=== PATIENT | female | born 1965 | race Caucasian/White ===

== ENCOUNTER 2023-02-05 13:34 | Outpatient (OUT) | payer OTHER, SELFPAY ==
--- NOTE | 2023-02-05 14:02 | CT_ITS ---
The [address] [address] Patient Name: HUMBERTO SON MRN: [id number] date: 1965 Sex: F Assigned Patient Location: CT Current Patient Location: CT Accession/Order Number: [id number] Exam Date: 02/05/2023 13:55 Report Date: 02/05/2023 14:22 At the request of: DANIEL DEVINE Procedure: CT abdomen pelvis wo con EXAM: CT abdomen pelvis wo con HISTORY: Gross Hematuria R31.0, Left Paraspinal Back Pain M54.89 COMPARISON: None. TECHNIQUE: Axial CT images were obtained of the abdomen and pelvis without intravenous contrast. Multiplanar reconstructions were performed. ABDOMEN/PELVIS FINDINGS: Lower Chest: Unremarkable. Liver: Normal nonenhanced appearance and contour. Biliary/Gallbladder: Unremarkable. Pancreas: Unremarkable. Spleen: Unremarkable. Adrenal Glands: Unremarkable. Kidneys: Multiple small bilateral renal calculi are present which are nonobstructive. Cystic lesions are noted in the kidneys bilaterally which are poorly evaluated on the current exam, including parapelvic cysts in the left kidney. Gastrointestinal/Peritoneum: No acute abnormality. Mild colonic diverticulosis present. The appendix is unremarkable. No free air or free fluid. Vascular: Unremarkable. Lymph Nodes: No enlarged lymph nodes by CT size criteria. Pelvic Organs: Unremarkable. Bladder: Unremarkable. Bones: No acute osseous abnormality. Soft tissues: Unremarkable. CT/CT abdomen pelvis wo con IMPRESSION: 1. No acute abnormality of the abdomen and pelvis. 2. Nephrolithiasis. 3. Bilateral renal cysts, poorly evaluated on the current exam. 4. Mild colonic diverticulosis. Electronically authenticated by: MARILEENA SCOTT Date: 02/05/2023 14:22
== END 2023-02-05 13:35 | disposition home or self-care (01) ==
PROVIDERS: PCP Internal Medicine; Visit Provider Internal Medicine
DX: R31.0 Gross hematuria (principal); M54.89 Other dorsalgia; N20.0 Calculus of kidney; N28.1 Cyst of kidney, acquired; K57.90 Diverticulosis of intestine, part unspecified, without perforation or abscess without bleeding
CPT/HCPCS: 74176

== ENCOUNTER 2023-02-10 07:31 | Outpatient (OUT) | payer OTHER, SELFPAY ==
[2023-02-10 08:11] LABS: Alanine Aminotransferase 17 U/L (14-59); Albumin Globulin Ratio 1.2; Albumin Level 3.7 g/dL (3.4-5.0); Alkaline Phosphatase 74 U/L (46-116); Anion Gap 10.5; Aspartate Amino Transferase 16 U/L (15-37); BUN Creatinine Ratio 21.2; Bilirubin Total 0.4 mg/dL (0.2-1.0); Calcium 8.7 mg/dL (8.5-10.1); Carbon Dioxide 29.2 mmol/L (21.0-32.0); Chloride 106 mmol/L (98-107); Chol HDL Ratio 3.1; Cholesterol 215 mg/dL (<=200); Estimated GFR (African America >60 (>=60); Estimated GFR (Non-African Ame >60 (>=60); Globulin 3.2 g/dL; Glucose 96 mg/dL (74-106); HDL Cholesterol 69 mg/dL (40-60); Potassium 3.7 mmol/L (3.5-5.1); Sodium 142 mmol/L (136-145); Total Protein 6.9 g/dL (6.4-8.2); Triglycerides 58 mg/dL (<=150); VLDL CHOLESTEROL 11.6 mg/dL
[2023-02-10 08:19] LABS: Bilirubin Urine NEGATIVE (NEGATIVE); Blood Urine MODERATE (NEGATIVE); Clarity Urine CLEAR (CLEAR); Color Urine LT. YELLOW (YELLOW); Glucose Urine UA NEGATIVE (NEGATIVE); Ketones Urine NEGATIVE (NEGATIVE); Leukocyte Esterase Urine TRACE (NEGATIVE); Nitrite Urine NEGATIVE (NEGATIVE); Protein Urine NEGATIVE (NEG/TRACE); Specific Gravity Urine 1.015 (1.005-1.025); Urobilinogen Urine 0.2 EU/dL (0.2-1.0); pH Urine 6.5 (5.0-9.0)
[2023-02-10 08:21] LABS: Bacteria Urine NONE SEEN #/HPF (NONE SEEN); Mucus Urine NONE SEEN (NONE SEEN); RBC Urine 0-2 #/HPF (0-2); Squamous Epithelial Cell Urine FEW #/LPF (NONE/RARE); WBC Urine 0-2 #/HPF (NONE SEEN)
[2023-02-10 08:30] LABS: Basophils Percent Auto 0.7 % (0.2-2.0); Eosinophils Absolute Auto 0.1 10^3/uL (0.0-0.7); Eosinophils Percent Auto 1.6 % (0.9-7.0); Hematocrit 39.8 % (36.0-48.0); Hemoglobin 13.1 g/dL (12.0-16.0); Immature Granulocytes Abs Auto 0.01 10^3/uL (0.00-0.03); Immature Granulocytes Pct Auto 0.2 % (0.0-0.5); Lymphocytes Absolute Auto 1.9 10^3/uL (1.2-3.8); Lymphocytes Percent Auto 43.5 % (20.5-60.0); Mean Corpuscular HGB Conc 32.9 g/dL (29.9-35.2); Mean Corpuscular Hemoglobin 29.8 pg (26.7-34.0); Mean Corpuscular Volume 90.7 fL (81.0-99.0); Mean Platelet Volume 10.9 fL (9.5-13.5); Monocytes Absolute Auto 0.3 10^3/uL (0.3-0.8); Monocytes Percent Auto 6.2 % (1.7-12.0); Neutrophils Absolute Auto 2.1 10^3/uL (1.4-6.5); Neutrophils Percent Auto 47.8 % (43.0-75.0); Platelet Count 215 10^3/uL (150-450); Red Blood Count 4.39 10^6/uL (4.20-5.40); White Blood Count 4.4 10^3/uL (4.0-11.0)
== END 2023-02-10 07:32 | disposition home or self-care (01) ==
PROVIDERS: PCP Internal Medicine; Visit Provider Orthopaedic Surgery
DX: Z00.00 Encounter for general adult medical examination without abnormal findings (principal)
CPT/HCPCS: 36415; 80053; 80061; 81001; 85025; 87086

== ENCOUNTER 2023-03-27 08:20 | Outpatient (OUT) | payer OTHER, SELFPAY ==
--- NOTE | 2023-03-27 | XR_ITS ---
The [address] [address] Patient Name: HUMBERTO SON MRN: [id number] date: 1965 Sex: F Assigned Patient Location: [facility] Current Patient Location: Accession/Order Number: [id number] Exam Date: 03/27/2023 08:30 Report Date: 03/28/2023 23:12 At the request of: OUMAR CORDOBA Procedure: XR abdomen 1V EXAMINATION: XR abdomen 1V HISTORY: GROSS HEMATURIA COMPARISON: CT abdomen pelvis 02/05/2023 FINDINGS: KIDNEY/URETER - RIGHT: No visible renal or ureteral calcifications. KIDNEY/URETER - LEFT: 7 mm calcification projecting over mid body of kidney. PELVIS: No appreciable ureteral stone. Numerous pelvic calcifications which appear to be stable and favor phleboliths. BOWEL: No abnormal dilation or deviation. BONES: No acute abnormality. OTHER: Negative. No abnormal gaseous collections. XR/XR abdomen 1V IMPRESSION: 1. Left nephrolithiasis on today's study. Prior CT study showed multiple calcifications within both kidneys. Evaluation is slightly limited today due to dense bowel content. 2. No appreciable ureteral stones. Electronically authenticated by: BRENDA SIDHU Date: 03/28/2023 23:12
== END 2023-03-27 08:21 | disposition home or self-care (01) ==
PROVIDERS: PCP Internal Medicine; Visit Provider Urology
DX: N02.9 Recurrent and persistent hematuria with unspecified morphologic changes (principal); N20.0 Calculus of kidney
CPT/HCPCS: 74018

== ENCOUNTER 2023-04-01 09:53 | Outpatient (OUT) | payer OTHER, SELFPAY ==
--- NOTE | 2023-04-01 10:12 | ECG_ITS ---
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
[2023-04-01 10:58] LABS: Basophils Percent Auto 0.6 % (0.2-2.0); Eosinophils Absolute Auto 0.1 10^3/uL (0.0-0.7); Eosinophils Percent Auto 1.5 % (0.9-7.0); Hematocrit 42.1 % (36.0-48.0); Hemoglobin 13.1 g/dL (12.0-16.0); Immature Granulocytes Abs Auto 0.01 10^3/uL (0.00-0.03); Immature Granulocytes Pct Auto 0.2 % (0.0-0.5); Lymphocytes Percent Auto 37.8 % (20.5-60.0); Mean Corpuscular HGB Conc 31.1 g/dL (29.9-35.2); Mean Corpuscular Hemoglobin 28.5 pg (26.7-34.0); Mean Corpuscular Volume 91.7 fL (81.0-99.0); Mean Platelet Volume 10.3 fL (9.5-13.5); Monocytes Absolute Auto 0.4 10^3/uL (0.3-0.8); Monocytes Percent Auto 6.6 % (1.7-12.0); Neutrophils Absolute Auto 2.8 10^3/uL (1.4-6.5); Neutrophils Percent Auto 53.3 % (43.0-75.0); Platelet Count 238 10^3/uL (150-450); Red Blood Count 4.59 10^6/uL (4.20-5.40); Red Cell Distribution Width 13.2 % (11.0-15.0); White Blood Count 5.3 10^3/uL (4.0-11.0)
[2023-04-01 11:14] LABS: INR 0.97; Partial Thromboplastin Time 30.2 sec (22.3-36.2); Prothrombin Time 10.3 sec (9.0-11.6)
[2023-04-01 11:15] LABS: Anion Gap 9.2; Calcium 8.8 mg/dL (8.5-10.1); Carbon Dioxide 29.8 mmol/L (21.0-32.0); Chloride 102 mmol/L (98-107); Estimated GFR (African America >60 (>=60); Estimated GFR (Non-African Ame >60 (>=60); Glucose 90 mg/dL (74-106); Sodium 137 mmol/L (136-145)
== END 2023-04-01 09:54 | disposition home or self-care (01) ==
LOC: PST 09:54
PROVIDERS: PCP Internal Medicine; Visit Provider Urology
DX: Z01.810 Encounter for preprocedural cardiovascular examination (principal); Z01.812 Encounter for preprocedural laboratory examination; R31.0 Gross hematuria; N20.0 Calculus of kidney
CPT/HCPCS: 80048; 85025; 85610; 85730; 93005

== ENCOUNTER 2023-04-07 12:25 | Day surgery (SDC) | payer OTHER, SELFPAY ==
[2023-04-01 10:44] VITALS: BP 128/77; PULSE 70; RESP 18; TEMP 36.3; O2SAT 97; BMI 32.8
[2023-04-07] VITALS (10 sets, daily range): BP systolic 126–173; BP diastolic 79–92; PULSE 50–70; RESP 10–20; TEMP 36.3; O2SAT 95–99; BMI 32.8
--- OUTSIDE RECORDS SUMMARY | 2023-04-07 12:39 | XMS_ITS | CCD ---
Author Name Unknown Address [address] [place] [address] Organization [facility] Care Team Providers Care Director Search Marketing Strategies Name Role Phone ANNETTE DEAN (ANU) Unavailable Unava ilable JUANITO SUTTON Unavailable Unavailable DO Leighton Adams Primary Care Provider TOD Schneider Attending Provider Leighton Adams Unavailable Tara Schneider Unavailable Gurpreet Smith Unavailable DO Leighton Adams Primary Care Provider TOD Schneider Attending Provider MD Gurpreet Smith Attending Provider GURPREET SMITH Attending Unavailable LUIS, GURPREET Admitting Unavailable DR LEIGHTON ADAMS Primary Care Unavailable DO Leighton Adams Primary Care Provider MD Gurpreet Smith Attending Provider [phone] Leighton Adams Primary Care Unavailable Tara Schneider Attending Unavailable Tara Schneider Admitting Unavailable Leighton Adams Primary Care Unavailable Tara Schneider Attending Unavailable Tara Schneider Admitting Unavailable Luis, Gurpreet Admitting Unavailable Leighton Adams Primary Care Unavailable Luis, Gurpreet Attending Unavailable Oleanat, Gurpreet Attending Unavailable Oleanat, Gurpreet Admitting Unavailable Leighton Adams Primary Care Unavailable Frida Montague Attending Unavailable LEIGHTON ADAMS Referring Unavailable Frida Montague Attending Unavailable Frida Montague Admitting Unavailable Frida Montague Attending Unavailable Allergies Allergy Classification Reported Allergen(s) Allergy Type Date of Onset Reaction(s) Facility (1 source) cefuroxime; Translations: [CEFUROXIME AXETIL] [facility] indomethacin; Translations: [INDOMETHACIN] Drug Allergy 08-06-19 18 [facility], Hives, Unknown [facility] Repository (19 sources) iodine; Translations: [IODINE] Drug Allergy 04-07-20 14 [facility] Repository (5 sources) Sulfonamides (Antibiotic); Translations: [SULFA (SULFONAMIDE ANTIBIOTICS)] Propensity to adverse reactions to drug (disorder) 08-06-19 18 [facility], [facility] Repository (1 source) SHELLFISH CONTAINING PRODUCTS; Translations: [SHELLFISH CONTAINING PRODUCTS] Propensity to adverse reactions to drug (disorder) 08-25-19 18 [facility] Repository (20 sources) Cefuroxime; Translations: [cefuroxime] Drug Allergy 08-06-19 18 [facility] (4 sources) Shellfish; Translations: [shellfish derived] Allergy to substance 08-06-19 18 [facility] (18 sources) Shellfish; Translations: [Shellfish] Drug allergy 04-07-20 14 [facility] Repository (17 sources) sulfaSALAzine Drug Allergy [facility] Other (1 source) Cefuroxime Drug Allergy 04-07-20 14 [facility] Repository (1 source) Procyclidine Drug Allergy 04-07-20 14 [facility] Repository (1 source) Sulfonamides (Antibiotic) Drug allergy (disorder) 04-07-20 14 [facility] Repository (8 sources) Contrast media Propensity to adverse reactions 01-06-20 13 Unknown [facility] Other (8 sources) Escitalopram Drug Allergy Unknown [facility] Other (8 sources) sulfADIAZINE Drug Allergy Unknown [facility] Other (8 sources) Sulfamethoxazole / Trimethoprim Drug Allergy Unknown [facility] Other (8 sources) Allergies Reconciled Propensity to adverse reactions Unknown [facility] Other (8 sources) Substance with sulfonamide structure and antibacterial mechanism of action (substance) Drug allergy 12-29-19 14 Unknown [facility] Other (8 sources) Iodinated contrast media (substance) Drug allergy Comment:cecelia tyson [facility] Other (8 sources) Biaxin *MACROLIDES* Propensity to adverse reactions Unknown [facility] Other (8 sources) patient allergy list reviewed by nurse or physicia Propensity to adverse reactions 07-19-19 Comment:Done [facility] Other (8 sources) Ceftin *CEPHALOSPORINS* Propensity to adverse reactions Unknown [facility] Other (1 source) Ciprofloxacin Drug Allergy Unknown [facility] Other (1 source) No Known Medication Allergies; Translations: [No Known Medication Allergies] Propensity to adverse reactions (disorder) [facility] Repository Medications Current Medications Medication Drug Class(es) Dates Sig (Normalized) Sig (Original) 120 actuat budesonide 0.16 mg/actuat / formoterol fumarate 0.0045 mg/actuat metered dose inhaler (3 sources) Corticosteroid, beta2-Adrenergic Agonist Start: 08-05-2017 Budesonide-Formoter ol (Symbicort) 160-4.5 mcg/actuation Hfa Aerosol Inhaler Active 1 INH INHALATION Q12H August 04, 2017 11:00pm fluticasone propionate 0.05 mg/actuat metered dose nasal spray (3 sources) Corticosteroid Start: 08-05-2017 Fluticasone Propionate (Flonase Allergy Relief) 50 mcg/actuation [place],Suspension Active 2 SPRAY INTRANASAL Daily August 04, 2017 11:00pm ibuprofen 800 mg oral tablet (3 sources) Nonsteroidal Anti-inflammatory Drug Start: 08-05-2017 take 800 mg by mouth three times daily Ibuprofen Active 800 MG PO Three times daily 30 August 04, 2017 11:00pm nitrofurantoin, macrocrystals 25 mg / nitrofurantoin, monohydrate 75 mg oral capsule (7 sources) Nitrofuran Antibacterial Start: 06-01-2022 take 1 capsule by mouth every twelve hours Nitrofurantoin Monohyd Macro 100 MG 1 capsule with food Orally every 12 hrs for 5 days May, Active Completed/Discontinued Medications Medication Drug Class(es) Dates Sig (Normalized) Sig (Original) acetaminophen 325 mg / HYDROcodone bitartrate 5 mg oral tablet (3 sources) Opioid Agonist Start: 08-05-2017 End: 08-10-2017 take 1 tablet by mouth twice daily Hydrocodone-Acetam inophen ([place]) 5-325 mg tablet Discontinued 1 TAB PO Twice daily 01 21August 05, 2017 August 09, 2017 11:01pm ciprofloxacin 250 mg oral tablet (18 sources) Quinolone Antimicrobial Start: 08-17-2022 take 1 tablet by mouth every twelve hours Ciprofloxacin HCl 250 MG 1 tablet Orally every 12 hrs for 5 days Jan, Not-Taking Triamcinolone (20 sources) Corticosteroid Start: 12-27-2017 Kenalog -40 mg Dec, 40 mg Start: 10-27-2017 KENALOG - 10 m g Oct, 40 mg Start: 02-11-2017 Kenalog -40 mg Jan, 40 mg Problems Active Problems Problem Classification Problem Date Documented Da te Episodic/Chronic Abdominal pain (16 sources) Right upper quadrant pain; Translations: [Right upper quadrant pain] Onset: 03-01-2017 Episodic Acute bronchitis (16 sources) Acute bronchitis; Translations: [Acute bronchitis, unspecified] Onset: 08-21-2013 Episodic Allergic reactions (20 sources) Allergic contact dermatitis due to plants, except food; Translations: [Allergic contact dermatitis due to plants, except food] Onset: 11-20-2013 Episodic Anxiety disorders (8 sources) Generalized anxiety disorder; Translations: [Generalized anxiety disorder] Chronic Asthma (20 sources) Mild persistent asthma, uncomplicated; Translations: [Asthma without status asthmaticus] Onset: 12-28-2013 Chronic Cardiac dysrhythmias (8 sources) Ventricular premature complex; Translations: [Ventricular premature depolarization] Chronic Cardiac dysrhythmias (8 sources) Palpitations; Translations: [Palpitations] Episodic Chronic obstructive pulmonary disease and bronchiectasis (8 sources) Acute exacerbation of chronic asthmatic bronchitis; Translations: [Chronic obstructive asthma, with (acute) exacerbation] Onset: 12-28-2017 Chronic Complications of surgical procedures or medical care (8 sources) Postartificial menopausal syndrome; Translations: [Symptomatic states associated with artificial menopause] Onset: 09-04-2014 Chronic Conditions associated with dizziness or vertigo (16 sources) Benign paroxysmal positional vertigo; Translations: [Benign paroxysmal vertigo, unspecified ear] Onset: 02-18-2015 Episodic Esophageal disorders (16 sources) Gastro-esophageal reflux disease with esophagitis; Translations: [Gastro-esophageal reflux disease with esophagitis, without bleeding] Onset: 04-18-2015 Chronic Essential hypertension (8 sources) Essential hypertension; Translations: [Essential (primary) hypertension] Onset: 04-18-2015 Chronic Gastrointestinal hemorrhage (17 sources) Melena; Translations: [Melena] Episodic Genitourinary symptoms and ill-defined conditions (20 sources) Dysuria; Translations: [Microscopic hematuria] Episodic Headache; including migraine (16 sources) Paroxysmal hemicrania; Translations: [Episodic paroxysmal hemicrania, not intractable] Onset: 04-04-2014 Chronic Immunizations and screening for infectious disease (16 sources) Vaccination given; Translations: [Encounter for immunization] Episodic Joint disorders and dislocations; trauma-related (18 sources) Derangement of right knee; Translations: [Unspecified internal derangement of right knee] Chronic Joint disorders and dislocations; trauma-related (2 sources) Other tear of lateral meniscus, current injury, right knee, initial encounter; Translations: [Other tear of lateral meniscus, current injury, right knee, subsequent encounter] Episodic Miscellaneous mental health disorders (8 sources) Somatoform disorder; Translations: [Other somatoform disorders] Onset: 03-10-2017 Chronic Nonspecific chest pain (20 sources) Chest pain; Translations: [Other chest pain] Onset: 10-05-2016 Episodic Osteoarthritis (19 sources) Osteoarthritis of right knee joint; Translations: [Unilateral primary osteoarthritis, right knee] Chronic Other bone disease and musculoskeletal deformities (3 sources) Costal chondritis; Translations: [Chondrocostal junction syndrome [[place]]] 08-05-2017 Episodic Other connective tissue disease (17 sources) Full thickness rotator cuff tear; Translations: [Complete rotator cuff tear or rupture of left shoulder, not specified as traumatic] Episodic Other connective tissue disease (8 sources) Medial epicondylitis of right humerus; Translations: [Medial epicondylitis, right elbow] Episodic Other connective tissue disease (1 source) Bursitis of right shoulder Episodic Other injuries and conditions due to external causes (17 sources) Traumatic injury; Translations: [Foreign body] Episodic Other injuries and conditions due to external causes (17 sources) H/O: injury; Translations: [Personal history of retained foreign body fully removed] Episodic Other injuries and conditions due to external causes (2 sources) Other injury of unspecified body region, initial encounter Episodic Other lower respiratory disease (16 sources) Cough; Translations: [Cough] Onset: 10-05-2016 Episodic Other nervous system disorders (8 sources) Meralgia paresthetica; Translations: [Meralgia paresthetica, bilateral lower limbs] Chronic Other non-traumatic joint disorders (3 sources) Pain in right knee Episodic Other non-traumatic joint disorders (1 source) Pain in right shoulder Episodic Other nutritional; endocrine; and metabolic disorders (20 sources) Obese class I; Translations: [Body mass index (BMI) 33.0-33.9, adult] Onset: 10-22-2014 Chronic Other nutritional; endocrine; and metabolic disorders (8 sources) Simple obesity ; Translations: [Other obesity due to excess calories] Onset: 10-22-2014 Chronic Other nutritional; endocrine; and metabolic disorders (8 sources) Obesity; Translations: [Obesity, unspecified] Chronic Other upper respiratory disease (8 sources) Chronic rhinitis; Translations: [Chronic rhinitis] Onset: 03-10-2017 Chronic Other upper respiratory disease (16 sources) Allergic rhinitis; Translations: [Allergic rhinitis, cause unspecified] Onset: 03-04-2015 Chronic Other upper respiratory disease (8 sources) Seasonal allergic rhinitis; Translations: [Other seasonal allergic rhinitis] Onset: 07-23-2017 Chronic Other upper respiratory disease (8 sources) Bleeding from nose; Translations: [Epistaxis] Episodic Other upper respiratory infections (8 sources) Chronic maxillary sinusitis; Translations: [Chronic maxillary sinusitis] Onset: 12-13-2014 Chronic Other upper respiratory infections (16 sources) Acute maxillary sinusitis; Translations: [Acute maxillary sinusitis, unspecified] Onset: 03-01-2017 Episodic Residual codes; unclassified (8 sources) Family history of ischemic heart disease; Translations: [Family history of ischemic heart disease and other diseases of the circulatory system] Episodic Spondylosis; intervertebral disc disorders; other back problems (8 sources) Cervical disc disorder; Translations: [Cervical disc disorder, unspecified, unspecified cervical region] Onset: 03-01-2018 Chronic Unclassified (8 sources) Exposure to acute respiratory syndrome coronavirus 2; Translations: [Contact with and (suspected) exposure to COVID-19] Unclassified (1 source) Pain in right shoulder; Translations: [Pain in right shoulder] Onset: 03-08-2023 Unclassified (1 source) Pain in right knee; Translations: [Pain in right knee] Onset: 05-21-2022 Viral infection (8 sources) Verruca vulgaris; Translations: [Viral wart, unspecified] Episodic Past or Other Problems Problem Classification Problem Date Documented Da te Episodic/Chronic Bacterial infection; unspecified site (8 sources) Bacterial infectious disease; Translations: [Bacterial infection, unspecified, in conditions classified elsewhere and of unspecified site] Onset: 06-15-2016 Episodic Biliary tract disease (8 sources) Gallstone; Translations: [Calculus of gallbladder without mention of cholecystitis or obstruction] Onset: 03-01-2017 Episodic Disorders of teeth and jaw (8 sources) Periapical abscess without sinus tract; Translations: [Periapical abscess without sinus] Resolved: 02-20-2021 Episodic Headache; including migraine (8 sources) Headache; Translations: [Headache, unspecified] Resolved: 02-20-2021 Episodic Influenza (8 sources) Influenza; Translations: [Influenza with other respiratory manifestations] Onset: 07-18-2018 Episodic Intracranial injury (8 sources) Concussion with no loss of consciousness; Translations: [Concussion without loss of consciousness, initial encounter] Onset: 02-12-2015 Episodic Malaise and fatigue (8 sources) Malaise and fatigue; Translations: [Other malaise and fatigue] Onset: 06-18-2015 Episodic Open wounds of extremities (8 sources) Open wound of finger without complication; Translations: [Laceration without foreign body of unspecified finger without damage to nail, initial encounter] Resolved: 02-20-2021 Episodic Other connective tissue disease (8 sources) Plantar fascial fibromatosis; Translations: [Plantar fascial fibromatosis] Onset: 10-22-2014 Episodic Other connective tissue disease (8 sources) Disorder of soft tissue; Translations: [Disorders of soft tissue, unspecified] Onset: 03-01-2018 Episodic Other connective tissue disease (8 sources) Fibromyalgia; Translations: [Fibromyalgia] Onset: 06-18-2015 Episodic Other ear and sense organ disorders (8 sources) Otalgia; Translations: [Otalgia, right ear] Onset: 02-12-2015 Episodic Other gastrointestinal disorders (8 sources) Oropharyngeal dysphagia; Translations: [Dysphagia, oropharyngeal phase] Onset: 03-10-2017 Episodic Other gastrointestinal disorders (8 sources) Constipation; Translations: [Constipation, unspecified] Onset: 12-13-2014 Episodic Other lower respiratory disease (20 sources) Dyspnea; Translations: [Shortness of breath] Onset: 10-05-2016 Resolved: 02-20-2021 Episodic Other lower respiratory disease (8 sources) Chronic cough; Translations: [Chronic cough] Onset: 08-05-2017 Episodic Other nervous system disorders (8 sources) Skin sensation disturbance; Translations: [Other disturbances of skin sensation] Onset: 04-06-2018 Episodic Other nervous system disorders (8 sources) Cranial nerve disorder; Translations: [Unspecified disorder of cranial nerves] Onset: 02-10-2018 Episodic Other non-traumatic joint disorders (8 sources) Arthralgia of the ankle and/or foot; Translations: [Pain in unspecified ankle and joints of unspecified foot] Onset: 10-22-2014 Episodic Other non-traumatic joint disorders (8 sources) Disorder of bursa of shoulder region; Translations: [Unspecified disorders of bursae and tendons in shoulder region] Onset: 04-18-2015 Episodic Other non-traumatic joint disorders (8 sources) Shoulder joint pain; Translations: [Pain in joint, shoulder region] Onset: 05-31-2013 Episodic Other non-traumatic joint disorders (8 sources) Arthralgia of the upper arm; Translations: [Pain in joint, upper arm] Onset: 10-28-2015 Episodic Other upper respiratory disease (8 sources) Hypertrophy of nasal turbinates; Translations: [Hypertrophy of nasal turbinates] Onset: 12-13-2014 Episodic Otitis media and related conditions (8 sources) Obstruction of Eustachian tube; Translations: [Unspecified obstruction of Eustachian tube] Onset: 11-03-2013 Episodic Residual codes; unclassified (8 sources) Requires influenza virus vaccination; Translations: [Need for prophylactic vaccination and inoculation, Influenza] Onset: 01-24-2015 Episodic Residual codes; unclassified (8 sources) Insomnia; Translations: [Insomnia, unspecified] Onset: 06-18-2015 Episodic Skin and subcutaneous tissue infections (8 sources) Cellulitis and abscess of foot excluding toe; Translations: [Cellulitis and abscess of foot, except toes] Onset: 11-20-2013 Episodic Spondylosis; intervertebral disc disorders; other back problems (11 sources) Nerve root disorder; Translations: [Radiculopathy, site unspecified] Onset: 05-31-2013 Episodic Sprains and strains (8 sources) Neck sprain; Translations: [Neck sprain and strain] Onset: 12-13-2014 Episodic Superficial injury; contusion (9 sources) Contusion of right knee, initial encounter; Translations: [Contusion of right upper arm] Onset: 02-14-2016 Episodic Results Test Name Value Interpretation Reference Range Facil ity Urine Cytology ([facility])on 06-06-2022 Urine Cytology Diagnosis Info Invalid Interpretation Code [facility] Comment on above: Result Comment: A:Ur ine,Urine:Voided Interpretation - MicroScopic Description - Adequacy - Gross Description Site ID:A color Yellow fixative Alcohol Specimen designated Urine received in alcohol preservative and labeled with the patient?s name, consists of 80ml clear yellow fluid. Electronically signed by : on: 04/05/2023 11:10:12 Performed By: #### 1 [id number] ####[facility] [address] [place] [address] Lab Reportson 04-02-2023 Lab Reports [id number] IFF Normal [facility] Lab Reports [id number] IFF Normal [facility] Ambulatory Visit Summaryon 1 06-01-2022 Ambulatory Visit Summary HUMBERTO VELASQUEZ :1965 Visit Date:03/31/2023 Ambulatory Visit Instructions Your Diagnosis Gross hematuria History of UTI Kidney stones Bilateral renal cysts Tests Performed Urnls Dip Stick Auto w/o Microscopy POC 70352 Your Care Team Attending Physician - Eddi ANGELO, Frida Hunt Primary Care Physician - LEIGHTON ADAMS DO Referring Physician - LEIGHTON ADAMS DO Procedures Performed Carpal tunnel, Hysterectomy, Knee, Tubal ligation. Discharge Vitals Heart Rate (Peripheral) 74 Respiratory Rate 16 Blood Pressure 130/90 Height 163 cm Height 64 in Weight 85.5 kg Weight 188.1 lb BMI 32.18 What to do next You Need to Schedule the Following Appointments Follow Up with Eddi ANGELO, MALIK Rice, URO When: Comments: Schedule procedure Where: Test Results Urnls Dip Stick Auto w/o Microscopy POC 12162 (03/31/2023) Bilirubin Urine Dipstick - Negative Blood Urine Dipstick - 3+ Large Glucose Urine Dipstick - Negative Ketones Urine Dipstick - Negative Leukocytes Urine Dipstick - Trace Nitrite Urine Dipstick - Negative Protein Urine Dipstick - Negative Specific Morse Urine Dipstick - 1.025 Urine Appearance Urine Dipstick - Clear Urine Color Urine Dipstick - Yellow Urobilinogen Urine Dipstick - Normal 0.2-1 EU/dl pH Urine Dipstick - 5.5 Allergies No Known Medication Allergies Problems Ongoing - Any problem that you are currently receiving treatment for. Bilateral renal cysts Gross hematuria Heart murmur History of UTI Kidney stones Uterine cancer Patient Survey You may receive a survey via text or e-mail asking about your office visit. Please share your experience with us by completing your survey. We appreciate your feedback and thank you for choosing us for your care. Education Materials Dietary Guidelines to Help Prevent Kidney Stones Kidney stones are deposits of minerals and salts that form inside your kidneys. Your risk of developing kidney stones may be greater depending on your diet, your lifestyle, the medicines you take, and whether you have certain medical conditions. Most people can lower their risks of developing kidney stones by following these dietary guidelines. Your dietitian may give you more specific instructions depending on your overall health and the type of kidney stones you tend to develop. What are tips for following this plan? Reading food labels ? Choose foods with no salt added or low-salt labels. Limit your salt (sodium) intake to less than 1,500 mg a day. ? Choose foods with calcium for each meal and snack. Try to eat about 300 mg of calcium at each meal. Foods that contain 200?500 mg of calcium a serving include: ? 8 oz (237 mL) of milk, smwrbpy-ttpgxedtocxr-bsakn milk, and calcium-fortifiedfruit juice. Calcium-fortified means that calcium has been added to these drinks. ? 8 oz (237 mL) of kefir, yogurt, and soy yogurt. ? 4 oz (114 g) of tofu. ? 1 oz (28 g) of cheese. ? 1 cup (150 g) of dried figs. ? 1 cup (91 g) of cooked broccoli. ? One 3 oz (85 g) can of sardines or mackerel. Most people need 1,000?1,500 mg of calcium a day. Talk to your dietitian about how much calcium is recommended for you. Shopping ? Buy plenty of fresh fruits and vegetables. Most people do not need to avoid fruits and vegetables, even if these foods contain nutrients that may contribute to kidney stones. ? When shopping for convenience foods, choose: ? Whole pieces of fruit. ? Pre-made salads with dressing on the side. ? Low-fat fruit and yogurt smoothies. ? Avoid buying frozen meals or prepared deli foods. These can be high in sodium. ? Look for foods with live cultures, such as yogurt and kefir. ? Choose high-fiber grains, such as whole-wheat breads, oat bran, and wheat cereals. Cooking ? Do not add salt to food when cooking. Place a salt shaker on the table and allow each person to add their own salt to taste. ? Use vegetable protein, such as beans, textured vegetable protein (TVP), or tofu, instead of meat in pasta, casseroles, and soups. Meal planning ? Eat less salt, if told by your dietitian. To do this: ? Avoid eating processed or pre-made food. ? Avoid eating fast food. ? Eat less animal protein, including cheese, meat, poultry, or fish, if told by your dietitian. To do this: ? Limit the number of times you have meat, poultry, fish, or cheese each week. Eat a diet free of meat at least 2 days a week. ? Eat only one serving each day of meat, poultry, fish, or seafood. ? When you prepare animal proteins, cut pieces into small portion sizes. For most meat and fish, one serving is about the size of the palm of your hand. ? Eat at least five servings of fresh fruits and vegetables each day. To do this: ? Keep fruits and vegetables on hand for snacks. ? Eat one piece of fruit or a handful of jessica (more content not included)... Normal [facility] Lab Reportson 03-31-2023 Lab Reports [id number] TIFF Normal [facility] Patient Educationon 03-31-20 Patient Education Nephrology Dietary Guidelines to Help Prevent Kidney Stones Kidney stones are deposits of minerals and salts that form inside your kidneys. Your risk of developing kidney stones may be greater depending on your diet, your lifestyle, the medicines you take, and whether you have certain medical conditions. Most people can lower their risks of developing kidney stones by following these dietary guidelines. Your dietitian may give you more specific instructions depending on your overall health and the type of kidney stones you tend to develop. What are tips for following this plan? Reading food labels ? Choose foods with no salt added or low-salt labels. Limit your salt (sodium) intake to less than 1,500 mg a day. ? Choose foods with calcium for each meal and snack. Try to eat about 300 mg of calcium at each meal. Foods that contain 200?500 mg of calcium a serving include: ? 8 oz (237 mL) of milk, dvjnqlx-clbxolibtrbp-xqhwt milk, and calcium-fortifiedfruit juice. Calcium-fortified means that calcium has been added to these drinks. ? 8 oz (237 mL) of kefir, yogurt, and soy yogurt. ? 4 oz (114 g) of tofu. ? 1 oz (28 g) of cheese. ? 1 cup (150 g) of dried figs. ? 1 cup (91 g) of cooked broccoli. ? One 3 oz (85 g) can of sardines or mackerel. Most people need 1,000?1,500 mg of calcium a day. Talk to your dietitian about how much calcium is recommended for you. Shopping ? Buy plenty of fresh fruits and vegetables. Most people do not need to avoid fruits and vegetables, even if these foods contain nutrients that may contribute to kidney stones. ? When shopping for convenience foods, choose: ? Whole pieces of fruit. ? Pre-made salads with dressing on the side. ? Low-fat fruit and yogurt smoothies. ? Avoid buying frozen meals or prepared deli foods. These can be high in sodium. ? Look for foods with live cultures, such as yogurt and kefir. ? Choose high-fiber grains, such as whole-wheat breads, oat bran, and wheat cereals. Cooking ? Do not add salt to food when cooking. Place a salt shaker on the table and allow each person to add their own salt to taste. ? Use vegetable protein, such as beans, textured vegetable protein (TVP), or tofu, instead of meat in pasta, casseroles, and soups. Meal planning ? Eat less salt, if told by your dietitian. To do this: ? Avoid eating processed or pre-made food. ? Avoid eating fast food. ? Eat less animal protein, including cheese, meat, poultry, or fish, if told by your dietitian. To do this: ? Limit the number of times you have meat, poultry, fish, or cheese each week. Eat a diet free of meat at least 2 days a week. ? Eat only one serving each day of meat, poultry, fish, or seafood. ? When you prepare animal proteins, cut pieces into small portion sizes. For most meat and fish, one serving is about the size of the palm of your hand. ? Eat at least five servings of fresh fruits and vegetables each day. To do this: ? Keep fruits and vegetables on hand for snacks. ? Eat one piece of fruit or a handful of berries with breakfast. ? Have a salad and fruit at lunch. ? Have two kinds of vegetables at dinner. ? You may be told to limit foods that are high in a substance called oxalate. These include: ? Spinach (cooked), rhubarb, beets, sweet potatoes, and Citizen Of [place] chard. ? Peanuts. ? Potato chips, lao fries, and baked potatoes with skin on. ? Nuts and nut products. ? Chocolate. ? If you regularly take a diuretic medicine, make sure to eat at least 1 or 2 servings of fruits or vegetables that are high in potassium each day. These include: ? Avocado. ? Banana. ? [place], prune, carrot, or tomato juice. ? Baked potato. ? Cabbage. ? Beans and split peas. Lifestyle ? Drink enough fluid to keep your urine pale yellow. This is the most important thing you can do. Spread your fluid intake throughout the day. ? If you drink alcohol: ? Limit how much you have to: ? 0?1 drink a day for women who are not . ? 0?2 drinks a day for men. ? Know how much alcohol is in your drink. In the [place] one drink equals one 12 oz bottle of beer (355 mL), one 5 oz glass of wine (148 mL), or one 1? oz glass of hard liquor (44 mL). ? Lose weight if told by your health care provider. Work with your dietitian to find an eating plan and weight loss strategies that work best for you. General information ? Talk to your health care provider and dietitian about taking daily supplements. Depending on your health and the cause of your kidney stones, you may be told: ? Do not take high-dose supplements of vitamin C (1,000 mg a day or more). ? To take a calcium supplement. ? To take a daily probiotic supplement. ? To take other supplements such as magnesium, fish oil, or vitamin B6. ? Take yleb-ise-buhykdm and prescription medicines only as told by your health care provider. These include supplements. What foods sh (more content not included)... Normal [facility] Physician Referralon 023 Physician Referral [id number] Normal [facility] RAD - CT Reporton 03-31-2023 RAD - CT Report [id number] Normal [facility] RAD - MISCon 03-31-2023 RAD - MISC [id number] FF Normal [facility] Screenson 03-31-2023 Screens [id number] IFF Normal [facility] Urine Cytology ([facility])on 06-01-2022 Method of Extraction Voided Normal F [facility] Comment on above: Performed By: #### 1 [id number] ####[facility] [id number] Number of Jars 1 Invalid Interpretation Code [facility] Comment on above: Performed By: #### 1 [id number] ####[facility] [address] [place] [address] UC Specimen Urine Normal [facility] Comment on above: Performed By: #### 1 [id number] ####[facility] [address] [place] [address] UC Type of Service Technical Only Normal Fi [facility] Comment on above: Performed By: #### 1 [id number] ####[facility] [address] [place] [address] RAD - MISCon 03-30-2023 RAD - MISC [id number] FF Normal [facility] XR shoulder RT min 2V*on XR shoulder RT min 2V* [facility] [place] [address] XRay Report Signed Patient: Humberto Velasquez MR#: [id number] : 1965 Acct:[id number] Age/Sex: 57 / F ADM Date: 03/08/23 Loc: [facility] Room: Type: [facility] Attending Dr: Gurpreet Smith MD Copies to: Gurpreet Smith MD Ordering Provider: Gurpreet Smith MD Date of Service: 03/08/23 XR/XR shoulder RT min 2V*: Acute pain of right shoulder RIGHT SHOULDER - - 4 views CLINICAL HISTORY: Right shoulder pain for 6 weeks. COMPARISON: None FINDINGS: Mild degenerative changes of the AC and glenohumeral joints without acute bony process. XR/XR shoulder RT min 2V* IMPRESSION: MILD DEGENERATIVE CHANGES WITHOUT ACUTE BONY PROCESS. Impression dictated by: Joe Ramirez Jr., D.ONunu03/08/2023 3:07 PM Dictation Location: [place] [address] Transcribed By: [facility] 03/08/23 1507 Dictated By: Joe Ramirez Jr DO 03/08/23 1506 Signed By: 03/08/23 1507 [facility] Physician Orderon 02-17-2023 Physician Order [id number] [facility] XR knee RT 2Von 07-09-2022 XR knee RT 2V [facility] [address] [place] [address] [place] [address] XRay Report Signed Patient: Humberto Velasquez MR#: [id number] : 1965 Acct:[id number] Age/Sex: 56 / F ADM Date: 07/09/22 Loc: [facility] Room: Type: [facility] Attending Dr: Gurpreet Smith MD Copies to: Gurpreet Smith MD Ordering Provider: Gurpreet Smith MD Date of Service: 07/09/22 XR/XR knee RT 2V: Acute pain of right knee XR knee RT 2V 07/09/2022 8:01 AM SIGNS AND SYMPTOMS: Right knee pain PROTOCOL: Frontal and lateral radiograph of the right knee COMPARISON: 05/06/2022 FINDINGS: There is mild narrowing of the weightbearing and patellofemoral joint. There is spurring of the tibial spines, medial tibial plateau, and superior pole the patella. There is no significant joint effusion. No significant soft tissue swelling. No fracture or dislocation. XR/XR knee RT 2V IMPRESSION: No acute bony injury. Mild tricompartmental degenerative changes are noted. Impression dictated by: Hal Hutchinson M.D.07/09/2022 11:46 AM Dictation Location: [place] [address] Transcribed By: [facility] 07/09/22 1146 Dictated By: Hal Hutchinson II, MD 07/09/22 1146 Signed By: 07/09/22 1146 [facility] Urinalysis - DIPSTICKon 05-20 Appearance (U) cloudy [place] [employer] Other Bilirubin Ql (U) Negative [place] [employer] Other Color (U) yellow [facility] [employer] Other Glucose Ql (U) Negative [employer] Other Hemoglobin Ql (U) [facility] oast [employer] Other Ketones Ql (U) Negative [place] [employer] Other Leukocyte esterase Test stri p Ql (U) small [facility] Prof [employer]ional [employer] Other Nitrite Ql (U) Negative [place] [employer] Other pH (U) 5 [pH] [facility] [employer] Other Protein Ql (U) Negative [place] [employer] Other Specific gravity (U) [Rel density] 1.010 [facility] [employer] Other Urobilinogen (U) [Mass/Vol] 0.2 mg/dL [facility] [employer] Other Urinalysis - DIPSTICK Nor [facility] [employer] Other MR knee LT wo conon 05-21-19 MR knee LT wo con [facility] [address] [place] [address] [place] [address] MRI Report Signed Patient: Humberto Velasquez MR#: [id number] : 1965 Acct:[id number] Age/Sex: 56 / F ADM Date: 05/21/22 Loc: Room: Type: [facility] Attending Dr: Tara WYATTC Copies to: LAMIN Adamson Ordering Provider: LAMIN Adamson Date of Service: 05/21/22 MR/MR knee LT wo con: ACUTE PAIN MR knee LT wo con 05/21/2022 7:18 PM SIGNS AND SYMPTOMS: Acute right knee pain beneath patella PROTOCOL: Multiplanar multisequence MR images of the right knee were obtained without IV contrast COMPARISON: Radiographs 05/06/2022 FINDINGS: Fluid: There is a small joint effusion. There is no evidence of Plunkett's cyst.. Medial compartment: Medial meniscus: Intact. Medial collateral ligament: Intact. Medial femoral condyle cartilage: Preserved. Medial tibial plateau cartilage: Preserved. Lateral compartment: Lateral meniscus: There is a complex predominantly radially oriented tear throughout the lateral meniscus. No displaced fragments are visualized.. There is a complex parameniscal cyst projecting from the anterior horn measuring 7 mm in greatest dimension. Lateral collateral ligament: Intact. Edema is noted along the distal iliotibial band. Lateral femoral condyle cartilage: There is partial thickness chondromalacia.. Lateral tibial plateau cartilage: There is full thickness chondromalacia with underlying subchondral edema. There is mild subchondral cystic change.. Posterolateral corner: Popliteus tendon: Intact. Popliteofibular ligament: Intact. Proximal tibiofibular joint: Preserved. Anterior compartment: Alignment: Normal. Quadriceps tendon: Intact. Patellar tendon: Intact. Retinaculum: Medial intact. Lateral intact. Patellar cartilage: There is partial thickness chondromalacia. Trochlea: Preserved. . Plica: None. Hoffa fat pad: Edema is present in Hoffa's fat pad Intercondylar compartment: Anterior cruciate ligament: Thin but grossly intact. This may be secondary to a remote partial thickness tear. Posterior cruciate ligament: Intact. Bones (other than subarticular marrow): Normal. Muscles: Normal. Vessels: Normal. Nerves: Normal. MR/MR knee LT wo con IMPRESSION: There is a complex predominantly radially oriented tear throughout the lateral meniscus. No displaced fragments are visualized.. There is a complex parameniscal cyst projecting from the anterior horn measuring 7 mm in greatest dimension. There is partial thickness chondral malacia of the lateral femoral condyle with full thickness chondromalacia, subchondral edema, and subchondral cystic change along the lateral tibial plateau. Edema is noted along the distal iliotibial band. There is a small joint effusion. There is mild partial thickness chondromalacia along the undersurface of the patella. Impression dictated by: Hal Hutchinson M.D.05/21/2022 8:38 PM Dictation Location: [place] [address] Transcribed By: [facility] 05/21/222037 Dictated By: Hal Hutchinson II, MD 05/21/222029 Signed By: 05/21/222037 [facility] MR knee RT wo [facility] 05-21-19 MR knee RT wo [place] [id number] MRI Report Signed Patient: Humberto Velasquez MR#: [id number] : 1965 Acct:[id number] Age/Sex: 56 / F ADM Date: 05/21/22 Loc: Room: Type: [facility] Attending Dr: Tara BARON Copies to: LAMIN Adamson Ordering Provider: LAMIN Adamson Date of Service: 05/21/22 MR/MR knee RT wo con: PAIN MR knee RT wo con 05/21/2022 7:18 PM SIGNS AND SYMPTOMS: Acute right knee pain beneath patella PROTOCOL: Multiplanar multisequence MR images of the right knee were obtained without IV contrast COMPARISON: Radiographs 05/06/2022 FINDINGS: Fluid: There is a small joint effusion. There is no evidence of Plunkett's cyst.. Medial compartment: Medial meniscus: Intact. Medial collateral ligament: Intact. Medial femoral condyle cartilage: Preserved. Medial tibial plateau cartilage: Preserved. Lateral compartment: Lateral meniscus: There is a complex predominantly radially oriented tear throughout the lateral meniscus. No displaced fragments are visualized.. There is a complex parameniscal cyst projecting from the anterior horn measuring 7 mm in greatest dimension. Lateral collateral ligament: Intact. Edema is noted along the distal iliotibial band. Lateral femoral condyle cartilage: There is partial thickness chondromalacia.. Lateral tibial plateau cartilage: There is full thickness chondromalacia with underlying subchondral edema. There is mild subchondral cystic change.. Posterolateral corner: Popliteus tendon: Intact. Popliteofibular ligament: Intact. Proximal tibiofibular joint: Preserved. Anterior compartment: Alignment: Normal. Quadriceps tendon: Intact. Patellar tendon: Intact. Retinaculum: Medial intact. Lateral intact. Patellar cartilage: There is partial thickness chondromalacia. Trochlea: Preserved. . Plica: None. Hoffa fat pad: Edema is present in Hoffa's fat pad Intercondylar compartment: Anterior cruciate ligament: Thin but grossly intact. This may be secondary to a remote partial thickness tear. Posterior cruciate ligament: Intact. Bones (other than subarticular marrow): Normal. Muscles: Normal. Vessels: Normal. Nerves: Normal. MR/MR knee RT wo con IMPRESSION: There is a complex predominantly radially oriented tear throughout the lateral meniscus. No displaced fragments are visualized.. There is a complex parameniscal cyst projecting from the anterior horn measuring 7 mm in greatest dimension. There is partial thickness chondral malacia of the lateral femoral condyle with full thickness chondromalacia, subchondral edema, and subchondral cystic change along the lateral tibial plateau. Edema is noted along the distal iliotibial band. There is a small joint effusion. There is mild partial thickness chondromalacia along the undersurface of the patella. Impression dictated by: Hal Hutchinson M.D.05/21/2022 8:38 PM Dictation Location: [id number] Transcribed By: [facility] 05/21/222037 Dictated By: Hal Hutchinson II, MD 05/21/222029 Signed By: 05/27/22 1524 [facility] MR knee RT wo con [facility] [employer] Other MR knee RT wo con [facility] N [facility] [employer] Other MR knee RT wo con 1111 [facility] [employer] Other [place] [address] [employer] Other MR knee RT wo con MRI Report [facility] [employer] Other MR knee RT wo con Signed [employer] Other MR knee RT wo con Patient: Rosendo Velasquez jody Kaylyn MR#: [id number] [employer] Other MR knee RT wo con [id number] [employer] Other MR knee RT wo con : 1965 Acct:[id number] [employer] Other MR knee RT wo con Age/Sex: 56 / F ADM Date: 05/21/22 [email or web address] Other MR knee RT wo con Loc: MR Room: Type: [facility] [employer] Other MR knee RT wo con Attending Dr: Aimee BARON [facility] [employer] Other MR knee RT wo con Copies to: LAMIN Adamson [facility] [employer] Other MR knee RT wo con Ordering Provider: LAMIN March [facility] [employer] Other MR knee RT wo con Date of Service: 05/21/22 [employer] Other MR knee RT wo con [id number]) MR/MR knee RT wo con: PAIN [facility] [employer] Other MR knee RT wo con MR knee RT wo con 05/21/2022 7:18 PM [facility] [employer] Other MR knee RT wo con SIGNS AND SYMPTOMS: Acute right knee pain beneath patella [facility] [employer] Other MR knee RT wo con PROTOCOL: Multiplana r multisequence MR images of the right knee were obtained without IV contrast [facility] [employer] Other MR knee RT wo con COMPARISON: Radiogra phs 05/06/2022 [facility] [employer] Other MR knee RT wo con FINDINGS: [facility] [employer] Other MR knee RT wo con Fluid: There is a sm all joint effusion. There is no evidence of Plunkett's cyst.. [email or web address] Other MR knee RT wo con Medial compartment: [employer] Other MR knee RT wo con Medial meniscus: Intact. [employer] Other MR knee RT wo con Medial collateral li gament: Intact. [email or web address] Other MR knee RT wo con Medial femoral condy le cartilage: Preserved. [facility] [employer] Other MR knee RT wo con Medial tibial platea u cartilage: Preserved. [facility] [employer] Other MR knee RT wo con Lateral compartment: [employer] Other MR knee RT wo con Lateral meniscus: Th ere is a complex predominantly radially oriented tear throughout the lateral [facility] [employer] Other MR knee RT wo con meniscus. No displac ed fragments are visualized.. There is a complex parameniscal cyst projecting [facility] [employer] Other MR knee RT wo con from the anterior ho rn measuring 7 mm in greatest dimension. [employer] Other MR knee RT wo con Lateral collateral l igament: Intact. Edema is noted along the distal iliotibial band. [place] [employer] Other MR knee RT wo con Lateral femoral cond yle cartilage: There is partial thickness chondromalacia.. [employer] Other MR knee RT wo con Lateral tibial plate au cartilage: There is full thickness chondromalacia with underlying subchondral [place] [employer] Other MR knee RT wo con edema. There is mild subchondral cystic change.. [employer] Other MR knee RT wo con Posterolateral corner: [employer] Other MR knee RT wo con Popliteus tendon: Intact. [employer] Other MR knee RT wo con Popliteofibular liga ment: Intact. [employer] Other MR knee RT wo con Proximal tibiofibula r joint: Preserved. [employer] Other MR knee RT wo con Anterior compartment: [employer] Other MR knee RT wo con Alignment: Normal. [employer] Other MR knee RT wo con Quadriceps tendon: Intact. [employer] Other MR knee RT wo con Patellar tendon: Intact. [employer] Other MR knee RT wo con Retinaculum: Medial intact. Lateral intact. [employer] Other MR knee RT wo con Patellar cartilage: There is partial thickness chondromalacia. [employer] Other MR knee RT wo con Trochlea: Preserved. . Plica: None. Hoffa fat pad: Edema is present in Hoffa's fat pad [employer] Other MR knee RT wo con Intercondylar compartment: [employer] Other MR knee RT wo con Anterior cruciate li gament: Thin but grossly intact. This may be secondary to a remote partial [employer] Other MR knee RT wo con thickness tear. No [employer] Other MR knee RT wo con Posterior cruciate l igament: Intact. [employer] Other MR knee RT wo con Bones (other than montes barticular marrow): Normal. [employer] Other MR knee RT wo con Muscles: Normal. N [employer] Other MR knee RT wo con Vessels: Normal. [employer] Other MR knee RT wo con Nerves: Normal. No [employer]ime Other MR knee RT wo con M R/MR knee RT wo con [employer] Other MR knee RT wo con IMPRESSION: [employer] Other MR knee RT wo con There is a complex p redominantly radially oriented tear throughout the lateral meniscus. No [employer] Other MR knee RT wo con displaced fragments are visualized.. There is a complex parameniscal cyst projecting from the [employer] Other MR knee RT wo con anterior horn measur ing 7 mm in greatest dimension. [employer] Other MR knee RT wo con There is partial thi ckness chondral malacia of the lateral femoral condyle with full thickness [employer] Other MR knee RT wo con chondromalacia, subc hondral edema, and subchondral cystic change along the lateral tibial plateau. [employer] Other MR knee RT wo con Edema is noted along the distal iliotibial band. [employer] Other MR knee RT wo con There is a small joint effusion. [employer] Other MR knee RT wo con There is mild partia l thickness chondromalacia along the undersurface of the patella. [employer] Other MR knee RT wo con Impression dictated by: Hal Hutchinson M.D.05/21/2022 8:38 PM [employer] Other MR knee RT wo con Dictation Location: [place] [address] [employer] Other MR knee RT wo con Transcribed By: MIRACLE 05/21/222037 [employer] Other MR knee RT wo con Dictated By: Hal Hutchinson II, MD 05/21/222029 [employer] Other MR knee RT wo con Signed By: 05/27/22 1524 [employer] Other XR knee RT 2Von 05-06-2022 XR knee RT 2V [address] [address] XRay Report Signed Patient: Humberto Velasquez MR#: [id number] : 1965 Acct:[id number] Age/Sex: 56 / F ADM Date: 05/06/22 Loc: [facility] Room: Type: [facility] Attending Dr: Tara Schneider [employer]-C Copies to: LAMIN Adamson Ordering Provider: LAMIN Adamson Date of Service: 05/06/22 XR/XR knee RT 2V: Acute pain of right knee RIGHT KNEE - 2 views COMPARISON: 06/01/2018 CLINICAL DATA: Anterior and lateral right knee pain since yesterday. Lateral lump and feeling of instability. AP and lateral standing views were obtained. There is no acute fracture or dislocation. Mild narrowing of the lateral tibiofemoral joint compartment is again noted. Minor tricompartment marginal spurring is seen. There is a trace amount of joint fluid. No focal soft tissue swelling is noted. XR/XR knee RT 2V IMPRESSION: MILD DEGENERATIVE CHANGE. NO ACUTE BONY FINDINGS. Impression dictated by: Funmilayo Mccoy M.D.05/06/2022 3:22 PM Dictation Location: [place] [address] Transcribed By: [facility] 05/06/22 1522 Dictated By: Funmilayo Mccoy MD 05/06/22 1519 Signed By: 05/06/22 1522 Normal [facility] XR knee RT 2V [facility] [employer] Other XR knee RT 2V [facility] [employer] Other XR knee RT 2V 1111 [facility] [employer] Other XR knee RT 2[place] [address] [facility] [employer] Other XR knee RT 2V XRay Report [facility] [employer] Other XR knee RT 2V Signed [employer] Other XR knee RT 2V Patient: Rosendo Velasquez MR#: [id number] [employer] Other XR knee RT 2V [id number] [employer] Other XR knee RT 2V : 1965 Acct:[id number] [employer] Other XR knee RT 2V Age/Sex: 56 / F ADM Date: 05/06/22 [employer] Other XR knee RT 2V Loc: [facility] Room: Type: [facility] [employer] Other XR knee RT 2V Attending Dr: Aimee BARON [employer] Other XR knee RT 2V Copies to: LAMIN Adamson [employer] Other XR knee RT 2V Ordering Provider: LAMIN March [email or web address] Other XR knee RT 2V Date of Service: 05/06/22 [employer] Other XR knee RT 2V [id number]) XR/XR knee RT 2V: Acute pain of right knee [email or web address] Other XR knee RT 2V RIGHT KNEE - 2 views N [facility] [employer] Other XR knee RT 2V COMPARISON: 06/01/2018 [employer] Other XR knee RT 2V CLINICAL DATA: Anter ior and lateral right knee pain since yesterday. Lateral lump and feeling of [employer] Other XR knee RT 2V instability. [employer] [facility] [employer] Other XR knee RT 2V AP and lateral stand ing views were obtained. There is no acute fracture or dislocation. Mild [employer] Other XR knee RT 2V narrowing of the lat eral tibiofemoral joint compartment is again noted. Minor tricompartment zumatek Other XR knee RT 2V marginal spurring is seen. There is a trace amount of joint fluid. No focal soft tissue swelling Wonga Other XR knee RT 2V is noted. zumatek Other XR knee RT 2V X R/XR knee RT 2V [email or web address] Other XR knee RT 2V IMPRESSION: Wonga Other XR knee RT 2V MILD DEGENERATIVE CHANGE. [employer]atek Other XR knee RT 2V NO ACUTE BONY FINDINGS. [employer]atek Other XR knee RT 2V Impression dictated by: Funmilayo Mccoy M.D.05/06/2022 3:22 PM blinkbox music Other XR knee RT 2V Dictation Location: [place] [address] zumatek Other XR knee RT 2V Transcribed By: MIRACLE 05/06/22 [facility] zumatek Other XR knee RT 2V Dictated By: Funmilayo Mccoy MD 05/06/22 [facility] [email or web address] Other XR knee RT 2V Signed By: zumatek Other XR knee RT 2V 05/06/22 [facility]7 i[employer]wn Other SCREENING MAMMOGRAM W/ROB, BILATERAL*on 12-31-2021 SCREENING MAMMOGRAM W/ROB, BILATERAL* CLINICAL HISTORY: Screening Mammogram COMPARISON: Priors dating back to 2016 TECHNIQUE: 2D and 3D mammogram imaging of both breasts was performed. RESULT: DENSITY: There are scattered areas of fibroglandular density. There is no suspicious mass, asymmetry, architectural distortion, or calcification. No significant change since the prior mammograms. IMPRESSION: BIRADS 1 : NEGATIVE, NORMAL INTERVAL FOLLOW UP FOLLOW-UP: 12 months DENSITY: Scattered MAMMOGRAPHY IS VERY IMPORTANT TO YOUR HEALTH. THE CURRENT [place] [employer] OF [employer] AND [employer] COMPREH[employer] NETWORK GUIDELINES RECOMMENDS ANNUAL MAMMOGRAPHY BEGINNING AT AGE 41 THIS FACILITY USES A REMINDER SYSTEM TO ENSURE ALL PATIENTS RECEIVE REMINDER NOTIFICATIONS AT THE APPROPRIATE TIME BASED ON THE RECOMMENDATIONS OF THIS EXAM. 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 Accredited by the ACR and FDA. Report reported and signed by Bakari Ly on 12/31/2021 1324 Normal [facility] Specialist [facility] 08-25-2017 CNPN Telephone (PULMMN) --------HUMBERTO VELASQUEZ ([id number]) 1965 FDate Time Provider Department08/25/17 JUANITO SUTTON During your visit today, we recorded the following information about you:Negin Benitez 08/25/2017 10:25 AM AddendumImaging of ChestAllergies As of Date: 08/25/2017 Noted Allergy ReactionCEFTIN (CEFUROXIME AXETIL) 08/24/2017 4 - HivesINDOSIN (INDOMETHACIN) 08/24/2017 4 - HivesIODINE 08/24/2017 4 - HivesSHELLFISH CONTAINING PRODUCTS 08/24/2017 4 - HivesSULFA (SULFONAMIDE ANTIBIOTICS) 08/24/2017 4 - HivesDate Reviewed: 08/24/2017Reviewed by: Juanito Sutton - Fully AssessedReason for Visit: Imaging of Chest [Other]Prescriptions as of 08/25/2017 Sig: AZELASTINE 137 MCG (0.1 %) NA* Use 2 Sprays in each nostril * MONTELUKAST 10 MG TABLET Take 1 tablet by mouth daily *Problem List As Of Date: 08/25/2017(None) Status:Closed by NEGIN BENITEZ on 08/25/17 Normal [facility] ALGN Resp Region 7 018 A fumigatus IgE <0.35 Normal <0.35 [facility] Comment on above: Performed By: #### C BCDIF, TSH, VITD, IGE, RESPR7 ####[phone] A. fumigatus-Class 0 Normal 0 [facility] Comment on above: Performed By: #### C BCDIF, TSH, VITD, IGE, RESPR7 ####[place] [address] [address] [place] [phone] A. tenuis-Class 0 Normal 0 [facility] Comment on above: Performed By: #### C BCDIF, TSH, VITD, IGE, RESPR7 ####[place] [phone] Alternariatenuis IgE <0.35 Normal <0.[address] [facility] Comment on above: Performed By: #### C BCDIF, TSH, VITD, IGE, RESPR7 ####[place] [address] [address] [phone] [place] IgE <0.35 Normal 0-0.35 [facility] Comment on above: Performed By: #### C BCDIF, TSH, VITD, IGE, RESPR7 ####[place] [phone]CA[address]a [place] [phone] [place]-Class 0 Normal 0 [facility] Comment on above: Performed By: #### C BCDIF, TSH, VITD, IGE, RESPR7 ####[facility] [phone] [place] IgE <0.35 Normal <0.35 [facility] Comment on above: Performed By: #### C BCDIF, TSH, VITD, IGE, RESPR7 ####[place] [address] [place] [address] [place]-Class 0 Normal [address] [facility] Comment on above: Performed By: #### C BCDIF, TSH, VITD, IGE, RESPR7 ####[place] [address] [address] [address] C.herbarum-Class 0 Normal 0 [facility] Comment on above: Performed By: #### C BCDIF, TSH, VITD, IGE, RESPR7 ####[place] [address] [address] Cat [place] IgE <0.35 Normal <0.35 [facility] Comment on above: Performed By: #### C BCDIF, TSH, VITD, IGE, RESPR7 ####[place] [address] [address] Cat [place]-Class 0 Normal 0 [facility] Comment on above: Performed By: #### C BCDIF, TSH, VITD, IGE, RESPR7 ####[place] [address] [place] [phone] Clad herbarum IgE <0.35 Normal <0.35 [facility] Comment on above: Performed By: #### C BCDIF, TSH, VITD, IGE, RESPR7 ####[place] [address] [address] [place] [phone] D pteronyssinus IgE 0.44 KU/L High 0-0.35 [facility] Comment on above: Performed By: #### C BCDIF, TSH, VITD, IGE, RESPR7 ####[place] [address] [address] [place] [address] D. farinae-Class 0 Normal 0 [facility] Comment on above: Performed By: #### C BCDIF, TSH, VITD, IGE, RESPR7 ####[place] [phone]CSh[address] [place] [address] D.pteronyssin-Class 1 High 0 [facility] Comment on above: Performed By: #### C BCDIF, TSH, VITD, IGE, RESPR7 ####[place] [phone] AveClevelMichael [place]ille [address] Derm farinae IgE <0.35 Normal <0.35 [facility] Comment on above: Performed By: #### C BCDIF, TSH, VITD, IGE, RESPR7 ####[place] [address] [address]ClevelMichael [place] [address] Dog Dander IgE <0.35 Normal <0.35 [facility] Comment on above: Performed By: #### C BCDIF, TSH, VITD, IGE, RESPR7 ####[place] [address] [place] [address] Dog Dander-Class 0 Normal 0 [facility] Comment on above: Performed By: #### C BCDIF, TSH, VITD, IGE, RESPR7 ####[place] [phone] AveClevelMichael [place]ille [address] [place] IgE <0.35 Normal <0.35 [facility] Comment on above: Performed By: #### C BCDIF, TSH, VITD, IGE, RESPR7 ####[place] [phone] AveClevelMichael [place] [address] [place]-Class 0 Normal 0 [facility] Comment on above: Performed By: #### C BCDIF, TSH, VITD, IGE, RESPR7 ####[place] [phone] AveClevelMichael [place] [address] [place] IgE <0.35 Normal <0.35 [facility] Comment on above: Performed By: #### C BCDIF, TSH, VITD, IGE, RESPR7 ####[facility]ClevelTony Ville [phone] [place]-Class 0 Normal 0 [facility] Comment on above: Performed By: #### C BCDIF, TSH, VITD, IGE, RESPR7 ####[facility]ClevelJames Ville [phone] [place] IgE <0.35 Normal <0.35 [facility] Comment on above: Performed By: #### C BCDIF, TSH, VITD, IGE, RESPR7 ####[place] [address]ClevelJames [place] [phone] [place]-Class 0 Normal 0 [facility] Comment on above: Performed By: #### C BCDIF, TSH, VITD, IGE, RESPR7 ####[place] [address] [address]CD[address] [place] [phone] [place]-Class 0 Normal 0 [facility] Comment on above: Performed By: #### C BCDIF, TSH, VITD, IGE, RESPR7 ####[place] [phone] AveClevelJames [place] [phone] [place] IgE <0.35 Normal <0.35 [facility] Comment on above: Performed By: #### C BCDIF, TSH, VITD, IGE, RESPR7 ####[facility] AveClevelandCharles Ville [phone] [place] El-Class 0 Normal [address] [facility] Comment on above: Performed By: #### C BCDIF, TSH, VITD, IGE, RESPR7 ####[place] [phone] AveClevelJames [place] [phone] Rough Marshelder IgE <0.35 Normal <0.[address] [facility] Comment on above: Performed By: #### C BCDIF, TSH, VITD, IGE, RESPR7 ####[place] [address] [address]CAlyssa [place] [phone] Short [place] IgE <0.35 Normal <0.35 [facility] Comment on above: Performed By: #### C BCDIF, TSH, VITD, IGE, RESPR7 ####[place] [address] [address]CA[address] [place] [phone] Short [place]-Class 0 Normal 0 [facility] Comment on above: Performed By: #### C BCDIF, TSH, VITD, IGE, RESPR7 ####[place] [address] [place] [phone] CBC and Differentialon 08-24 Abs Baso <0.03 Normal <0.11 [facility] Comment on above: Performed By: #### C BCDIF, TSH, VITD, IGE, RESPR7 ####[place] [address] [address] AvChristina [place] [phone] Abs Branch 0.34 k/uL Normal <0.87 [facility] Comment on above: Performed By: #### C BCDIF, TSH, VITD, IGE, RESPR7 ####[place] [address] [address]CA[address] [place] [phone] Abs Neut 2.53 k/uL Normal 1.45-7.50 [facility] Comment on above: Performed By: #### C BCDIF, TSH, VITD, IGE, RESPR7 ####[place] [address] [address]CA[address] [place] [phone] Basophils/100 WBC Auto (Bld) 0.4 % Normal [facility] Comment on above: Performed By: #### C BCDIF, TSH, VITD, IGE, RESPR7 ####[place] [address] [address]CCombined [place]ocks, [place] [phone] DTYPE Auto Diff Normal [facility] Comment on above: Performed By: #### C BCDIF, TSH, VITD, IGE, RESPR7 ####[facility] AveClevelLand O'Lakes, [place] [phone] Eosinophils 0.08 10*3/uL Normal <0.46 [facility] Comment on above: Performed By: #### C BCDIF, TSH, VITD, IGE, RESPR7 ####[place] [address] [address]CA[address] [place] [phone] Eosinophils/100 leukocytes 1.5 % Normal [facility] Comment on above: Performed By: #### C BCDIF, TSH, VITD, IGE, RESPR7 ####[place] [address] [address]CA[address] [place] [phone] Erythrocyte distribution wid th Auto Ratio (RBC) 13.6 % Normal 11.5-15.0 [facility] [place] [facility] Comment on above: Performed By: #### C BCDIF, TSH, VITD, IGE, RESPR7 ####[place] [address] [address]CAlyss[address] [place] [phone] Erythrocytes (RBC) 0.0 /100 WBC Normal [address] [facility] Comment on above: Performed By: #### C BCDIF, TSH, VITD, IGE, RESPR7 ####[place] [address] [address]CAlyss[address] [place] [phone] Erythrocytes (RBC) 4.74 10*6/uL Normal 3.90-5.[address] [facility] Comment on above: Performed By: #### C BCDIF, TSH, VITD, IGE, RESPR7 ####[place] [address]ClevelTony Ville [phone] Erythrocytes (RBC) 10*6/uL Normal <0.01 [facility] Comment on above: Performed By: #### C BCDIF, TSH, VITD, IGE, RESPR7 ####[place] [phone] AveCAlyssa [place] [phone] Hematocrit (HCT) 43.0 % Normal 36.0-46.0 [facility] Comment on above: Performed By: #### C BCDIF, TSH, VITD, IGE, RESPR7 ####[place] [address] [address]CAlyssa [place] [phone] Hemoglobin mass conc (Bld) 13.8 g/dL Normal 11.5-15.5 [facility] Comment on above: Performed By: #### C BCDIF, TSH, VITD, IGE, RESPR7 ####[place] [address] [address]CAlyssa [place] [phone] Lymphocytes 2.20 10*3/uL Normal 1.00-4.00 [facility] Comment on above: Performed By: #### C BCDIF, TSH, VITD, IGE, RESPR7 ####[place] [address] [address]CAlyss[address] [place] [phone] Lymphocytes/100 leukocytes 42.5 % Normal [facility] Comment on above: Performed By: #### C BCDIF, TSH, VITD, IGE, RESPR7 ####[place] [address] [address]CA[address] [place] [phone] MCH 29.1 pG Normal 26.0-34.0 [facility] Comment on above: Performed By: #### C BCDIF, TSH, VITD, IGE, RESPR7 ####[place] [address] [address]CA[address] [place] [phone] MCHC mass conc (RBC) 32.1 g/dL Normal 30.5-36.[address] [facility] Comment on above: Performed By: #### C BCDIF, TSH, VITD, IGE, RESPR7 ####[place] [address] [address]CAlyss[address] [place] [phone] MCV 90.7 fL Normal 80.0-100.0 [facility] Comment on above: Performed By: #### C BCDIF, TSH, VITD, IGE, RESPR7 ####[place] [address] [address]CCombined [place], [place] [phone] Monocytes/100 leukocytes 6.6 % Normal [facility] Comment on above: Performed By: #### C BCDIF, TSH, VITD, IGE, RESPR7 ####[place] [address]CComb[address] [place], [place] [phone] Neutrophils/100 WBC Auto (Bld) 49.0 % Normal [facility] Comment on above: Performed By: #### C BCDIF, TSH, VITD, IGE, RESPR7 ####[place] [address]CComb[address] [place], [place] [phone] Platelet mean volume (PMV) 10.9 fL Normal 9.0-12.7 [facility] Comment on above: Performed By: #### C BCDIF, TSH, VITD, IGE, RESPR7 ####[place] [address] [address]CComb[address] [place], [place] [phone] Platelets 286 10*3/uL Normal 150-400 [facility] Comment on above: Performed By: #### C BCDIF, TSH, VITD, IGE, RESPR7 ####[place] [address] [address]CComb[address] [place], [place] [phone] WBC (Leukocytes) 5.18 10*3/uL Normal 3.70-11.00 [facility] Comment on above: Performed By: #### C BCDIF, TSH, VITD, IGE, RESPR7 ####[place] [address]CComb[address] [place], [place] [phone] CNCOon 08-24-2017 CNCO Letter TextRespirato [place] [address] [facility].[place], [place] [phone] (office)[phone] (fax)08/24/2017RE: Humberto MajorsDOB: 1965To whom it may concern:Please perform a methacholine challenge test on Humberto Velasquez.Please send a copy of all results (numbers, reports, flow loops) to Dr. Alejandro at fax: [phone].Sincerely,Jonel Earl TextGadavida 2017Dear Ms Velasquez,I have released your lab results into [employer] for your review.Your vitamin D level is low and I would like to supplement with high dosevitamin D for eight weeks. I have sent a prescription to your pharmacy forVitamin D 50,000 IU one tablet my mouth weekly for eight weeks.I would also like to recheck the level after you have completed the course.If you are taking any over the counter vitamin D supplement, pleasediscontinue use while on the high dose vitamin D. You can resume the overthe counter after the 8 weeks are completed.Thank you,Dr. Juanito [phone]: ccSeptember 05, 2017 Normal Cl [facility] CNOVon 08-24-2017 CNOV Office Visit (PULMMN) --------HUMBERTO VELASQUEZ ([id number]) 1965 [facility] Time Provider Department08/24/17 8:50 AM JUANITO SUTTON PULOCTAVIA During your visit today, we recorded the following information about you: Temperature Pulse Respiration Blood pressure 97.8 degrees 62/minute 16/minute 114/81 Weight Height 87.1 kg 1.626 Flor Sutton MD 09/01/2017 3:00 PM SignedConsulting PhysicianLeighton Adams for the ConsultHumberto Eva presents today for consultation / opinion regarding cough andasthma. My impression and final recommendations will be communicated back tothe requesting physician by way of shared medical record or letter via US mail.History of Present IllnessHumberto Velasquez is a 51 year old female with cough.Describes having cough with heavy chest spring and fall of most of the past 20years.This spring starting in mid-june, she had cough productive of yellow/greenmucous.Cough was also associated with severe pain and tightness in her chest.She was prescribed a zpack first, and then levaquin with no improvement incough.She was given albuterol which would help improve cough severity and relieve bitof chest tightness for short amount of time.Went to ED after coughing when chest pain/tightness got very bad in early JulyImaging done (CT scan)Dx with asthma exacerbationGiven prednisone burst 60 mg x 1 day, then 40 mg x 4 days.This improved cough somewhat, but symptoms continued after taking.Cough has calmed significantly now, but continues to c/o post nasal drip andthroat clearing.Chest pain just stopped last week.Local physician trialed Symbicort for her, but this made her feel achy.Uncertain of whether it helped. On less than a month.Tried zyrtec and flonase as well in the past when she has had similar syndromeat season change.Has not seen much improvement with these, but admits to not using consistently.Asthma historySeverity: Asthma in the family- mother has asthma- late onset.Pt was just diagnosed this spring but endorsesChest heaviness in spring and fall with cough.Usually starts following last cold snap in June and then end of dec/JanuaryOff all meds for 2 weeks nowStill feels tightness in her chest, but only when lying flat.Recent Hospitalizations/Exacerbations: never hospitalized for thisPrior Intubations: NoAllergy testing/atopy: no testing in the pastAsthma symptoms: dyspnea, cough, chest tightness, wheezing, chest pain- ribsb/lTriggers: seasonal changes, sinus infections- usually goes away with antibioticAllergies: no testingCurrent medications: currently off all medsLast prednisone: after ED visit- July 25Exposures to dusts/gases/fumes: 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 No hxof polyps.GERD: No consistentlyOSA: No snoringOsteoporosis: noMother asthmaNo asthma in the kidsNo lung cancers in familyFunctional heart murmur- worked up in the past, normal echo, ekgNo other chronic conditions.Past Medical HistoryNo past medical history on file.Immunization HistoryAdministered Date(s) Administered Influenza Seasonal Inj Age 3+ 01/24/2017Past Surgical HistoryNo past surgical history on file.MedicationsNo prescriptions on file.AllergiesALLERGIESAllergen Reactions- Ceftin [Cefuroxime * Hives- Indosin [Indomethac* Hives- Iodine Hives- Shellfish Containin* Hives- Sulfa (Sulfonamide * HivesFamily HistoryNo family history on file.Social HistorySocial History Marital status: Spouse name: Years of education: Number of children:Social History Main Topics Smoking status: Never Smoker Smokeless tobacco: Never UsedReview of SystemsGEN: no feversHEENT: no watery / itchy eyes, sinus pain / pressure, ++ post-nasal drip, nohoarsenessGI: rare acid reflux- tumsCARD: no chest pain, palpitations, orthopnea, paroxysmal nocturnal dyspnea, noLE edemaPULM: as per HPIENDO: no hyperglycemia/DM, no CHARO/sleep symptomsThe remainder of the review of systems is otherwise negative.Physical ExamBP 114/81 Pulse 62 Temp (Src) 97.8 (Temporal Artery) Resp 16 Ht 5' 4 (1.63m) Wt 192 lb (87.1kg) SpO2 96% BMI 32.94 kg/(m2).GEN: Alert, oriented x 3, NAD, speaking in full sentencesHEENT: PERRL, EOMI, mouth and oropharynx clear, nares patentCHEST: lungs clear to auscultation AND percussion bilaterally, good air exchange,no wheeze / rales / rhonchi, on visual inspection no chest wall deformities andchest excursion normal, no chest discomfort on palpationHEART: RRR, no murmurs / rubs/ gallops auscultated, no heaves / lifts bypalpationABD: Soft, non-distended, non-tenderEXT: No edema, clubbing or cyanosisNEURO: CN II - XII grossly intact with no focal deficitsDiagnostic DataCT chest: report being uploaded to chartNo acute abnormalities.Report documents mild atelectasisI have personally reviewed and confirmed the imaging findings.SPIROMETRY - BASELINE AND POST DILATOR ([id number]) - ordered on 08/04/17 [facility] [address] [place] [address] Test Date: [id number] Name: HUMBERTO VELASQUEZ Department: Room:Gender: Female Die Tripper: LDOB: 1965 Requested By:Order Number: [id number] Reading MD: Interpretive StatementsTest no. 2 08/24/2017 07:41:34AM PRE AND POST: ATS acceptability andrepeatability standards for spirometry met. Medications and Allergies werereviewed for possible drug interactions per policy MM-102. No contraindicationsor sensitivities were noted. No respiratory meds taken before testing. 4 puffsalbuterol (360 mcg) delivered by MDI via valved holding chamber, HRpre= 55/min,HRpost= 64/min. // SAIMPRESSION: [facility] [place] Pulmonary Function Lab Pred N ULN Pre % Post % % chgDate [id number] 07:24AM 07:37AM ----Height 161.5 161.5Weight 88 88 F VC 3.49 2.81 4.17 3.56 102 3.41 98 -4FEV 1 2.77 2.19 3.34 2.77 100 2.83 102 2FEV1%F 80.18 70.39 89.98 78.01 97 82.99 103 6FEV 2 2.75 2.01 3.49 3.10 113 3.12 114 1FEV 3 3.11 2.49 3.73 3.24 104 3.24 104 0FEV3%E 94.88 89.52 100.2 91.17 96 94.98 100 4MEF 50 3.49 2.31 4.67 3.15 90 3.79 109 20FIF 50 4.71 5.49 17MMEF 2.74 1.52 3.96 2.44 89 2.89 106 19FE%FIF 66.96 69.07 3FEV6 3.44 3.37 -2PEF 5.93 4.20 7.66 7.15 121 7.80 132 9FET 13.17 11.43 -13FETPEF 0.08 0.07 -14VBe%FV 3.16 3.41 8VBEex 0.11 0.12 4 VC MAX 3.49 2.81 4.17 3.56 102 3.41 98 -4 FeNO: 12 ppbI have personally reviewed and confirmed the findings on pulmonary functiontesting.Impression / RecommendationsPleasant 51 year old female here today for evaluation of cough and chesttightness that is seasonal in nature.Cough responsive to CARLOS and improved with steroid, clinical story consistentwith asthma.Symptoms improved at this point, will opt for conservative treatment for now aspt has had poor reaction to inhalers in the past.Plan on testing to document airway reactitivity with methacholine challenge. Ifpositive, will likely opt for maintenance inhaler or nebulizer that can be usedduring spring and fall to prevent exacerbations.- Start singulair 10 mg once daily- Astelin nasal spray for post nasal drip/rhinitis- Methacholine challenge- Blood work IgE, RAST, CBC, Vit D, MARTELLHumberto Velasquez will follow-up in pulmonary clinic in 2 monthsPlan as provided to pt:Methacholine challenge- good determinant of airways reactivityBlood work today to clarify this asthma (on first floor)- Blood allergy test- IgE- CBC + differential- Vitamin D- TSHNasal spray- antihistamine- Astelin 2 sprays each side twice a dayOther new medication:Singulair (montelukast) Once a day - [address] scan looks very good- no issues noted.Follow up in 2 months, call if any issues.Patient seen with and plan discussed with supervising physician, Dr. Cristina you for allowing me to participate in the care of Humberto Velasquez.Please feel free to contact me with any questions or concerns.The duration of this appointment visit was 50 minutes of wycs-ii-phiq time withthe patient. More than 50% of this time was spent in counseling, explanation ofdiagnosis, planning of further management, and coordination of care.ANU Bain-Robyn CenterRespiratory InstituteMay 20178:48 [facility]:Leighton Marin NoteI have personally performed a face to face assessment of the patient and havereviewed the PA/CABIN OUTFITTER note. My kumar findings include:Assessment/Plan are :51 year old being seen for cough most likely from asthma.Also clinical history and exam of chronic sinusitis.Plan:MCCTAstelin nasal spraysinulairLabsAsthma education and AAPOther additions or changes: NoneSignature: Juanito Sutton, MDDate: 09/01/2017Time: 2:54 PMSpeacehealth [facility] ANU Patel 08/26/2017 3:29 PM AddendumMethacholine challenge- good determinant of airways reactivityBlood work today to clarify this asthma (on first floor)- Blood allergy test- IgE- CBC + differential- Vitamin D- TSHNasal spray- antihistamine- Astelin 2 sprays each side twice a dayOther new medication:Singulair (montelukast) Once a day - [address] scan looks very good- no issues noted.Follow up in 2 months, call if any issues.Referring Provider: SELF [200]Allergies As of Date: 08/24/2017 Noted Allergy ReactionCEFTIN (CEFUROXIME AXETIL) 08/24/2017 4 - HivesINDOSIN (INDOMETHACIN) 08/24/2017 4 - HivesIODINE 08/24/2017 4 - HivesSHELLFISH CONTAINING PRODUCTS 08/24/2017 4 - HivesSULFA (SULFONAMIDE ANTIBIOTICS) 08/24/2017 4 - HivesDate Reviewed: 08/24/2017Reviewed by: Juanito Sutton - Fully AssessedReason for Visit: Consult [502]Primary Visit Diagnosis:Mild persistent asthma without complication [J45.30] Other Visit Diagnoses:Cough [R05] Chronic sinusitis, unspecified location [J32.9] Wheezing [R06.2] Chest tightness [R07.89]Order(s):azelastine (ASTELIN,ASTEPRO) 0.1% nasal sprayUse 2 Sprays in each nostril twice daily.Disp: 1 BottleRfl: 3 montelukast (SINGULAIR) 10 mg tabletTake 1 tablet by mouth daily at bedtime.Disp: 90 tabletRfl: 3 CBC + DIFF [SQCBCDIF] Order #: [id number] FUTURE TSH BLD [SQTSH] Order #: [id number] FUTURE VITAMIN D 25 HYDROXY [SQVITD] Order #: [id number] FUTURE ALGN RESP DISEASE PROF REG 7 [SQRESPR7] Order #: [id number] FUTURE IGE BLD [SQIGE] Order #: [id number] FUTURE METHACHOLINE CHALLENGE [0533675] Order #: [id number] FUTUREPrescriptions as of 08/24/2017 Sig: AZELASTINE 137 MCG (0.1 %) NA* Use 2 Sprays in each nostril * MONTELUKAST 10 MG TABLET Take 1 tablet by mouth daily *Problem List As Of Date: 08/24/2017(None) Other instructions from your clinician: Methacholine challenge- good determinant of airways reactivity Blood work today to clarify this asthma (on first floor) - Blood allergy test - IgE - CBC + differential - Vitamin D - TSH Nasal spray- antihistamine - Astelin 2 sprays each side twice a day Other new medication: Singulair (montelukast) Once a day - [address] scan looks very good- no issues noted. Follow up in 2 months, call if any issues.Prescriptions ordered this encounter Disp Refills Start End AZELASTINE 137 MCG (0.1 %) NASAL SPR* 1 Brando* 3 08/24/2017 Route: EACH NOSTRIL Sig: Use 2 Sprays in each nostril twice daily. MONTELUKAST 10 MG TABLET 90 t* 3 08/24/2017 Route: ORAL Sig: Take 1 tablet by mouth daily at bedtime.Disposition: Return in about 2 months (around 10/24/2017) for asthma follow up.Follow-up and Disposition History RecordedEncounter Number: [id number] Status:Closed by JUANITO SUTTON MD on 09/01/17 Normal [facility] IgEon 08-24-2017 IgE 125.0 kU/L High <114 [facility] Comment on above: Performed By: #### C BCDIF, TSH, VITD, IGE, RESPR7 ####[facility] [place], [place] [phone] PROGRESSon 08-24-2017 PROGRESS HNO ID: [id number] thor: Juanito Carrillo: (none)Author Type: PhysicianType: Progress NotesFiled: 09/01/2017 3:00 PMNote Text:Consulting PhysicianLeighton Adamseason for the ConsultHumberto Velasquez presents today for consultation / opinion regardingcough and asthma. My impression and final recommendations will becommunicated back to the requesting physician by way of shared medicalrecord or letter via US mail.History of Present IllnessHumberto Velasquez is a 51 year old female with cough.Describes having cough with heavy chest spring and fall of most of thepast 20 years.This spring starting in mid-june, she had cough productive ofyellow/green mucous.Cough was also associated with severe pain and tightness in her chest.She was prescribed a zpack first, and then levaquin with no improvement incough.She was given albuterol which would help improve cough severity andrelieve bit of chest tightness for short amount of time.Went to ED after coughing when chest pain/tightness got very bad in earlyAprilImaging done (CT scan)Dx with asthma exacerbationGiven prednisone burst 60 mg x 1 day, then 40 mg x 4 days.This improved cough somewhat, but symptoms continued after taking.Cough has calmed significantly now, but continues to c/o post nasal dripand throat clearing.Chest pain just stopped last week.Local physician trialed Symbicort for her, but this made her feel achy.Uncertain of whether it helped. On less than a month.Tried zyrtec and flonase as well in the past when she has had similarsyndrome at season change.Has not seen much improvement with these, but admits to not usingconsistently.Asthma historySeverity: Asthma in the family- mother has asthma- late onset.Pt was just diagnosed this spring but endorsesChest heaviness in spring and fall with cough.Usually starts following last cold snap in June and then end ofpt/JanuaryOff all meds for 2 weeks nowStill feels tightness in her chest, but only when lying flat.Recent Hospitalizations/Exacerbations: never hospitalized for thisPrior Intubations: NoAllergy testing/atopy: no testing in the pastAsthma symptoms: dyspnea, cough, chest tightness, wheezing, chest pain-ribs b/lTriggers: seasonal changes, sinus infections- usually goes away withantibioticAllergies: no testingCurrent medications: currently off all medsLast prednisone: after ED visit- July 25Exposures to dusts/gases/fumes: 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 No hx of polyps.GERD: No consistentlyOSA: No snoringOsteoporosis: noMother asthmaNo asthma in the kidsNo lung cancers in familyFunctional heart murmur- worked up in the past, normal echo, ekgNo other chronic conditions.Past Medical HistoryNo past medical history on file.Immunization HistoryAdministered Date(s) Administered Influenza Seasonal Inj Age 3+ 01/24/2017Past Surgical HistoryNo past surgical history on file.MedicationsNo prescriptions on file.AllergiesALLERGIESAllergen Reactions- Ceftin [Cefuroxime * Hives- Indosin [Indomethac* Hives- Iodine Hives- Shellfish Containin* Hives- Sulfa (Sulfonamide * HivesFamily HistoryNo family history on file.Social HistorySocial History Marital status: Spouse name: Years of education: Number of children:Social History Main Topics Smoking status: Never Smoker Smokeless tobacco: Never UsedReview of SystemsGEN: no feversHEENT: no watery / itchy eyes, sinus pain / pressure, ++ post-nasal drip,no hoarsenessGI: rare acid reflux- tumsCARD: no chest pain, palpitations, orthopnea, paroxysmal nocturnaldyspnea, no LE edemaPULM: as per HPIENDO: no hyperglycemia/DM, no CHARO/sleep symptomsThe remainder of the review of systems is otherwise negative.Physical ExamBP 114/81 Pulse 62 Temp (Src) 97.8 (Temporal Artery) Resp 16 Ht 5'4 (1.63m) Wt 192 lb (87.1kg) SpO2 96% BMI 32.94 kg/(m2).GEN: Alert, oriented x 3, NAD, speaking in full sentencesHEENT: PERRL, EOMI, mouth and oropharynx clear, nares patentCHEST: lungs clear to auscultation AND percussion bilaterally, good airexchange, no wheeze / rales / rhonchi, on visual inspection no chest walldeformities and chest excursion normal, no chest discomfort on palpationHEART: RRR, no murmurs / rubs/ gallops auscultated, no heaves / lifts bypalpationABD: Soft, non-distended, non- tenderEXT: No edema, clubbing or cyanosisNEURO: CN II - XII grossly intact with no focal deficitsDiagnostic DataCT chest: report being uploaded to chartNo acute abnormalities.Report documents mild atelectasisI have personally reviewed and confirmed the imaging findings.SPIROMETRY - BASELINE AND POST DILATOR ([id number]) - ordered on 08/04/17 [facility] [address] [place] [address] Test Date: 5423-23-30Wwa Name: HUMBERTO VELASQUEZ Department: Room:Gender: Female Die Tripper: LDOB: 1965 Requested By:Order Number: [id number] Reading MD: Interpretive StatementsTest no. 2 08/24/2017 07:41:34AM PRE AND POST: ATS acceptability andrepeatability standards for spirometry met. Medications and Allergies werereviewed for possible drug interactions per policy MM-102. Nocontraindicationsor sensitivities were noted. No respiratory meds taken before testing. 4puffsalbuterol (360 mcg) delivered by MDI via valved holding chamber, HRpre= 55/min,HRpost= 64/min. // SAIMPRESSION: [facility] [place] Pulmonary Function Lab Pred LLN ULN Pre % Post % %chgDate [id number] 07:24AM 07:37AM ----Height 161.5 161.5Weight 88 88 F VC 3.49 2.81 4.17 3.56 102 3.41 98-4FEV 1 2.77 2.19 3.34 2.77 100 2.83 102 2FEV1%F 80.18 70.39 89.98 78.01 97 82.99 103 6FEV 2 2.75 2.01 3.49 3.10 113 3.12 114 1FEV 3 3.11 2.49 3.73 3.24 104 3.24 104 0FEV3%E 94.88 89.52 100.2 91.17 96 94.98 100 4MEF 50 3.49 2.31 4.67 3.15 90 3.79 17382BEG 50 4.71 5.4917MMEF 2.74 1.52 3.96 2.44 89 2.89 13459FS%FIF 66.96 69.07 3FEV6 3.44 3.37-2PEF 5.93 4.20 7.66 7.15 121 7.80 132 9FET 13.17 11.43-13FETPEF 0.08 0.07-14VBe%FV 3.16 3.41 8VBEex 0.11 0.12 4 VC MAX 3.49 2.81 4.17 3.56 102 3.41 98-4 --------FeNO: 12 ppbI have personally reviewed and confirmed the findings on pulmonaryfunction testing.Impression / RecommendationsPleasant 51 year old female here today for evaluation of cough and chesttightness that is seasonal in nature.Cough responsive to CARLOS and improved with steroid, clinical storyconsistent with asthma.Symptoms improved at this point, will opt for conservative treatment fornow as pt has had poor reaction to inhalers in the past.Plan on testing to document airway reactitivity with methacholinechallenge. If positive, will likely opt for maintenance inhaler ornebulizer that can be used during spring and fall to preventexacerbations.- Start singulair 10 mg once daily- Astelin nasal spray for post nasal drip/rhinitis- Methacholine challenge- Blood work IgE, RAST, CBC, Vit D, TSHHumberto Velasquez will follow-up in pulmonary clinic in 2 monthsPlan as provided to pt:Methacholine challenge- good determinant of airways reactivityBlood work today to clarify this asthma (on first floor)- Blood allergy test- IgE- CBC + differential- Vitamin D- TSHNasal spray- antihistamine- Astelin 2 sprays each side twice a dayOther new medication:Singulair (montelukast) Once a day - [address] scan looks very good- no issues noted.Follow up in 2 months, call if any issues.Patient seen with and plan discussed with supervising physician, Dr. Cristina you for allowing me to participate in the care of Humberto Velasquez. Please feel free to contact me with any questions or concerns.The duration of this appointment visit was 50 minutes of fqfk-nt-nhwd timewith the patient. More than 50% of this time was spent in counseling,explanation of diagnosis, planning of further management, and coordinationof care.Reji Bain [facility]iratory InstituteMay [address]:48 [facility]:Leighton MarinI have personally performed a face to face assessment of the patient andhave reviewed the PA/CABIN OUTFITTER note. My kumar findings include:Assessment/Plan are :51 year old being seen for cough most likely from asthma.Also clinical history and exam of chronic sinusitis.Plan:MCCTAstelin nasal spraysinulairLabsAsthma education and AAPOther additions or changes: NoneSignature: Juanito Sutton, MDDate: 09/01/2017Time: 2:54 PM Normal [facility] TSHon 08-24-2017 Thyroid stimulating hormone (TSH) 1.640 uU/mL Normal 0.400-5.500 [facility] Comment on above: Result Comment: If t he patient is , TSH reference range varies by gestational period:First Trimester 0.100-2.500 uU/mLSecond Trimester 0.200-3.000 uU/mLThird Trimester 0.300-3.000 uU/mLReferences: 1. De Daylin L, Kristina M, Alfa EK, et al. Management of Thyroid Dysfunction during and : An Endocrine Society Clinical Practice Guideline. J Clin Endocrinol Metab, 2012:97:3150-3557. 2. Stef WATERS. Overview of thyroid disease in . UpToDate. 2016. Accessed on October 04, 2015. Performed By: #### C BCDIF, TSH, VITD, IGE, RESPR7 ####[facility] [address] [place], [place] [phone] Vitamin D 25 Hydroxyon 08-24 Vitamin D 25 Hydroxy 28.1 ng/mL Low 31.0-80.[address] [facility] Comment on above: Result Comment: Clas sification of 25 [place] Vitamin D status:Insufficiency/Moderate Deficiency: < or = 30 ng/mLSufficiency/Optimal Levels: 31 to 80 ng/mLToxicity: > 100 ng/mLTest performed by chemiluminescent immunoassay. Performed By: #### C BCDIF, TSH, VITD, IGE, RESPR7 ####[facility] [address] [place], [place] [phone] CT-CT chest wo con IMPORTon 08-05-2017 CT-CT chest wo con IMPORT Images were obtained outside of [facility] [id number] Normal [facility] DX-XR CHEST 2 V IMPORTon DX-XR CHEST 2 V IMPORT Images were obtained outside of [facility] [id number] Normal [facility] SC-XR CHEST 2 V IMPORTon SC-XR CHEST 2 V IMPORT Images were obtained outside of [facility] [id number] Normal [facility] Vital Signs Date Time Vital Sign Value Performing Clinician Facility 03-08-2023 12:15-0500 Body height 162.56 cm Gurpreet Smith Other [facility] Other 03-08-2023 12:15-0500 Body mass index (BMI) [Ratio] 31.75 kg/m2 Gurpreet Renteriaxa Other [facility] Other 03-08-2023 12:15-0500 Body weight 83.92 kg Gurpreet Olexa Other [facility] Other 01-27-2023 10:45-0400 Body height 162.56 cm Leighton Ball Other [facility] Other 01-27-2023 10:45-0400 Body mass index (BMI) [Ratio] 33.3 kg/m2 Leighton Ball Other [facility] Other 01-27-2023 10:45-0400 Body weight 88 kg Leighton Ball Other [facility] Other 01-27-2023 10:45-0400 Diastolic blood pressure 82 mm[Hg] Leighton Ball Other [facility] Other 01-27-2023 10:45-0400 Respiratory rate 12 /min Leighton Ball Other [facility] Other 01-27-2023 10:45-0400 Systolic blood pressure 134 mm[Hg] Leighton Ball Other [facility] Other 05-28-2022 12:45-0500 Body height 162.56 cm Gurpreet Smith Other [facility] Other Encounters Encounter Date Encounter Type Care Provider Facility Start: 04-07-2023 ambulatory Frida M. Irenae Facility:C D:[id number] Start: 03-31-2023 End: 04-01-2023 ambulatory Frida MNunu Osborne Facility:[facility] Start: 03-31-2023 End: 04-01-2023 ambulatory Frida M. Lue Facility:[facility] Start: 03-08-2023 Office outpatient visit 25 minutes [facility] Start: 03-08-2023 End: 03-08-2023 ambulatory DO Leighton Ball Work Phone: [facility] Work Phone: Start: 03-08-2023 End: 03-08-2023 Patient encounter procedure DO Leighton Ball Work Phone: [facility] Start: 02-16-2023 ambulatory Fridamamie Montague Facility:[facility] Start: 02-12-2023 End: 02-12-2023 ambulatory Leighton Adams Other [facility] Other Start: 02-12-2023 Telephone encounter Leighton Adams [facility] Start: 02-01-2023 End: 02-01-2023 ambulatory Leighton Adams Other [facility] Other Start: 02-01-2023 Telephone encounter Leighton Adams [facility] Start: 01-27-2023 End: 01-27-2023 ambulatory Leighton Adams Other [facility] Other Start: 01-27-2023 Encounter for genera l adult medical examination without abnormal findings Gurpreet Luis [facility] Start: 01-27-2023 Office outpatient visit 15 minutes Leighton Adams [facility] Start: 01-27-2023 Telephone encounter Gurpreet Smith [facility] Start: 01-22-2023 End: 01-22-2023 ambulatory Leighton Adams Other [facility] Other Start: 01-22-2023 Nursing evaluation o f patient and report Leighton Adams [facility] Start: 01-22-2023 Telephone encounter Leighton Adams [facility] Start: 08-17-2022 End: 08-17-2022 ambulatory Leighton Adams Other [facility] Other Start: 08-17-2022 Telephone encounter Leighton Adams [facility] Start: 07-09-2022 Office outpatient visit 15 minutes Gurpreet Smith [facility] Start: 07-09-2022 End: 07-09-2022 ambulatory DO Leighton Adams Work Phone: [facility] Work Phone: Start: 07-09-2022 End: 07-09-2022 Patient encounter procedure DO Leighton Ball Work Phone: [facility] Start: 07-02-2022 ambulatory GURPREET SMITH Facility:[facility] Start: 06-18-2022 End: 06-18-2022 ambulatory Leighton Adams Other [facility] Other Start: 06-18-2022 Telephone encounter Leighton Adams [facility] Start: 06-01-2022 End: 06-01-2022 ambulatory Leighton Adams Other [facility] Other Start: 06-01-2022 Nursing evaluation o f patient and report Leighton Adams [facility] Start: 05-28-2022 End: 05-28-2022 ambulatory Gurpreet Smith Other [facility] Other Start: 05-28-2022 Office outpatient visit 25 minutes Gurpreet Smith [facility] Start: 05-21-2022 End: 05-21-2022 ambulatory Leighton Adams Facility:[facility] Start: 05-21-2022 End: 05-21-2022 Patient encounter procedure DO Leighton Adams Work Phone: [facility] [place] Work Phone: Start: 05-06-2022 End: 05-06-2022 ambulatory Leighton Adams Facility:[facility] Start: 05-06-2022 End: 05-06-2022 Patient encounter procedure DO Leighton Adams Work Phone: [facility] Start: 05-06-2022 End: 05-06-2022 ambulatory DO Leighton Adams Work Phone: [facility] Work Phone: Start: 05-06-2022 Office outpatient visit 15 minutes Tara Schneider [facility] Start: 04-24-2022 End: 04-24-2022 ambulatory Leighton Adams Other [facility] Other Start: 04-24-2022 Telephone encounter Leighton Adams [facility] Start: 04-23-2022 End: 04-23-2022 ambulatory Leighton Adams Other [facility] Other Start: 04-23-2022 Telephone encounter Leighton Adams LINDEN [facility] Start: 08-24-2017 Ambulatory ANNETTE DEAN (PA) [facility] Start: 08-24-2017 End: 09-02-2017 Ambulatory MICAHESTIVEN Barrientos CASIMIRO [facility] Start: 08-24-2017 End: 08-24-2017 Ambulatory ANNETTE DEAN [facility] Procedures Date Procedure Procedure Detail Performing Clinician Start: 03-08-2023 Plain X-ray of right shoulder DO Leighton Adams Work Phone: Start: 07-09-2022 X-ray of right knee DO Leighton Adams Work Phone: Start: 05-21-2022 MRI of right knee DO Be taras Adams Work Phone: Start: 05-06-2022 X-ray of right knee DO Leighton Adams Work Phone: Start: 01-05-2013 General examination of patient Leighton Adams Other Immunizations Immunization Date Immunization Notes Care Provider Sree bradford 03-05-2022 COVID-19 mRNA Bivale nt Booster (Pfizer) DO Leighton Adams Work Phone: [facility] 03-05-2022 COVID-19 Pfizer (Pediatric) Leighton Adams Other [facility] Other 01-22-2022 influenza virus vaccine, split virus (incl. purified surface antigen) Leighton Adams Other [facility] Other 02-28-2021 COVID-19 mRNA, Comirnaty (Pfizer) DO Leighton Adams Work Phone: [facility] 01-24-2021 influenza virus vaccine, split virus (incl. purified surface antigen) Leighton Adams Other [facility] Other 08-01-2020 COVID-19 mRNA, Comirnaty (Pfizer) DO Leighton Adams Work Phone: [facility] 07-09-2020 COVID-19 mRNA, Comirnaty (Pfizer) DO Leighton Adams Work Phone: [facility] 01-08-2020 influenza virus vaccine, split virus (incl. purified surface antigen) Leighton Adams Other [facility] Other 01-08-2020 tetanus and diphther ia toxoids, adsorbed, preservative free, for adult use (5 Lf of tetanus toxoid and 2 Lf of diphtheria toxoid) Leighton Bryan Other [facility] Other 01-17-2018 influenza virus vaccine, split virus (incl. purified surface antigen) Leighton Bryan Other [facility] Other 02-05-2016 tetanus and diphther ia toxoids, adsorbed, preservative free, for adult use (5 Lf of tetanus toxoid and 2 Lf of diphtheria toxoid) Leighton Adams Other [facility] Other 01-24-2015 tetanus and diphther ia toxoids, adsorbed, preservative free, for adult use (5 Lf of tetanus toxoid and 2 Lf of diphtheria toxoid) Leighton Adams Other [facility] Other Payers Date Payer Category Payer Private Health Insurance [id number] 2022 Self-pay [id number] 2022 Unknown [id number] 2022 Private Health Insurance [id number] 1965 Unknown [id number] 2.16.84 [id number] 1965 Unknown [id number] 2.16.8 [id number] 1965 Unknown [id number] 2.16.8 [id number] 1958 Private Health Insurance [id number] [facility] [id number] Unknown [id number] 2.16.8 [id number] Unknown [id number] 2.16.8 [id number] Unknown [id number] 2.16.8 [id number] Unknown [id number] 2.16.8 [id number] Social History Date Type Detail Facility Start: 10-04-2018 End: 10-04-2018 Tobacco smoking status NHIS Never smoked tobacco (finding) [facility] Start: 1965 Sex Assigned At Female F [facility] Sex Assigned At Sex Assigned At Bir th [facility] [employer] [facility] Other Medical Equipment Procedure Code Equipment Code Equipment Origin al Text Equipment Identifier Dates Shoulder arthroscopy ANCHOR SUTU RE FT III [id number] FDA Start: 10-04-2018 Shoulder arthroscopy ANCHOR SUTU RE FT III 5.5X16.3M FDA Start: 10-04-2018 Shoulder arthroscopy ANCHOR SUTU RE FT III 5.5X16.3M FDA Start: 10-04-2018 Clinical Notes 05-06-2022 to 03-31-2023 Note Date & Type Note Facility 03-31-2023 Note Chief Complaint Referral *Gross Hematuria HPI Staff Evaluation requested by Dr Leighton Adams due to gross hematuria. Pt is a new pt, never before seen in our office. PT with Hx of Uterine Cancer. S/P Hysterectomy. Denies Fam Hx of Bladder Cancer. Never a smoker. Per referral note, pt recently Tx'd w/Cipro for UTI, however no C&S on Clinisync. Pt states the infections started last May. Lower back pain, at first thought it was due to heavy lifting. Did have blood in urine for 1 day, 2m ago. Was told she had stones & cyst on imaging. Does think she sees sediments in her urine at times. Unsure if it is stones. Hx of Pyelonephritis when she was a senior in high school. Denies any other Hx of Kidney problems. CT w/o 02/05/23 CBC/CMP 02/10/23 *BUN 17.0 & Crea 0.80 UA 02/10/23 KUB 03/28/23 Denies current back pain, did have some last night. History of Present Illness Tests reviewed: reviewed UA and External Records including CT scan, UA, labs and notes I have reviewed the previous health record information and history for this patient from External Provider. I have reviewed and verified the staff HPI to be accurate for this encounter. There have been no associated fever, chills. Review of Systems PHQ Score Initial Depression Screen Score: 0 SCORE ROS - Provider Constitutional: denies weight loss, denies hot flashes. Eyes: denies eye problems. Gastrointestinal: denies nausea, denies vomiting. Cardiovascular: denies chest pain or angina. Integumentary: no dryness Musculoskeletal: denies musculoskeletal symptoms. ENMT: denies otolaryngeal symptoms. Respiratory: no shortness of breath. Heme/Lymph: denies easy bleeding tendency, denies easy bruising tendency. Psychiatric: no confusion, no anxiety. Genitourinary: See HPI. Physical Exam Vitals & Measurements HR: 74(Peripheral) RR: 16 BP: 130/90 HT: 64 in HT: 163 cm WT: 85.5 kg WT: 188.1 lb BMI: 32.18 General Appearance: alert , no acute distress, well nourished, well developed female. Head: normocephalic . Eyes: normal orbit and globe. ENMT: normal examination of external ears. Chest:. symmetric chest rise, respirations non labored . Cardiovascular: regular rate and rhythm. Abdomen: soft, non distended, no tenderness Genitourinary: bladder nonpalpable, no flank tenderness. Skin: warm, dry, no bruising. Psychiatric: cooperative, affect appropriate for age, normal judgement, euthymic mood. Assessment/Plan 57 yo female with chronic L flank/back pain and gross hematuria 2 mths ago and recent diagnosis of BL nephrolithiasis. Pt with Hx of Uterine Cancer S/P Hysterectomy. No radiation Allergic to IV contrast - severe hives and sweating, despite allergy prep. 1. Gross hematuria (R31.0: Gross hematuria) Denies Fam Hx of Bladder Cancer. Never a smoker, no environmental exposures Hx of Pyelonephritis when she was a senior in high school. Did have painless gross hematuria for 1 day, 2m ago. Happened when she was taking the Cipro for the UTI - not culture proven, no urinary sx or changes noted with abx. UA today shows large blood and trace leuks. BBS 16 - recent worsening urgency and frequency Advised potential etiologies of gross hematuria including malignancy, stones or infection (unclear if true UTI). Discussed workup. The patient is aware that a distinct etiology of the hematuria may not be clear upon conclusion of the workup. Will initiate hematuria workup to include upper urinary tract imaging, as well as evaluation of the urinary cells with urine cytology and possible a FISH test. A cystoscopy will be scheduled to rule out lower urinary tract pathology. The rationale for this workup has been discussed, and all questions have been answered. Informed consent will be obtained. Pt states that she gets severe hives with contrast dye, even with all prevention measures. Advised pt that we will need to get the imaging when she is under anesthesia. All questions/concerns were discussed. Pt to call the office if she encounters any issues prior. Pt acknowledges understanding. -Will send urine for cytology today -Will schedule Cystoscopy, bilateral Retrograde pyelograms, possible ureteroscopy with biopsy, Lt Ureteroscopy with Laser Litho/stone extraction, stent placement on string. The procedural risks, benefits, details, and treatment alternatives have been discussed with the patient. These include bleeding, infection, inability to break or retrieve all of the stone, injury to the ureter (the tube which connects the kidney to the bladder), injury to the kidney scarring of the ureter, and need for repeat procedures, among others. Full informed consent has been obtained. Will order General anesthesia. 2. History of UTI (Z87.440: Personal history of urinary (tract) infections) Pt states the infections started last May. Per referral note, pt recently Tx'd w/Cipro for UTI, however no C&S on Clinisync. Pt states that her urine was darker an (more content not included)... [facility] Comment on above: Result Comment: Elec tronically Signed By: Eddi ANGELO, Frida Hunt\.br\Date and Time Signed: 03/31/23 09:13 EST\.br\Electronically Co-Signed By: Yuli [email or web address]\Date and Time Co-Signed: 03/31/23 08:56 EST 03-08-2023 Evaluation note Encounter Date Diagnosis Assessment Notes Feb, Acute pain of right shoulder (ICD-10 - M25.511) Feb, Bursitis of right shoulder (ICD-10 - M75.51) Extensive discussion about current condition and treatment options available. This appears to be pain secondary to subacromial bursitis / rotator cuff tendonitis. We discussed and demonstrated gentle motion exercise and rotator cuff strengthening exercise. Discussed the use of non-steroidal anti-inflammator y medication. Patient advised to modify activities as needed. Maintain motion with stretching exercises. Discussed that it's possible the pain could be related to the biceps tendon. She will work on home exercises and contact office if no improvement as we may need to consider cortisone injection and/or MRI [facility] Other 10-16-2023 Evaluation note* Encounter Date Diagnosis Assessment Notes Treatment Notes Treatment Clinical Notes Jan, Gross hematuria (ICD-10 - R31.0) Jan, Left paraspinal back pain (ICD-10 - M54.89) [facility] Other 10-11-2023 Evaluation note* Encounter Date Diagnosis Assessment Notes Treatment Notes Treatment Clinical Notes Jan, Gross hematuria (ICD-10 - R31.0) Push fluids Call or go to ER for increased pain, fever or severel bleeding. Jan, Left paraspinal back pain (ICD-10 - M54.89) Heat/ice and Tylenol. Avoid NSAIDs. Call office or ER for increased pain [facility] Other 10-11-2023 Evaluation note* Encounter Date Diagnosis Assessment Notes Treatment Notes Treatment Clinical Notes Jan, Wellness examination (ICD-10 - Z00.00) [facility] Other 10-06-2023 Evaluation note* Encounter Date Diagnosis Assessment Notes Treatment Notes Treatment Clinical Notes Jan, Dysuria (ICD-10 - R30.0) [facility] Other 05-01-2023 Evaluation note* Encounter Date Diagnosis Assessment Notes Treatment Notes Treatment Clinical Notes August, Dysuria (ICD-10 - R30.0) [facility] Other 03-23-2023 Evaluation note* Encounter Date Diagnosis Assessment Notes Treatment Notes Treatment Clinical Notes Jun, Primary osteoarthritis of right knee (ICD-10 - M17.11) Jun, Contusion of right knee, initial encounter (ICD-10 - S80.01XA) Radiographs reviewed with patient as no acute abnormality. We will treat this as a knee contusion for now. We will begin gentle motion and strength exercise with hopes that the condition will improve with conservative measures. Instructed on ice and elevation, compression, NSAIDs as needed for pain/swelling. Once patient recovers from contusion, may pursue arthroscopy with menisectemy as previously discussed. Patient will call when ready to pursue after her brother recovers from surgery. Jun, Contusion of bone (ICD-10 - T14.8XXA) Jun, Acute pain of right knee (ICD-10 - M25.561) Jun, Other tear of latera l meniscus, current injury, right knee, subsequent encounter (ICD-10 - S83.281D) [facility] Other 02-13-2023 Evaluation note* Encounter Date Diagnosis Assessment Notes Treatment Notes Treatment Clinical Notes May, Dysuria (ICD-10 - R30.0) [facility] Other 02-09-2023 Evaluation note* Encounter Date Diagnosis Assessment Notes Treatment Notes Treatment Clinical Notes May, Other tear of lateral meniscus of right knee as current injury, initial encounter (ICD-10 - S83.281A) MRI images and findings reviewed in detail with patient. She has sustained a lateral meniscus tear and bone consion. The patient has stated that they do not want to live in this condition any longer and would like to proceed with surgery. We will plan on arthroscopy and lateral menisectomy. We have discussed continued non-operative treatments including gentle exercise, use of medications and activity modification. Patient states that they would like to proceed with surgery at this time. We discussed the surgery process in detail including nothing by mouth 8 hrs prior to sugery, thorough washing of leg pior to coming to surgery. We discussed the multiple potential risks of anesthesia including respiratory, cardiac and patient positioning issues. We discussed the multiple risks of surgery particularly wound infection, deep venous thrombosis(DVT), persistent swelling, pain and stiffness after surgery, as well as worsening of pre-existing arthritic symptoms. Patient has agreed to understanding of these risks and would like to proceed. Patient will call when she is ready to schedule May, Primary osteoarthritis of right knee (ICD-10 - M17.11) May, Contusion of bone (ICD-10 - T14.8XXA) May, Acute pain of right knee (ICD-10 - M25.561) [facility] Other 01-18-2023 Evaluation note* Encounter Date Diagnosis Assessment Notes Treatment Notes Treatment Clinical Notes Apr, Acute pain of right knee (ICD-10 - M25.561) Apr, Internal derangement of right knee (ICD-10 - M23.91) X-ray results reviewed with patient. Explained no acute jennifer process noted. I am concerned patient may have torn her meniscus. Will need an MRI for further diagnosis and surgical planning. Instructed patient to weight bear as tolerated, ice and elevate right knee. Deangelo wrap applied. May use Ibuprofen 800mg every 8 hours for the anti-inflammatory effect, instructed to take with food to avoid upset stomach. May alternate tylenol per label instructions for pain. Follow up with Dr. Smith after MRI. Patient denied any other concerns or questions. [facility] Other Evaluation noteNo assessment information available [facility] Work Phone: Evaluation noteNo InformationNort [employer] Other History general Narrative - Reported* Type Description Date Surgical History Tubes tied Surgical History Carpal tunnel Surgical History Knee Surgery X2 Surgical History hysterectomy [facility] Other History general Narrative - Reported* Type Description Date Surgical History Tubes tied Surgical History Carpal tunnel Surgical History Knee Surgery X2 Surgical History hysterectomy Hospitalization History see surgical history [facility] Other Reason for referral (narrative)* Reason Referral for gross h ematuria Diagnosis 1 Gross hematuria (R31 .0) Referral Organization [facility] Referring Provider First Name Leighton Referring Provider Last Name Bryan Referring Provider Specialty Internal Sc dicine Referred Organization [facility] Referred Provider FRIDA MONTAGUE Referred Address [address], [place],[address] Referred Provider Specialty Urology Referral Priority Routine General Notes Patient presented wi th gross hematuria. She denied dysuria, polyuria or incontinence. She did experience lower abdominal and flank pain. She was found to have nephrolithiasis, which was not known in the past. She completed CT scan, which excluded renal tumor, hydronephrosis or bladder tumor. She is being referred to complete her evaluation for hematuria. Clinical Notes Include CT scan and recent labs [facility] Other Summary Purpose Family History No Family History Records FoundNo Family History Records FoundNo Family History Records FoundNo Family History Records FoundNo Family History Records Found Advance Directives No Advanced Directives Records Found Advance Directive Response Recorded Date/ Time Advance Directives No February 22, 2017 2:04pm Advance Directive Response Recorded Date/ Time Advance Directives No February 22, 2017 3:04pm Chief Complaint and Reason for Visit Chief Complaint M25.561 M23.91 Additional Source Comments INFORMATION SOURCE (unrecogn ized section and content) DATE CREATED AUTHOR 10/06/2017 [facility] DATE CREATED AUTHOR AUTHOR'S ORGANIZ ATION 01/14/2022 [facility] dical Specialist DATE CREATED AUTHOR AUTHOR'S ORGANIZ ATION 07/23/2022 [facility] DATE CREATED AUTHOR AUTHOR'S ORGANIZ ATION 03/12/2023 [facility] DATE CREATED AUTHOR AUTHOR'S ORGANIZ ATION 04/06/2023 [facility] Care Teams (unrecognized sec tion and content) Team Status: Inactive Member Role Status Dates Leighton Adams DO Primary Care Provider Active TOD Adamson Attending Provider Active Team Status: Active Member Role Status Dates Leighton Adams DO Primary Care Provider Active Team Status: Inactive Member Role Status Dates Leighton Adams DO Primary Care Provider Active Gurpreet Smith MD Attending Provider Active Goals (unrecognized section and content) Goals may be documented in a n alternate sectionNo InformationNo InformationNo InformationNo InformationNo InformationNo InformationGoals may be documented in an alternate sectionNo InformationNo InformationNo InformationNo InformationNo InformationNo InformationNo InformationNo InformationNo InformationNo InformationNo InformationGoals may be documented in an alternate section REASON FOR VISIT (unrecogniz ed section and content) Lab ResultsUAORTHO EXP RT KN EE PAINReview MRI ResultsUA- Urgency/ Back PainDairrheaRecheck Right KneeUANo InformationNo InformationUA-Back Painleft sided pain/blood in urineNo InformationCT orderNo Informationleft sided pain/blood in urineRight Shoulder Pain FOR RECORDS PERTAINING TO PATIENTS WHO ARE OR HAVE BEEN ENROLLED IN A CHEMICAL DEPENDENCY/SUBSTANCEABUSE PROGRAM, SOME INFORMATION MAY BE OMITTED. This clinical summary was aggregated from multiple sources. Caution should be exercised in using it in the provision of clinical care. This summary normalizes information from multiple sources, and as a consequence, information in this document may materially change the coding, format and clinical context of patient data. In addition, data may be omitted in some cases. CLINICAL DECISIONS SHOULD BE BASED ON THE PRIMARY CLINICAL RECORDS. [employer] [facility]. provides no warranty or guarantee of the accuracy or completeness of information in this document.
[2023-04-07] MEDS: LACTATED RINGER'S SOLUTION 1,000 ML 50 ML IV (12:59)
[2023-04-07] MEDS: CLINDAMYCIN PHOSPHATE/D5W 900 MG/50 ML PIGGYBACK 100 MG IV (13:00)
[2023-04-07] MEDS: GENTAMICIN SULFATE 120 MG in 0.9 % SODIUM CHLORIDE 100 ML 206 MG IV (14:12)
--- NOTE | 2023-04-07 15:47 | P.URON_ITS ---
Urology Surgery Operative Note Operative Note Procedure Date: 04/07/23 Time Out Performed: yes Pre-op Diagnosis: 1. Gross hematuria 2. Left kidney stones Post-op Diagnosis: same as pre-op Procedures performed: 1. Cystoscopy, bilateral retrograde pyelogram 2. Left ureteroscopy with laser lithotripsy/stone extraction, stent placement on string Anesthesia: General-LMA ( Dr. Bakari Escalante ) Primary Surgeon: Frida Montague Complications: none Estimated blood loss (mL): 0 Findings: Mild trabeculations. No bladder tumors, lesions or foreign bodies. Urethral caruncle. BL RPG - no hydronephrosis, extravasation or filling defects, overall narrow ureters, prompt drainage of contrast Mixed bright yellow/dark brown stones in mid and lower pole calyces laser lithotripsied and basket extracted. Upper mid narrow infundibulum able to accommodate ureteroscope. No tumors. Specimens: left kidney stones Drains: 4.9Fr x 22-32 cm JJ left ureteral stent on string Incision: none Indications for Procedures: 57 year old female with left flank pain and gross hematuria was found to have multiple bilateral kidney stones on CT AP without contrast. Due to severe IV contrast allergy, patient could not undergo CT Urogram. After discussion of risks/benefits of management options, she elected to proceed with cystoscopy, bilateral retrograde pyelogram, possible biopsy, ureteroscopy with left laser lithotripsy/stone extraction, ureteral stent placement under general anesthesia. Risks were discussed including but not limited to bleeding, pain, infection, damage to surrounding structures, inability to treat the stone/place a stent, and need for additional procedures. The patient understands the stent is not permanent and needs to be removed or exchanged within 3 months to prevent encrustation, infection, invasive procedures and/or permanent renal damage. Detailed description of Procedure: After informed consent was obtained, the patient was brought to the operating room and transferred onto the operating table in supine position. Sequential compression devices were placed on bilateral lower extremities. The patient received the appropriate dose of preoperative IV antibiotics, Benadryl for severe IV contrast allergy even with medication prep and general anesthesia LMA was induced. They were positioned in modified dorsolithotomy with the appropriate pressure points padded, prepped, and draped in the usual sterile fashion for this procedure. An operative safety timeout was performed confirming the patient's identity, laterality and procedure, and all present agreed to proceed. I began by inserting a 22 [place] rigid cystoscope with 30 degree lens into the patient's urethra and bladder without difficulty. There were no bladder tumors, lesions, stones or foreign bodies. Bilateral ureteral orifices were orthotopic and patent. I turned my attention to the right ureteral orifice and a 6- [place] open-ended catheter was inserted into the ureteral orifice and dilute contrast was injected for retrograde pyelogram with findings as above. Attention was turned to the left UO and the same was repeated. A Sensor wire was inserted into the ureter up to the renal pelvis confirmed on fluoroscopy. A 10/12 [place] by 35 cm ureteral access sheath was inserted over the wire in a sequential fashion to gain access to the renal pelvis, only able to reach proximal ureter due to tightness. Next a flexible ureteroscope was inserted through the sheath and advanced to the renal pelvis under fluoroscopic guidance. A renoscopy was performed with findings as above. A 200 ?m Thulium YAG laser fiber was used to break the stone into fragments which were then removed with a 1.8 tipless nitinol basket. After the stone was adequately treated, a full renoscopy was performed removing any residual stones. The wire was reinserted and a pull down ureteroscopy was performed confirming no stones remained in the ureter. A 4.9Fr x 22-32 cm JJ variable length ureteral stent on a string was advanced over the wire, noting adequate curl in the renal pelvis and bladder on fluoroscopic and direct visualization. The bladder was drained with the cystoscope and inspected one final time to ensure adequate position of stent and no undue trauma to the bladder was done. The stones were sent for pathology and the cystoscope was removed. The string was secured to the left thigh with Tegaderm dressing. The patient tolerated the procedure well without complication. The patient was awakened from anesthesia and sent to PACU in stable condition. Plan: Discharge home with stent pain medications. Remove stent by the string at home in 4 days. Follow up in 6 weeks with renal US just prior. Other Provider present: No Post Operative care instructions: See discharge instructions Attending Doc Confirm Attending Attestation: Yes
[2023-04-07] MEDS: PROMETHAZINE HCL 25 MG/ML VIAL 12.5 MG IV (16:30)
[2023-04-07] MEDS: LACTATED RINGER'S SOLUTION 1,000 ML 100 ML IV (16:35)
[2023-04-07] MEDS: KETOROLAC TROMETHAMINE 30 MG/ML VIAL IVP (16:37)
--- NOTE | 2023-04-07 16:46 | PC.NURSE ---
Up to bathroom with 2 assist; saying, I don't feel good. Voided clear pink urine without difficulty and assisted back to cart
--- NOTE | 2023-04-07 17:02 | PC.NURSE ---
c/o nausea; retching; no emesis; medicated as ordered with Phenergan
[2023-04-07] MEDS: OXYBUTYNIN chloride 5 MG TABLET PO (17:04)
--- NOTE | 2023-04-07 17:13 | PC.NURSE ---
Medicated with Toradol as ordered; states pain across lower abdomen and left back; very restless; given warm blanket for abdomen and back; no further c/o nausea
--- NOTE | 2023-04-07 17:18 | PC.NURSE ---
Having pain relief,having suprapubic discomfort from stent; medicated with Oxybutynin as ordered; up to bathroom with 2 assist and voids clear pink urine; back to cart
[2023-04-14 21:07] LABS: Calcium Oxalate Dihydrate 5 % (.); Calcium Oxalate Monohydrate 15 % (.); Size 5x3 mm (.); Uric Acid 80 % (.)
== END 2023-04-07 17:42 | disposition home or self-care (01) ==
PROVIDERS: PCP Internal Medicine; Visit Provider Urology
PROC: (CPT 918; principal; 2023-04-07 13:35)
DX: N20.0 Calculus of kidney (principal); R31.0 Gross hematuria; Z87.440 Personal history of urinary (tract) infections; Z85.42 Personal history of malignant neoplasm of other parts of uterus; Z90.710 Acquired absence of both cervix and uterus; Z98.51 Tubal ligation status; N28.1 Cyst of kidney, acquired; Z87.01 Personal history of pneumonia (recurrent)
CPT/HCPCS: 52356; 36415; 74420; 82365; 99999; J2704

== ENCOUNTER 2023-04-09 18:49 | Emergency (ER) | payer OTHER, SELFPAY ==
[2023-04-09 18:53] VITALS: BP 167/90; PULSE 78; RESP 20; TEMP 37.1; O2SAT 98; BMI 32.6
--- OUTSIDE RECORDS SUMMARY | 2023-04-09 18:55 | XMS_ITS | CCD ---
Author Name Unknown Address [address] [place] [address] Organization [facility] Care Team Providers Care Top Steep Tender Name Role Phone ANNETTE DEAN (ANU) Unavailable Unava ilable JUANITO SUTTON Unavailable Unavailable DO Leighton Adams Primary Care Provider [phone] TOD Schneider Attending Provider Leighton Adams Unavailable Tara Schneider Unavailable Gurpreet Smith Unavailable DO Leighton Adams Primary Care Provider TOD Schneider Attending Provider MD Gurpreet Smith Attending Provider GURPREET SMITH Attending Unavailable LUIS, GURPREET Admitting Unavailable DR LEIGHTON ADAMS Primary Care Unavailable DO Leighton Adams Primary Care Provider MD Gurpreet Smith Attending Provider [phone] Leighton Adams Primary Care Unavailable Tara Schneider [...] Translations: [CEFUROXIME AXETIL] Drug [facility] 18 [facility] (13 sources) indomethacin; Translations: [INDOMETHACIN] Drug Allergy 08-06-19 18 AOF, Hives, Unknown [facility] Repository (19 sources) iodine; Translations: [IODINE] Drug Allergy 04-07-20 14 [facility] Repository (5 sources) Sulfonamides (Antibiotic); Translations: [SULFA (SULFONAMIDE ANTIBIOTICS)] Propensity to adverse reactions to drug (disorder) 08-06-19 18 AOF, [facility] Repository (1 source) SHELLFISH CONTAINING PRODUCTS; Translations: [SHELLFISH CONTAINING PRODUCTS] Propensity to adverse reactions to drug (disorder) 08-25-19 18 [facility] Repository (20 sources) Cefuroxime; Translations: [cefuroxime] Drug Allergy 08-06-19 18 [facility] (4 sources) Shellfish; Translations: [shellfish derived] Allergy to substance 08-06-19 18 [facility] (18 sources) Shellfish; Translations: [Shellfish] Drug allergy 04-07-20 14 [facility] Repository (17 sources) sulfaSALAzine Drug Allergy [facility] Other (1 source) Cefuroxime Drug Allergy 04-07-20 14 [facility] Repository (1 source) Procyclidine Drug Allergy 04-07-20 14 [facility] Repository (1 source) Sulfonamides (Antibiotic) Drug allergy (disorder) 04-07-20 14 [facility] Repository (8 sources) Contrast media Propensity to adverse reactions 01-06-20 13 Unknown [facility] Other (8 sources) Escitalopram Drug Allergy Unknown [facility] Other (8 sources) sulfADIAZINE Drug Allergy Unknown [facility] Other (8 sources) Sulfamethoxazole / Trimethoprim Drug Allergy Unknown [facility] Other (8 sources) Allergies Reconciled Propensity to adverse reactions Unknown [facility] Other (8 sources) Substance with sulfonamide structure and antibacterial mechanism of action (substance) Drug allergy 12-29-19 14 Unknown [facility] Other (8 sources) Iodinated contrast media (substance) Drug allergy Comment:cecelia tyson [facility] Other (8 sources) Biaxin *MACROLIDES* Propensity to adverse reactions Unknown [facility] Other (8 sources) patient allergy list reviewed by nurse or physicia Propensity to adverse reactions 07-19-19 Comment:Done [facility] Other (8 sources) Ceftin *CEPHALOSPORINS* Propensity to adverse reactions Unknown [facility] Other (1 source) Ciprofloxacin Drug Allergy Unknown [facility] Other (1 source) No Known Medication Allergies; Translations: [No Known Medication Allergies] Propensity to adverse reactions (disorder) [facility] Repository Medications Current Medications Medication Drug [...] Fluticasone Propionate (Flonase Allergy Relief) 50 mcg/actuation [place],Suspension Active 2 SPRAY INTRANASAL Daily August 04, [...] tablet by mouth twice daily Hydrocodone-Acetam inophen ([place]) 5-325 mg tablet Discontinued 1 TAB PO [...] Results Test Name Value Interpretation Reference Range Facility Operative Reporton Operative Report [id number]#1.00TIFF Normal [facility] Urine Cytology ([facility])on 06-06-2022 Urine Cytology Diagnosis Info Invalid Interpretation Code [facility] Comment on above: Result Comment: A:Ur ine,Urine:Voided Interpretation - MicroScopic Description - Adequacy - Gross Description Site ID:A color Yellow fixative Alcohol Specimen designated Urine received in alcohol preservative and labeled with the patient?s name, consists of 80ml clear yellow fluid. Electronically signed by : on: 04/05/2023 11:10:12 Performed By: #### 1 [id number] ####[facility] [address] [place] [address] Lab Reportson 04-02-2023 Lab Reports [id number]#1.00TIFF Normal [facility] Lab Reports [id number]#1.00TIFF Normal [facility] Ambulatory Visit Summaryon 06-01-2022 Ambulatory Visit Summary HUMBERTO VELASQUEZ :1965 Visit Date:03/31/2023 Ambulatory Visit Instructions Your Diagnosis Gross hematuria History of UTI Kidney stones Bilateral renal cysts Tests Performed Urnls Dip Stick Auto w/o Microscopy POC 19353 Your Care Team Attending Physician - Eddi [...] Following Appointments Follow Up with Eddi ANGELO, Frida Hunt, URL, URO When: Comments: Schedule procedure Where: Test Results Urnls Dip Stick Auto w/o Microscopy POC 45548 (03/31/2023) Bilirubin Urine Dipstick - Negative Blood Urine Dipstick - 3+ Large Glucose Urine Dipstick - Negative Ketones Urine Dipstick - Negative Leukocytes Urine Dipstick - Trace Nitrite Urine Dipstick - Negative Protein Urine Dipstick - Negative Specific [place]ston Urine Dipstick - 1.025 Urine Appearance Urine [...] ? 8 oz (237 mL) of milk, ouuqrxe-sgsuxcnuejuw-zvcq y milk, and calcium-fortifiedfruit juice. Calcium-fortified means that [...] of jessica (more content not included)... Normal [facility] Lab Reportson 03-31-2023 Lab Reports [id number]#1.00TIFF [facility] Patient Educationon 03-31-20 Patient Education Nephrology Dietary [...] ? 8 oz (237 mL) of milk, hqkuixn-ppcootmruvln-sgjv y milk, and calcium-fortifiedfruit juice. Calcium-fortified means that [...] Spinach (cooked), rhubarb, beets, sweet potatoes, and Angolan chard. ? Peanuts. ? Potato chips, swazi fries, and baked potatoes with skin on. ? Nuts and nut products. ? Chocolate. ? If you regularly take a diuretic medicine, make sure to eat at least 1 or 2 servings of fruits or vegetables that are high in potassium each day. These include: ? Avocado. ? Banana. ? [place], prune, carrot, or tomato juice. ? Baked [...] fish oil, or vitamin B6. ? Take kfqd-acd-zydbqwt and prescription medicines only as told by your health care provider. These include supplements. What foods sh (more content not included)... [facility] Physician Referralon 023 Physician Referral [id number]#1.00TIFF [facility] RAD - CT Reporton 03-31-2023 RAD - CT Report [id number]#1.00TIFF [facility] RAD - MISCon 03-31-2023 RAD - MISC [id number]#1.00TIFF [facility] Screenson 03-31-2023 Screens [id number]#1.00TIFF [facility] Urine Cytology ([facility])on 06-01-2022 UC Method of Extraction Voided [facility] Comment on above: Performed By: #### 1 [id number] ####[facility] [address] [facility] [place] [address] Number of Jars 1 Invalid Interpretation Code [facility] Comment on above: Performed By: #### 1 [id number] ####[facility] [address] [facility] [place] [address] Specimen Urine Normal [facility] Comment on above: Performed By: #### 1 [id number] ####[facility] [address] [facility] [place] [address] Type of Service Technical Only Normal [facility] Comment on above: Performed By: #### 1 [id number] ####[address] [place] [address] RAD - MISCon 03-30-2023 RAD - MISC [id number]#1.00TIFF Normal [facility] XR shoulder RT min 2V*on XR shoulder RT min 2V* [facility] [address] XRay Report Signed Patient: Humberto Velasquez MR#: [id number] : 1965 Acct:[id number] Age/Sex: 57 / F ADM Date: 03/08/23 Loc: [place] Room: Type: [facility] Attending Dr: Gurpreet Smith MD Copies to: [...] BONY PROCESS. Impression dictated by: Joe Ramirez Jr. DEdna03/08/2023 3:07 PM Dictation Location: [place] [address] Transcribed By: MIRACLE 03/08/23 1507 Dictated By: Joe Ramirez Jr, DO 03/08/23 1506 Signed By: 03/08/23 1507 [facility] Physician Orderon 02-17-2023 Physician Order [id number]#1.00TIFF [place] [facility] XR knee RT 2Von 07-09-2022 XR knee RT 2V [facility] [place] [address] [place] [address] XRay Report Signed Patient: Humberto Velasquez MR#: [id number] : 1965 Acct:[id number] Age/Sex: 56 / F ADM Date: 07/09/22 Loc: [place] Room: Type: [facility] Attending Dr: Gurpreet Smith MD Copies to: [...] Hal Hutchinson M.D.07/09/2022 11:46 AM Dictation Location: [place] [address] Transcribed By: MIRACLE 07/09/22 1146 Dictated By: Hal Hutchinson II, MD 07/09/22 1146 Signed By: 07/09/22 1146 [facility] Urinalysis - DIPSTICKon 02- Appearance (U) cloudy [employer] Other Bilirubin Ql (U) Negative [employer] Other Color (U) yellow [facility] Other Glucose Ql (U) Negative [employer] Other Hemoglobin Ql (U) [employer] Other Ketones Ql (U) Negative [employer] Other Leukocyte esterase Test strip Ql (U) small [facility] Other Nitrite Ql (U) Negative [employer] Other pH (U) 5 [pH] [facility] Other Protein Ql (U) Negative [employer] Other Specific gravity (U) [Rel density] 1.010 [facility] Other Urobilinogen (U) [Mass/Vol] 0.2 mg/dL [facility] Other Urinalysis - DIPSTICK [facility] Other MR knee LT wo conon 05-21-19 MR knee LT wo con [facility] [place] [address] [place] [address] MRI Report Signed Patient: Humberto Velasquez MR#: [id number] : 1965 Acct:[id number] Age/Sex: 56 / F ADM Date: 05/21/22 Loc: MR Room: Type: [facility] Attending Dr: Tara WYATTC Copies to: LAMIN [...] Hal Hutchinson M.D.05/21/2022 8:38 PM Dictation Location: [place] [address] Transcribed By: [facility] 05/21/222037 Dictated By: Hal Hutchinson II, MD 05/21/222029 Signed By: 05/21/222037 [facility] MR knee RT wo conon 05-21-19 MR knee RT wo con [facility] [place] [address] [place] [address] MRI Report Signed Patient: Humberto Velasquez MR#: [id number] : 1965 Acct:[id number] Age/Sex: 56 / F ADM Date: 05/21/22 Loc: MR Room: Type: [facility] Attending Dr: Tara BARON Copies to: LAMIN [...] Hal Hutchinson M.D.05/21/2022 8:38 PM Dictation Location: [facility]- Transcribed By: [facility] 05/21/222037 Dictated By: Hal Hutchinson II, MD 05/21/222029 Signed By: 05/27/22 1524 [facility] MR knee RT wo con [facility] [employer] Other MR knee RT wo con [facility] [employer] Other MR knee RT wo con [address] [facility] [employer] Other [place] [address] Flynn Other MR knee RT wo con MRI Report [facility] Other MR knee RT wo con Signed [facility] Other MR knee RT wo con Patient: Humberto Velasquez MR#: [id number] [facility] Other MR knee RT wo con [id number] [employer] Other MR knee RT wo con : 1965 Acct:[id number] [facility] Other MR knee RT wo con Age/Sex: 56 / F ADM Date: 05/21/22 [facility] Other MR knee RT wo con Loc: Room: Type: DEP CLI Flynn Other MR knee RT wo con Attending Dr: Aimee Schneider NP-C [facility] Other MR knee RT wo con Copies to: RAVEN AdamsonPRea Flynn Other MR knee RT wo con Ordering Provider: MARILYN AdamsonHayde Flynn Other MR knee RT wo con Date of Service: 05/21/22 [facility] Other MR knee RT wo con MR/MR knee RT wo con: PAIN Flynn Other MR knee RT wo con MR knee RT wo con 05/21/2022 7:18 PM Flynn Other MR knee RT wo con SIGNS AND SYMPTOMS: Acute right knee pain beneath patella Flynn Other MR knee RT wo con PROTOCOL: Multiplana r multisequence MR images of the right knee were obtained without IV contrast [facility] Other MR knee RT wo con [facility] 05/06/2022 [facility] Other MR knee RT wo con FINDINGS: [employer] Other MR knee RT wo con Fluid: There is a sm all joint effusion. There is no evidence of Plunkett's cyst.. Flynn Other MR knee RT wo con Medial compartment: Flynn Other MR knee RT wo con Medial meniscus: Intact. Flynn Other MR knee RT wo con Medial collateral ligament: Intact. Flynn Other MR knee RT wo con Medial femoral condy le cartilage: Preserved. Flynn Other MR knee RT wo con Medial tibial platea u cartilage: Preserved. Flynn Other MR knee RT wo con Lateral compartment: Flynn Other MR knee RT wo con Lateral meniscus: Th ere is a complex predominantly radially oriented tear throughout the lateral Flynn Other MR knee RT wo con meniscus. No displac ed fragments are visualized.. There is a complex parameniscal cyst projecting Flynn Other MR knee RT wo con from the anterior ho rn measuring 7 mm in greatest dimension. Flynn Other MR knee RT wo con Lateral collateral ligament: Intact. Edema is noted along the distal iliotibial band. 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 Flynn Other MR knee RT wo con Lateral tibial plate au cartilage: There is full thickness chondromalacia with underlying subchondral Flynn Other MR knee RT wo con edema. There is mild subchondral cystic change.. Flynn Other MR knee RT wo con Posterolateral corner: Flynn Other MR knee RT wo con Popliteus tendon: Intact. Flynn Other MR knee RT wo con Popliteofibular liga ment: Intact. Flynn Other MR knee RT wo con Proximal tibiofibula r joint: Preserved. Flynn Other MR knee RT wo con Anterior compartment: Flynn Other MR knee RT wo con Alignment: Normal. Flynn Other MR knee RT wo con Quadriceps tendon: Intact. Flynn Other MR knee RT wo con Patellar tendon: Intact. Flynn Other MR knee RT wo con Retinaculum: Medial intact. Lateral intact. Flynn Other MR knee RT wo con Patellar cartilage: There is partial thickness chondromalacia. Flynn Other MR knee RT wo con Trochlea: Preserved. . Plica: None. Hoffa fat pad: Edema is present in Hoffa's fat pad Flynn Other MR knee RT wo con Intercondylar compartment: Flynn Other MR knee RT wo con Anterior cruciate ligament: Thin but grossly intact. This may be secondary to a remote partial Flynn Other MR knee RT wo con thickness tear. No rtMicromidas Other MR knee RT wo con Posterior cruciate ligament: Intact. Flynn Other MR knee RT wo con Bones (other than subarticular marrow): Normal. Flynn Other MR knee RT wo con Muscles: Normal. N [employer] [place] [employer] Other MR knee RT wo con Vessels: Normal. N [place] Other MR knee RT wo con Nerves: Normal. No rtMicromidas Other MR knee RT wo con M R/MR knee RT wo con Flynn Other MR knee RT wo con IMPRESSION: Flynn Other MR knee RT wo con There is a complex predominantly radially oriented tear throughout the lateral meniscus. No Flynn Other MR knee RT wo con displaced fragments are visualized.. There is a complex parameniscal cyst projecting from the Flynn Other MR knee RT wo con anterior horn measur ing 7 mm in greatest dimension. Flynn Other MR knee RT wo con There is partial thickness chondral malacia of the lateral femoral condyle with full thickness Flynn Other MR knee RT wo con chondromalacia, subchondral edema, and subchondral cystic change along the lateral tibial plateau. Flynn Other MR knee RT wo con Edema is noted along the distal iliotibial band. Flynn Other MR knee RT wo con There is a small karen nt effusion. Flynn Other MR knee RT wo con There is mild partia l thickness chondromalacia along the undersurface of the patella. Flynn Other MR knee RT wo con Impression dictated by: Hal Hutchinson M.D.05/21/2022 8:38 PM [facility] Other MR knee RT wo con Dictation Location: [place] [address] Flynn Other MR knee RT wo con Transcribed By: MIRACLE 05/21/22 203 Flynn Other MR knee RT wo con Dictated By: Hal Hutchinson II, MD 05/21/222029 [facility] Other MR knee RT wo con Signed By: 05/27/22 1524 [facility] Other XR knee RT 2Von 05-06-2022 XR knee RT 2V [facility] [place] [address] [place] [address] XRay Report Signed Patient: Humberto Velasquez MR#: [id number] : 1965 Acct:[id number] Age/Sex: 56 / F ADM Date: 05/06/22 Loc: [place] Room: Type: [facility] Attending Dr: Tara BARON Copies to: LAMIN [...] Funmilayo Mccoy M.D.05/06/2022 3:22 PM Dictation Location: [place] [address] Transcribed By: [facility] 05/06/22 1522 Dictated By: Funmilayo Mccoy MD 05/06/22 1519 Signed By: 05/06/22 1522 [facility] XR knee RT 2V [facility] [employer] Other XR knee RT 2V [facility] [employer] Other XR knee RT 2V [address] [place] [address] [employer] Other XR knee RT 2V [place], [place] [id number] [place] [address] [employer] Other XR knee RT 2V XRay Report [employer] Other XR knee RT 2V Signed [place] [employer] Other XR knee RT 2V Patient: Humberto Velasquez MR#: [id number] [place] [employer] Other XR knee RT 2V [id number] [place] [employer] Other XR knee RT 2V : 1965 Acct:[id number] [facility] Other XR knee RT 2V Age/Sex: 56 / F ADM Date: 05/06/22 [facility] Other XR knee RT 2V Loc: [facility] Room: Type : [facility] Flynn Other XR knee RT 2V Attending Dr: Aimee WYATTC Flynn Other XR knee RT 2V Copies to: LAMIN Adamson [facility] Other XR knee RT 2V Ordering Provider: LAMIN Adamson Flynn Other XR knee RT 2V Date of Service: 05/06/22 [facility] Other XR knee RT 2V XR/XR knee RT 2V: Acute pain of right knee [facility] Other XR knee RT 2V RIGHT KNEE - 2 views N [facility] [employer] Other XR knee RT 2V COMPARISON: 06/01/2018 [facility] Other XR knee RT 2V CLINICAL DATA: Anter ior and lateral right knee pain since yesterday. Lateral lump and feeling of [facility] Other XR knee RT 2V instability. [employer] Other XR knee RT 2V AP and lateral stand ing views were obtained. There is no acute fracture or dislocation. Mild [facility] Other XR knee RT 2V narrowing of the lat eral tibiofemoral joint compartment is again noted. Minor tricompartment [facility] Other XR knee RT 2V marginal spurring is seen. There is a trace amount of joint fluid. No focal soft tissue swelling [facility] Other XR knee RT 2V is noted. [facility] Other XR knee RT 2V X R/XR knee RT 2V [facility] Other XR knee RT 2V IMPRESSION: [employer] Other XR knee RT 2V MILD DEGENERATIVE CHANGE. Flynn Other XR knee RT 2V NO ACUTE BONY FINDINGS. Flynn Other XR knee RT 2V Impression dictated by: Funmilayo Mccoy M.D.05/06/2022 3:22 PM [facility] Other XR knee RT 2V Dictation Location: [place] [address] Flynn Other XR knee RT 2V Transcribed By: PWS 05/06/22 1522 [facility] Other XR knee RT 2V Dictated By: Funmilayo Mccoy MD 05/06/22 [facility]9 Flynn Other XR knee RT 2V Signed By: [facility] Other XR knee RT 2V 05/06/22 [facility] [employer] Other SCREENING MAMMOGRAM W/ROB, BILATERAL*on 12-31-2021 SCREENING MAMMOGRAM W/ROB, BILATERAL* CLINICAL HISTORY: Screening Mammogram COMPARISON: Priors dating back to 2017 TECHNIQUE: 2D and 3D mammogram imaging of both breasts was performed. RESULT: DENSITY: There are scattered areas of fibroglandular density. There is no suspicious mass, asymmetry, architectural distortion, or calcification. No significant change since the prior mammograms. IMPRESSION: BIRADS 1 : NEGATIVE, NORMAL INTERVAL FOLLOW UP FOLLOW-UP: 12 months DENSITY: Scattered MAMMOGRAPHY IS VERY IMPORTANT TO YOUR HEALTH. THE CURRENT [employer] OF [employer] AND [employer]WORK GUIDELINES RECOMMENDS ANNUAL MAMMOGRAPHY BEGINNING AT AGE 40 THIS FACILITY USES A REMINDER SYSTEM TO ENSURE ALL PATIENTS RECEIVE REMINDER NOTIFICATIONS AT THE APPROPRIATE TIME BASED ON THE RECOMMENDATIONS OF THIS EXAM. 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 Accredited by the ACR and FDA. Report reported and signed by Bakari Ly on 12/31/2021 1324 Normal [facility] Specialist CNPMarika 08-25-2017 CNPN Telephone (PULMMN) JOSSY VELASQUEZ ([id number]) 1965 FDate Time Provider Department08/25/17 JUANITO SUTTON [...] Status:Closed by NEGIN BENITEZ on 08/25/17 Normal [facility] ALGN Resp Region 7 018 A fumigatus IgE <0.35 Normal <0.35 [facility] Comment on above: Performed By: #### C BCDIF, TSH, VITD, IGE, RESPR7 ####[facility] [address] [place], [place] [phone] A. fumigatus-Class 0 Normal 0 [facility] Comment on above: Performed By: #### C BCDIF, TSH, VITD, IGE, RESPR7 ####[facility] [address] [place], [place] [phone] A. tenuis-Class 0 Normal 0 [facility] Comment on above: Performed By: #### C BCDIF, TSH, VITD, IGE, RESPR7 ####[facility] [place] [address] Alternariatenuis IgE <0.35 Normal <0.35 [facility] Comment on above: Performed By: #### C BCDIF, TSH, VITD, IGE, RESPR7 ####[facility] [address] [place] IgE <0.35 Normal 0-0.35 [facility] Comment on above: Performed By: #### C BCDIF, TSH, VITD, IGE, RESPR7 ####[place] [address] [address] [phone] [place]-Class 0 Normal 0 [facility] Comment on above: Performed By: #### C BCDIF, TSH, VITD, IGE, RESPR7 ####[place] [address] [address] [phone] [place] IgE <0.35 Normal <0.35 [facility] Comment on above: Performed By: #### C BCDIF, TSH, VITD, IGE, RESPR7 ####[place] [address] [address] [place] [address] [place]-Class 0 Normal 0 [facility] Comment on above: Performed By: #### C BCDIF, TSH, VITD, IGE, RESPR7 ####[place] [id number] Ave[address]level[address] [place] [address] C.herbarum-Class 0 Normal 0 [facility] Comment on above: Performed By: #### C BCDIF, TSH, VITD, IGE, RESPR7 ####[place] [address] [address] [phone] Cat Dander IgE <0.35 Normal <0.35 [facility] Comment on above: Performed By: #### C BCDIF, TSH, VITD, IGE, RESPR7 ####[place] [address] [address] [place] [address] Cat Dander-Class 0 Normal 0 [facility] Comment on above: Performed By: #### C BCDIF, TSH, VITD, IGE, RESPR7 ####[place] [address] [address] [place] [address] Clad herbarum IgE <0.35 Normal <0.35 [facility] Comment on above: Performed By: #### C BCDIF, TSH, VITD, IGE, RESPR7 ####[place] [address] [address] [place] [address] D pteronyssinus IgE 0.44 KU/L High 0-0.35 [facility] Comment on above: Performed By: #### C BCDIF, TSH, VITD, IGE, RESPR7 ####[place] [address] [address] [place] [address] D. farinae-Class 0 Normal 0 [facility] Comment on above: Performed By: #### C BCDIF, TSH, VITD, IGE, RESPR7 ####[place] [address] [address] [place] [address] D.pteronyssin-Class 1 High 0 [facility] Comment on above: Performed By: #### C BCDIF, TSH, VITD, IGE, RESPR7 ####[place] [address] [address] [place] [address] Derm farinae IgE <0.35 Normal <0.35 [facility] Comment on above: Performed By: #### C BCDIF, TSH, VITD, IGE, RESPR7 ####[place] [address] [address] [address] Dog Dander IgE <0.35 Normal <0.35 [facility] Comment on above: Performed By: #### C BCDIF, TSH, VITD, IGE, RESPR7 ####[place] [id number] [place] [address] Dog [place]ander-Class 0 Normal 0 [facility] Comment on above: Performed By: #### C BCDIF, TSH, VITD, IGE, RESPR7 ####[place] [address] [address] [address] [place] IgE <0.35 Normal <0.35 [facility] Comment on above: Performed By: #### C BCDIF, TSH, VITD, IGE, RESPR7 ####[place] [address] [address]level[address] [address] [place]-Class 0 Normal 0 [facility] Comment on above: Performed By: #### C BCDIF, TSH, VITD, IGE, RESPR7 ####[place] [address] [address] [address] [place] IgE <0.35 Normal <0.35 [facility] Comment on above: Performed By: #### C BCDIF, TSH, VITD, IGE, RESPR7 ####[place] [id number] AveClevelandGary [place] [address] [place]-Class 0 Normal 0 [facility] Comment on above: Performed By: #### C BCDIF, TSH, VITD, IGE, RESPR7 ####[place] [address] [address] [address] [place] IgE <0.35 Normal <0.35 [facility] Comment on above: Performed By: #### C BCDIF, TSH, VITD, IGE, RESPR7 ####[place] [address] [address] [place] [phone] Or[place]-Class 0 Normal 0 [facility] Comment on above: Performed By: #### C BCDIF, TSH, VITD, IGE, RESPR7 ####[place] [id number] AveCCarolyn Ville [phone] Red [place] Grass-Class 0 Normal 0 [facility] Comment on above: Performed By: #### C BCDIF, TSH, VITD, IGE, RESPR7 ####[place] [address] [address]ClevelMelissa V[address] [phone] [place] IgE <0.35 Normal <0.35 [facility] Comment on above: Performed By: #### C BCDIF, TSH, VITD, IGE, RESPR7 ####[place] [address] [address] [phone] Rough [place]ell El-Class 0 Normal 0 [facility] Comment on above: Performed By: #### C BCDIF, TSH, VITD, IGE, RESPR7 ####[place] [address] [address] [address] Rough Marshelder IgE <0.35 Normal <0.35 [facility] Comment on above: Performed By: #### C BCDIF, TSH, VITD, IGE, RESPR7 ####[place] [address] [address] [phone] Short Rag[place] IgE <0.35 Normal <0.35 [facility] Comment on above: Performed By: #### C BCDIF, TSH, VITD, IGE, RESPR7 ####[place] [address] [address] Short [place]-Class 0 Normal 0 [facility] Comment on above: Performed By: #### C BCDIF, TSH, VITD, IGE, RESPR7 ####[place] [address] [address] [place] [phone] CBC and Differentialon 08-24 Abs Baso <0.03 Normal <0.11 [facility] Comment on above: Performed By: #### C BCDIF, TSH, VITD, IGE, RESPR7 ####[place] [address] [address]CM[address] [place] [phone] Abs Sutter 0.34 k/uL Normal <0.87 [facility] Comment on above: Performed By: #### C BCDIF, TSH, VITD, IGE, RESPR7 ####[place] [address] [address]Christie [place] [phone] Abs Neut 2.53 k/uL Normal 1.45-7.50 [facility] Comment on above: Performed By: #### C BCDIF, TSH, VITD, IGE, RESPR7 ####[place] [address] [address] [place] [phone] Basophils/100 WBC Auto (Bld) 0.4 % Normal [facility] Comment on above: Performed By: #### C BCDIF, TSH, VITD, IGE, RESPR7 ####[place] [address] [address] [place] [phone] DTYPE Auto Diff Normal [facility] Comment on above: Performed By: #### C BCDIF, TSH, VITD, IGE, RESPR7 ####[place] [address] [address] [place] [phone] Eosinophils 0.08 10*3/uL Normal <0.46 [facility] Comment on above: Performed By: #### C BCDIF, TSH, VITD, IGE, RESPR7 ####[place] [address] [address]Christ[address] [place] [phone] Eosinophils/100 leukocytes 1.5 % Normal [facility] Comment on above: Performed By: #### C BCDIF, TSH, VITD, IGE, RESPR7 ####[place] [address] [address]ClevelAlexander V[address] [phone] Erythrocyte distribution width Auto Ratio (RBC) 13.6 % Normal 11.5-15.0 [facility] Comment on above: Performed By: #### C BCDIF, TSH, VITD, IGE, RESPR7 ####[place] [address] [address]ClevelAlexander V[address] [phone] Erythrocytes (RBC) 0.0 /100 WBC Normal [address] [facility] Comment on above: Performed By: #### C BCDIF, TSH, VITD, IGE, RESPR7 ####[place] [address] [address] [place] [phone] Erythrocytes (RBC) 4.74 10*6/uL Normal 3.90-5.[address] [facility] Comment on above: Performed By: #### C BCDIF, TSH, VITD, IGE, RESPR7 ####[place] [address] [address] [place] [phone] Erythrocytes (RBC) 10*6/uL Normal <0.01 [facility] Comment on above: Performed By: #### C BCDIF, TSH, VITD, IGE, RESPR7 ####[place] [address] [address] [place] [phone] Hematocrit (HCT) 43.0 % Normal 36.0-46.0 [facility] Comment on above: Performed By: #### C BCDIF, TSH, VITD, IGE, RESPR7 ####[place] [address] [address] [place] [phone] Hemoglobin mass conc (Bld) 13.8 g/dL Normal 11.5-15.5 [facility] Comment on above: Performed By: #### C BCDIF, TSH, VITD, IGE, RESPR7 ####[place] [address] [address] [place] [phone] Lymphocytes 2.20 10*3/uL Normal 1.00-4.00 [facility] Comment on above: Performed By: #### C BCDIF, TSH, VITD, IGE, RESPR7 ####[place] [address] [address] [place] [phone] Lymphocytes/100 leukocytes 42.5 % Normal [facility] Comment on above: Performed By: #### C BCDIF, TSH, VITD, IGE, RESPR7 ####[place] [address] [address] [place] [phone] MCH 29.1 pG Normal 26.0-34.0 [facility] Comment on above: Performed By: #### C BCDIF, TSH, VITD, IGE, RESPR7 ####[place] [address] [address] [place] [phone] MCHC mass conc (RBC) 32.1 g/dL Normal 30.5-36.0 [facility] Comment on above: Performed By: #### C BCDIF, TSH, VITD, IGE, RESPR7 ####[place] [address] [address] [place] [phone] MCV 90.7 fL Normal 80.0-100.0 [facility] Comment on above: Performed By: #### C BCDIF, TSH, VITD, IGE, RESPR7 ####[place] [address] [address] AveCRichard Ville [phone] Monocytes/100 leukocytes 6.6 % Normal [facility] Comment on above: Performed By: #### C BCDIF, TSH, VITD, IGE, RESPR7 ####[place] [address] [address] [place] [phone] Neutrophils/100 WBC Auto (Bld) 49.0 % Normal [facility] Comment on above: Performed By: #### C BCDIF, TSH, VITD, IGE, RESPR7 ####[place] [address] [address] [place] [phone] Platelet mean volume (PMV) 10.9 fL Normal 9.0-12.7 [facility] Comment on above: Performed By: #### C BCDIF, TSH, VITD, IGE, RESPR7 ####[facility] [address] AveCMiddle [place], [place] [phone] Platelets 286 10*3/uL Normal 150-400 [facility] Comment on above: Performed By: #### C BCDIF, TSH, VITD, IGE, RESPR7 ####[facility] AvFishers, [place] [phone] WBC (Leukocytes) 5.18 10*3/uL Normal 3.70-11.00 [facility] Comment on above: Performed By: #### C BCDIF, TSH, VITD, IGE, RESPR7 ####[facility] [place], [place] [phone] CNCOon 08-24-2017 CNCO Letter TextRespirato [address] [facility].[place], [place] [phone] (office)[phone] (fax)08/24/2017RE: Humberto MajorsDOB: 1965To whom it may concern:Please perform a methacholine challenge test on Humberto Velasquez.Please send a copy of all results (numbers, reports, flow loops) to Dr. Alejandro at fax: [phone].Sincerely,ANU Earl-Aimee TextMay 2017Dear Ms Velasquez,I have released your lab results into Oppten for your review.Your vitamin D level is [...] the 8 weeks are completed.Thank you,Dr. Juanito [id number]: September 05, 2017 [facility] CNOVon 08-24-2017 CNOV Office Visit (PULMMN) JOSSY VELASQUEZ ([id number]) 1965 FDate Time Provider Department08/24/17 8:50 AM JUANITO SUTTON During your visit today, we recorded the following information about you: Temperature Pulse Respiration Blood pressure 97.8 degrees 62/minute 16/minute 114/81 Weight Height 87.1 kg 1.626 Flor Sutton MD 09/01/2017 3:00 PM SignedConsulting PhysicianLeighton Adams for the ConsultHumberto Velasquez presents today for consultation / opinion regarding [...] her chest, but only when lying flat.Recent Hospitalizations/Exacerba tions: never hospitalized for thisPrior Intubations: NoAllergy testing/atopy: [...] past, and pna once, nohx of TB exposureComorbidities:Sin us disease: Hx of frequent sinus infections, most [...] past surgical history on file.MedicationsNo prescriptions on file.AllergiesALLERGIESAl lergen Reactions- Ceftin [Cefuroxime * Hives- Indosin [Indomethac* [...] imaging findings.SPIROMETRY - BASELINE AND POST DILATOR ([id number]) - ordered on 08/04/17 [facility] [address], [address] [place] [address] Test Date: 2634-28-45Ldq Name: HUMBERTO VELASQUEZ Department: Room:Gender: Female 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 2 08/24/2017 07:41:34AM PRE AND POST: ATS acceptability andrepeatability standards for spirometry met. Medications and Allergies werereviewed for possible drug interactions per policy MM-102. No contraindicationsor sensitivities were noted. No respiratory meds taken before testing. 4 puffsalbuterol (360 mcg) delivered by MDI via valved holding chamber, HRpre= 55/min,HRpost= 64/min. // SAIMPRESSION: [facility] Respiratory Labolt Pulmonary Function Lab Pred LLN ULN Pre % Post % % chgDate [id number] 07:24AM 07:37AM ---------Height 161.5 161.5Weight 88 88 ----FVC 3.49 2.81 4.17 3.56 102 3.41 98 [...] -14VBe%FV 3.16 3.41 8VBEex 0.11 0.12 4 ---VC MAX 3.49 2.81 4.17 3.56 102 3.41 98 -4 --------FeNO: 12 ppbI have personally reviewed and confirmed the findings on pulmonary functiontesting.Val n / RecommendationsPleasant 51 year old female here [...] and plan discussed with supervising physician, Dr. Valleank you for allowing me to participate in the care of Humberto Velasquez.Please feel free to contact me with any questions or concerns.The duration of this appointment visit was 50 minutes of pkvh-tp-xfrv time withthe patient. More than 50% of this time was spent in counseling, explanation ofdiagnosis, planning of further management, and coordination of care.ANU Bain-Robyn CenterRespiratory InstituteMay [address]:48 [facility]:Leighton Marin NoteI have personally performed a face to face assessment of the patient and havereviewed the PA/LONG CHAIN DYEING MACHINE OPERATOR note. My kumar findings include:Assessment/Plan are :51 year old being seen for cough most likely from asthma.Also clinical history and exam of chronic sinusitis.Plan:MCCTAsteli n nasal spraysinulairLabsAsthma education and AAPOther additions or changes: NoneSignature: REYES Solisate: 09/01/2017Time: 2:54 PMSANU Bailey 08/26/2017 3:29 PM AddendumMethacholine challenge- good determinant [...] unspecified location [J32.9] Wheezing [R06.2] Chest tightness [R07.89]Order(s):azelasti ne (ASTELIN,ASTEPRO) 0.1% nasal sprayUse 2 Sprays in each nostril twice daily.Disp: 1 BottleRfl: 3 montelukast (SINGULAIR) 10 mg tabletTake 1 tablet by mouth daily at bedtime.Disp: 90 tabletRfl: 3 CBC + DIFF [SQCBCDIF] Order #: [id number] FUTURE TSH BLD [SQTSH] Order #: [id number] FUTURE VITAMIN D 25 HYDROXY [SQVITD] Order #: [id number] FUTURE ALGN RESP DISEASE PROF REG 7 [SQRESPR7] Order #: [id number] FUTURE IGE BLD [SQIGE] Order #: [id number] FUTURE METHACHOLINE CHALLENGE [5720964] Order #: [id number] FUTUREPrescriptions as of 08/24/2017 Sig: AZELASTINE 137 [...] follow up.Follow-up and Disposition History RecordedEncounter Number: [id number] Status:Closed by JUANITO SUTTON MD on 09/01/17 Normal [facility] IgEon 08-24-2017 IgE 125.0 kU/L High <114 [facility] Comment on above: Performed By: #### C BCDIF, TSH, VITD, IGE, RESPR7 ####[facility] [address] [place], [place] [phone] PROGRESSon 08-24-2017 PROGRESS HNO ID: [id number] thor: Juanito Frankservice: (none)Author Type: PhysicianType: Progress NotesFiled: 09/01/2017 3:00 PMNote Text:Consulting Leighton Arango for the ConsultHumberto Velasquez presents today for [...] albuterol which would help improve cough severity marly bit of chest tightness for short amount [...] cold snap in June and then end ofsept/JanuaryOff all meds for 2 weeks nowStill feels tightness in her chest, but only when lying flat.Recent Hospitalizations/Exacerba tions: never hospitalized for thisPrior Intubations: NoAllergy testing/atopy: [...] past, and pnaonce, no hx of TB exposureComorbidities:Sin us disease: Hx of frequent sinus infections, most [...] past surgical history on file.MedicationsNo prescriptions on file.AllergiesALLERGIESAl lergen Reactions- Ceftin [Cefuroxime * Hives- Indosin [Indomethac* [...] imaging findings.SPIROMETRY - BASELINE AND POST DILATOR ([id number]) - ordered on 08/04/17 [facility] [address] [place] [address] Test Date: 4039-81-44Hki Name: HUMBERTO VELASQUEZ Department: Room: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 2 08/24/2017 07:41:34AM PRE AND POST: ATS acceptability andrepeatability standards for spirometry met. Medications and Allergies werereviewed for possible drug interactions per policy MM-102. Nocontraindicationsor sensitivities were noted. No respiratory meds taken before testing. 4puffsalbuterol (360 mcg) delivered by MDI via valved holding chamber, HRpre= 55/min,HRpost= 64/min. // SAIMPRESSION: [facility] Respiratory Labolt Pulmonary Function Lab Pred LLN ULN Pre % Post % %chgDate [id number] 07:24AM 07:37AM ---------Height 161.5 161.5Weight 88 88 ----FVC 3.49 2.81 4.17 3.56 102 3.41 98-4FEV 1 2.77 2.19 3.34 2.77 100 2.83 102 2FEV1%F 80.18 70.39 89.98 78.01 97 82.99 103 6FEV 2 2.75 2.01 3.49 3.10 113 3.12 114 1FEV 3 3.11 2.49 3.73 3.24 104 3.24 104 0FEV3%E 94.88 89.52 100.2 91.17 96 94.98 100 4MEF 50 3.49 2.31 4.67 3.15 90 3.79 97986XTI 50 4.71 5.4917MMEF 2.74 1.52 3.96 2.44 89 2.89 15310NH%FIF 66.96 69.07 3FEV6 3.44 3.37-2PEF 5.93 4.20 7.66 7.15 121 7.80 132 9FET 13.17 11.43-13FETPEF 0.08 0.07-14VBe%FV 3.16 3.41 8VBEex 0.11 0.12 4 ---VC MAX 3.49 2.81 4.17 3.56 102 3.41 98-4 FeNO: 12 ppbI have personally reviewed and [...] Blood work IgE, RAST, CBC, Vit D, TSHRosendojody Velasquez will follow-up in pulmonary clinic in [...] this appointment visit was 50 minutes of lwif-xh-ddce timewith the patient. More than 50% of this time was spent in counseling,explanation of diagnosis, planning of further management, and coordinationof care.Reji Bain CenterRespiratory InstituteMay [address]:48 [facility]:Leighton MarinI have personally performed a face to face assessment of the patient andhave reviewed the PA/LONG CHAIN DYEING MACHINE OPERATOR note. My kumar findings include:Assessment/Plan are :51 year old being seen for cough most likely from asthma.Also clinical history and exam of chronic sinusitis.Plan:MCCTAsteli n nasal spraysinulairLabsAsthma education and AAPOther additions or changes: NoneSignature: Juanito Barrientos Herman, MDDate: 09/01/2017Time: 2:54 PM Normal [facility] TSHon 08-24-2017 Thyroid stimulating hormone (TSH) 1.640 uU/mL Normal 0.400-5.500 [facility] Comment on above: Result Comment: If t he patient is , TSH reference range varies by gestational period:First Trimester 0.100-2.500 uU/mLSecond Trimester 0.200-3.000 uU/mLThird Trimester 0.300-3.000 uU/mLReferences: 1. Brunson L, Kristina M, Alfa HARDING, et al. Management of Thyroid Dysfunction during and : An Endocrine Society Clinical Practice Guideline. J Clin Endocrinol Metab, 2012:97:8652-5298. 2. Stef WATERS. Overview of thyroid disease in . UpToDate. 2016. Accessed on October 04, 2015. Performed By: #### C BCDIF, TSH, VITD, IGE, RESPR7 ####[facility] [address] [place], [place] [phone] Vitamin D 25 Hydroxyon 08-24 Vitamin D 25 Hydroxy 28.1 ng/mL Low 31.0-80.0 [facility] Comment on above: Result Comment: Clas sification of 25 [place] Vitamin D status:Insufficiency/Moderate Deficiency: < or = 30 ng/mLSufficiency/Optimal Levels: 31 to 80 ng/mLToxicity: > 100 ng/mLTest performed by chemiluminescent immunoassay. Performed By: #### C BCDIF, TSH, VITD, IGE, RESPR7 ####[facility] [address] [place], [place] [phone] CT-CT chest wo con IMPORTon 08-05-2017 CT-CT chest wo con IMPORT Images were obtained outside of [facility] [id number] Normal [facility] DX-XR CHEST 2 V IMPORTon DX-XR CHEST 2 V IMPORT Images were obtained outside of [facility] [id number] Normal [facility] RI-XR CHEST 2 V IMPORTon RI-XR CHEST 2 V IMPORT Images were obtained outside of [facility] [id number] Normal [facility] Vital Signs Date Time Vital Sign Value Performing Clinician Facility 03-08-2023 12:15-0500 Body height 162.56 cm Gurpreet Olexa Other [facility] Other 03-08-2023 12:15-0500 Body mass index (BMI) [Ratio] 31.75 kg/m2 Gurpreet Olexa Other [facility] Other 03-08-2023 12:15-0500 Body weight 83.92 kg Gurpreet Olexa Other [facility] Other 01-27-2023 10:45-0400 Body height 162.56 cm Leighton Ball Other [facility] Other 01-27-2023 10:45-0400 Body mass index (BMI) [Ratio] 33.3 kg/m2 Leighton Ball Other [facility] Other 01-27-2023 10:45-0400 Body weight 88 kg Leighton Ball Other [facility] Other 01-27-2023 10:45-0400 Diastolic blood pressure 82 mm[Hg] Leighton Ball Other [facility] Other 01-27-2023 10:45-0400 Respiratory rate 12 /min Leighton Ball Other [facility] Other 01-27-2023 10:45-0400 Systolic blood pressure 134 mm[Hg] Leighton Ball Other [facility] Other 05-28-2022 12:45-0500 Body height 162.56 cm Gurpreet Smith Other [facility] Other Encounters Encounter Date Encounter Type Care Provider Facility Start: 04-07-2023 ambulatory Frida Montague Facility:C D:[id number] Start: 03-31-2023 End: 04-01-2023 ambulatory Frida M. Lujorge Facility:[facility] Start: 03-31-2023 End: 04-01-2023 ambulatory Frida M. Lujorge Facility:[facility] Start: 03-08-2023 Office outpatient visit 25 minutes Gurpreet Smith [facility] Start: 03-08-2023 End: 03-08-2023 ambulatory DO Leighton Ball Work Phone: [facility] Work Phone: Start: 03-08-2023 End: 03-08-2023 Patient encounter procedure DO Leighton Ball Work Phone: [facility] Start: 02-16-2023 ambulatory Frida Lue Facility:[facility] Start: 02-12-2023 End: 02-12-2023 ambulatory Leighton Ball Other [facility] Start: 02-12-2023 Telephone encounter Leighton Ball [facility] Start: 02-01-2023 End: 02-01-2023 ambulatory Leighton Ball Other [facility] Other Start: 02-01-2023 Telephone encounter Leighton Ball [facility] Start: 01-27-2023 End: 01-27-2023 ambulatory Leighton Ball Other [facility] Other Start: 01-27-2023 Encounter for genera l adult medical examination without abnormal findings Gurpreet Smith [facility] Start: 01-27-2023 Office outpatient visit 15 minutes Leighton Ball [facility] Start: 01-27-2023 Telephone encounter Gurpreet Smith [facility] Start: 01-22-2023 End: 01-22-2023 ambulatory Leighton Adams Other [facility] Other Start: 01-22-2023 Nursing evaluation o f patient and report Leighton Adams [facility] Start: 01-22-2023 Telephone encounter Leighton Adams [facility] Start: 08-17-2022 End: 08-17-2022 ambulatory Leighton Adams Other [facility] Other Start: 08-17-2022 Telephone encounter Leighton Adams [facility] Start: 07-09-2022 Office outpatient visit 15 minutes Gurpreet Olexa [facility] Start: 07-09-2022 End: 07-09-2022 ambulatory DO Leighton Adams Work Phone: [facility] Work Phone: Start: 07-09-2022 End: 07-09-2022 Patient encounter procedure DO Leighton Adams Work Phone: [facility] Start: 07-02-2022 ambulatory GURPREET RENTERIAXA Facility:[facility] Start: 06-18-2022 End: 06-18-2022 ambulatory Leighton Adams Other [facility] Other Start: 06-18-2022 Telephone encounter Leighton Adams [facility] Start: 06-01-2022 End: 06-01-2022 ambulatory Leighton Adams Other [facility] Other Start: 06-01-2022 Nursing evaluation o f patient and report Leighton Adams [facility] Start: 05-28-2022 End: 05-28-2022 ambulatory Gurpreet Renteriaxa Other [facility] Other Start: 05-28-2022 Office outpatient visit 25 minutes Gurpreet Olexa [facility] Start: 05-21-2022 End: 05-21-2022 ambulatory Leighton Adams Facility:[facility] Start: 05-21-2022 End: 05-21-2022 Patient encounter procedure DO Leighton Ball Work Phone: [facility] [place] Work Phone: Start: 05-06-2022 End: 05-06-2022 ambulatory Leighton Ball Facility:[facility] Start: 05-06-2022 End: 05-06-2022 Patient encounter procedure DO Leighton Ball Work Phone: [facility] Start: 05-06-2022 End: 05-06-2022 ambulatory DO Leighton Ball Work Phone: [facility] Work Phone: Start: 05-06-2022 Office outpatient visit 15 minutes [facility] Start: 04-24-2022 End: 04-24-2022 ambulatory Leighton Adams Other [facility] Other Start: 04-24-2022 Telephone encounter Leighton Adams [facility] Start: 04-23-2022 End: 04-23-2022 ambulatory Leighton Adams Other [facility] Other Start: 04-23-2022 Telephone encounter Leighton Ball [facility] Start: 08-24-2017 Ambulatory ANNETTE VILLEGAS (PA)[facility] Start: 08-24-2017 End: 09-02-2017 Ambulatory JUANITO SUTTON [facility] Start: 08-24-2017 End: 08-24-2017 [facility] Procedures Date Procedure Procedure Detail Performing Clinician Start: 03-08-2023 Plain X-ray of right shoulder DO Leighton Ball Work Phone: Start: 07-09-2022 X-ray of right knee DO Leighton Ball Work Phone: Start: 05-21-2022 MRI of right knee DO Be njamin Ball Work Phone: Start: 05-06-2022 X-ray of right knee DO Leighton Ball Work Phone: Start: 01-05-2013 General examination of patient Leighton Adams Other Immunizations Immunization Date Immunization Notes Care Provider Sree bradford 03-05-2022 COVID-19 mRNA Bivale nt Booster (Pfizer) DO Leighton Adams Work Phone: [facility] 03-05-2022 COVID-19 Pfizer (Pediatric) Leighton Adams Other [facility] Other 01-22-2022 influenza virus vaccine, split virus (incl. purified surface antigen) Leighton Adams Other [facility] Other 02-28-2021 COVID-19 mRNA, Comirnaty (Pfizer) DO Leighton Adams Work Phone: [facility] 01-24-2021 influenza virus vaccine, split virus (incl. purified surface antigen) Leighton Adams Other [facility] Other 08-01-2020 COVID-19 mRNA, Comirnaty (Pfizer) DO Leighton Adams Work Phone: [facility] 07-09-2020 COVID-19 mRNA, Comirnaty (Pfizer) DO Leighton Adams Work Phone: [facility] 01-08-2020 influenza virus vaccine, split virus (incl. purified surface antigen) Leighton Adams Other [facility] Other 01-08-2020 tetanus and diphther ia toxoids, adsorbed, preservative free, for adult use (5 Lf of tetanus toxoid and 2 Lf of diphtheria toxoid) Leighton Adams Other [facility] Other 01-17-2018 influenza virus vaccine, split virus (incl. purified surface antigen) Leighton Adams Other [facility] Other 02-05-2016 tetanus and diphther ia toxoids, adsorbed, preservative free, for adult use (5 Lf of tetanus toxoid and 2 Lf of diphtheria toxoid) Leighton Adams Other [facility] Other 01-24-2015 tetanus and diphther ia toxoids, adsorbed, preservative free, for adult use (5 Lf of tetanus toxoid and 2 Lf of diphtheria toxoid) Leighton Adams Other [facility] Other Payers Date Payer Category Payer Private Health Insurance [id number] 2022 Self-pay [id number] 2022 Unknown [id number] 2022 Private Health Insurance [id number] 1965 Unknown [id number] 2.16.84 [id number] 1966 Unknown [id number] 2.16.8 [id number] 1966 Unknown [id number] 2.16.8 [id number] 1959 Private Health Insurance [id number] Unknown [facility] [id number] Unknown [id number] 2.16.8 [id number] Unknown [id number] 2.16.8 [id number] Unknown [id number] 2.16.8 [id number] Unknown [id number] 2.16.8 [id number] Social History Date Type Detail Facility Start: 10-04-2018 End: 10-04-2018 Tobacco smoking status NHIS Never smoked tobacco (finding) [facility] Start: 1965 Sex Assigned At Female F [facility] Sex Assigned At Sex Assigned At Bir th [facility] [employer] Other Medical Equipment Procedure Code Equipment Code [...] was darker an (more content not included)... [facility] Comment on above: Result Comment: Elec tronically Signed By: Frida Montague MD\.br\Date and Time Signed: 03/31/23 09:13 EST\.br\Electronically Co-Signed By: Yuli Soto\.br\Date and Time Co-Signed: 03/31/23 08:56 EST 03-08-2023 [...] need to consider cortisone injection and/or MRI [facility] Other 10-16-2023 Evaluation note* Encounter Date Diagnosis Assessment Notes Treatment Notes Treatment Clinical Notes Jan, Gross hematuria (ICD-10 - R31.0) Jan, Left paraspinal back pain (ICD-10 - M54.89) [facility] Other 10-11-2023 Evaluation note* Encounter Date Diagnosis Assessment Notes Treatment Notes Treatment Clinical Notes Jan, Gross hematuria (ICD-10 - R31.0) Push fluids Call or go to ER for increased pain, fever or severel bleeding. Jan, Left paraspinal back pain (ICD-10 - M54.89) Heat/ice and Tylenol. Avoid NSAIDs. Call office or ER for increased pain [facility] Other 10-11-2023 Evaluation note* Encounter Date Diagnosis Assessment Notes Treatment Notes Treatment Clinical Notes Jan, Wellness examination (ICD-10 - Z00.00) [facility] Other 10-06-2023 Evaluation note* Encounter Date Diagnosis Assessment Notes Treatment Notes Treatment Clinical Notes Jan, Dysuria (ICD-10 - R30.0) [facility] Other 05-01-2023 Evaluation note* Encounter Date Diagnosis Assessment Notes Treatment Notes Treatment Clinical Notes August, Dysuria (ICD-10 - R30.0) [facility] Other 03-23-2023 Evaluation note* Encounter Date Diagnosis [...] right knee, subsequent encounter (ICD-10 - S83.281D) [facility] Other 02-13-2023 Evaluation note* Encounter Date Diagnosis Assessment Notes Treatment Notes Treatment Clinical Notes May, Dysuria (ICD-10 - R30.0) [facility] Other 02-09-2023 Evaluation note* Encounter Date Diagnosis [...] pain of right knee (ICD-10 - M25.561) [facility] Other 01-18-2023 Evaluation note* Encounter Date Diagnosis [...] Patient denied any other concerns or questions. [facility] Other Evaluation noteNo assessment information available [facility] Work Phone: Evaluation noteNo InformationNort [place] [employer] Other History general Narrative - Reported* Type Description Date Surgical History Tubes tied Surgical History Carpal tunnel Surgical History Knee Surgery X2 Surgical History hysterectomy [facility] Other History general Narrative - Reported* Type Description Date Surgical History Tubes tied Surgical History Carpal tunnel Surgical History Knee Surgery X2 Surgical History hysterectomy Hospitalization History see surgical history [facility] Other Reason for referral (narrative)* Reason Referral for gross h ematuria Diagnosis 1 Gross hematuria (R31 .0) Referral Organization [facility] Yann oneal Referring Provider First Name Leighton Referring Provider Last Name Bryan Referring Provider Specialty Internal Nh dicine Referred Organization [facility] Referred Provider FRIDA MONTAGUE Referred Address [address] [place] [phone] Referred Provider Specialty Urology Referral Priority Routine [...] Notes Include CT scan and recent labs [facility] Other Summary Purpose Family History No Family [...] section and content) DATE CREATED AUTHOR 10/06/2017 [facility] DATE CREATED AUTHOR AUTHOR'S ORGANIZ ATION 01/14/2022 [facility] dical Specialist DATE CREATED AUTHOR AUTHOR'S ORGANIZ ATION 07/23/2022 [facility] DATE CREATED AUTHOR AUTHOR'S ORGANIZ ATION 03/12/2023 [place] DATE CREATED AUTHOR AUTHOR'S ORGANIZ ATION 04/09/2023 [facility] Care Teams (unrecognized sec tion and content) Team Status: Inactive Member Role Status Dates Leighton Adams , DO Primary Care Provider Active EDMUNDO AdamsonC Attending Provider Active Team Status: Active Member Role Status Dates Leighton Adams , DO Primary Care Provider Active Team Status: Inactive Member Role Status Dates Leighton Adams , DO Primary Care Provider Active Gurpreet Smith [...] BE BASED ON THE PRIMARY CLINICAL RECORDS. [email or web address] provides no warranty or guarantee of the accuracy or completeness of information in this document.
--- NOTE | 2023-04-09 19:21 | CT_ITS ---
The [address] [address] Patient Name: HUMBERTO SON MRN: [id number] date: 1965 Sex: F Assigned Patient Location: ER Current Patient Location: ER Accession/Order Number: [id number] Exam Date: 04/09/2023 19:59 Report Date: 04/09/2023 20:43 At the request of: PURA HERNANDEZ Procedure: CT abdomen pelvis wo con EXAM: CT abdomen pelvis wo con HISTORY: left flank abd pain; hx kidney stones, stent COMPARISON: CT abdomen and pelvis 02/05/2023 TECHNIQUE: Unenhanced axial CT of the abdomen and pelvis was performed with coronal and sagittal request provided. FINDINGS: Clear. ABDOMEN: Liver: Normal. Gallbladder/biliary: Normal. No biliary dilation. Pancreas:. Spleen: Normal. Adrenals: Normal. Kidneys, ureters and urinary bladder: Left double-J ureteral stent on the left. Distal portion of the stent is within the proximal urethra. There is hydronephrosis on the left. Nonobstructing nephrolithiasis of the bilateral kidneys. Likely small cysts bilaterally. The right ureter is unremarkable. Urinary bladder is otherwise within normal limits. Pelvis: Status post hysterectomy. No adnexal masses. Vasculature: Normal caliber of the abdominal aorta which is normal caliber. Hollow viscera/retroperitoneum: Normal appearance of the gastroesophageal junction. Small bowel is normal caliber. Normal appendix. Several colonic diverticula are noted without evidence of acute diverticulitis. No intra-abdominal free fluid or free air. Periaortic shotty appearing lymph nodes are likely reactive. Musculoskeletal/soft tissues: The soft tissues are within normal limits. No acute or aggressive osseous abnormalities CT/CT abdomen pelvis wo con IMPRESSION: Left double-J ureteral stent with bilateral nonobstructing nephrolithiasis. Left hydronephrosis and perinephric inflammatory fat stranding. Recommend correlation with urinalysis to exclude infectious process. The distal portion of the double-J ureteral stent is within the proximal urethra. Colonic diverticulosis. Electronically authenticated by: LANDON THACKER Date: 04/09/2023 20:43
[2023-04-09 19:28] LABS: Basophils Percent Auto 0.4 % (0.2-2.0); Eosinophils Absolute Auto 0.1 10^3/uL (0.0-0.7); Eosinophils Percent Auto 0.8 % (0.9-7.0); Hematocrit 39.2 % (36.0-48.0); Hemoglobin 12.5 g/dL (12.0-16.0); Immature Granulocytes Abs Auto 0.02 10^3/uL (0.00-0.03); Immature Granulocytes Pct Auto 0.2 % (0.0-0.5); Lymphocytes Absolute Auto 2.4 10^3/uL (1.2-3.8); Lymphocytes Percent Auto 24.6 % (20.5-60.0); Mean Corpuscular HGB Conc 31.9 g/dL (29.9-35.2); Mean Corpuscular Hemoglobin 28.7 pg (26.7-34.0); Mean Corpuscular Volume 90.1 fL (81.0-99.0); Mean Platelet Volume 10.7 fL (9.5-13.5); Monocytes Absolute Auto 0.8 10^3/uL (0.3-0.8); Monocytes Percent Auto 8.4 % (1.7-12.0); Neutrophils Absolute Auto 6.3 10^3/uL (1.4-6.5); Neutrophils Percent Auto 65.6 % (43.0-75.0); Platelet Count 234 10^3/uL (150-450); Red Blood Count 4.35 10^6/uL (4.20-5.40); White Blood Count 9.6 10^3/uL (4.0-11.0)
--- NOTE | 2023-04-09 19:28 | ED.GENADUL1 ---
HPI - General Adult General Chief complaint: Abdominal Pain Stated complaint: Postoperative Complication Time Seen by Provider: 04/09/23 19:00 Source: patient Mode of arrival: walk-in Limitations: no limitations History of Present Illness HPI narrative: underwent stenting at [facility] 04/07/[address] Montague. Immediately on leaving the hospital had increased pain and the next day developed increased hematuria =- went from yellow urine with small clots on POD 1 to just blood POD 2. She called the office three times. One time was told to push the stent in further . She was prescribed oxybutynin, flomax and macrobid - but the macrobid is only 2 tabs - to be taken before and after the stent is pulled. She has been taking OTC tylenol and motrin for pain. No fever or vomiting. No diarrhea. Some constipation - she took a colace today. Related Data Previous Rx's Medication Instructions Recorded nitrofurantoin 100 mg PO BID Start morning of 04/07/23 monohydrate/macrocrystals 100 mg stent removal in 4 days #2 caps capsule (Macrobid) oxybutynin chloride 5 mg tablet 5 mg PO Q8H PRN bladder spasms #30 04/07/23 tabs tamsulosin 0.4 mg capsule 0.4 mg PO DAILY stent pain, 04/07/23 difficulty voiding #30 caps ketorolac 10 mg tablet 10 mg PO Q8H PRN pain #14 tabs 04/09/23 nitrofurantoin 100 mg PO BID 5 days #10 caps 04/09/23 monohydrate/macrocrystals 100 mg capsule (Macrobid) Allergies Allergy/AdvReac Type Severity Reaction Status Date / Time cefuroxime [From Ceftin] Allergy Hives Verified 04/01/23 10:30 ciprofloxacin [From Cipro] Allergy hematuria Verified 04/01/23 10:30 clarithromycin [From Biaxin] Allergy Hives Verified 04/01/23 10:30 indomethacin [From Indocin] Allergy Hives Verified 04/01/23 10:30 Iodinated Contrast Media Allergy Hives Verified 04/01/23 10:30 shellfish derived Allergy Hives Verified 04/01/23 10:30 Sulfa (Sulfonamide Allergy Hives Verified 04/01/23 10:30 Antibiotics) [facility] Medical History (Updated 04/09/23 @ 21:11 by Pura Hernandez) Uterine cancer ?C55 - Malignant neoplasm of uterus, part unspecified (ICD-10) COVID-19 ?U07.1 - COVID-19 (ICD-10) Pneumonia ?J18.9 - Pneumonia, unspecified organism (ICD-10) Heart murmur ?R01.1 - Cardiac murmur, unspecified (ICD-10) Kidney stones ?N20.0 - Calculus of kidney (ICD-10) Delayed recovery from anesthesia Gross hematuria ?R31.0 - Gross hematuria (ICD-10) Postoperative nausea and vomiting ?R11.2 - Nausea with vomiting, unspecified (ICD-10) ?Z98.890 - Other specified postprocedural states (ICD-10) Surgical History (Updated 04/01/23 @ 10:35 by Zulema Man NP) History of colonoscopy ?Z98.890 - Other specified postprocedural states (ICD-10) History of tonsillectomy ?Z90.89 - Acquired absence of other organs (ICD-10) History of arthroscopy of knee ?Z98.890 - Other specified postprocedural states (ICD-10) History of arthroscopy of knee ?Z98.890 - Other specified postprocedural states (ICD-10) History of arthroscopy of knee ?Z98.890 - Other specified postprocedural states (ICD-10) History of tubal ligation ?Z98.51 - Tubal ligation status (ICD-10) History of hysterectomy ?Z90.710 - Acquired absence of both cervix and uterus (ICD-10) History of carpal tunnel release ?Z98.890 - Other specified postprocedural states (ICD-10) H/O shoulder surgery ?Z98.890 - Other specified postprocedural states (ICD-10) Family History (Updated 04/01/23 @ 10:35 by Zulema Man NP) Other Family history of colon cancer Family history of diabetes mellitus Family history of hypertension Family history of renal failure Social History (Updated 04/01/23 @ 10:31 by Zulema Man NP) Within the past year, how often did you have a drink containing alcohol: never Score interpretation: A score less than 3 is consistent with normal alcohol consumption. 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 afebrile General: Well-appearing and in no apparent distress. Skin: Warm, dry, no pallor noted. No rash to flank or abdomen. Eye: Pupils are equal, round and EOMI. No scleral icterus. Cardiovascular: Regular Rate and Rhythm without murmur, gallop or rub. Respiratory: No accessory muscle use or respiratory distress. Lungs are clear to auscultation, no wheezing, rales or rhonchi Chest Wall: no tenderness Back: Left CVA tenderness Musculoskeletal: normal ROM, no calf or popliteal tenderness, no lower extremity edema/swelling GI: Abdomen is soft, non-distended. Normal bowel sounds. Left sided tenderness to palpation. No rebound, guarding, or rigidity noted. Neurological: A&O x4. No cranial nerve dysfunction observed. No truncal ataxia. Moves all extremities. Sensation intact. Psychiatric: Cooperative and interactive. Normal mood and affect. Constitutional Vital Signs, click to edit/add: Last Vital Signs Temp 98.7 F 04/09/23 18:53 Pulse 57 L 04/09/23 20:09 Resp 16 04/09/23 20:09 BP 117/65 04/09/23 20:09 Pulse Ox 96 04/09/23 20:09 O2 Del Method Room Air 04/09/23 20:09 Course Vital Signs Vital signs: Vital Signs Temperature 98.7 F 04/09/23 18:53 Pulse Rate 78 04/09/23 18:53 Respiratory Rate 20 04/09/23 18:53 Blood Pressure 167/90 H 04/09/23 18:53 Pulse Oximetry 98 04/09/23 18:53 Oxygen Delivery Method Room Air 04/09/23 18:53 Temperature 98.7 F 04/09/23 18:53 Pulse Rate 57 L 04/09/23 20:09 Respiratory Rate 16 04/09/23 20:09 Blood Pressure 117/65 04/09/23 20:09 Pulse Oximetry 96 04/09/23 20:09 Oxygen Delivery Method Room Air 04/09/23 20:09 Medical Decision Making MDM Narrative Medical decision making narrative: Peripheral IV established. Blood drawn and sent for testing. Urine obtained and sent for testing. The patient was ordered she received normal saline IV fluid bolus, IV Toradol and IV Zofran. She was ordered to undergo noncontrast CT scanning of the abdomen and pelvis. She has blood in urine. Normal WBC, Normal renal function. Urine culture pending. Will give additional macrobid tabs and prescribed Toradol for pain. Informed to stop otc nsaids while taking Toradol. She will remove her stent in 2 days as recommended by urology and can call next week to schedule closer urology follow up. ED return if she worsens. Lab Data Lab results reviewed: Yes I reviewed the patient's lab results Labs: Lab Results 04/09/23 04/09/23 Range/Units 19:10 19:15 WBC 9.6 (4.0-11.0) 10^3/uL RBC 4.35 (4.20-5.40) 10^6/uL Hgb 12.5 (12.0-16.0) g/dL Hct 39.2 (36.0-48.0) % MCV 90.1 (81.0-99.0) fL MCH 28.7 (26.7-34.0) pg MCHC 31.9 (29.9-35.2) g/dL RDW 13.0 (11.0-15.0) % Plt Count 234 (150-450) 10^3/uL MPV 10.7 (9.5-13.5) fL Neut % (Auto) 65.6 (43.0-75.0) % Lymph % (Auto) 24.6 (20.5-60.0) % [place] % (Auto) 8.4 (1.7-12.0) % Eos % (Auto) 0.8 L (0.9-7.0) % Baso % (Auto) 0.4 (0.2-2.0) % Neut # (Auto) 6.3 (1.4-6.5) 10^3/uL Lymph # (Auto) 2.4 (1.2-3.8) 10^3/uL [place] # (Auto) 0.8 (0.3-0.8) 10^3/uL Eos # (Auto) 0.1 (0.0-0.7) 10^3/uL Baso # (Auto) 0.0 (0.0-0.1) 10^3/uL Abs Immat Gran (auto) 0.02 (0.00-0.03) 10^3/uL Imm/Tot Granulo (auto) 0.2 (0.0-0.5) % Sodium 135 L (136-145) mmol/L Potassium 3.7 (3.5-5.1) mmol/L Chloride 102 (98-107) mmol/L Carbon Dioxide 27.8 (21.0-32.0) mmol/L Anion Gap 8.9 BUN 18.0 (7.0-18.0) mg/dL Creatinine 1.05 H (0.55-1.02) mg/dL Est GFR ( Amer) >60 (>=60) Est GFR (Non-Af Amer) 54 L (>=60) BUN/Creatinine Ratio 17.1 Glucose 124 H (74-106) mg/dL Calcium 9.2 (8.5-10.1) mg/dL Total Bilirubin 0.3 (0.2-1.0) mg/dL AST 14 L (15-37) U/L ALT 17 (14-59) U/L Alkaline Phosphatase 82 (46-116) U/L Total Protein 7.0 (6.4-8.2) g/dL Albumin 3.2 L (3.4-5.0) g/dL Globulin 3.8 g/dL Albumin/Globulin Ratio 0.8 Urine Color Lt. yellow (YELLOW) Urine Clarity Clear (CLEAR) Urine pH 6.5 (5.0-9.0) Ur Specific [place] <=1.005 A (1.005-1.025) Urine Protein 30 A (NEG/TRACE) mg/dL Urine Glucose (UA) Negative (NEGATIVE) mg/dL Urine Ketones Negative (NEGATIVE) mg/dL Urine Occult Blood Large A (NEGATIVE) Urine Nitrite Negative (NEGATIVE) Urine Bilirubin Negative (NEGATIVE) Urine Urobilinogen 0.2 (0.2-1.0) EU/dL Ur Leukocyte Esterase Small A (NEGATIVE) Urine RBC 5-10 A (0-2) #/HPF Urine WBC 0-2 A (NONE SEEN) #/HPF Ur Squamous Epith Cells None seen (NONE/RARE) #/LPF Urine Crystals None seen (None Seen) #/HPF Urine Bacteria None seen (NONE SEEN) #/HPF Urine Casts None seen (NONE SEEN) #/LPF Urine Mucus None seen (NONE SEEN) Ur Culture Indicated? No Imaging Data CT scan - abdomen: Radiologist's impression: Patient Name: HUMBERTO SON MRN: [id number] date: 1965 Sex: F Assigned Patient Location: ER Current Patient Location: ER Accession/Order Number: [id number] Exam Date: 04/09/2023 19:59 Report Date: 04/09/2023 20:43 At the request of: PURA HERNANDEZ Procedure: CT abdomen pelvis wo con EXAM: CT abdomen pelvis wo con HISTORY: left flank abd pain; hx kidney stones, stent COMPARISON: CT abdomen and pelvis 02/05/2023 TECHNIQUE: Unenhanced axial CT of the abdomen and pelvis was performed with coronal and sagittal request provided. FINDINGS: Clear. ABDOMEN: Liver: Normal. Gallbladder/biliary: Normal. No biliary dilation. Pancreas:. Spleen: Normal. Adrenals: Normal. Kidneys, ureters and urinary bladder: Left double-J ureteral stent on the left. Distal portion of the stent is within the proximal urethra. There is hydronephrosis on the left. Nonobstructing nephrolithiasis of the bilateral kidneys. Likely small cysts bilaterally. The right ureter is unremarkable. Urinary bladder is otherwise within normal limits. Pelvis: Status post hysterectomy. No adnexal masses. Vasculature: Normal caliber of the abdominal aorta which is normal caliber. Hollow viscera/retroperitoneum: Normal appearance of the gastroesophageal junction. Small bowel is normal caliber. Normal appendix. Several colonic diverticula are noted without evidence of acute diverticulitis. No intra-abdominal free fluid or free air. Periaortic shotty appearing lymph nodes are likely reactive. Musculoskeletal/soft tissues: The soft tissues are within normal limits. No acute or aggressive osseous abnormalities IMPRESSION: Left double-J ureteral stent with bilateral nonobstructing nephrolithiasis. Left hydronephrosis and perinephric inflammatory fat stranding. Recommend correlation with urinalysis to exclude infectious process. The distal portion of the double-J ureteral stent is within the proximal urethra. Colonic diverticulosis. Electronically authenticated by: LANDON THACKER Date: 04/09/2023 20:43 Small bowel is normal caliber. Normal appendix. Several colonic diverticula are noted without evidence of acute diverticulitis. No intra-abdominal free fluid or free air. Periaortic shotty appearing lymph nodes are likely reactive. Musculoskeletal/soft tissues: The soft tissues are within normal limits. No acute or aggressive osseous abnormalities IMPRESSION: Left double-J ureteral stent with bilateral nonobstructing nephrolithiasis. Left hydronephrosis and perinephric inflammatory fat stranding. Recommend correlation with urinalysis to exclude infectious process. The distal portion of the double-J ureteral stent is within the proximal urethra. Colonic diverticulosis. Electronically authenticated by: LANDON THACKER Date: 04/09/2023 20:43 Discharge Plan Discharge Chief Complaint: Abdominal Pain Clinical Impression: Renal colic, Hematuria, Kidney calculi Patient Disposition: Home, Self-Care Time of Disposition Decision: 21:10 Prescriptions / Home Meds: New ketorolac 10 mg tablet 10 mg PO Q8H PRN (Reason: pain) Qty: 14 0RF nitrofurantoin monohyd/m-cryst [Macrobid] 100 mg capsule 100 mg PO BID 5 Days Qty: 10 0RF Rx Instructions: must administer with a meal/food No Action tamsulosin 0.4 mg capsule 0.4 mg PO DAILY Qty: 30 0RF nitrofurantoin monohyd/m-cryst [Macrobid] 100 mg capsule 100 mg PO BID Qty: 2 0RF Rx Instructions: must administer with a meal/food oxybutynin chloride 5 mg tablet 5 mg PO Q8H PRN (Reason: bladder spasms) Qty: 30 0RF Instructions: Kidney Stones (ED), Renal Colic (ED), Hematuria (ED) Stand Alone Forms: Portal Instructions Referrals: Leighton Adams DO [Primary Care Provider] - 1 week
[2023-04-09 19:29] LABS: Bilirubin Urine NEGATIVE (NEGATIVE); Blood Urine LARGE (NEGATIVE); Clarity Urine CLEAR (CLEAR); Color Urine LT. YELLOW (YELLOW); Glucose Urine UA NEGATIVE (NEGATIVE); Ketones Urine NEGATIVE (NEGATIVE); Leukocyte Esterase Urine SMALL (NEGATIVE); Nitrite Urine NEGATIVE (NEGATIVE); Protein Urine 30 mg/dL (NEG/TRACE); Specific Gravity Urine <=1.005 (1.005-1.025); Urine Microscopic Indicated YES; Urobilinogen Urine 0.2 EU/dL (0.2-1.0); pH Urine 6.5 (5.0-9.0)
[2023-04-09 19:37] LABS: Bacteria Urine NONE SEEN #/HPF (NONE SEEN); Cast Seen? NONE SEEN #/LPF (NONE SEEN); Crystals Seen? None Seen #/HPF (None Seen); Mucus Urine NONE SEEN (NONE SEEN); Squamous Epithelial Cell Urine NONE SEEN #/LPF (NONE/RARE); Urine Culture Indicated NO; WBC Urine 0-2 #/HPF (NONE SEEN)
[2023-04-09] MEDS: 0.9 % SODIUM CHLORIDE 1,000 ML 999 ML IV (19:43)
[2023-04-09] MEDS: KETOROLAC TROMETHAMINE 30 MG/ML VIAL IVP (19:44)
[2023-04-09] MEDS: ONDANSETRON PF 4 MG/2 ML VIAL IV (19:44)
[2023-04-09 19:46] LABS: Alanine Aminotransferase 17 U/L (14-59); Albumin Globulin Ratio 0.8; Albumin Level 3.2 g/dL (3.4-5.0); Alkaline Phosphatase 82 U/L (46-116); Anion Gap 8.9; Aspartate Amino Transferase 14 U/L (15-37); BUN Creatinine Ratio 17.1; Bilirubin Total 0.3 mg/dL (0.2-1.0); Calcium 9.2 mg/dL (8.5-10.1); Carbon Dioxide 27.8 mmol/L (21.0-32.0); Chloride 102 mmol/L (98-107); Estimated GFR (African America >60 (>=60); Estimated GFR (Non-African Ame 54 (>=60); Globulin 3.8 g/dL; Glucose 124 mg/dL (74-106); Potassium 3.7 mmol/L (3.5-5.1); Sodium 135 mmol/L (136-145)
[2023-04-09 20:09] VITALS: BP 117/65; PULSE 57; RESP 16; O2SAT 96
[2023-04-09] MEDS: HYDROMORPHONE HCL 1 MG/ML CARTRIDGE IV (20:45)
[2023-04-09 21:30] VITALS: BP 105/55; PULSE 63; RESP 16; TEMP 36.9; O2SAT 96
== END 2023-04-09 21:32 | disposition home or self-care (01) ==
PROVIDERS: Emergency Provider Emergency Medicine; PCP Internal Medicine
DX: N13.2 Hydronephrosis with renal and ureteral calculous obstruction (principal); Z79.899 Other long term (current) drug therapy; Z86.16 Personal history of COVID-19; C55 Malignant neoplasm of uterus, part unspecified; R31.0 Gross hematuria; Z98.51 Tubal ligation status; Z90.710 Acquired absence of both cervix and uterus; R10.9 Unspecified abdominal pain
CPT/HCPCS: 36415; 74176; 80053; 81001; 85025; 87086; 96374; 96375; 99285; J1170

== ENCOUNTER 2023-04-11 12:25 | Emergency (ER) | payer OTHER, SELFPAY ==
[2023-04-11 12:30] VITALS: BP 169/83; PULSE 52; RESP 18; TEMP 36.8; O2SAT 100; BMI 32.6
--- NOTE | 2023-04-11 12:35 | ED.FEMALEGU1 ---
HPI - Female Genitourinary General Chief complaint: Urogenital-Female Stated complaint: post operative complications Time Seen by Provider: 04/11/23 12:29 Source: patient Mode of arrival: Wheelchair Limitations: no limitations History of Present Illness HPI Narrative: 57-year-old female presents for left flank pain which radiates to her groin. She recently had a kidney stone and had a stent put in. She talked to her urologist and the patient was instructed to remove the stent which she did. The patient states she really can't urinate now and she has severe pain to this area. No fever or vomiting. Related Data Previous Rx's Medication Instructions Recorded nitrofurantoin 100 mg PO BID Start morning of 04/07/23 monohydrate/macrocrystals 100 mg stent removal in 4 days #2 caps capsule (Macrobid) oxybutynin chloride 5 mg tablet 5 mg PO Q8H PRN bladder spasms #30 04/07/23 tabs tamsulosin 0.4 mg capsule 0.4 mg PO DAILY stent pain, 04/07/23 difficulty voiding #30 caps ketorolac 10 mg tablet 10 mg PO Q8H PRN pain #14 tabs 04/09/23 nitrofurantoin 100 mg PO BID 5 days #10 caps 04/09/23 monohydrate/macrocrystals 100 mg capsule (Macrobid) oxycodone-acetaminophen 5 mg-325 1 tab PO Q6H PRN pain 5 days #20 04/11/23 mg tablet (Percocet) tabs Allergies Allergy/AdvReac Type Severity Reaction Status Date / Time cefuroxime [From Ceftin] Allergy Hives Verified 04/11/23 12:30 ciprofloxacin [From Cipro] Allergy hematuria Verified 04/11/23 12:30 clarithromycin [From Biaxin] Allergy Hives Verified 04/11/23 12:30 indomethacin [From Indocin] Allergy Hives Verified 04/11/23 12:30 Iodinated Contrast Media Allergy Hives Verified 04/11/23 12:30 shellfish derived Allergy Hives Verified 04/11/23 12:30 Sulfa (Sulfonamide Allergy Hives Verified 04/11/23 12:30 Antibiotics) Review of Systems ROS Narrative A ten point review of systems is negative except as noted above. [facility] Medical History (Updated 04/11/23 @ 15:23 by Neftali Easley MD) Uterine cancer ?C55 - Malignant neoplasm of uterus, part unspecified (ICD-10) COVID-19 ?U07.1 - COVID-19 (ICD-10) Pneumonia ?J18.9 - Pneumonia, unspecified organism (ICD-10) Heart murmur ?R01.1 - Cardiac murmur, unspecified (ICD-10) Kidney stones ?N20.0 - Calculus of kidney (ICD-10) Delayed recovery from anesthesia Gross hematuria ?R31.0 - Gross hematuria (ICD-10) Postoperative nausea and vomiting ?R11.2 - Nausea with vomiting, unspecified (ICD-10) ?Z98.890 - Other specified postprocedural states (ICD-10) Surgical History (Updated 04/01/23 @ 10:35 by Zulema Man NP) History of colonoscopy ?Z98.890 - Other specified postprocedural states (ICD-10) History of tonsillectomy ?Z90.89 - Acquired absence of other organs (ICD-10) History of arthroscopy of knee ?Z98.890 - Other specified postprocedural states (ICD-10) History of arthroscopy of knee ?Z98.890 - Other specified postprocedural states (ICD-10) History of arthroscopy of knee ?Z98.890 - Other specified postprocedural states (ICD-10) History of tubal ligation ?Z98.51 - Tubal ligation status (ICD-10) History of hysterectomy ?Z90.710 - Acquired absence of both cervix and uterus (ICD-10) History of carpal tunnel release ?Z98.890 - Other specified postprocedural states (ICD-10) H/O shoulder surgery ?Z98.890 - Other specified postprocedural states (ICD-10) Family History (Updated 04/01/23 @ 10:35 by Zulema Man NP) Other Family history of colon cancer Family history of diabetes mellitus Family history of hypertension Family history of renal failure Social History (Updated 04/01/23 @ 10:31 by Zulema Man NP) Within the past year, how often did you have a drink containing alcohol: never Score interpretation: A score less than 3 is consistent with normal alcohol consumption. 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 General: The patient appears uncomfortable. Skin: Warm, dry, no pallor noted. There is no rash noted. Head: Normocephalic, atraumatic Eye: Normal conjunctiva, no drainage Ears, Nose, Mouth, and Throat: oral mucosa is moist. Nares patent. Cardiovascular: Regular Rate and Rhythm Respiratory: Patient is in no distress, no accessory muscle use, lungs are clear to auscultation, no wheezing, rales or rhonchi Back: non-tender, no CVA tenderness bilaterally to percussion. GI: no tenderness to palpation Musculoskeletal: The patient has no evidence of calf tenderness, no pitting edema, symmetrical pulses noted bilaterally Neurological: A&O, normal speech Psychiatric: Cooperative Constitutional Vital Signs, click to edit/add: Last Vital Signs Temp 98.2 F 04/11/23 12:30 Pulse 51 L 04/11/23 14:34 Resp 16 04/11/23 14:34 BP 100/62 04/11/23 14:34 Pulse Ox 98 04/11/23 14:34 Course Vital Signs Vital signs: Vital Signs Temperature 98.2 F 04/11/23 12:30 Pulse Rate 52 L 04/11/23 12:30 Respiratory Rate 18 04/11/23 12:30 Blood Pressure 169/83 H 04/11/23 12:30 Pulse Oximetry 100 04/11/23 12:30 Temperature 98.2 F 04/11/23 12:30 Pulse Rate 51 L 04/11/23 14:34 Respiratory Rate 16 04/11/23 14:34 Blood Pressure 100/62 04/11/23 14:34 Pulse Oximetry 98 04/11/23 14:34 MDM - Female Genitourinary MDM Narrative Medical decision making narrative: CT scan shows expected findings and this was discussed with the patient. Urinalysis does not show urinary tract infection. She is already on Macrobid and she'll continue that antibiotic. She is feeling much improved and is discharged home with a prescription for Percocet. Treatment diagnosiis and follow-up were discussed with the patient. Differential Diagnosis Differential diagnosis: Likely urinary tract infection and other (the stone, hydronephrosis) Medical Records Attestation: I reviewed the patient's medical records. Lab Data Attestation: I reviewed the patient's lab results. Labs: Lab Results 04/11/23 04/11/23 Range/Units 12:45 14:30 WBC 8.6 (4.0-11.0) 10^3/uL RBC 4.16 L (4.20-5.40) 10^6/uL Hgb 11.9 L (12.0-16.0) g/dL Hct 37.9 (36.0-48.0) % MCV 91.1 (81.0-99.0) fL MCH 28.6 (26.7-34.0) pg MCHC 31.4 (29.9-35.2) g/dL RDW 13.0 (11.0-15.0) % Plt Count 223 (150-450) 10^3/uL MPV 10.6 (9.5-13.5) fL Neut % (Auto) 69.0 (43.0-75.0) % Lymph % (Auto) 22.1 (20.5-60.0) % [place] % (Auto) 7.5 (1.7-12.0) % Eos % (Auto) 1.1 (0.9-7.0) % Baso % (Auto) 0.2 (0.2-2.0) % Neut # (Auto) 5.9 (1.4-6.5) 10^3/uL Lymph # (Auto) 1.9 (1.2-3.8) 10^3/uL [place] # (Auto) 0.6 (0.3-0.8) 10^3/uL Eos # (Auto) 0.1 (0.0-0.7) 10^3/uL Baso # (Auto) 0.0 (0.0-0.1) 10^3/uL Abs Immat Gran (auto) 0.01 (0.00-0.03) 10^3/uL Imm/Tot Granulo (auto) 0.1 (0.0-0.5) % Sodium 135 L (136-145) mmol/L Potassium 3.3 L (3.5-5.1) mmol/L Chloride 99 (98-107) mmol/L Carbon Dioxide 27.8 (21.0-32.0) mmol/L Anion Gap 11.5 BUN 14.0 (7.0-18.0) mg/dL Creatinine 0.96 (0.55-1.02) mg/dL Est GFR ( Amer) >60 (>=60) Est GFR (Non-Af Amer) >60 (>=60) BUN/Creatinine Ratio 14.6 Glucose 97 (74-106) mg/dL Calcium 9.2 (8.5-10.1) mg/dL Urine Color Yellow (YELLOW) Urine Clarity Clear (CLEAR) Urine pH 6.0 (5.0-9.0) Ur Specific [place] <=1.005 A (1.005-1.025) Urine Protein Negative (NEG/TRACE) mg/dL Urine Glucose (UA) Negative (NEGATIVE) mg/dL Urine Ketones 15 A (NEGATIVE) mg/dL Urine Occult Blood Large A (NEGATIVE) Urine Nitrite Negative (NEGATIVE) Urine Bilirubin Negative (NEGATIVE) Urine Urobilinogen 0.2 (0.2-1.0) EU/dL Ur Leukocyte Esterase Negative (NEGATIVE) Urine RBC 0-2 (0-2) #/HPF Urine WBC None seen (NONE SEEN) #/HPF Ur Squamous Epith Cells Rare (NONE/RARE) #/LPF Urine Crystals None seen (None Seen) #/HPF Urine Bacteria None seen (NONE SEEN) #/HPF Urine Casts None seen (NONE SEEN) #/LPF Urine Mucus None seen (NONE SEEN) Imaging Data CT scan - abdomen: Radiologist's impression: Procedure: CT abdomen pelvis wo con EXAM: CT abdomen pelvis wo con INDICATION: left flank pain, recent stone, stent removed. COMPARISON: CT abdomen pelvis 04/09/2023. TECHNIQUE: Multiple contiguous axial CT images of the abdomen and pelvis were obtained without the use of intravenous contrast. Sagittal and coronal reconstructions were performed. Dose reduction techniques were achieved by using: automated exposure control and/or adjustment of mA and /or kV according to patient size and/or use of iterative reconstruction technique. FINDINGS: Evaluation of visceral organs limited by noncontrast technique. LOWER CHEST: Clear lung bases. ABDOMEN AND PELVIS: Liver: Unremarkable. Biliary System: Normal gallbladder. No biliary ductal dilatation. Pancreas: Unremarkable. Spleen: Unremarkable. Adrenal Glands: Normal. Urinary System: Left-sided ureteral stent removed in the interim. Similar moderate left hydronephrosis and perinephric fatty stranding. Nonobstructing bilateral renal stones. No urolithiasis. Small bilateral renal cysts. Normal bladder. Reproductive organs: Hysterectomy. Gastrointestinal Tract: Normal caliber bowel. No bowel wall thickening or inflammation. Normal appendix. Colonic diverticulosis without diverticulitis. Vessels: Nonaneurysmal abdominal aorta with mild atherosclerotic calcifications. Lymph Nodes: No adenopathy. Peritoneum: No ascites or pneumoperitoneum. MUSCULOSKELETAL: Soft tissues: Unremarkable soft tissues. Bones: No acute osseous abnormality or suspicious osseous lesion. PAN: (series:image) IMPRESSION: 1. Left ureteral stent removed in the interim. Similar moderate left hydronephrosis and perinephric fatty stranding. No new acute abdominal or pelvic process. 2. Bilateral nephrolithiasis. 3. Colonic diverticulosis. Electronically authenticated by: FITO ERAZO Date: 04/11/2023 13:54 Discharge Plan Discharge Chief Complaint: Urogenital-Female Clinical Impression: Renal colic Patient Disposition: Home, Self-Care Time of Disposition Decision: 15:23 Condition: Good Mode of Transportation: Private Vehicle Prescriptions / Home Meds: New oxycodone-acetaminophen [Percocet] 5-325 mg tablet 1 tab PO Q6H PRN (Reason: pain) 5 Days Qty: 20 0RF No Action ketorolac 10 mg tablet 10 mg PO Q8H PRN (Reason: pain) Qty: 14 0RF nitrofurantoin monohyd/m-cryst [Macrobid] 100 mg capsule 100 mg PO BID 5 Days Qty: 10 0RF Rx Instructions: must administer with a meal/food tamsulosin 0.4 mg capsule 0.4 mg PO DAILY Qty: 30 0RF nitrofurantoin monohyd/m-cryst [Macrobid] 100 mg capsule 100 mg PO BID Qty: 2 0RF Rx Instructions: must administer with a meal/food oxybutynin chloride 5 mg tablet 5 mg PO Q8H PRN (Reason: bladder spasms) Qty: 30 0RF Instructions: Renal Colic (ED) Additional Instructions: continue the Macrobid Stand Alone Forms: Portal Instructions Referrals: Leighton Adams DO [Primary Care Provider] - 1 week
--- OUTSIDE RECORDS SUMMARY | 2023-04-11 12:36 | XMS_ITS | CCD ---
Author Name Unknown Address [address] [place] [address] Organization [facility] Care Team Providers Care Birth Attendant Name Role Phone ANNETTE DEAN (ANU) Unavailable Unava ilable JUNAITO SUTTON Unavailable Unavailable DO Leighton Adams Primary Care Provider TOD Schneider Attending Provider Leighton Adams Unavailable Tara Schneider Unavailable Gurpreet Smith Unavailable DO Leighton Adams Primary Care Provider TOD Schneider Attending Provider [phone] MD Gurpreet Smith Attending Provider GURPREET SMITH Attending Unavailable LUIS, GURPREET Admitting Unavailable DR LEIGHTON ADAMS Primary Care Unavailable DO Leighton Adams Primary Care Provider [phone] MD Gurpreet Smith Attending Provider [phone] Leighton Adams Primary Care Unavailable Tara Schneider [...] [CEFUROXIME AXETIL] Drug All[facility] indomethacin; Translations: [INDOMETHACIN] Drug Allergy 08-06-19 18 [facility], Hives, Unknown [facility] Repository (19 sources) iodine; Translations: [IODINE] Drug Allergy 04-07-20 14 [facility] Repository (5 sources) Sulfonamides (Antibiotic); Translations: [SULFA (SULFONAMIDE ANTIBIOTICS)] Propensity to adverse reactions to drug (disorder) 08-06-19 18 A[facility], [facility] Repository (1 source) SHELLFISH CONTAINING PRODUCTS; Translations: [SHELLFISH CONTAINING PRODUCTS] Propensity to adverse reactions to drug (disorder) 08-25-19 18 [facility] Repository (20 sources) Cefuroxime; Translations: [cefuroxime] Drug Allergy 08-06-19 18 [facility] (4 sources) Shellfish; Translations: [shellfish derived] Allergy to substance 08-06-19 18 [facility] (18 sources) Shellfish; Translations: [Shellfish] Drug allergy 04-07-20 14 [facility] Repository (17 sources) sulfaSALAzine Drug Allergy [facility] [employer] Other (1 source) Cefuroxime Drug Allergy 04-07-20 14 [facility] Repository (1 source) Procyclidine Drug Allergy 04-07-20 14 [facility] Repository (1 source) Sulfonamides (Antibiotic) Drug allergy (disorder) 04-07-20 14 [facility] Repository (8 sources) Contrast media Propensity to adverse reactions 01-06-20 13 Unknown [employer] Other (8 sources) Escitalopram Drug Allergy Unknown [employer] Other (8 sources) sulfADIAZINE Drug Allergy Unknown [employer] Other (8 sources) Sulfamethoxazole / Trimethoprim Drug Allergy Unknown [employer] Other (8 sources) Allergies Reconciled Propensity to adverse reactions Unknown [employer] Other (8 sources) Substance with sulfonamide structure and antibacterial mechanism of action (substance) Drug allergy 12-29-19 14 Unknown [employer] Other (8 sources) Iodinated contrast media (substance) Drug allergy Comment:cecelia tyson [employer] Other (8 sources) Biaxin *MACROLIDES* Propensity to adverse reactions Unknown [employer] Other (8 sources) patient allergy list reviewed by nurse or physicia Propensity to adverse reactions 07-19-19 Comment:Done [employer] Other (8 sources) Ceftin *CEPHALOSPORINS* Propensity to adverse reactions Unknown [employer] Other (1 source) Ciprofloxacin Drug Allergy Unknown [employer] Other (1 source) No Known Medication Allergies; Translations: [No Known Medication Allergies] Propensity to adverse reactions (disorder) [facility] Repository Medications Current Medications Medication Drug Class(es) [...] Fluticasone Propionate (Flonase Allergy Relief) 50 mcg/actuation Lindstrom,Suspension Active 2 SPRAY INTRANASAL Daily August 04, [...] tablet by mouth twice daily Hydrocodone-Acetam inophen ([place]) 5-325 mg tablet Discontinued 1 TAB PO [...] Range Facility Operative Reporton Operative Report [id number]#1.00TIFF Normal [facility] Urine Cytology ([facility])on 06-06-2022 Urine Cytology Diagnosis Info Invalid Interpretation Code [facility] Comment on above: Result Comment: A:Ur ine,Urine:Voided Interpretation - MicroScopic Description - Adequacy - Gross Description Site ID:A color Yellow fixative Alcohol Specimen designated Urine received in alcohol preservative and labeled with the patient?s name, consists of 80ml clear yellow fluid. Electronically signed by : on: 04/05/2023 11:10:12 Performed By: #### 1 [id number] ####[facility] [address] [place] [address] Lab Reportson 04-02-2023 Lab Reports [id number]#1.00TIFF Normal [facility] Lab Reports [id number]#1.00TIFF Normal [facility] Ambulatory Visit Summaryon 06-01-2022 Ambulatory Visit Summary HUMBERTO VELASQUEZ :1965 Visit Date:03/31/2023 Ambulatory Visit Instructions Your Diagnosis Gross hematuria History of UTI Kidney stones Bilateral renal cysts Tests Performed Urnls Dip Stick Auto w/o Microscopy POC 79049 Your Care Team Attending Physician - Eddi [...] Urnls Dip Stick Auto w/o Microscopy POC 73486 (03/31/2023) Bilirubin Urine Dipstick - Negative Blood Urine Dipstick - 3+ Large Glucose Urine Dipstick - Negative Ketones Urine Dipstick - Negative Leukocytes Urine Dipstick - Trace Nitrite Urine Dipstick - Negative Protein Urine Dipstick - Negative Specific Seymour Urine Dipstick - 1.025 Urine Appearance Urine [...] ? 8 oz (237 mL) of milk, gdlviem-kzzwaepockny-xogo y milk, and calcium-fortifiedfruit juice. Calcium-fortified means [...] of jessica (more content not included)... Normal [facility] Lab Reportson 03-31-2023 Lab Reports [id number]#1.00TIFF [facility] Patient Educationon 03-31-20 Patient Education Nephrology [...] ? 8 oz (237 mL) of milk, tncgkwy-zvxzodnxusbr-ucfn y milk, and calcium-fortifiedfruit juice. Calcium-fortified means [...] Spinach (cooked), rhubarb, beets, sweet potatoes, and Peruvian chard. ? Peanuts. ? Potato chips, botswanan fries, and baked potatoes with skin on. ? Nuts and nut products. ? Chocolate. ? If you regularly take a diuretic medicine, make sure to eat at least 1 or 2 servings of fruits or vegetables that are high in potassium each day. These include: ? Avocado. ? Banana. ? [place], prune, carrot, or tomato juice. ? Baked [...] fish oil, or vitamin B6. ? Take zdub-wzp-mfacyne and prescription medicines only as told by your health care provider. These include supplements. What foods sh (more content not included)... [facility] Physician Referralon 023 Physician Referral [id number]#1.00TIFF [facility] RAD - CT Reporton 03-31-2023 RAD - CT Report [id number]#1.00TIFF [facility] RAD - MISCon 03-31-2023 RAD - MISC [id number]#1.00TIFF [facility] Screenson 03-31-2023 Screens [id number]#1.00TIFF [facility] Urine Cytology ([facility])on 06-01-2022 UC Method of Extraction Voided [facility] Comment on above: Performed By: #### 1 [id number] ####[facility] [address] [facility] [place] [address] Number of Jars 1 Invalid Interpretation Code [facility] Comment on above: Performed By: #### 1 [id number] ####[facility] [address] [facility] [place] [address] Specimen Urine Normal [facility] Comment on above: Performed By: #### 1 [id number] ####[facility] [address] [place] [place] [address] Type of Service Technical Only Normal [facility] Comment on above: Performed By: #### 1 [id number] ####[address] [place] [address] RAD - MISCon 03-30-2023 RAD - MISC [id number]#1.00TIFF Normal [facility] XR shoulder RT min 2V*on XR shoulder RT min 2V* [facility] [place] [address] XRay Report Signed Patient: Humberot Velasquez MR#: [id number] : 1965 Acct:[id number] Age/Sex: 57 / F ADM Date: 03/08/23 Loc: [facility] Room: Type: [facility] Attending Dr: Gurpreet Smith MD Copies to: [...] Ramirez Jr. DEdna03/08/2023 3:07 PM Dictation Location: [place] [address] Transcribed By: MIRACLE 03/08/23 1507 Dictated By: Joe Ramirez Jr, DO 03/08/23 1506 Signed By: 03/08/23 1507 [facility] Physician Orderon 02-17-2023 Physician Order [id number]#1.00TIFF [facility] XR knee RT 2Von 07-09-2022 XR knee RT 2V [facility] [place] [address] [place] [address] XRay Report Signed Patient: Humberto Velasquez MR#: [id number] : 1965 Acct:[id number] Age/Sex: 56 / F ADM Date: 07/09/22 Loc: [facility] Room: Type: [facility] Attending Dr: Gurpreet Smith MD Copies to: [...] Hal Hutchinson M.D.07/09/2022 11:46 AM Dictation Location: [place] [address] Transcribed By: MIRACLE 07/09/22 1146 Dictated By: Hal Hutchinson II, MD 07/09/22 1146 Signed By: 07/09/22 1146 [facility] Urinalysis - DIPSTICKon 02- Appearance (U) cloudy [employer] Other Bilirubin Ql (U) Negative [employer] Other Color (U) yellow [employer] Other Glucose Ql (U) Negative [employer] Other Hemoglobin Ql (U) [employer] Other Ketones Ql (U) Negative [employer] Other Leukocyte esterase Test strip Ql (U) small [employer] Other Nitrite Ql (U) Negative [employer] Other pH (U) 5 [pH] [employer] Other Protein Ql (U) Negative [employer] Other Specific gravity (U) [Rel density] 1.010 [employer] Other Urobilinogen (U) [Mass/Vol] 0.2 mg/dL [employer] Other Urinalysis - DIPSTICK [employer] Other MR knee LT wo conon 05-21-19 MR knee LT wo con [facility] [place] [address] [place] [address] MRI Report Signed Patient: Humberto Velasquez MR#: [id number] : 1965 Acct:[id number] Age/Sex: 56 / F ADM Date: 05/21/22 Loc: MR Room: Type: [facility] Attending Dr: Tara WYATTC Copies to: LAMIN [...] Hal Hutchinson M.D.05/21/2022 8:38 PM Dictation Location: [place] [address] Transcribed By: [facility] 05/21/222037 Dictated By: Hal Hutchinson II, MD 05/21/222029 Signed By: 05/21/222037 [facility] MR knee RT wo conon 05-21-19 MR knee RT wo con [facility] [place] [address] [place] [address] MRI Report Signed Patient: Humberto Velasquez MR#: [id number] : 1965 Acct:[id number] Age/Sex: 56 / F ADM Date: 05/21/22 Loc: MR Room: Type: [facility] Attending Dr: Tara BARON Copies [...] Hal Hutchinson M.D.05/21/2022 8:38 PM Dictation Location: [facility]- Transcribed By: [facility] 05/21/222037 Dictated By: Hal Hutchinson II, MD 05/21/222029 Signed By: 05/27/22 1524 [facility] MR knee RT wo con [facility] [employer] Other MR knee RT wo con [facility] [employer] Other MR knee RT wo con [address] [facility] [employer] [place] [address] [employer] Other MR knee RT wo con MRI Report [facility] [employer] Other MR knee RT wo con Signed [facility] [employer] Other MR knee RT wo con Patient: Humberto Velasquez MR#: [id number] [employer] Other MR knee RT wo con [id number] [employer] Other MR knee RT wo con : 1965 Acct:[id number] [employer] Other MR knee RT wo con Age/Sex: 56 / F ADM Date: 05/21/22 [employer] Other MR knee RT wo con Loc: Room: Type: DEP CLI [employer] Other MR knee RT wo con Attending Dr: Aimee Schneider NP-C [employer] Other MR knee RT wo con Copies to: RAVEN AdamsonPRae [employer] Other MR knee RT wo con Ordering Provider: MARILYN AdamsonHayde [employer] Other MR knee RT wo con Date of Service: 05/21/22 [employer] Other MR knee RT wo con MR/MR knee RT wo con: PAIN [employer] Other MR knee RT wo con MR knee RT wo con 05/21/2022 7:18 PM [employer] Other MR knee RT wo con SIGNS AND SYMPTOMS: Acute right knee pain beneath patella [employer] Other MR knee RT wo con PROTOCOL: Multiplana r multisequence MR images of the right knee were obtained without IV contrast [employer] Other MR knee RT wo con COMPARISON: [facility] 05/06/2022 [employer] Other MR knee RT wo con FINDINGS: [employer] Other MR knee RT wo con Fluid: There is a sm all joint effusion. There is no evidence of Plunkett's cyst.. [employer] Other MR knee RT wo con Medial compartment: [employer] Other MR knee RT wo con Medial meniscus: Intact. [employer] Other MR knee RT wo con Medial collateral ligament: Intact. [employer] Other MR knee RT wo con Medial femoral condy le cartilage: Preserved. [employer] Other MR knee RT wo con Medial tibial platea u cartilage: Preserved. [employer] Other MR knee RT wo con Lateral compartment: [employer] Other MR knee RT wo con Lateral meniscus: Th ere is a complex predominantly radially oriented tear throughout the lateral [employer] Other MR knee RT wo con meniscus. No displac ed fragments are visualized.. There is a complex parameniscal cyst projecting [employer] Other MR knee RT wo con from the anterior ho rn measuring 7 mm in greatest dimension. [employer] Other MR knee RT wo con Lateral collateral ligament: Intact. Edema is noted along the distal iliotibial band. 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 There is mild subchondral cystic change.. [employer] Other MR knee RT wo con Posterolateral corner: [employer] Other MR knee RT wo con Popliteus tendon: Intact. [employer] Other MR knee RT wo con Popliteofibular liga ment: Intact. [employer] Other MR knee RT wo con Proximal tibiofibula r joint: Preserved. [employer] Other MR knee RT wo con Anterior compartment: [employer] Other MR knee RT wo con Alignment: Normal. [employer] Other MR knee RT wo con Quadriceps tendon: Intact. [employer] Other MR knee RT wo con Patellar tendon: Intact. [employer] Other MR knee RT wo con Retinaculum: Medial intact. Lateral intact. 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 [employer] Other MR knee RT wo con Trochlea: Preserved. . Plica: None. Hoffa fat pad: Edema is present in Hoffa's fat pad [employer] Other MR knee RT wo con Intercondylar compartment: [employer] Other MR knee RT wo con Anterior cruciate ligament: Thin but grossly intact. This may be secondary to a remote partial [employer] Other MR knee RT wo con thickness tear. No rtTransLattice Other MR knee RT wo con Posterior cruciate ligament: Intact. [employer] Other MR knee RT wo con Bones (other than subarticular marrow): Normal. [employer] Other MR knee RT wo con Muscles: Normal. N [employer] Other MR knee RT wo con Vessels: Normal. N [employer] Other MR knee RT wo con Nerves: Normal. No rtTransLattice Other MR knee RT wo con M R/MR knee RT wo con [employer] Other MR knee RT wo con IMPRESSION: [employer] Other MR knee RT wo con There is a complex predominantly radially oriented tear throughout the lateral meniscus. No [employer] Other MR knee RT wo con displaced fragments are visualized.. There is a complex parameniscal cyst projecting from the [employer] Other MR knee RT wo con anterior horn measur ing 7 mm in greatest dimension. [employer] Other MR knee RT wo con There is partial thickness chondral malacia of the lateral femoral condyle with full thickness [employer] Other MR knee RT wo con chondromalacia, subchondral edema, and subchondral cystic change along the lateral tibial plateau. [employer] Other MR knee RT wo con Edema is noted along the distal iliotibial band. [employer] Other MR knee RT wo con There is a small karen nt effusion. [employer] Other MR knee RT wo con There is mild partia l thickness chondromalacia along the undersurface of the patella. [employer] Other MR knee RT wo con Impression dictated by: Hal Hutchinson M.D.05/21/2022 8:38 PM [employer] Other MR knee RT wo con Dictation Location: [place] [address] [employer] Other MR knee RT wo con Transcribed By: MIRACLE 05/21/22 203 [employer] Other MR knee RT wo con Dictated By: Hal Hutchinson II, MD 05/21/222029 [employer] Other MR knee RT wo con Signed By: 05/27/22 1524 [employer] Other XR knee RT 2Von 05-06-2022 XR knee RT 2V [facility] [place] [address] [place] [address] XRay Report Signed Patient: Humberto Velasquez MR#: [id number] : 1965 Acct:[id number] Age/Sex: 56 / F ADM Date: 05/06/22 Loc: [facility] Room: Type: [facility] Attending Dr: Tara BARON Copies to: LAMIN [...] Funmilayo Mccoy M.D.05/06/2022 3:22 PM Dictation Location: [place] [address] Transcribed By: [facility] 05/06/22 1522 Dictated By: Funmilayo Mccoy MD 05/06/22 1519 Signed By: 05/06/22 1522 [facility] XR knee RT 2V [facility] [employer] Other XR knee RT 2V [facility] [employer] Other XR knee RT 2V [address] [place] [address] [employer] Other XR knee RT 2V [place], [place] [id number] [place] [address] [employer] Other XR knee RT 2V XRay Report [employer] Other XR knee RT 2V Signed [place] [employer] Other XR knee RT 2V Patient: Humberto Velasquez MR#: [id number] [place] [employer] Other XR knee RT 2V [id number] [place] [employer] Other XR knee RT 2V : 1965 Acct:[id number] [employer] Other XR knee RT 2V Age/Sex: 56 / F ADM Date: 05/06/22 [employer] Other XR knee RT 2V Loc: [facility] Room: Type : [facility] [employer] Other XR knee RT 2V Attending Dr: Aimee WYATTC [employer] Other XR knee RT 2V Copies to: LAMIN Adamson [employer] Other XR knee RT 2V Ordering Provider: LAMIN Adamson [employer] Other XR knee RT 2V Date of Service: 05/06/22 [employer] Other XR knee RT 2V XR/XR knee RT 2V: Acute pain of right knee [employer] Other XR knee RT 2V RIGHT KNEE - 2 views N [employer] Other XR knee RT 2V COMPARISON: 06/01/2018 [employer] Other XR knee RT 2V CLINICAL DATA: Anter ior and lateral right knee pain since yesterday. Lateral lump and feeling of [employer] Other XR knee RT 2V instability. [employer] Other XR knee RT 2V AP and lateral stand ing views were obtained. There is no acute fracture or dislocation. Mild [employer] Other XR knee RT 2V narrowing of the lat eral tibiofemoral joint compartment is again noted. Minor tricompartment [employer] Other XR knee RT 2V marginal spurring is seen. There is a trace amount of joint fluid. No focal soft tissue swelling [employer] Other XR knee RT 2V is noted. [employer] Other XR knee RT 2V X R/XR knee RT 2V [employer] Other XR knee RT 2V IMPRESSION: [employer] Other XR knee RT 2V MILD DEGENERATIVE CHANGE. [employer] Other XR knee RT 2V NO ACUTE BONY FINDINGS. [employer] Other XR knee RT 2V Impression dictated by: Funmilayo Mccoy M.D.05/06/2022 3:22 PM [employer] Other XR knee RT 2V Dictation Location: [place] [address] [employer] Other XR knee RT 2V Transcribed By: PWS 05/06/22 1522 [employer] Other XR knee RT 2V Dictated By: Funmilayo Mccoy MD 05/06/22 [facility]9 [employer] Other XR knee RT 2V Signed By: [employer] Other XR knee RT 2V 05/06/22 [facility]2 [employer] Other SCREENING MAMMOGRAM W/ROB, BILATERAL*on 12-31-2021 SCREENING [...] VERY IMPORTANT TO YOUR HEALTH. THE CURRENT [employer] GUIDELINES RECOMMENDS ANNUAL MAMMOGRAPHY BEGINNING AT AGE 41 THIS FACILITY USES A REMINDER SYSTEM TO ENSURE ALL PATIENTS RECEIVE REMINDER NOTIFICATIONS AT THE APPROPRIATE TIME BASED ON THE RECOMMENDATIONS OF THIS EXAM. 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 Accredited by the ACR and FDA. Report reported and signed by Bakari Ly on 12/31/2021 1324 Normal [facility] Specialist CNPMarika 08-25-2017 CNPN Telephone (PULMMN) JOSSY VELASQUEZ ([id number]) 1965 FDate Time Provider Department08/25/17 JUANITO SUTTON [...] Status:Closed by NEGIN BENITEZ on 08/25/17 Normal [facility] ALGN Resp Region 7 018 A fumigatus IgE <0.35 Normal <0.35 [facility] Comment on above: Performed By: #### C BCDIF, TSH, VITD, IGE, RESPR7 ####[facility] [address] [place], [place] [phone] A. fumigatus-Class 0 Normal 0 [facility] Comment on above: Performed By: #### C BCDIF, TSH, VITD, IGE, RESPR7 ####[facility] [address] [place], [place] [phone] A. tenuis-Class 0 Normal 0 [facility] Comment on above: Performed By: #### C BCDIF, TSH, VITD, IGE, RESPR7 ####[facility] [place] [address] Alternariatenuis IgE <0.35 Normal <0.35 [facility] Comment on above: Performed By: #### C BCDIF, TSH, VITD, IGE, RESPR7 ####[facility] [address] [place] IgE <0.35 Normal 0-0.35 [facility] Comment on above: Performed By: #### C BCDIF, TSH, VITD, IGE, RESPR7 ####[place] [address] [address] [phone] [place]-Class 0 Normal 0 [facility] Comment on above: Performed By: #### C BCDIF, TSH, VITD, IGE, RESPR7 ####[place] [address] [address] [phone] [place] IgE <0.35 Normal <0.35 [facility] Comment on above: Performed By: #### C BCDIF, TSH, VITD, IGE, RESPR7 ####[place] [address] [address] [place] [address] [place]-Class 0 Normal 0 [facility] Comment on above: Performed By: #### C BCDIF, TSH, VITD, IGE, RESPR7 ####[place] [address] [place] [address] C.herbarum-Class 0 Normal 0 [facility] Comment on above: Performed By: #### C BCDIF, TSH, VITD, IGE, RESPR7 ####[place] [address] [address] [phone] Cat Dander IgE <0.35 Normal <0.35 [facility] Comment on above: Performed By: #### C BCDIF, TSH, VITD, IGE, RESPR7 ####[place] [address] [address] [place] [address] Cat Dander-Class 0 Normal 0 [facility] Comment on above: Performed By: #### C BCDIF, TSH, VITD, IGE, RESPR7 ####[place] [address] [address] [place] [address] Clad herbarum IgE <0.35 Normal <0.35 [facility] Comment on above: Performed By: #### C BCDIF, TSH, VITD, IGE, RESPR7 ####[place] [address] [address] [place] [address] D pteronyssinus IgE 0.44 KU/L High 0-0.35 [facility] Comment on above: Performed By: #### C BCDIF, TSH, VITD, IGE, RESPR7 ####[place] [address] [address] [place] [address] D. farinae-Class 0 Normal 0 [facility] Comment on above: Performed By: #### C BCDIF, TSH, VITD, IGE, RESPR7 ####[place] [address] [address] [place] [address] D.pteronyssin-Class 1 High 0 [facility] Comment on above: Performed By: #### C BCDIF, TSH, VITD, IGE, RESPR7 ####[place] [address] [address] [place] [address] Derm farinae IgE <0.35 Normal <0.35 [facility] Comment on above: Performed By: #### C BCDIF, TSH, VITD, IGE, RESPR7 ####[place] [address] [address] [address] Dog Dander IgE <0.35 Normal <0.35 [facility] Comment on above: Performed By: #### C BCDIF, TSH, VITD, IGE, RESPR7 ####[place] [address] [address] Dog Dander-Class 0 Normal 0 [facility] Comment on above: Performed By: #### C BCDIF, TSH, VITD, IGE, RESPR7 ####[place] [address] [address] [address] [place] IgE <0.35 Normal <0.35 [facility] Comment on above: Performed By: #### C BCDIF, TSH, VITD, IGE, RESPR7 ####[place] [address] [address] [address] [place]-Class 0 Normal 0 [facility] Comment on above: Performed By: #### C BCDIF, TSH, VITD, IGE, RESPR7 ####[place] [address] [address] [address] [place] IgE <0.35 Normal <0.35 [facility] Comment on above: Performed By: #### C BCDIF, TSH, VITD, IGE, RESPR7 ####[place] [address] AveClevelandChrist[place] [address] [place]-Class 0 Normal 0 [facility] Comment on above: Performed By: #### C BCDIF, TSH, VITD, IGE, RESPR7 ####[place] [address] [address] [address] [place] IgE <0.35 Normal <0.35 [facility] Comment on above: Performed By: #### C BCDIF, TSH, VITD, IGE, RESPR7 ####[place] [address] [place] [phone] [place]-Class 0 Normal 0 [facility] Comment on above: Performed By: #### C BCDIF, TSH, VITD, IGE, RESPR7 ####[place] [address]CJohn [place] [phone] [place]-Class 0 Normal 0 [facility] Comment on above: Performed By: #### C BCDIF, TSH, VITD, IGE, RESPR7 ####[place] [address] [address] [phone] [place] IgE <0.35 Normal <0.35 [facility] Comment on above: Performed By: #### C BCDIF, TSH, VITD, IGE, RESPR7 ####[place] [address] [address] [phone] Rough [place] El-Class 0 Normal 0 [facility] Comment on above: Performed By: #### C BCDIF, TSH, VITD, IGE, RESPR7 ####[place] [address] [address] [address] Rough Marshelder IgE <0.35 Normal <0.35 [facility] Comment on above: Performed By: #### C BCDIF, TSH, VITD, IGE, RESPR7 ####[place] [address] [address] [phone] Short [place] IgE <0.35 Normal <0.35 [facility] Comment on above: Performed By: #### C BCDIF, TSH, VITD, IGE, RESPR7 ####[place] [address] [address] Short [place]-Class 0 Normal 0 [facility] Comment on above: Performed By: #### C BCDIF, TSH, VITD, IGE, RESPR7 ####[place] [address] [address] [place] [phone] CBC and Differentialon 08-24 Abs Baso <0.03 Normal <0.11 [facility] Comment on above: Performed By: #### C BCDIF, TSH, VITD, IGE, RESPR7 ####[place] [address] [address]CM[address] [place] [phone] Abs Ness 0.34 k/uL Normal <0.87 [facility] Comment on above: Performed By: #### C BCDIF, TSH, VITD, IGE, RESPR7 ####[place] [address] [address] [place] [phone] Abs Neut 2.53 k/uL Normal 1.45-7.50 [facility] Comment on above: Performed By: #### C BCDIF, TSH, VITD, IGE, RESPR7 ####[place] [address] [address] [place] [phone] Basophils/100 WBC Auto (Bld) 0.4 % Normal [facility] Comment on above: Performed By: #### C BCDIF, TSH, VITD, IGE, RESPR7 ####[place] [address] [address] [place] [phone] DTYPE Auto Diff Normal [facility] Comment on above: Performed By: #### C BCDIF, TSH, VITD, IGE, RESPR7 ####[place] [address] [address] [place] [phone] Eosinophils 0.08 10*3/uL Normal <0.46 [facility] Comment on above: Performed By: #### C BCDIF, TSH, VITD, IGE, RESPR7 ####[place] [address] [address] [place] [phone] Eosinophils/100 leukocytes 1.5 % Normal [facility] Comment on above: Performed By: #### C BCDIF, TSH, VITD, IGE, RESPR7 ####[place] [address] [address]ClevelGeoffrey [place] [phone] Erythrocyte distribution width Auto Ratio (RBC) 13.6 % Normal 11.5-15.0 [facility] Comment on above: Performed By: #### C BCDIF, TSH, VITD, IGE, RESPR7 ####[place] [address] [address]Geoff[address] [phone] Erythrocytes (RBC) 0.0 /100 WBC Normal 0 [facility] Comment on above: Performed By: #### C BCDIF, TSH, VITD, IGE, RESPR7 ####[place] [address] [address] [place] [phone] Erythrocytes (RBC) 4.74 10*6/uL Normal 3.90-5.20 [facility] Comment on above: Performed By: #### C BCDIF, TSH, VITD, IGE, RESPR7 ####[place] [address] [address] [place] [phone] Erythrocytes (RBC) 10*6/uL Normal <0.01 [facility] Comment on above: Performed By: #### C BCDIF, TSH, VITD, IGE, RESPR7 ####[place] [address] [address] [place] [phone] Hematocrit (HCT) 43.0 % Normal 36.0-46.0 [facility] Comment on above: Performed By: #### C BCDIF, TSH, VITD, IGE, RESPR7 ####[place] [address] [address] [place] [phone] Hemoglobin mass conc (Bld) 13.8 g/dL Normal 11.5-15.5 [facility] Comment on above: Performed By: #### C BCDIF, TSH, VITD, IGE, RESPR7 ####[place] [address] [address] [place] [phone] Lymphocytes 2.20 10*3/uL Normal 1.00-4.00 [facility] Comment on above: Performed By: #### C BCDIF, TSH, VITD, IGE, RESPR7 ####[place] [address] [address] [place] [phone] Lymphocytes/100 leukocytes 42.5 % Normal [facility] Comment on above: Performed By: #### C BCDIF, TSH, VITD, IGE, RESPR7 ####[place] [address] [address] [place] [phone] MCH 29.1 pG Normal 26.0-34.0 [facility] Comment on above: Performed By: #### C BCDIF, TSH, VITD, IGE, RESPR7 ####[place] [address] [address] [place] [phone] MCHC mass conc (RBC) 32.1 g/dL Normal 30.5-36.0 [facility] Comment on above: Performed By: #### C BCDIF, TSH, VITD, IGE, RESPR7 ####[place] [address] [address] [place] [phone] MCV 90.7 fL Normal 80.0-100.0 [facility] Comment on above: Performed By: #### C BCDIF, TSH, VITD, IGE, RESPR7 ####[place] [address] [address] AveCAmy Ville [phone] Monocytes/100 leukocytes 6.6 % Normal [facility] Comment on above: Performed By: #### C BCDIF, TSH, VITD, IGE, RESPR7 ####[place] [address] [address] [place] [phone] Neutrophils/100 WBC Auto (Bld) 49.0 % Normal [facility] Comment on above: Performed By: #### C BCDIF, TSH, VITD, IGE, RESPR7 ####[place] [address] [address] [place] [phone] Platelet mean volume (PMV) 10.9 fL Normal 9.0-12.7 [facility] Comment on above: Performed By: #### C BCDIF, TSH, VITD, IGE, RESPR7 ####[facility] [address] AveCBaltimore, [place] [phone] Platelets 286 10*3/uL Normal 150-400 [facility] Comment on above: Performed By: #### C BCDIF, TSH, VITD, IGE, RESPR7 ####[facility]New [place], [place] [phone] WBC (Leukocytes) 5.18 10*3/uL Normal 3.70-11.00 [facility] Comment on above: Performed By: #### C BCDIF, TSH, VITD, IGE, RESPR7 ####[facility] [place], [place] [phone] CNCOon 08-24-2017 CNCO Letter TextRespirato [address] [facility].[place], [place] [phone] (office)[phone] (fax)08/24/2017RE: Humberto MajorsDOB: 1965To whom it may concern:Please perform a methacholine challenge test on Humberto Velasquez.Please send a copy of all results (numbers, reports, flow loops) to Dr. Alejandro at fax: [phone].Sincerely,ANU Earl-Aimee TextMay 2017Dear Ms Velasquez,I have released your lab results into txtr for your review.Your vitamin D level is [...] the 8 weeks are completed.Thank you,Dr. 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 2 08/24/2017 07:41:34AM PRE AND POST: ATS acceptability andrepeatability standards for spirometry met. Medications and Allergies werereviewed for possible drug interactions per policy MM-102. No contraindicationsor sensitivities were noted. No respiratory meds taken before testing. 4 puffsalbuterol (360 mcg) delivered by MDI via valved holding chamber, HRpre= 55/min,HRpost= 64/min. // SAIMPRESSION: [facility] Respiratory Ida Pulmonary Function Lab Pred LLN ULN Pre % Post % % chgDate 121409 [id number] 07:24AM 07:37AM ---------Height 161.5 161.5Weight 88 88 [...] this appointment visit was 50 minutes of gmby-zj-kwcp time withthe patient. More than 50% of this time was spent in counseling, explanation ofdiagnosis, planning of further management, and coordination of care.ANU Bain-Robyn CenterRespiratory InstituteMay [address]:48 [facility]:Leighton Marin NoteI have personally performed a face to face assessment of the patient and havereviewed the PA/SENIOR INFORMATION SECURITY CONSULTANT note. My kumar findings include:Assessment/Plan are :51 [...] 3 CBC + DIFF [SQCBCDIF] Order #: [id number] FUTURE TSH BLD [SQTSH] Order #: [id number] FUTURE VITAMIN D 25 HYDROXY [SQVITD] Order #: [id number] FUTURE ALGN RESP DISEASE PROF REG 7 [SQRESPR7] Order #: [id number] FUTURE IGE BLD [SQIGE] Order #: [id number] FUTURE METHACHOLINE CHALLENGE [3453370] Order #: [id number] FUTUREPrescriptions as of 08/24/2017 Sig: AZELASTINE 137 [...] follow up.Follow-up and Disposition History RecordedEncounter Number: [id number] Status:Closed by JUANITO SUTTON MD on 09/01/17 Normal [facility] IgEon 08-24-2017 IgE 125.0 kU/L High <114 [facility] Comment on above: Performed By: #### C BCDIF, TSH, VITD, IGE, RESPR7 ####[facility] [address] [place], [place] [phone] PROGRESSon 08-24-2017 PROGRESS HNO ID: [id number] thor: Juanito Frankservice: (none)Author Type: PhysicianType: Progress [...] imaging findings.SPIROMETRY - BASELINE AND POST DILATOR ([id number]) - ordered on 08/04/17 [facility] [address] [place] [address] Test Date: 3957-42-60Voi Name: HUMBERTO VELASQUEZ Department: Room:Gender: Female 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 2 08/24/2017 07:41:34AM PRE AND POST: ATS acceptability andrepeatability standards for spirometry met. Medications and Allergies werereviewed for possible drug interactions per policy MM-102. Nocontraindicationsor sensitivities were noted. No respiratory meds taken before testing. 4puffsalbuterol (360 mcg) delivered by MDI via valved holding chamber, HRpre= 55/min,HRpost= 64/min. // SAIMPRESSION: [facility] Respiratory Ida Pulmonary Function Lab Pred LLN ULN Pre % Post % %chgDate 240620 [id number] 07:24AM 07:37AM ---------Height 161.5 161.5Weight 88 88 [...] 50 3.49 2.31 4.67 3.15 90 3.79 52515PDK 50 4.71 5.4917MMEF 2.74 1.52 3.96 2.44 89 2.89 08719ZR%FIF 66.96 69.07 3FEV6 3.44 3.37-2PEF 5.93 4.20 [...] this appointment visit was 50 minutes of kehe-ib-afbi timewith the patient. More than 50% of this time was spent in counseling,explanation of diagnosis, planning of further management, and coordinationof care.Reji Bain CenterRespiratory InstituteMay [address]:48 [facility]:Leighton MarinI have personally performed a face to face assessment of the patient andhave reviewed the PA/SENIOR INFORMATION SECURITY CONSULTANT note. My kumar findings include:Assessment/Plan are :51 year old being seen for cough most likely from asthma.Also clinical history and exam of chronic sinusitis.Plan:MCCTAsteli n nasal spraysinulairLabsAsthma education and AAPOther additions or changes: NoneSignature: Juanito Barrientos Herman, MDDate: 09/01/2017Time: 2:54 PM Normal [facility] TSHon 08-24-2017 Thyroid stimulating hormone (TSH) 1.640 uU/mL Normal 0.400-5.500 [facility] Comment on above: Result Comment: If t he patient is , TSH reference range varies by gestational period:First Trimester 0.100-2.500 uU/mLSecond Trimester 0.200-3.000 uU/mLThird Trimester 0.300-3.000 uU/mLReferences: 1. Brunson L, Kristina M, Alfa HARDING, et al. Management of Thyroid Dysfunction during and : An Endocrine Society Clinical Practice Guideline. J Clin Endocrinol Metab, 2012:97:7691-1860. 2. Stef WATERS. Overview of thyroid disease in . UpToDate. 2016. Accessed on October 04, 2015. Performed By: #### C BCDIF, TSH, VITD, IGE, RESPR7 ####[facility] [address] [place], [place] [phone] Vitamin D 25 Hydroxyon 08-24 Vitamin D 25 Hydroxy 28.1 ng/mL Low 31.0-80.0 [facility] Comment on above: Result Comment: Clas sification of 25 [place] Vitamin D status:Insufficiency/Moderate Deficiency: < or = 30 ng/mLSufficiency/Optimal Levels: 31 to 80 ng/mLToxicity: > 100 ng/mLTest performed by chemiluminescent immunoassay. Performed By: #### C BCDIF, TSH, VITD, IGE, RESPR7 ####[facility] [address] [place], [place] [phone] CT-CT chest wo con IMPORTon 08-05-2017 CT-CT chest wo con IMPORT Images were obtained outside of [facility] [id number] Normal [facility] DX-XR CHEST 2 V IMPORTon DX-XR CHEST 2 V IMPORT Images were obtained outside of [facility] [id number] Normal [facility] IA-XR CHEST 2 V IMPORTon IA-XR CHEST 2 V IMPORT Images were obtained outside of [facility] [id number] Normal [facility] Vital Signs Date Time Vital Sign Value Performing Clinician Facility 03-08-2023 12:15-0500 Body height 162.56 cm Gurpreet Olexa Other [facility] Other 03-08-2023 12:15-0500 Body mass index (BMI) [Ratio] 31.75 kg/m2 Gurpreet Olexa Other [facility] Other 03-08-2023 12:15-0500 Body weight 83.92 kg Gurpreet Olexa Other [facility] Other 01-27-2023 10:45-0400 Body height 162.56 cm Leighton Ball Other [facility] Other 01-27-2023 10:45-0400 Body mass index (BMI) [Ratio] 33.3 kg/m2 Leighton Ball Other [facility] Other 01-27-2023 10:45-0400 Body weight 88 kg Leighton Ball Other [facility] Other 01-27-2023 10:45-0400 Diastolic blood pressure 82 mm[Hg] Leighton Ball Other [facility] Other 01-27-2023 10:45-0400 Respiratory rate 12 /min Leighton Ball Other [facility] Other 01-27-2023 10:45-0400 Systolic blood pressure 134 mm[Hg] Leighton Ball Other [facility] Other 05-28-2022 12:45-0500 Body height 162.56 cm Gurpreet Smith Other [facility] Other Encounters Encounter Date Encounter Type Care Provider Facility Start: 04-07-2023 ambulatory Frida Montague Facility:C D:[id number] Start: 03-31-2023 End: 04-01-2023 ambulatory Frida M. Lujorge Facility:[facility] Start: 03-31-2023 End: 04-01-2023 ambulatory Frida M. Lujorge Facility:[facility] Start: 03-08-2023 Office outpatient visit 25 minutes Gurpreet Smith [facility] Start: 03-08-2023 End: 03-08-2023 ambulatory DO Leighton Ball Work Phone: [facility] Work Phone: Start: 03-08-2023 End: 03-08-2023 Patient encounter procedure DO Leighton Ball Work Phone: [facility] Start: 02-16-2023 ambulatory Frida Lue Facility:[facility] [place] Start: 02-12-2023 End: 02-12-2023 ambulatory Leighton Ball Other [facility] Other Start: 02-12-2023 Telephone encounter Leighton Ball [facility] Start: 02-01-2023 End: 02-01-2023 ambulatory Leighton Ball Other [facility] Other Start: 02-01-2023 Telephone encounter Leighton Ball [facility] Start: 01-27-2023 End: 01-27-2023 ambulatory Leighton Ball Other [facility] Other Start: 01-27-2023 Encounter for genera l adult medical examination without abnormal findings Gurpreet Smith [facility] Start: 01-27-2023 Office outpatient visit 15 minutes Leighton Ball [facility] Start: 01-27-2023 Telephone encounter Gurpreet Smith [facility] Start: 01-22-2023 End: 01-22-2023 ambulatory Leighton Adams Other [facility] Other Start: 01-22-2023 Nursing evaluation o f patient and report Leighton Adams [facility] Start: 01-22-2023 Telephone encounter Leighton Adams [facility] Start: 08-17-2022 End: 08-17-2022 ambulatory Leighton Adams Other [facility] Other Start: 08-17-2022 Telephone encounter Leighton Adams [facility] Start: 07-09-2022 Office outpatient visit 15 minutes Gurpreet Olexa [facility] Start: 07-09-2022 End: 07-09-2022 ambulatory DO Leighton Adams Work Phone: [facility] Work Phone: Start: 07-09-2022 End: 07-09-2022 Patient encounter procedure DO Leighton Adams Work Phone: [facility] [place] [facility] Start: 07-02-2022 ambulatory GURPREET RENTERIAXA Facility:H 1 Start: 06-18-2022 End: 06-18-2022 ambulatory Leighton Adams Other [facility] Other Start: 06-18-2022 Telephone encounter Leighton Adams [facility] Start: 06-01-2022 End: 06-01-2022 ambulatory Leighton Adams Other [facility] Other Start: 06-01-2022 Nursing evaluation o f patient and report Leighton Adams [facility] Start: 05-28-2022 End: 05-28-2022 ambulatory Gurpreet Renteriaxa Other [facility] Other Start: 05-28-2022 Office outpatient visit 25 minutes Gurpreet Olexa [facility] Start: 05-21-2022 End: 05-21-2022 ambulatory Leighton Adams Facility:[facility] Start: 05-21-2022 End: 05-21-2022 Patient encounter procedure DO Leighton Ball Work Phone: [facility] [place] Work Phone: Start: 05-06-2022 End: 05-06-2022 ambulatory Leighton Ball Facility:[facility] Start: 05-06-2022 End: 05-06-2022 Patient encounter procedure DO Leighton Ball Work Phone: [facility] [facility] Start: 05-06-2022 End: 05-06-2022 ambulatory DO Leighton Ball Work Phone: [facility] Work Phone: Start: 05-06-2022 Office outpatient visit 15 minutes [facility] Start: 04-24-2022 End: 04-24-2022 ambulatory Leighton Adams Other [facility] Other Start: 04-24-2022 Telephone encounter Leighton Aad[address] [facility] Start: 04-23-2022 End: 04-23-2022 ambulatory Leighton Adams Other [facility] Other Start: 04-23-2022 Telephone encounter Leighton Ball [facility] Start: 08-24-2017 Ambulatory [facility] Start: 08-24-2017 End: 09-02-2017 Ambulatory UJANITO SUTTON [facility] Start: 08-24-2017 End: 08-24-2017 [facility] Date Procedure Procedure Detail Performing Clinician [...] Booster (Pfizer) DO Leighton Adams Work Phone: [facility] 03-05-2022 COVID-19 Pfizer (Pediatric) Leighton Adams Other [facility] Other 01-22-2022 influenza virus vaccine, split virus (incl. purified surface antigen) Leighton Adams Other [facility] Other 02-28-2021 COVID-19 mRNA, Comirnaty (Pfizer) DO Leighton Adams Work Phone: [facility] 01-24-2021 influenza virus vaccine, split virus (incl. purified surface antigen) Leighton Adams Other [facility] Other 08-01-2020 COVID-19 mRNA, Comirnaty (Pfizer) DO Leighton Adams Work Phone: [facility] 07-09-2020 COVID-19 mRNA, Comirnaty (Pfizer) DO Leighton Adams Work Phone: [facility] 01-08-2020 influenza virus vaccine, split virus (incl. purified surface antigen) Leighton Adams Other [facility] Other 01-08-2020 tetanus and diphther ia toxoids, adsorbed, preservative free, for adult use (5 Lf of tetanus toxoid and 2 Lf of diphtheria toxoid) Leighton Adams Other [facility] Other 01-17-2018 influenza virus vaccine, split virus (incl. purified surface antigen) Leighton Adams Other [facility] Other 02-05-2016 tetanus and diphther ia toxoids, adsorbed, preservative free, for adult use (5 Lf of tetanus toxoid and 2 Lf of diphtheria toxoid) Leighton Adams Other [facility] Other 01-24-2015 tetanus and diphther ia toxoids, adsorbed, preservative free, for adult use (5 Lf of tetanus toxoid and 2 Lf of diphtheria toxoid) Leighton Adams Other [facility] Other Payers Date Payer Category Payer Private Health Insurance [id number] 2022 Self-pay [id number] 2022 Unknown [id number] 2022 Private Health Insurance [id number] 1965 Unknown [id number] 2.16.84 [id number] 1965 Unknown [id number] 2.16.8 [id number] 1965 Unknown [id number] 2.16.8 [id number] 1958 Private Health Insurance [id number] Unknown [facility] [id number] Unknown [id number] 2.16.8 [id number] Unknown [id number] 2.16.8 [id number] Unknown [id number] 2.16.8 [id number] Unknown [id number] 2.16.8 [id number] Social History Date Type Detail Facility Start: 10-04-2018 End: 10-04-2018 Tobacco smoking status NHIS Never smoked tobacco (finding) [facility] Start: 1965 Sex Assigned At Female F [facility] Sex Assigned At Sex Assigned At Bir th [facility] [employer] Other Medical Equipment Procedure Code Equipment Code [...] was darker an (more content not included)... [facility] Comment on above: Result Comment: Elec tronically [...] need to consider cortisone injection and/or MRI [facility] Other 10-16-2023 Evaluation note* Encounter Date Diagnosis Assessment Notes Treatment Notes Treatment Clinical Notes Jan, Gross hematuria (ICD-10 - R31.0) Jan, Left paraspinal back pain (ICD-10 - M54.89) [facility] Other 10-11-2023 Evaluation note* Encounter Date Diagnosis Assessment Notes Treatment Notes Treatment Clinical Notes Jan, Gross hematuria (ICD-10 - R31.0) Push fluids Call or go to ER for increased pain, fever or severel bleeding. Jan, Left paraspinal back pain (ICD-10 - M54.89) Heat/ice and Tylenol. Avoid NSAIDs. Call office or ER for increased pain [facility] Other 10-11-2023 Evaluation note* Encounter Date Diagnosis Assessment Notes Treatment Notes Treatment Clinical Notes Jan, Wellness examination (ICD-10 - Z00.00) [facility] Other 10-06-2023 Evaluation note* Encounter Date Diagnosis Assessment Notes Treatment Notes Treatment Clinical Notes Jan, Dysuria (ICD-10 - R30.0) [facility] Other 05-01-2023 Evaluation note* Encounter Date Diagnosis Assessment Notes Treatment Notes Treatment Clinical Notes August, Dysuria (ICD-10 - R30.0) [facility] Other 03-23-2023 Evaluation note* Encounter Date Diagnosis [...] right knee, subsequent encounter (ICD-10 - S83.281D) [facility] Other 02-13-2023 Evaluation note* Encounter Date Diagnosis Assessment Notes Treatment Notes Treatment Clinical Notes May, Dysuria (ICD-10 - R30.0) [facility] Other 02-09-2023 Evaluation note* Encounter Date Diagnosis [...] pain of right knee (ICD-10 - M25.561) [facility] Other 01-18-2023 Evaluation note* Encounter Date Diagnosis [...] Patient denied any other concerns or questions. [facility] Other Evaluation noteNo assessment information available [facility] Work Phone: Evaluation noteNo InformationNort [employer] Other History general Narrative - Reported* Type Description Date Surgical History Tubes tied Surgical History Carpal tunnel Surgical History Knee Surgery X2 Surgical History hysterectomy [facility] Other History general Narrative - Reported* Type Description Date Surgical History Tubes tied Surgical History Carpal tunnel Surgical History Knee Surgery X2 Surgical History hysterectomy Hospitalization History see surgical history [facility] Other Reason for referral (narrative)* Reason Referral for gross h ematuria Diagnosis 1 Gross hematuria (R31 .0) Referral Organization [facility] Yann oneal Referring Provider First Name Leighton Referring Provider Last Name Bryan Referring Provider Specialty Internal Ar dicine Referred Organization [facility] Referred Provider FRIDA MONTAGUE Referred Address [address] [place] [id number] Referred Provider Specialty Urology Referral Priority Routine [...] Notes Include CT scan and recent labs [employer] Other Summary Purpose Family History No Family [...] section and content) DATE CREATED AUTHOR 10/06/2017 [facility] DATE CREATED AUTHOR AUTHOR'S ORGANIZ ATION 01/14/2022 [facility] DATE CREATED AUTHOR AUTHOR'S ORGANIZ ATION 07/23/2022 [facility] DATE CREATED AUTHOR AUTHOR'S ORGANIZ ATION 03/12/2023 [facility] DATE CREATED AUTHOR AUTHOR'S ORGANIZ ATION 04/09/2023 [facility] Teams (unrecognized sec tion and content) [...] BE BASED ON THE PRIMARY CLINICAL RECORDS. [employer] provides no warranty or guarantee of the accuracy or completeness of information in this document.
[2023-04-11] MEDS: ONDANSETRON PF 4 MG/2 ML VIAL IV (12:47)
[2023-04-11] MEDS: MORPHINE SULFATE 4 MG/ML VIAL IV (12:47)
--- NOTE | 2023-04-11 12:52 | PC.NURSE ---
PT HAD LITHOTRIPSY WITH STENT PLACEMENT ON WEDNESDAY WITH DR ALANIZ. PT STATES CAME TO ER WEDNESDAY FOR INCREASED PAIN TO LEFT FLANK AND SENT HOME. PT CALL DR ALANIZ AND WAS TOLD TO SELF REMOVE STENT THIS MORNING. PT STATES SEVERE LEFT FLANK PAIN WITH INABILITY TO URINATE SINCE REMOVAL
[2023-04-11 12:53] LABS: Basophils Percent Auto 0.2 % (0.2-2.0); Eosinophils Absolute Auto 0.1 10^3/uL (0.0-0.7); Eosinophils Percent Auto 1.1 % (0.9-7.0); Hematocrit 37.9 % (36.0-48.0); Hemoglobin 11.9 g/dL (12.0-16.0); Immature Granulocytes Abs Auto 0.01 10^3/uL (0.00-0.03); Immature Granulocytes Pct Auto 0.1 % (0.0-0.5); Lymphocytes Absolute Auto 1.9 10^3/uL (1.2-3.8); Lymphocytes Percent Auto 22.1 % (20.5-60.0); Mean Corpuscular HGB Conc 31.4 g/dL (29.9-35.2); Mean Corpuscular Hemoglobin 28.6 pg (26.7-34.0); Mean Corpuscular Volume 91.1 fL (81.0-99.0); Mean Platelet Volume 10.6 fL (9.5-13.5); Monocytes Absolute Auto 0.6 10^3/uL (0.3-0.8); Monocytes Percent Auto 7.5 % (1.7-12.0); Neutrophils Absolute Auto 5.9 10^3/uL (1.4-6.5); Platelet Count 223 10^3/uL (150-450); Red Blood Count 4.16 10^6/uL (4.20-5.40); White Blood Count 8.6 10^3/uL (4.0-11.0)
--- NOTE | 2023-04-11 12:59 | CT_ITS ---
[address] [address] Patient Name: HUMBERTO SON MRN: [id number] date: 1965 Sex: F Assigned Patient Location: ER Current Patient Location: ER Accession/Order Number: [id number] Exam Date: 04/11/2023 13:10 Report Date: 04/11/2023 13:54 At the request of: EARNEST DEUTSCH Procedure: CT abdomen pelvis wo con EXAM: CT abdomen pelvis wo con INDICATION: left flank pain, recent stone, stent removed. COMPARISON: CT abdomen pelvis 04/09/2023. TECHNIQUE: Multiple contiguous axial CT images of the abdomen and pelvis were obtained without the use of intravenous contrast. Sagittal and coronal reconstructions were performed. Dose reduction techniques were achieved by using: automated exposure control and/or adjustment of mA and /or kV according to patient size and/or use of iterative reconstruction technique. FINDINGS: Evaluation of visceral organs limited by noncontrast technique. LOWER CHEST: Clear lung bases. ABDOMEN AND PELVIS: Liver: Unremarkable. Biliary System: Normal gallbladder. No biliary ductal dilatation. Pancreas: Unremarkable. Spleen: Unremarkable. Adrenal Glands: Normal. Urinary System: Left-sided ureteral stent removed in the interim. Similar moderate left hydronephrosis and perinephric fatty stranding. Nonobstructing bilateral renal stones. No urolithiasis. Small bilateral renal cysts. Normal bladder. Reproductive organs: Hysterectomy. Gastrointestinal Tract: Normal caliber bowel. No bowel wall thickening or inflammation. Normal appendix. Colonic diverticulosis without diverticulitis. Vessels: Nonaneurysmal abdominal aorta with mild atherosclerotic calcifications. Lymph Nodes: No adenopathy. Peritoneum: No ascites or pneumoperitoneum. MUSCULOSKELETAL: Soft tissues: Unremarkable soft tissues. Bones: No acute osseous abnormality or suspicious osseous lesion. PAN: (series:image) CT/CT abdomen pelvis wo con IMPRESSION: 1. Left ureteral stent removed in the interim. Similar moderate left hydronephrosis and perinephric fatty stranding. No new acute abdominal or pelvic process. 2. Bilateral nephrolithiasis. 3. Colonic diverticulosis. Electronically authenticated by: FITO ERAZO Date: 04/11/2023 13:54
[2023-04-11 13:01] LABS: Anion Gap 11.5; BUN Creatinine Ratio 14.6; Calcium 9.2 mg/dL (8.5-10.1); Carbon Dioxide 27.8 mmol/L (21.0-32.0); Chloride 99 mmol/L (98-107); Estimated GFR (African America >60 (>=60); Estimated GFR (Non-African Ame >60 (>=60); Glucose 97 mg/dL (74-106); Potassium 3.3 mmol/L (3.5-5.1); Sodium 135 mmol/L (136-145)
[2023-04-11 13:30] VITALS: BP 105/61; PULSE 58; RESP 16; O2SAT 96
[2023-04-11 14:34] VITALS: BP 100/62; PULSE 51; RESP 16; O2SAT 98
[2023-04-11 14:36] LABS: Bilirubin Urine NEGATIVE (NEGATIVE); Blood Urine LARGE (NEGATIVE); Clarity Urine CLEAR (CLEAR); Color Urine YELLOW (YELLOW); Glucose Urine UA NEGATIVE (NEGATIVE); Ketones Urine 15 mg/dL (NEGATIVE); Leukocyte Esterase Urine NEGATIVE (NEGATIVE); Nitrite Urine NEGATIVE (NEGATIVE); Protein Urine NEGATIVE (NEG/TRACE); Specific Gravity Urine <=1.005 (1.005-1.025); Urobilinogen Urine 0.2 EU/dL (0.2-1.0)
[2023-04-11 14:43] LABS: Bacteria Urine NONE SEEN #/HPF (NONE SEEN); Cast Seen? NONE SEEN #/LPF (NONE SEEN); Crystals Seen? None Seen #/HPF (None Seen); Mucus Urine NONE SEEN (NONE SEEN); RBC Urine 0-2 #/HPF (0-2); Squamous Epithelial Cell Urine RARE #/LPF (NONE/RARE); WBC Urine NONE SEEN #/HPF (NONE SEEN)
== END 2023-04-11 15:46 | disposition home or self-care (01) ==
PROVIDERS: Emergency Provider Emergency Medicine; PCP Internal Medicine
DX: N23 Unspecified renal colic (principal); Z86.16 Personal history of COVID-19; Z87.01 Personal history of pneumonia (recurrent); Z90.710 Acquired absence of both cervix and uterus; Z98.51 Tubal ligation status; Z85.42 Personal history of malignant neoplasm of other parts of uterus; K57.30 Diverticulosis of large intestine without perforation or abscess without bleeding
CPT/HCPCS: 36415; 74176; 80048; 81001; 85025; 96374; 96375; 99285

== ENCOUNTER 2024-04-20 14:43 | Outpatient (OUT) | payer BC, SELFPAY ==
--- NOTE | 2024-04-20 14:52 | XR_ITS ---
The [address] [address] Patient Name: HUMBERTO SON MRN: [id number] date: 1965 Sex: F Assigned Patient Location: [facility] Current Patient Location: Accession/Order Number: [id number] Exam Date: 04/20/2024 14:55 Report Date: 04/21/2024 07:50 At the request of: DANIEL DEVINE Procedure: XR ribs LT min 3V w CXR1V EXAMINATION: XR ribs LT min 3V w CXR1V HISTORY: Acute Chest Wall Pain COMPARISON: No relevant comparison available. FINDINGS: LUNGS: No significant pulmonary parenchymal abnormalities. PLEURA: No pneumothorax, effusion, or pleural thickening. MEDIASTINUM: No visible mass or adenopathy. CARDIAC: No cardiomegaly or cardiac silhouette abnormality. RIBS: No acute rib fracture OTHER: Negative. XR/XR ribs LT min 3V w CXR1V IMPRESSION: Clear lungs No acute rib fracture Electronically authenticated by: MEKHI SMITH Date: 04/21/2024 07:50
== END 2024-04-20 14:44 | disposition home or self-care (01) ==
PROVIDERS: PCP Internal Medicine; Visit Provider Internal Medicine
DX: R07.89 Other chest pain (principal)
CPT/HCPCS: 71101

== ENCOUNTER 2024-05-05 09:47 | Outpatient (OUT) | payer BC, SELFPAY ==
--- OUTSIDE RECORDS SUMMARY | 2024-05-05 10:02 | XMS_ITS | CCD ---
Author Organization [facility] Care Team Providers Care Technical Expert Name Role Phone ANNETTE DEAN (ANU) Unavailable Unava ilable JUANITO KIRKPATRICK H Unavailable Unavailable DO Leighton Devine Primary Care Provider TOD Schneider Attending Provider Leighton Devine Unavailable Tara Schneider Unavailable Gurpreet White Unavailable DO Leighton Devine Primary Care Provider TOD Schneider Attending Provider MD Gurpreet White Attending Provider GURPREET WHITE Attending Unavailable GURPREET WHITE Admitting Unavailable DR LEIGHTON DEVINE Primary Care Unavailable DO Leighton Devine Primary Care Provider MD Gurpreet White Attending Provider [phone] LEIGHTON DEVINE Primary Care Physician [phone] Frida Montague Attending Unavailable LEIGHTON DEVINE Referring Unavailable Frida Montague Attending Unavailable Frida Montague Admitting Unavailable Frida Montague Attending Unavailable Frida Montague Attending Unavailable Leighton Devine DO Primary Care Provider DO Leighton Devine Primary Care Provider MD Ernesto Fletcher Attending Provider [phone] Leighton Devine Primary Care Unavailable Ernesto Fletcher Attending Unavailable Ernesto Fletcher Admitting Unavailable Gurpreet White Attending Unavailable Gurpreet White Admitting Unavailable Leighton Devine Primary Care Unavailable Leighton Devine MD Primary Care Provider [facility] CUELLAR Unavailable [phone] VISCNELIDA Waldrop A Attending Unavailable VISCNELIDA Waldrop A Referring Unavailable Ball DOLeighton E Primary Care Provider OHCHANDRAKANT SINGH E Attending Unavailable BALL, LEIGHTON E Primary Care Unavailable OHLIGER, CHANDRAKANT Vidal Attending Unavailable BALL, LEIGHTON E Primary Care Unavailable JOSÉ, REZA M Referring Unavailable BALL, LEIGHTON Primary Care Unavailable JOSÉ, REZA M Attending Unavailable JOSÉ, REZA M Referring Unavailable BALL, LEIGHTON Primary Care Unavailable JOSÉ, REZA M Referring Unavailable BALL, LEIGHTON Primary Care Unavailable JOSÉ, REZA M Attending Unavailable JOSÉ, REZA M Referring Unavailable BALL, LEIGHTON Primary Care Unavailable JOSÉ, REZA M Referring Unavailable BALL, LEIGHTON Primary Care Unavailable OHLIGER, CHANDRAKANT E Referring Unavailable BALL, LEIGHTON E Primary Care Unavailable OHLIGER, CHANDRAKANT E Referring Unavailable BALL, LEIGHTON E Primary Care Unavailable OHLIGER, CHANDRAKANT E Attending Unavailable BALL, LEIGHTON E Primary Care Unavailable Allergies Allergy Classification Reported Allergen(s) Allergy Type Date of Onset Reaction(s) Facility Cephalosporins (antibiotic) (2 sources) Cefuroxime Drug Allergy 09-15-19 Hives, Unknown Reaction [facility] Dihydrofolate Reductase Inhibitors (antibiotic) (1 source) Trimethoprim Drug Allergy 09-15-19 Unknown [address] [facility] Iodine (and Iodine containting drugs) (1 source) Iodine Drug Allergy 09-15-19 [facility] Macrolides (antibiotic) (1 source) Clarithromycin Drug Allergy 09-15-[address] Unknown [address] [facility] NSAIDs (1 source) Indomethacin Drug Allergy 09-15-19 [facility] Quinolones (antibiotic) (1 source) Ciprofloxacin Drug Allergy 09-15-19 Unknown [address] [facility] Serotonin Reuptake Inhibitors (SSRIs) (1 source) Escitalopram Drug Allergy 09-15-19 Unknown [address] [facility] Shellfish (1 source) Shellfish Food Allergy 09-15-19 [facility] sulfaSALAzine (1 source) sulfaSALAzine Drug Allergy 09-15-19 [facility] Sulfonamides (antibiotic) (2 sources) Sulfamethoxazole Drug Allergy 09-15-19 Unknown Reaction, [facility] (1 source) cefuroxime; Translations: [CEFUROXIME AXETIL] Drug Allergy 08-25-19 18 [facility] Repository (20 sources) indomethacin; Translations: [INDOMETHACIN] Drug Allergy 08-06-19 18 Hives, Other [facility] Repository (20 sources) iodine; Translations: [IODINE] Drug Allergy 04-07-20 14 hives [facility] Repository (17 sources) Sulfonamides (Antibiotic); Translations: [SULFA (SULFONAMIDE ANTIBIOTICS)] Propensity to adverse reactions to drug (disorder) 08-06-19 18 Hives, Unknown [facility] Repository (8 sources) SHELLFISH CONTAINING PRODUCTS; Translations: [SHELLFISH CONTAINING PRODUCTS] Propensity to adverse reactions to drug (disorder) 08-25-19 18 Hives, Unknown [facility] Repository (20 sources) Cefuroxime; Translations: [cefuroxime] Drug Allergy 08-06-19 18 [facility] (9 sources) Shellfish; Translations: [shellfish derived] Allergy to substance 08-06-19 18 [facility] (19 sources) Shellfish; Translations: [Shellfish] Drug allergy 04-07-20 [facility] Repository (18 sources) sulfaSALAzine Drug Allergy [facility] Other (1 source) Cefuroxime Drug Allergy 04-07-20 14 [facility] Repository (1 source) Procyclidine Drug Allergy 04-07-20 14 [facility] Repository (1 source) Sulfonamides (Antibiotic) Drug allergy (disorder) 04-07-20 14 [facility] Repository (9 sources) Contrast media Propensity to adverse reactions 01-06-20 13 Unknown [facility] Other (20 sources) Escitalopram; Translations: [ESCITALOPRAM] Drug Allergy 06-29-[address] [facility] (9 sources) sulfADIAZINE Drug Allergy Unknown [facility] Other (9 sources) Sulfamethoxazole / Trimethoprim Drug Allergy Unknown [facility] Other (8 sources) Allergies Reconciled Propensity to adverse reactions Unknown [facility] Other (10 sources) Substance with sulfonamide structure and antibacterial mechanism of action (substance) Drug allergy 12-29-19 14 Unknown [facility] (14 sources) Iodinated contrast media (substance) Drug allergy 12-15-19 24 Unknown [facility] Other (9 sources) Biaxin *MACROLIDES* Propensity to adverse reactions Unknown [facility] Other (8 sources) patient allergy list reviewed by nurse or physicia Propensity to adverse reactions 07-19-19 Comment:Done [facility] Other (9 sources) Ceftin *CEPHALOSPORINS* Propensity to adverse reactions Unknown [facility] Other (14 sources) Ciprofloxacin; Translations: [CIPROFLOXACIN] Drug Allergy 06-29-[address] [facility] (1 source) No Known Medication Allergies; Translations: [No Known Medication Allergies] Propensity to adverse reactions (disorder) [facility] Repository (13 sources) Cephalosporins (Antibiotic); Translations: [Cephalosporins] Allergy to substance 08-25-19 18 Hives, [facility] (13 sources) Clarithromycin; Translations: [clarithromycin] Drug Allergy 06-29-19 Hives, [facility] (6 sources) Sulfamethoxazole; Translations: [sulfamethoxazole] Drug Allergy 06-29-19 Unknown Reaction [facility] (13 sources) sulfaSALAzine; Translations: [sulfasalazine] Drug Allergy 06-29-19 [facility] (13 sources) Trimethoprim; Translations: [trimethoprim] Drug Allergy 06-29-[address] [facility] (9 sources) Iodinated Contrast Media; Translations: [Iodinated Contrast Media] Allergy to substance 06-29-19 Unknown Reaction [facility] Comment on above: Onset Date: 01/06/20 13 (1 source) Ciprofloxacin Drug Allergy 09-03-[address] [facility] Repository (1 source) Escitalopram Drug Allergy 09-03-[address] [facility] Repository (10 sources) oxyCODONE; Translations: [OXYCODONE] Drug Allergy 01-07-20 23 Unknown [facility] Work Phone: (3 sources) Sulfanilamide Allergy to substance 01-07-20 [facility] Medications Current Medications Medication Drug Class(es) Dates Sig (Normalized) Sig (Original) acetaminophen 325 mg / oxyCODONE hydrochloride 5 mg oral tablet (1 source) Opioid Agonist Start: 04-14-2023 acetaminophen-oxy codone 325 mg-5 mg Tab Refill(s) 0 Start Date: 04/14/23 Status: Ordered 120 actuat budesonide 0.16 mg/actuat / formoterol fumarate 0.0045 mg/actuat metered dose inhaler (10 sources) Corticosteroid, beta2-Adrenergic Agonist Start: 04-28-2024 take 1 puff(s) by inhalation every twelve hours Budesonide-Formot silvia (Symbicort) 160-4.5 mcg/actuation HFA aerosol inhaler Active 2 PUFF INHALATION Every 12 hours 10.2 30 April 28, 2024 12:00am Start: 08-05-2017 End: 06-25-2023 Budesonide-Formoterol (Symbi vielka) 160-4.5 mcg/actuation Hfa Aerosol Inhaler Discontinued 1 INH INHALATION Q12H August 04, 2017 11:00pm June 25, 2023 11:05am ciprofloxacin 250 mg oral tablet (20 sources) Quinolone Antimicrobial Start: 02-03-2024 End: 02-08-2024 take 1 tablet by mouth in the morning ciprofloxacin (Cipro) 250 MG tablet Indications: Dysuria Take 1 tablet (250 mg) by mouth in the morning and 1 tablet (250 mg) before bedtime. Do all this for 5 days. 10 tablet 02/03/2024 02/08/2024 Active Start: 06-25-2023 End: 06-28-2023 take 1 tablet by mouth every twelve hours Ciprofloxacin Hcl 250 mg tablet Discontinued 250 MG PO Every 12 hours June 25, 2023 12:00am June 28, 2023 7:30am Start: 08-17-2022 take 1 tablet by martha th every twelve hours Ciprofloxacin HCl 250 MG 1 tablet Orally every 12 hrs for 5 days Jan, Not-Taking/PRN ibuprofen 200 mg oral capsule (14 sources) Nonsteroidal Anti-inflammatory Drug Start: 09-03-2023 take 2 capsules by mouth every four to six hours as needed for pain Ibuprofen 200 mg capsule Active 400 MG PO EVERY 4-6 HOURS as needed for pain September 02, 2023 11:00pm Start: 09-03-2023 take 400 mg by mouth every four to six hours Ibuprofen Active 400 MG PO EVERY 4-6 HOURS September 03, 2023 12:00am Start: 08-05-2017 End: 06-25-2023 take 1 tablet by mouth three times daily as needed for pain Ibuprofen 800 mg tablet Discontinued 800 MG PO Three times daily as needed for pain August 04, 2017 11:00pm June 25, 2023 11:05am Inhalational Spacing Device (Aerochamber Mini) spacer (1 source) Start: 04-28-2024 Inhalational S pacing Device (Aerochamber Mini) spacer Active 0 .ROUTE .MEDSUPPLY April 28, 2024 12:00am As directed mupirocin 0.02 mg/mg topical ointment (1 source) RNA Synthetase Inhibitor Antibacterial Start: 12-15-2023 Mupirocin 2 % ointme nt Active 1 APPLIC TOPICAL Twice daily 07 02December 14, 2023 11:00pm nitrofurantoin, macrocrystals 25 mg / nitrofurantoin, monohydrate 75 mg oral capsule (8 sources) Nitrofuran Antibacterial Start: 04-14-2023 nitrofurantoin macrocrystals-monohydr ate 100 mg Cap Refills(s) 0 Start Date: 04/14/23 Status: Ordered Start: 06-01-2022 take 1 capsule by [facility] every twelve hours Nitrofurantoin Monohyd Macro 100 MG 1 capsule with food Orally every 12 hrs for 5 days May, Active [place] (No Known Home Meds) (1 source) Start: 07-06-2023 [place] (No Kn own Home Meds) Active July 06, 2023 12:00am Completed/Discontinued Medications Medication Drug Class(es) Dates Sig (Normalized) Sig (Original) acetaminophen 325 mg / HYDROcodone bitartrate 5 mg oral tablet (9 sources) Opioid Agonist Start: 08-05-2017 End: 08-10-2017 take 1 tablet by mouth twice daily as needed for pain Hydrocodone-Acetam inophen ([place]) 5-325 mg tablet Discontinued 1 TAB PO Twice daily as needed for pain 10 5 August 05, 2017 August 08, 2017 11:00pm August 09, 2017 11:01pm doxycycline hyclate 100 mg oral capsule (5 sources) Tetracycline-cla ss Drug Start: 04-10-2024 End: 04-17-2024 take 1 capsule by mouth twice daily Doxycycline Hyclate 100 mg capsule Discontinued 100 MG PO Twice daily April 10, 2024 12:00am April 17, 2024 10:22am Start: 09-24-2023 End: 04-05-2024 take 1 capsule by mouth twice daily Doxycycline Hyclate 100 mg capsule Discontinued 100 MG PO Twice daily 14 December 15, 2023 1:26pm April 05, 2024 11:24am fluticasone propionate 0.05 mg/actuat metered dose nasal spray (9 sources) Corticosteroid Start: 08-05-2017 End: 06-25-2023 Fluticasone Propionate (Flonase Allergy Relief) 50 mcg/actuation [place],Suspension Discontinued 2 SPRAY INTRANASAL Daily August 04, 2017 11:00pm June 25, 2023 11:05am 60 actuat fluticasone propionate 0.25 mg/actuat / salmeterol 0.05 mg/actuat dry powder inhaler (1 source) Corticosteroid, beta2-Adrenergic Agonist Start: 04-05-2024 End: 04-28-2024 Fluticasone Propion-Salmeterol (Advair Diskus) 250-50 mcg/dose blister with device Discontinued 1 INH INHALATION Twice daily 60 April 05, 2024 12:00am April 28, 2024 12:53pm predniSONE 20 mg oral tablet (5 sources) Start: 07-06-2023 End: 08-20-2023 Prednisone 20 mg tablet Discontinued 20 MG PO As Directed July 05, 2023 11:00pm August 20, 2023 1:30pm 1 tab tid w/ food x 3 days, then bid w/ food x 3 days, then qd w/ food x 3 days triamcinolone acetonide 5 mg/ml topical cream (20 sources) Corticosteroid Start: 07-19-2023 End: 08-20-2023 Triamcinolone Acetonide 0.5 % cream Discontinued 1 APPLIC TOPICAL Twice daily July 18, 2023 11:00pm August 20, 2023 1:30pm Start: 12-27-2017 Kenalog -40 mg Dec, 40 mg Start: 10-27-2017 KENALOG - 10 m g 11 Oct, 2017 40 mg Start: 02-11-2017 Kenalog -40 mg Jan, 40 mg Problems Active Problems Problem Classification Problem Date Documented Da te Episodic/Chronic Acute bronchitis (20 sources) Acute bronchitis; Translations: [Acute bronchitis, unspecified] Onset: 4 09-24-2023 Episodic Allergic reactions (20 sources) Allergic contact dermatitis due to plants, except food; Translations: [Allergic contact dermatitis due to plants, except food] Onset: 4 07-06-2023 Episodic Anxiety disorders (15 sources) Generalized anxiety disorder; Translations: [Generalized anxiety disorder] 06-26-2023 Chronic Asthma (20 sources) Mild persistent asthma, uncomplicated; Translations: [Asthma without status asthmaticus] Onset: 4 04-05-2024 Chronic Calculus of urinary tract (5 sources) Kidney stone; Translations: [Calculus of kidney] Onset: 3 Episodic Cancer of cervix (2 sources) Adenocarcinoma in situ of cervix; Translations: [Carcinoma in situ of cervix, unspecified] 02-03-2024 Episodic Cancer of uterus (1 source) Malignant neoplasm of uterus 03-31-2023 Chronic Cardiac dysrhythmias (8 sources) Ventricular premature complex; Translations: [Ventricular premature depolarization] Chronic Cardiac dysrhythmias (8 sources) Palpitations; Translations: [Palpitations] Episodic Chronic obstructive pulmonary disease and bronchiectasis (8 sources) Acute exacerbation of chronic asthmatic bronchitis; Translations: [Chronic obstructive asthma, with (acute) exacerbation] Onset: 8 Chronic Complications of surgical procedures or medical care (8 sources) Postartificial menopausal syndrome; Translations: [Symptomatic states associated with artificial menopause] Onset: 5 Chronic Conditions associated with dizziness or vertigo (16 sources) Benign paroxysmal positional vertigo; Translations: [Benign paroxysmal vertigo, unspecified ear] Onset: 5 Episodic Esophageal disorders (17 sources) Gastro-esophageal reflux disease with esophagitis; Translations: [Gastro-esophageal reflux disease with esophagitis, without bleeding] Onset: 5 Chronic Essential hypertension (8 sources) Essential hypertension; Translations: [Essential (primary) hypertension] Onset: 5 Chronic Gastrointestinal hemorrhage (18 sources) Melena; Translations: [Melena] Episodic Genitourinary symptoms and ill-defined conditions (20 sources) Dysuria; Translations: [Microscopic hematuria] Onset: 3 Episodic Headache; including migraine (16 sources) Paroxysmal hemicrania; Translations: [Episodic paroxysmal hemicrania, not intractable] Onset: 4 Chronic Heart valve disorders (1 source) Heart murmur 03-31-2023 Episodic Immunizations and screening for infectious disease (16 sources) Vaccination given; Translations: [Encounter for immunization] Episodic Joint disorders and dislocations; trauma-related (19 sources) Derangement of right knee; Translations: [Unspecified internal derangement of right knee] Chronic Joint disorders and dislocations; trauma-related (2 sources) Other tear of lateral meniscus, current injury, right knee, initial encounter; Translations: [Other tear of lateral meniscus, current injury, right knee, subsequent encounter] Episodic Joint disorders and dislocations; trauma-related (9 sources) Acute tear of medial meniscus of left knee; Translations: [Other tear of medial meniscus, current injury, left knee, initial encounter] Onset: 4 02-18-2024 Episodic Menopausal disorders (2 sources) Atrophy of vagina; Translations: [Postmenopausal atrophic vaginitis] 02-03-2024 Chronic Miscellaneous mental health disorders (8 sources) Somatoform disorder; Translations: [Other somatoform disorders] Onset: 7 Chronic Nonspecific chest pain (20 sources) Chest pain; Translations: [Other chest pain] Onset: 7 04-17-2024 Episodic Osteoarthritis (20 sources) Osteoarthritis of right knee joint; Translations: [Unilateral primary osteoarthritis, right knee] Onset: 4 Chronic Other bone disease and musculoskeletal deformities (9 sources) Costal chondritis; Translations: [Chondrocostal junction syndrome [[place]]] 08-05-2017 Episodic Other circulatory disease (3 sources) Elevated blood-pressure reading without diagnosis of hypertension; Translations: [Elevated blood-pressure reading, without diagnosis of hypertension] 09-15-2023 Episodic Other circulatory disease (1 source) Elevated blood-pressure reading, without diagnosis of hypertension; Translations: [Elevated blood pressure reading without diagnosis of hypertension] 09-15-2023 Episodic Other connective tissue disease (18 sources) Full thickness rotator cuff tear; Translations: [Complete rotator cuff tear or rupture of left shoulder, not specified as traumatic] Episodic Other connective tissue disease (8 sources) Medial epicondylitis of right humerus; Translations: [Medial epicondylitis, right elbow] Episodic Other connective tissue disease (1 source) Bursitis of right shoulder Episodic Other diseases of kidney and ureters (1 source) Acquired renal cyst without neoplastic change; Translations: [Cyst of kidney, acquired] Onset: 3 Episodic Other diseases of kidney and ureters (1 source) Cyst of kidney 03-31-2023 Episodic Other injuries and conditions due to external causes (18 sources) Traumatic injury; Translations: [Foreign body] Episodic Other injuries and conditions due to external causes (18 sources) H/O: injury; Translations: [Personal history of retained foreign body fully removed] Episodic Other injuries and conditions due to external causes (2 sources) Other injury of unspecified body region, initial encounter Episodic Other lower respiratory disease (16 sources) Cough; Translations: [Cough] Onset: 7 Episodic Other nervous system disorders (8 sources) Meralgia paresthetica; Translations: [Meralgia paresthetica, bilateral lower limbs] Chronic Other non-traumatic joint disorders (3 sources) Pain in right knee Episodic Other non-traumatic joint disorders (1 source) Pain in right shoulder Episodic Other nutritional; endocrine; and metabolic disorders (20 sources) Obese class I; Translations: [Body mass index (BMI) 33.0-33.9, adult] Onset: 5 Chronic Other nutritional; endocrine; and metabolic disorders (8 sources) Simple obesity ; Translations: [Other obesity due to excess calories] Onset: 5 Chronic Other nutritional; endocrine; and metabolic disorders (11 sources) Obesity; Translations: [Obesity, unspecified] 09-15-2023 Chronic Other nutritional; endocrine; and metabolic disorders (1 source) Obesity, unspecified; Translations: [Obesity, unspecified] 09-15-2023 Chronic Other screening for suspected conditions (not mental disorders or infectious disease) (9 sources) Encounter for screening for malignant neoplasm of colon; Translations: [Special screening for malignant neoplasms of colon] Onset: 05-17-06-29-2023 Episodic Other skin disorders (4 sources) Skin tag; Translations: [Other hypertrophic disorders of the skin] 09-15-2023 Episodic Other skin disorders (1 source) Other hypertrophic disorders of the skin; Translations: [Unspecified hypertrophic and atrophic conditions of skin] 09-15-2023 Episodic Other upper respiratory disease (8 sources) Chronic rhinitis; Translations: [Chronic rhinitis] Onset: 7 Chronic Other upper respiratory disease (19 sources) Allergic rhinitis; Translations: [Allergic rhinitis, cause unspecified] Onset: 5 09-24-2023 Chronic Other upper respiratory disease (8 sources) Seasonal allergic rhinitis; Translations: [Other seasonal allergic rhinitis] Onset: 8 Chronic Other upper respiratory disease (2 sources) Allergic rhinitis, unspecified; Translations: [Allergic rhinitis, cause unspecified] 09-24-2023 Chronic Other upper respiratory disease (8 sources) Bleeding from nose; Translations: [Epistaxis] Episodic Other upper respiratory infections (8 sources) Chronic maxillary sinusitis; Translations: [Chronic maxillary sinusitis] Onset: 5 Chronic Other upper respiratory infections (16 sources) Acute maxillary sinusitis; Translations: [Acute maxillary sinusitis, unspecified] Onset: 7 Episodic Prolapse of female genital organs (2 sources) Cystocele; Translations: [Cystocele, unspecified] 02-03-2024 Chronic Residual codes; unclassified (8 sources) Family history of ischemic heart disease; Translations: [Family history of ischemic heart disease and other diseases of the circulatory system] Episodic Residual codes; unclassified (6 sources) Family history of cancer of colon; Translations: [Family history of malignant neoplasm of digestive organs] 06-26-2023 Episodic Residual codes; unclassified (4 sources) Family history of malignant neoplasm of digestive organs; Translations: [Family history of malignant neoplasm of gastrointestinal tract] 06-29-2023 Episodic Residual codes; unclassified (3 sources) Localized edema; Translations: [Edema] 07-06-2023 Episodic Spondylosis; intervertebral disc disorders; other back problems (8 sources) Cervical disc disorder; Translations: [Cervical disc disorder, unspecified, unspecified cervical region] Onset: 8 Chronic Spondylosis; intervertebral disc disorders; other back problems (17 sources) Nerve root disorder; Translations: [Radiculopathy, site unspecified] Onset: 4 Episodic Superficial injury; contusion (10 sources) Contusion of right knee, initial encounter; Translations: [Contusion of right upper arm] Onset: 6 Episodic Unclassified (8 sources) Exposure to acute respiratory syndrome coronavirus 2; Translations: [Contact with and (suspected) exposure to COVID-19] Unclassified (1 source) Pain in right shoulder; Translations: [Pain in right shoulder] Onset: 3 Unclassified (2 sources) Acute tear of medial meniscus of left knee 02-18-2024 Viral infection (9 sources) Verruca vulgaris; Translations: [Viral wart, unspecified] 05-05-2024 Episodic Past or Other Problems Problem Classification Problem Date Documented Da te Episodic/Chronic Abdominal pain (19 sources) Right upper quadrant pain; Translations: [Right upper quadrant pain] Onset: 03-01-2017 02-03-2024 Episodic Bacterial infection; unspecified site (8 sources) Bacterial [...] joint, upper arm] Onset: 10-28-2015 Episodic Other non-traumatic joint disorders (6 sources) Pain in left knee; Translations: [Pain in joint, lower leg] Onset: 12-24-2023 Episodic Other upper respiratory disease (8 sources) [...] of foot, except toes] Onset: 11-20-2013 Episodic Sprains and strains (8 sources) Neck sprain; Translations: [Neck sprain and strain] Onset: 12-13-2014 Episodic Results Test Name Value Interpretation Reference Range Facility XR ABDOMEN (KUB) (SINGLE AP VIEW)on 03-27-2024 XR ABDOMEN (KUB) (SINGLE AP VIEW) EXAMINATION: ONE SUPINE XRAY VIEW(S) OF THE ABDOMEN 03/27/2024 7:58 am COMPARISON: August 23, 2023 HISTORY: ORDERING SYSTEM PROVIDED HISTORY: Kidney stones TECHNOLOGIST PROVIDED HISTORY: Reason for Exam: F/u left kidney stones. Pt will have pain on/off left flank FINDINGS: Bowel gas pattern nonobstructed. Renal shadows partially obscured by bowel gas and fecal debris. No definite renal or ureteral stones. No acute osseous abnormality. IMPRESSION: No definite renal or ureteral stones Interpreted by: Shemar Pineda DO Signed by: Shemar Pnieda DO 03/27/24 Final result Normal [facility] MR KNEE LEFT WO IV CONTRASTo n 03-01-2024 MR KNEE LEFT WO IV CONTRAST Interpreted By: Bernabe Lopez, STUDY: MR KNEE LEFT WO IV CONTRAST; INDICATION: Signs/Symptoms:mmt. COMPARISON: Plain film radiographs left knee December 24, 2023 ACCESSION NUMBER(S): [id number] ORDERING CLINICIAN: CHANDRAKANT SANCHEZ TECHNIQUE: Multiplanar multisequential MRI left knee without contrast FINDINGS: Complex tear lateral meniscus with large horizontal tear of the posterior horn and body segment plus additional macerated type tearing of the anterior horn. Medial meniscus intact. Anterior cruciate ligament normal. Posterior cruciate ligament normal. Extensor tendons are normal. Collateral ligaments are normal. Tricompartmental osteoarthritis noted. It is most advanced in the lateral compartment where there is near-complete chondral loss from both the tibial and femoral articular surfaces. Less advanced moderate patellofemoral and lateral arthrosis noted. No evidence of fracture. 1.5 cm rounded lesion with peripheral lobular increased T2 signal in the central metaphysis of the distal femur likely small enchondroma. No marrow replacement lesion. Small Pulnkett's cyst. No large effusion. No other focal fluid collections. IMPRESSION: Complex tear lateral meniscus as above. Tricompartmental osteoarthritis of the left knee particularly advanced in the lateral compartment. Small Plunkett's cyst. Likely small distal femoral enchondroma. Signed by: Bernabe Lopez 03/01/2024 2:11 PM Dictation workstation: [id number] [facility] Comment on above: Order Comment: K MR Knee - left WO contraston 03-01-2024 Complex tear lateral meniscus as above. Tricompartmental osteoarthritis of the left knee particularly advanced in the lateral compartment. Small Plunkett's cyst. Likely small distal femoral enchondroma. Signed by: Bernabe Lopez 03/01/2024 2:11 PM Dictation workstation: [id number] MMODAL Interpreted By: Bernabe Zaldivar, STUDY: MR KNEE LEFT WO IV CONTRAST; INDICATION: Signs/Symptoms:mmt. COMPARISON: Plain film radiographs left knee December 24, 2023 ACCESSION NUMBER(S): [id number] ORDERING CLINICIAN: CHANDRAKANT SANCHEZ TECHNIQUE: Multiplanar multisequential MRI left knee without contrast FINDINGS: Complex tear lateral meniscus with large horizontal tear of the posterior horn and body segment plus additional macerated type tearing of the anterior horn. Medial meniscus intact. Anterior cruciate ligament normal. Posterior cruciate ligament normal. Extensor tendons are normal. Collateral ligaments are normal. Tricompartmental osteoarthritis noted. It is most advanced in the lateral compartment where there is near-complete chondral loss from both the tibial and femoral articular surfaces. Less advanced moderate patellofemoral and lateral arthrosis noted. No evidence of fracture. 1.5 cm rounded lesion with peripheral lobular increased T2 signal in the central metaphysis of the distal femur likely small enchondroma. No marrow replacement lesion. Small Plunkett's cyst. No large effusion. No other focal fluid collections. [facility] Bernabe Lopez MD - 03/01/2024 Interpreted By: Bernabe Lopez, STUDY: MR KNEE LEFT WO IV CONTRAST; INDICATION: Signs/Symptoms:mmt. COMPARISON: Plain film radiographs left knee December 24, 2023 ACCESSION NUMBER(S): [id number] ORDERING CLINICIAN: CHANDRAKANT SANCHEZ TECHNIQUE: Multiplanar multisequential MRI left knee without contrast FINDINGS: Complex tear lateral meniscus with large horizontal tear of the posterior horn and body segment plus additional macerated type tearing of the anterior horn. Medial meniscus intact. Anterior cruciate ligament normal. Posterior cruciate ligament normal. Extensor tendons are normal. Collateral ligaments are normal. Tricompartmental osteoarthritis noted. It is most advanced in the lateral compartment where there is near-complete chondral loss from both the tibial and femoral articular surfaces. Less advanced moderate patellofemoral and lateral arthrosis noted. No evidence of fracture. 1.5 cm rounded lesion with peripheral lobular increased T2 signal in the central metaphysis of the distal femur likely small enchondroma. No marrow replacement lesion. Small Plunkett's cyst. No large effusion. No other focal fluid collections. IMPRESSION: Complex tear lateral meniscus as above. Tricompartmental osteoarthritis of the left knee particularly advanced in the lateral compartment. Small Plunkett's cyst. Likely small distal femoral enchondroma. Signed by: Bernabe Lopez 03/01/2024 2:11 PM Dictation workstation: [id number] [facility] Work Phone: Radiology Study observation (narrative) [facility] Work Phone: MR Knee - left WO contrastOr dered By: Bernabe Lopez on 03-01-2024 [facility] Work Phone: BI MAMMOGRAM SCREENING TOMOS YNTHESIS BILATERALon 02-09-2024 BI MAMMOGRAM SCREENING TOMOSYNTHESIS BILATERAL This is a summary report. The complete report is available in the patient's medical record. If you cannot access the medical record, please contact the sending organization for a detailed fax or copy. BI MAMMOGRAM SCREENING TOMOSYNTHESIS BILATERAL:02/09/2024 2:55 PM CLINICAL HISTORY:scrn. Screening COMPARISONS: December 25, 2020 through February 13, 2023. TECHNIQUE: Routine full field 3D breast tomosynthesis was performed bilaterally. CAD analysis was performed and used in the interpretation. FINDINGS: Scattered fibroglandular densities are noted with stable asymmetry. There are no developing masses, suspicious microcalcifications, or areas of architectural distortion identified on today's examination. There is no significant change when compared to the prior examinations identified, given differences in technique and positioning. IMPRESSION: BI-RADS 2: BENIGN FINDINGS.. ROUTINE FOLLOW-UP MAMMOGRAPHY IS SUGGESTED IN ONE YEAR. DENSITY: Scattered fibroglandular densities. Category B Board Certified Radiologists. Accredited by the ACR and FDA. MAMMOGRAPHY IS VERY IMPORTANT TO YOUR HEALTH. THE [employer] GUIDELINES RECOMMEND THAT WOMEN 40 YEARS OF AGE AND OLDER SHOULD HAVE A MAMMOGRAM EVERY YEAR. A REMINDER LETTER WILL BE SENT AT THE APPROPRIATE TIME. ELECTRONICALLY SIGNED BY: Kierra Yañez, DO Normal Not Available Bacteria identified Cx Nom ( U)on 02-05-2024 [facility] No Panel Informationon 02-04 Performed at: [address] [place] [id number] Dining Room Attendant: Khang Gonzalez PhD, Phone: [phone] [facility] Urine Culture Clean Catch Re flexon 02-05-2024 Bacteria identified Cx Nom (U) Comment [facility] Comment on above: Mixed urogenital nicole ra 25,000-50,000 colony forming units per mL [facility] Urine cultureon 02-05-2024 Bacteria identified Cx Nom (U) Final report [facility] Urinalysis macro (dipstick) panel (U)Ordered By: Amy Michaud on 02-03-2024 Clarity, UA Clear [facility] Color, UA Yellow [facility] Interpretation and review of laboratory results Abnormal [facility] Leukocytes, UA Positive Negative - 500+++ Sun/mcL [facility] XR KNEE LEFT 4+ VIEWSon XR KNEE LEFT 4+ VIEWS Interpreted By: Prakash Melara, STUDY: XR KNEE LEFT 4+ VIEWS; ; 12/24/2023 2:33 pm INDICATION: Signs/Symptoms:Pain. ,M25.562 Pain in left knee COMPARISON: None. ACCESSION NUMBER(S): [id number] ORDERING CLINICIAN: CHANDRAKANT SANCHEZ FINDINGS: Left knee, four views There is moderate tricompartmental osteophytosis and sclerosis with mild joint space narrowing. There is no effusion. There is no fracture. IMPRESSION: Moderate osteoarthritis in the left knee MACRO: None Signed by: Prakash Melara 12/25/2023 1:32 PM Dictation workstation: [id number] [facility] CT ABDOMEN PELVIS WO NONA Dennis 09-22-2023 CT ABDOMEN PELVIS WO CONTRAST EXAMINATION: CT OF THE ABDOMEN AND PELVIS WITHOUT CONTRAST 09/22/2023 7:25 am TECHNIQUE: CT of the abdomen and pelvis was performed without the administration of intravenous contrast. Multiplanar reformatted images are provided for review. Automated exposure control, iterative reconstruction, and/or weight based adjustment of the mA/kV was utilized to reduce the radiation dose to as low as reasonably achievable. COMPARISON: None. HISTORY: ORDERING SYSTEM PROVIDED HISTORY: Flank pain TECHNOLOGIST PROVIDED HISTORY: Reason for Exam: flank pain Additional signs and symptoms: right flank pain, previous sx 04/10 for kidney stones FINDINGS: Evaluation of the solid organs is limited due to lack of IV contrast. CARDIOVASCULAR: The visualized heart and pericardium demonstrate no acute abnormality. The abdominal aorta is normal in course and caliber. LUNG BASES: There are no basilar consolidations or pleural effusions. HEPATOBILIARY: There are no focal hepatic lesions. There is no biliary ductal dilatation. The gallbladder is unremarkable. SPLEEN: Unremarkable. PANCREAS: Unremarkable. ADRENAL GLANDS: Unremarkable. KIDNEYS: The kidneys are normal in size and contour. There is no hydronephrosis. There are nonobstructing bilateral renal calculi. There are bilateral simple renal cysts for which no follow-up is recommended. There are left parapelvic cyst for which no follow-up is recommended. JACR 2018 Feb; 264-273, Management of the Incidental Renal Mass on CT, [employer] 2020; 814-848, Bosniak Classification of Cystic Renal Masses, Version 2019. ABDOMINAL NODES: No adenopathy is appreciated. PELVIC ORGANS: The urinary bladder is unremarkable. The uterus is unremarkable. PERITONEUM/MESENTERY/JULIO CESAR L: The stomach is unremarkable. There is no bowel obstruction. There is no bowel wall thickening. The appendix is normal. BONES/SOFT TISSUES: There is no acute osseous or soft tissue abnormality. IMPRESSION: 1. No acute intra-abdominal or pelvic process. 2. Nonobstructing bilateral renal calculi. Interpreted by: Johnny Lang MD Signed by: Johnny Lang MD 09/22/23 Final result Normal [facility] [place] 09-03-2023 L Specimen: [id number] Received: 09/03/23 Status: ANDREA Arce Num: [id number] Spec Type: Surgical Subm Dr: Ernesto Fletchre MD Tissues: A Colon Biopsy (CECAL POLYP) Procedures: HE/2, Gross/Micro L4 Age/ Patient Sex Location Account Attending Physician Humberto Velasquez 57/F [id number] Ernesto Fletcher MD SPEC NUM: [id number] RECD: 09/03/23 STATUS: ANDREA ARCE NUM: [id number] SOFÍA: 09/03/23 DR: Ernesto Fletcher MD ENTERED: 09/03/[address] [facility] DR: SPEC TYPE: Surgical DEPT: S ORDERED: HE/2, Gross/Micro L4 ORDERED: HE/2, Gross/Micro L4 Pathological Diagnosis Cecal polyp biopsy: -Consistent with small adenomatous polyp in at least 1 fragment Clinical Information Family history of colon cancer Gross Description Received in formalin labeled with the patient's name, date of and cecal polyp are 2 brizuela mucosal tissue fragments measuring 0.3 x 0.3 x 0.1 cm and 0.1 x 0.1 x 0.1 cm, entirely submitted in A1. CPT Codes 22395 Specimen: [id number] Received: 09/03/231007 Status: ANDREA Arce Num: [id number] Spec Type: Surgical Subm Dr: Ernesto Fletcher MD Tissues: A Colon Biopsy (CECAL POLYP) Procedures: HE/2, Gross/Micro L4 Patient: EvaHumberto Kaylyn [id number] (Continued) Signed (signature on file) Vera Shields MD 09/06/232008 Normal [facility] XR ABDOMEN (KUB) (SINGLE AP VIEW)on 08-23-2023 XR ABDOMEN (KUB) (SINGLE AP VIEW) EXAMINATION: ONE SUPINE XRAY VIEW(S) OF THE ABDOMEN 08/23/2023 7:53 am COMPARISON: None. HISTORY: ORDERING SYSTEM PROVIDED HISTORY: Kidney stone TECHNOLOGIST PROVIDED HISTORY: Reason for Exam: hx of right sided kidney stones, believes she had a stone last week FINDINGS: Bowel gas pattern nonobstructed. Renal shadows partially obscured by bowel gas and fecal debris. No definite renal or ureteral stones. No acute osseous abnormality. IMPRESSION: No definite renal or ureteral stones Interpreted by: Shemar Pineda DO Signed by: Shemar Pineda DO 08/23/23 Final result Normal [facility] [place] 04-16-2023 Screens [id number]#1.00TIFF Normal [facility] ED Note-Physicianon 04-15-20 ED Note-Physician [id number]#1.00TIFF Normal [facility] ED Note-Physician [id number]#1.00TIFF Normal [facility] Lab Reportson 04-15-2023 Lab Reports [id number]#1.00TIFF Normal [facility] Lab Reports [id number]#1.00TIFF Normal [facility] RAD - CT Reporton 04-15-2023 RAD - CT Report [id number]#1.00TIFF Normal [facility] Ambulatory Visit Summaryon 1 06-15-2022 Ambulatory Visit Summary HUMBERTO VELASQUEZ :1965 Visit Date:04/14/2023 Ambulatory Visit Instructions Your Diagnosis Gross hematuria History of UTI Kidney stones Bilateral renal cysts Tests Performed Urnls Dip Stick Auto w/o Microscopy POC 16089 US Renal -- Results Pending -- Please visit your patient portal for your results or contact your primary care physician. Your Care Team Attending Physician - Frida Montague MD Primary Care Physician - LEIGHTON DEVINE DO Procedures Performed Cystoscopic laser lithotripsy of ureteric calculus (04/07/2023), Carpal tunnel, Hysterectomy, Knee, Tubal ligation. Discharge Vitals Heart Rate (Peripheral) 86 Respiratory Rate 16 Blood Pressure 127/73 Height 162 cm Height 64 in Weight 85.5 kg Weight 188.1 lb BMI 32.58 What to do next You Need to Schedule the Following Appointments Follow Up with Frida Montague MD, URL, URO When: Comments: PRN vs Annual f/u for Kidney Stones Where: Test Results Urnls Dip Stick Auto w/o Microscopy POC 55750 (04/14/2023) Bilirubin Urine Dipstick - Negative Blood Urine Dipstick - 1+ Small Glucose Urine Dipstick - Negative Ketones Urine Dipstick - Negative Leukocytes Urine Dipstick - Negative Nitrite Urine Dipstick - Negative Protein Urine Dipstick - Negative Specific [place] Urine Dipstick - >=1.030 Urine Appearance Urine Dipstick - Clear Urine Color Urine Dipstick - Yellow Urobilinogen Urine Dipstick - Normal 0.2-1 EU/dl pH Urine Dipstick - 6.5 Allergies No Known Medication Allergies Problems Ongoing [...] ? 8 oz (237 mL) of milk, nwvakmq-tbvuzswpdrdq-wdjb y milk, and calcium-fortifiedfruit juice. Calcium-fortified means [...] of your hand. ? Eat at least (more content not included)... Normal [facility] Patient Educationon 04-14- 23 Patient Education Nephrology Dietary Guidelines to Help [...] ? 8 oz (237 mL) of milk, ysnlxjt-iuwczdmmhrmi-quek y milk, and calcium-fortifiedfruit juice. Calcium-fortified means [...] Spinach (cooked), rhubarb, beets, sweet potatoes, and Tristanian chard. ? Peanuts. ? Potato chips, tuvaluan fries, and baked potatoes with skin on. ? Nuts and nut products. ? Chocolate. ? If you regularly take a diuretic medicine, make sure to eat at least 1 or 2 servings of fruits or vegetables that are high in potassium each day. These include: ? Avocado. ? Banana. ? [place], prune, carrot, or tomato juice. ? Baked [...] fish oil, or vitamin B6. ? Take mrin-myn-vjudwop and prescription medicines only as told by your health care provider. These include supplements. What foods sh (more content not included)... Normal [facility] Reminderson 04-14-2023 Reminders - From: Yuli Soto To: EU - Recalls Lue; Sent: 04/14/2023 10:53:40 EST Show up: 04/28/2023 10:53:00 EST Subject: VU Due Date/Time: 05/26/2023 10:53:00 EST Pt is to get VU done at [facility]. Pt would like to be called with results. Normal [facility] Urology Office/Clinic Noteon 04-14-2023 Urology Office/Clinic Note Chief Complaint Post Op Pain HPI Staff S/P Lt Laser Litho Stone Extraction & Lt String Stent Placement 04/07/23. DX: Gross Hematuria, Kidney Stone, BL Renal Cysts & Hx of UTI. Pt called our office 04/09/23 c/o leaking & light bleeding. Our office recommended she try to insert stent farther, as pt may have pulled on it. Oxybutynin recommended-pt declined. Pt then went to [facility] ER 04/09/23 CC: pain & hematuria Prescribed Macrobid & Toradol CT ap w/o CMP *BUN 18.0 & Crea 1.05 CBC & UA (No Culture indicated) Pt removed string stent 04/11/23 Returned to [facility] ER 04/11/23 CC: Lt flank pain that radiates to groin CT w/o 04/11/23 DC'd w/Percocet Pt called our office back 04/13/23 c/o pain while sitting & walking. Getting up 3x/night to void & retaining water in ankles. Pain on lower left side has improved today. Did take Tylenol with Codeine yesterday. Still has 1 day left of Macrobid therapy. Has not been straining urine due to pain. Stone Analysis not finalized at [facility] yet. B&BSQ 21 History of Present Illness Tests reviewed: reviewed UA and External Records including CT scans, labs, UA, notes I have reviewed the previous health record information and history for this patient from and external providers I have reviewed and verified the staff HPI to be accurate for this encounter. There have been no associated fever, chills, or blood in the urine. Denies any urinary infections since last encounter. Review of Systems PHQ Score Initial Depression [...] HPI. Physical Exam Vitals & Measurements HR: 86(Peripheral) RR: 16 BP: 127/73 HT: 64 in HT: 162 cm WT: 85.5 kg WT: 188.1 lb BMI: 32.58 General Appearance: alert , no acute distress, well nourished, well developed female. Genitourinary: bladder nonpalpable, no flank pain. Assessment/Plan 57 yo female with chronic L flank/back pain and gross hematuria 2 mths ago and recent diagnosis of BL nephrolithiasis here today for a follow due to post op pain, improving Pt with Hx of Uterine Cancer S/P [...] changes noted with abx. UA today shows small blood and no signs of infection. BBS 21(16) 04/07/23- cysto neg for bladder tumors. BL RPG neg for filling defects. Urine cytology neg -No evidence of malignancy. Cont sx monitoring 2. History of UTI (Z87.440: Personal history of urinary (tract) infections) Pt states the infections started last May. Per referral note, pt recently Tx'd w/Cipro for UTI, however no C&S on Clinisync. Pt states that her urine was darker and cloudy, knows she does not drink enough water at times. No dysuria or actual painful sx. Knows that when she does drink a lot of water, she does not have these sxs. -Increase fluid intake 3. Kidney stones (N20.0: Calculus of kidney) CT w/o 02/05/23 - multiple small bilateral stones that are nonobstructive, Upon Personal Review:2 stones on the Rt and 3 on the Lt, cannot measure KUB 03/28/23 - 7mm stone projecting over the mid body of the Lt kidney, slightly limited evaluation due to dense bowel content S/P L URS, Laser Litho Stone Extraction & Lt String Stent Placement 04/07/23, BL RPG - Stone Analysis not finalized at [facility] yet. Pt called our office 04/09/23 c/o leaking & light bleeding. Our office recommended she try to insert stent farther, as pt may have pulled on it. Oxybutynin recommended-pt declined. Pt then went to [facility] ER 04/09/23 CC: pain & hematuria. Prescribed Macrobid & Toradol CT ap w/o 04/09/23 - stent in place on the Lt side, BL nonobstructing stones, Lt hydro CMP Crea 1.05, CBC wnl, UA neg for UTI (No Culture indicated) Pt removed string stent 04/11/23 Returned to [facility] ER 04/11/23 afternoon CC: Lt flank pain that radiates to groin CT w/o 04/11/23 - stent removed in the interim, similar mod Lt hydro, BL stones, Upon Personal Review: mild hydroureter/inflammation and parapelvic cysts (known, see #3) DC'd w/Percocet Pt called our office back 04/13/23 c/o pain while sitting & walking. Getting up 3x/night to void & retaining water in ankles. Pain on lower left (more content not included)... Normal [facility] Comment on above: Result Comment: Elec tronically Signed By: Eddi ANGELO, Frida Hunt\.br\Date and Time Signed: 04/14/23 11:52 EST\.br\Electronically Co-Signed By: Yuli Soto\.br\Date and Time Co-Signed: 04/14/23 10:52 EST Operative Reporton Operative Report [id number]#1.00TIFF Normal [facility] Urine Cytology ([facility])on 06-06-2022 Urine Cytology Diagnosis Info Invalid Interpretation Code [facility] Comment on above: Result Comment: A:Ur ine,Urine:Voided Interpretation - MicroScopic Description - Adequacy - Gross Description Site ID:A color Yellow fixative Alcohol Specimen designated Urine received in alcohol preservative and labeled with the patient?s name, consists of 80ml clear yellow fluid. Electronically signed by : on: 04/05/2023 11:10:12 Performed By: #### 1 [id number] ####[facility] [address] [place] [address] Lab Reportson 04-02-2023 Lab Reports [id number]#1.00TIFF Normal [facility] Lab Reports [id number]#1.00TIFF Normal [facility] Ambulatory Visit Summaryon 06-01-2022 Ambulatory Visit Summary EVAROSENDOHUMBERTO Kaylyn :1965 Visit Date:03/31/2023 Ambulatory Visit Instructions Your Diagnosis Gross hematuria History of UTI Kidney stones Bilateral renal cysts Tests Performed Urnls Dip Stick Auto w/o Microscopy POC 69951 Your Care Team Attending Physician - Frida Montague MD Primary Care Physician - LEIGHTON DEVINE DO Referring Physician - LEIGHTON DEVINE DO Procedures Performed Carpal tunnel, Hysterectomy, Knee, [...] Urnls Dip Stick Auto w/o Microscopy POC 88072 (03/31/2023) Bilirubin Urine Dipstick - Negative Blood Urine Dipstick - 3+ Large Glucose Urine Dipstick - Negative Ketones Urine Dipstick - Negative Leukocytes Urine Dipstick - Trace Nitrite Urine Dipstick - Negative Protein Urine Dipstick - Negative Specific [place] Urine Dipstick - 1.025 Urine Appearance Urine [...] ? 8 oz (237 mL) of milk, yfhzpcy-iywobuiyterk-kdlw y milk, and calcium-fortifiedfruit juice. Calcium-fortified means [...] of jessica (more content not included)... Normal [facility] Lab Reportson 03-31-2023 Lab Reports [id number]#1.00TIFF [facility] Patient Educationon 03-31-20 Patient Education Nephrology Dietary [...] ? 8 oz (237 mL) of milk, pdbstxl-ulconkzfupig-igly y milk, and calcium-fortifiedfruit juice. Calcium-fortified means [...] Spinach (cooked), rhubarb, beets, sweet potatoes, and Tristanian chard. ? Peanuts. ? Potato chips, tuvaluan fries, and baked potatoes with skin on. ? Nuts and nut products. ? Chocolate. ? If you regularly take a diuretic medicine, make sure to eat at least 1 or 2 servings of fruits or vegetables that are high in potassium each day. These include: ? Avocado. ? Banana. ? [place], prune, carrot, or tomato juice. ? Baked [...] fish oil, or vitamin B6. ? Take hent-qcr-kfvculr and prescription medicines only as told by your health care provider. These include supplements. What foods sh (more content not included)... Normal [facility] Physician Referralon 023 Physician Referral [id number]#1.00TIFF Normal [facility] RAD - CT Reporton 03-31-2023 RAD - CT Report [id number]#1.00TIFF Normal [facility] RAD - MISCon 03-31-2023 RAD - MISC [id number]#1.00TIFF Normal [facility] [place] 03-31-2023 Screens [id number]#1.00TIFF Normal [facility] Urine Cytology ([facility])on 06-01-2022 Method of Extraction Voided Normal [facility] Comment on above: Performed By: #### 1 [id number] ####[facility] [address] [place] [id number] Number of Jars 1 Invalid Interpretation Code [facility] Comment on above: Performed By: #### 1 [id number] ####[facility] [address] [place] 5808657 Specimen Urine Normal [facility] Comment on above: Performed By: #### 1 [id number] ####[facility] [address] [place] [address] Type of Service Technical Only Normal [facility] Comment on above: Performed By: #### 1 [id number] ####[facility] [address] [place] [address] RAD - MISCon 03-30-2023 RAD - MISC [id number] Normal [facility] XR shoulder RT min 2V*on XR shoulder RT min 2V* [facility] Main [place] [address] [place] [address] XRay Report Signed Patient: Humberto Velasquez MR#: [id number] : 1965 Acct:[id number] Age/Sex: 57 / F ADM Date: 03/08/23 Loc: [facility] Room: Type[facility] Attending Dr: Gurpreet White MD Copies to: Gurpreet White MD Ordering Provider: Gurpreet White MD Date of Service: 03/08/23 XR/XR shoulder [...] Ramirez Jr., D.ONunu03/08/2023 3:07 PM Dictation Location: [place] [address] Transcribed By: [facility] 03/08/23 1507 Dictated By: Joe Ramirez Jr, DO 03/08/23 1506 Signed By: 03/08/23 1507 Normal [facility] Physician Orderon 02-17-2023 Physician Order [id number] Normal [facility] Urinalysis - DIPSTICKon 05-20 Appearance (U) cloudy Nexgence Other Bilirubin Ql (U) Negative [employer] ast Dropcam Other Color (U) yellow TrenDemon Other Glucose Ql (U) Negative [employer] Other Hemoglobin Ql (U) small COPsync Other Ketones Ql (U) Negative [employer] Other Leukocyte esterase Test strip Ql (U) small TrenDemon Other Nitrite Ql (U) Negative [employer]gence Other pH (U) 5 [pH] TrenDemon Other Protein Ql (U) Negative [employer] Other Specific gravity (U) [Rel density] 1.010 TrenDemon Other Urobilinogen (U) [Mass/Vol] 0.2 mg/dL TrenDemon Other Urinalysis - DIPSTICK TrenDemon Other MR knee RT wo conon 05-21-19 23 MR knee RT wo con [facility] TrenDemon Other MR knee RT wo con [facility] Spout Other MR knee RT wo con 1111 [facility] Spout [place] [address] TrenDemon Other MR knee RT wo con MRI Report COPsync Other MR knee RT wo con Signed COPsync Other MR knee RT wo con Patient: Humberto Velasquez MR#: [id number] TrenDemon Other MR knee RT wo con [id number] COPsync Other MR knee RT wo con : 1965 Acct:[id number] TrenDemon Other MR knee RT wo con Age/Sex: 56 / F ADM Date: 05/21/22 TrenDemon Other MR knee RT wo con Loc: MR Room: Type: [facility] TrenDemon Other MR knee RT wo con Attending Dr: Aimee Schneider [facility] TrenDemon Other MR knee RT wo con Copies to: [facility] TrenDemon Other MR knee RT wo con Ordering Provider: MARILYN AdamsonHayde TrenDemon Other MR knee RT wo con Date of Service: 05/21/22 TrenDemon Other MR knee RT wo con MR/MR knee RT wo con: PAIN TrenDemon Other MR knee RT wo con MR knee RT wo con 05/21/2022 7:18 PM TrenDemon Other MR knee RT wo con SIGNS AND SYMPTOMS: Acute right knee pain beneath patella TrenDemon Other MR knee RT wo con PROTOCOL: Multiplana r multisequence MR images of the right knee were obtained without IV contrast TrenDemon Other MR knee RT wo con COMPARISON: Radiogra phs 05/06/2022 TrenDemon Other MR knee RT wo con FINDINGS: COPsync Other MR knee RT wo con Fluid: There is a sm all joint effusion. There is no evidence of Plunkett's cyst.. TrenDemon Other MR knee RT wo con Medial compartment: TrenDemon Other MR knee RT wo con Medial meniscus: Intact. TrenDemon Other MR knee RT wo con Medial collateral ligament: Intact. TrenDemon Other MR knee RT wo con Medial femoral condy le cartilage: Preserved. TrenDemon Other MR knee RT wo con Medial tibial platea u cartilage: Preserved. TrenDemon Other MR knee RT wo con Lateral compartment: TrenDemon Other MR knee RT wo con Lateral meniscus: Th ere is a complex predominantly radially oriented tear throughout the lateral TrenDemon Other MR knee RT wo con meniscus. No displac ed fragments are visualized.. There is a complex parameniscal cyst projecting TrenDemon Other MR knee RT wo con from the anterior ho rn measuring 7 mm in greatest dimension. TrenDemon Other MR knee RT wo con Lateral collateral ligament: Intact. Edema is noted along the distal iliotibial band. 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 There is mild subchondral cystic change.. TrenDemon Other MR knee RT wo con Posterolateral corner: TrenDemon Other MR knee RT wo con Popliteus tendon: Intact. TrenDemon Other MR knee RT wo con Popliteofibular liga ment: Intact. TrenDemon Other MR knee RT wo con Proximal tibiofibula r joint: Preserved. TrenDemon Other MR knee RT wo con Anterior compartment: TrenDemon Other MR knee RT wo con Alignment: Normal. TrenDemon Other MR knee RT wo con Quadriceps tendon: Intact. TrenDemon Other MR knee RT wo con Patellar tendon: Intact. TrenDemon Other MR knee RT wo con Retinaculum: Medial intact. Lateral intact. 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 TrenDemon Other MR knee RT wo con Trochlea: Preserved. . Plica: None. Hoffa fat pad: Edema is present in Hoffa's fat pad TrenDemon Other MR knee RT wo con Intercondylar compartment: TrenDemon Other MR knee RT wo con Anterior cruciate ligament: Thin but grossly intact. This may be secondary to a remote partial TrenDemon Other MR knee RT wo con thickness tear. No rtMyMiniLife Other MR knee RT wo con Posterior cruciate ligament: Intact. TrenDemon Other MR knee RT wo con Bones (other than subarticular marrow): Normal. TrenDemon Other MR knee RT wo con Muscles: Normal. N Bookioo Other MR knee RT wo con Vessels: Normal. N Bookioo Other MR knee RT wo con Nerves: Normal. No Paperlinks Other MR knee RT wo con M R/MR knee RT wo con TrenDemon Other MR knee RT wo con IMPRESSION: TrenDemon Other MR knee RT wo con There is a complex predominantly radially oriented tear throughout the lateral meniscus. No TrenDemon Other MR knee RT wo con displaced fragments are visualized.. There is a complex parameniscal cyst projecting from the TrenDemon Other MR knee RT wo con anterior horn measur ing 7 mm in greatest dimension. TrenDemon Other MR knee RT wo con There is partial thickness chondral malacia of the lateral femoral condyle with full thickness TrenDemon Other MR knee RT wo con chondromalacia, subchondral edema, and subchondral cystic change along the lateral tibial plateau. TrenDemon Other MR knee RT wo con Edema is noted along the distal iliotibial band. TrenDemon Other MR knee RT wo con There is a small karen nt effusion. TrenDemon Other MR knee RT wo con There is mild partia l thickness chondromalacia along the undersurface of the patella. TrenDemon Other MR knee RT wo con Impression dictated by: Hal Hutchinson M.D.05/21/2022 8:38 PM TrenDemon Other MR knee RT wo con Dictation Location: [place] [address] TrenDemon Other MR knee RT wo con Transcribed By: MIRACLE 05/21/222037 TrenDemon Other MR knee RT wo con Dictated By: Hal Hutchinson II, MD 05/21/222029 TrenDemon Other MR knee RT wo con Signed By: 05/27/22 1524 TrenDemon Other XR knee RT 2Von 05-06-2022 XR knee RT 2V [facility] TrenDemon Other XR knee RT 2V [facility] Main [place] TrenDemon Other XR knee RT 2V [address] [place] [address] Spout Other XR knee RT 2[place] [address] Nor Spout Other XR knee RT 2V XRay Report [facility] Sape Other XR knee RT 2V Signed TrenDemon Other XR knee RT 2V Patient: Humberto Velasquez MR#: [id number] [facility] Spout Other XR knee RT 2V [id number] TrenDemon Other XR knee RT 2V : 1965 Acct:[id number] TrenDemon Other XR knee RT 2V Age/Sex: 56 / F ADM Date: 05/06/22 TrenDemon Other XR knee RT 2V Loc: [facility] Room: Type : [facility] Spout Other XR knee RT 2V Attending Dr: Aimee BARON [facility] Spout Other XR knee RT 2V Copies to: Tara Schneider [employer]ANIT[employer]Hayde TrenDemon Other XR knee RT 2V Ordering Provider: LAMIN Adamson TrenDemon Other XR knee RT 2V Date of Service: 05/06/22 TrenDemon Other XR knee RT 2V XR/XR knee RT 2V: Acute pain of right knee TrenDemon Other XR knee RT 2V RIGHT KNEE - 2 views N Bookioo Other XR knee RT 2V COMPARISON: 06/01/2018 TrenDemon Other XR knee RT 2V CLINICAL DATA: Anter ior and lateral right knee pain since yesterday. Lateral lump and feeling of TrenDemon Other XR knee RT 2V instability. [employer] Dropcam Other XR knee RT 2V AP and lateral stand ing views were obtained. There is no acute fracture or dislocation. Mild TrenDemon Other XR knee RT 2V narrowing of the lat eral tibiofemoral joint compartment is again noted. Minor tricompartment TrenDemon Other XR knee RT 2V marginal spurring is seen. There is a trace amount of joint fluid. No focal soft tissue swelling TrenDemon Other XR knee RT 2V is noted. TrenDemon Other XR knee RT 2V X R/XR knee RT 2V TrenDemon Other XR knee RT 2V IMPRESSION: Nexgence Other XR knee RT 2V MILD DEGENERATIVE CHANGE. TrenDemon Other XR knee RT 2V NO ACUTE BONY FINDINGS. TrenDemon Other XR knee RT 2V Impression dictated by: Funmilayo Mccoy M.D.05/06/2022 3:22 PM TrenDemon Other XR knee RT 2V Dictation Location: [place] [address] TrenDemon Other XR knee RT 2V Transcribed By: MIRACLE 05/06/22 [facility] TrenDemon Other XR knee RT 2V Dictated By: Funmilayo Mccoy MD 05/06/22 [facility] TrenDemon Other XR knee RT 2V Signed By: TrenDemon Other XR knee RT 2V 05/06/22 [facility] Markado Other SCREENING MAMMOGRAM W/ROB, BILATERAL*on 12-31-2021 SCREENING [...] VERY IMPORTANT TO YOUR HEALTH. THE CURRENT [place] [employer]LE[employer] OF RADIOLOGY AND NATIONAL COMPREHENSIVE CANCER NETWORK GUIDELINES RECOMMENDS ANNUAL MAMMOGRAPHY BEGINNING AT AGE 41 THIS FACILITY USES A REMINDER SYSTEM TO ENSURE ALL PATIENTS RECEIVE REMINDER NOTIFICATIONS AT THE APPROPRIATE TIME BASED ON THE RECOMMENDATIONS OF THIS EXAM. 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 Accredited by the ACR and FDA. Report reported and signed by Bakari Ly on 12/31/2021 1324 Normal [facility] Solar Sales Associate Naomi 08-25-2017 CNPN Telephone (PULMMN) JOSSY VELASQUEZ ([id number]) 1965 FDate Time Provider Department08/25/17 JUANITO KIRKPATRICK During your visit today, we recorded the following information about you:Negin Benitez 08/25/2017 10:25 AM AddendumImaging of ChestAllergies As of Date: 08/25/2017 Noted Allergy ReactionCEFTIN (CEFUROXIME AXETIL) 08/24/2017 4 - HivesINDOSIN (INDOMETHACIN) 08/24/2017 4 - HivesIODINE 08/24/2017 4 - HivesSHELLFISH CONTAINING PRODUCTS 08/24/2017 4 - HivesSULFA (SULFONAMIDE ANTIBIOTICS) 08/24/2017 4 - HivesDate Reviewed: 08/24/2017Reviewed by: Juanito Kirkpatrick - Fully AssessedReason for Visit: Imaging of Chest [Other]Prescriptions as of 08/25/2017 Sig: AZELASTINE 137 MCG (0.1 %) NA* Use 2 Sprays in each nostril * MONTELUKAST 10 MG TABLET Take 1 tablet by mouth daily *Problem List As Of Date: 08/25/2017(None) Status:Closed by NEGIN BENITEZ on 08/25/17 Normal [facility] ALGN Resp Region 7 018 A fumigatus IgE <0.35 Normal <0.35 [facility] Comment on above: Performed By: #### C BCDIF, TSH, VITD, IGE, RESPR7 ####[place] [address] [address] [phone] A. fumigatus-Class 0 Normal 0 [facility] Comment on above: Performed By: #### C BCDIF, TSH, VITD, IGE, RESPR7 ####[place] [address] [address] [phone] A. tenuis-Class 0 Normal 0 [facility] Comment on above: Performed By: #### C BCDIF, TSH, VITD, IGE, RESPR7 ####[place] [address] [address] [phone] Alternariatenuis IgE <0.35 Normal <0.35 [facility] Comment on above: Performed By: #### C BCDIF, TSH, VITD, IGE, RESPR7 ####[place] [address] [address] [phone] [place] IgE <0.35 Normal 0-0.35 [facility] Comment on above: Performed By: #### C BCDIF, TSH, VITD, IGE, RESPR7 ####[place] [address] [address] [phone] Pom[place]-Class 0 Normal 0 [facility] Comment on above: Performed By: #### C BCDIF, TSH, VITD, IGE, RESPR7 ####[facility] [phone] [place] IgE <0.35 Normal <0.35 [facility] Comment on above: Performed By: #### C BCDIF, TSH, VITD, IGE, RESPR7 ####[place] [address] [address] [phone] [place]-Class 0 Normal 0 [facility] Comment on above: Performed By: #### C BCDIF, TSH, VITD, IGE, RESPR7 ####[place] [address] [address] [phone] C.herbarum-Class 0 Normal 0 [facility] Comment on above: Performed By: #### C BCDIF, TSH, VITD, IGE, RESPR7 ####[place] [address] [address] [phone] Cat Dander IgE <0.35 Normal <0.35 [facility] Comment on above: Performed By: #### C BCDIF, TSH, VITD, IGE, RESPR7 ####[place] [address] [address] Cat Dander-Class 0 Normal 0 [facility] Comment on above: Performed By: #### C BCDIF, TSH, VITD, IGE, RESPR7 ####[place] [address] [address] [phone] Clad herbarum IgE <0.35 Normal <0.[address] [facility] Comment on above: Performed By: #### C BCDIF, TSH, VITD, IGE, RESPR7 ####[place] [address] [address] [phone] D pteronyssinus IgE 0.44 KU/L High 0-0.35 [facility] Comment on above: Performed By: #### C BCDIF, TSH, VITD, IGE, RESPR7 ####[place] [address] [address] D. farinae-Class 0 Normal 0 [facility] Comment on above: Performed By: #### C BCDIF, TSH, VITD, IGE, RESPR7 ####[place] [address] [address] [address] D.pteronyssin-Class 1 High 0 [facility] Comment on above: Performed By: #### C BCDIF, TSH, VITD, IGE, RESPR7 ####[place] [address] [address] [address] Derm farinae IgE <0.35 Normal <0.35 [facility] Comment on above: Performed By: #### C BCDIF, TSH, VITD, IGE, RESPR7 ####[place] [address] [address] [place] [address] Dog Dander IgE <0.35 Normal <0.35 [facility] Comment on above: Performed By: #### C BCDIF, TSH, VITD, IGE, RESPR7 ####[place] [address] [address] [address] Dog Dander-Class 0 Normal 0 [facility] Comment on above: Performed By: #### C BCDIF, TSH, VITD, IGE, RESPR7 ####[place] [address] [address] [address] [place] IgE <0.35 Normal <0.35 [facility] Comment on above: Performed By: #### C BCDIF, TSH, VITD, IGE, RESPR7 ####[place] [address] [address] [address] [place]-Class 0 Normal 0 [facility] Comment on above: Performed By: #### C BCDIF, TSH, VITD, IGE, RESPR7 ####[place] [address] [address] [place] [address] [place] IgE <0.35 Normal <0.35 [facility] Comment on above: Performed By: #### C BCDIF, TSH, VITD, IGE, RESPR7 ####[place] [address] [address] [place] [address] [place]-Class 0 Normal 0 [facility] Comment on above: Performed By: #### C BCDIF, TSH, VITD, IGE, RESPR7 ####[place] [address] [address] [place] [address] [place] IgE <0.35 Normal <0.[address] [facility] Comment on above: Performed By: #### C BCDIF, TSH, VITD, IGE, RESPR7 ####[place] [address] [address] [address] [place]-Class 0 Normal 0 [facility] Comment on above: Performed By: #### C BCDIF, TSH, VITD, IGE, RESPR7 ####[place] [address] [address] [address] [place] Grass-Class 0 Normal 0 [facility] Comment on above: Performed By: #### C BCDIF, TSH, VITD, IGE, RESPR7 ####[place] [address] [address] [address] [place] IgE <0.35 Normal <0.35 [facility] Comment on above: Performed By: #### C BCDIF, TSH, VITD, IGE, RESPR7 ####[place] [address] [address] [address] Rough [place] El-Class 0 Normal 0 [facility] Comment on above: Performed By: #### C BCDIF, TSH, VITD, IGE, RESPR7 ####[place] [address] [place] [place] [phone] Rough Marshelder IgE <0.35 Normal <0.35 [facility] Comment on above: Performed By: #### C BCDIF, TSH, VITD, IGE, RESPR7 ####[place] [address] [place] [place] [phone] Short Ragweed IgE <0.35 Normal <0.[address] [facility] Comment on above: Performed By: #### C BCDIF, TSH, VITD, IGE, RESPR7 ####[place] [address] [place] [place] [phone] Short Ragweed-Class 0 Normal 0 [facility] Comment on above: Performed By: #### C BCDIF, TSH, VITD, IGE, RESPR7 ####[place] [address] [address] [place] [phone] CBC and Differentialon 08-24 Abs Baso <0.03 Normal <0.11 [facility] Comment on above: Performed By: #### C BCDIF, TSH, VITD, IGE, RESPR7 ####[place] [address] [address] [place] [phone] Abs Glascock 0.34 k/uL Normal <0.87 [facility] Comment on above: Performed By: #### C BCDIF, TSH, VITD, IGE, RESPR7 ####[place] [address] [place] [place] [phone] Abs Neut 2.53 k/uL Normal 1.45-7.50 [facility] Comment on above: Performed By: #### C BCDIF, TSH, VITD, IGE, RESPR7 ####[place] [address] [address] [place] [phone] Basophils/100 WBC Auto (Bld) 0.4 % Normal [facility] Comment on above: Performed By: #### C BCDIF, TSH, VITD, IGE, RESPR7 ####[facility]ClevelAnna [place]ille [phone] DTYPE Auto Diff Normal [facility] Comment on above: Performed By: #### C BCDIF, TSH, VITD, IGE, RESPR7 ####[place] [address] [address]ClevelandAmanda [place] [phone] Eosinophils 0.08 10*3/uL Normal <0.46 [facility] Comment on above: Performed By: #### C BCDIF, TSH, VITD, IGE, RESPR7 ####[place] [address] [address] [place] [phone] Eosinophils/100 leukocytes 1.5 % Normal [facility] Comment on above: Performed By: #### C BCDIF, TSH, VITD, IGE, RESPR7 ####[place] [address] [address] [place] [phone] Erythrocyte distribution width Auto Ratio (RBC) 13.6 % Normal 11.5-15.0 [facility] Comment on above: Performed By: #### C BCDIF, TSH, VITD, IGE, RESPR7 ####[place] [address] [address]levelAnna [place] [phone] Erythrocytes (RBC) 0.0 /100 WBC Normal 0 [facility] Comment on above: Performed By: #### C BCDIF, TSH, VITD, IGE, RESPR7 ####[facility]ClevelAnna [place]ille [phone] Erythrocytes (RBC) 4.74 10*6/uL Normal 3.90-5.20 [facility] Comment on above: Performed By: #### C BCDIF, TSH, VITD, IGE, RESPR7 ####[place] [address] [address]level[address] [place] [phone] Erythrocytes (RBC) 10*6/uL Normal <0.01 [facility] Comment on above: Performed By: #### C BCDIF, TSH, VITD, IGE, RESPR7 ####[place] [address] [address] [place] [phone] Hematocrit (HCT) 43.0 % Normal 36.0-46.0 [facility] Comment on above: Performed By: #### C BCDIF, TSH, VITD, IGE, RESPR7 ####[place] [address] [phone] Hemoglobin mass conc (Bld) 13.8 g/dL Normal 11.5-15.5 [facility] Comment on above: Performed By: #### C BCDIF, TSH, VITD, IGE, RESPR7 ####[phone] Lymphocytes 2.20 10*3/uL Normal 1.00-4.00 [facility] Comment on above: Performed By: #### C BCDIF, TSH, VITD, IGE, RESPR7 ####[address] [place] [phone] Lymphocytes/100 leukocytes 42.5 % Normal [facility] Comment on above: Performed By: #### C BCDIF, TSH, VITD, IGE, RESPR7 ####[place] [address] [address] [place] [phone] MCH 29.1 pG Normal 26.0-34.0 [facility] Comment on above: Performed By: #### C BCDIF, TSH, VITD, IGE, RESPR7 ####[place] [address] [address] [place] [phone] MCHC mass conc (RBC) 32.1 g/dL Normal 30.5-36.0 [facility] Comment on above: Performed By: #### C BCDIF, TSH, VITD, IGE, RESPR7 ####[place] [address] [address] [place], [place] [phone] MCV 90.7 fL Normal 80.0-100.0 [facility] Comment on above: Performed By: #### C BCDIF, TSH, VITD, IGE, RESPR7 ####[place] [address] [address]CNew [place], [place] [phone] Monocytes/100 leukocytes 6.6 % Normal [facility] Comment on above: Performed By: #### C BCDIF, TSH, VITD, IGE, RESPR7 ####[place] [address] [address] [place], [place] [phone] Neutrophils/100 WBC Auto (Bld) 49.0 % Normal [facility] Comment on above: Performed By: #### C BCDIF, TSH, VITD, IGE, RESPR7 ####[place] [address] [address]Pr[place], [place] [phone] Platelet mean volume (PMV) 10.9 fL Normal 9.0-12.7 [facility] Comment on above: Performed By: #### C BCDIF, TSH, VITD, IGE, RESPR7 ####[place] [address] [address] AvPr[place], [place] [phone] Platelets 286 10*3/uL Normal 150-400 [facility] Comment on above: Performed By: #### C BCDIF, TSH, VITD, IGE, RESPR7 ####[place] [address] [address] [place], [place] [phone] WBC (Leukocytes) 5.18 10*3/uL Normal 3.70-11.00 [facility] Comment on above: Performed By: #### C BCDIF, TSH, VITD, IGE, RESPR7 ####[place] [address] [address] AvPr[place], [place] [phone] CNCOon 08-24-2017 CNCO Letter TextRespirato [place] [address] [address] [facility], [place] [phone] (office)[phone] (fax)08/24/2017RE: Humberto MajorsDOB: 1965To whom it may concern:Please perform a methacholine challenge test on Humberto Velasquez.Please send a copy of all results (numbers, reports, flow loops) to Dr. Alejandro at fax: [phone].Sincerely,Jonel Earl TextIddavida 2017Dear Ms Velasquez,I have released your lab results into [employer] for your review.Your vitamin D level is [...] the 8 weeks are completed.Thank you,Dr. Juanito [phone]: September 05, 2017 [facility] CNOVon 08-24-2017 CNOV Office Visit (PULMMN) JOSSY VELASQUEZ ([id number]) [address] [facility] Provider Department08/24/17 8:50 AM JUANITO KIRKPATRICK PULOCTAVIA During your visit today, we recorded the following information about you: Temperature Pulse Respiration Blood pressure 97.8 degrees 62/minute 16/minute 114/81 Weight Height 87.1 kg 1.626 Flor Kirkpatrick MD 09/01/2017 3:00 PM SignedConsulting PhysicianLeighton Devine for the ConsultHumberto Velasquez presents today for [...] imaging findings.SPIROMETRY - BASELINE AND POST DILATOR ([id number]) - ordered on 08/04/17 [facility] [address] [place] [address] Test Date: [id number] Name: HUMBERTO VELASQUEZ Department: Room:Gender: Female Winding Operator: LDOB: 1965 Requested By:Order Number: [id number] Reading MD: Interpretive StatementsTest no. 2 08/24/2017 07:41:34AM PRE AND POST: ATS acceptability andrepeatability standards for spirometry met. Medications and Allergies werereviewed for possible drug interactions per policy MM-102. No contraindicationsor sensitivities were noted. No respiratory meds taken before testing. 4 puffsalbuterol (360 mcg) delivered by MDI via valved holding chamber, HRpre= 55/min,HRpost= 64/min. // SAIMPRESSION: [facility] Respiratory [place] Pulmonary Function Lab Pred LLN ULN Pre % Post % % chgDate [id number] 07:24AM 07:37AM ---------Height 161.5 161.5Weight 88 88 [...] this appointment visit was 50 minutes of udyr-zf-aihk time withthe patient. More than 50% of this time was spent in counseling, explanation ofdiagnosis, planning of further management, and coordination of care.ANU [facility] Centeriratory InstituteMay [address]:48 [facility]:Leighton Marin NoteI have personally performed a face to face assessment of the patient and havereviewed the PA/FURNITURE FINISHER HELPER note. My kumar findings include:Assessment/Plan are :51 year old being seen for cough most likely from asthma.Also clinical history and exam of chronic sinusitis.Plan:MCCTAstcuca n nasal spraysinulairLabsAsthma education and AAPOther additions or changes: NoneSignature: Juanito Kirkpatrick MDDate: 09/01/2017Time: 2:54 [facility] ANU Patel 08/26/2017 3:29 PM AddendumMethacholine [...] 4 - HivesDate Reviewed: 08/24/2017Reviewed by: Juanito Kirkpatrick - Fully AssessedReason for Visit: Consult [502]Primary [...] 3 CBC + DIFF [SQCBCDIF] Order #: [id number] FUTURE TSH BLD [SQTSH] Order #: [id number] FUTURE VITAMIN D 25 HYDROXY [SQVITD] Order #: [id number] FUTURE ALGN RESP DISEASE PROF REG 7 [SQRESPR7] Order #: [id number] FUTURE IGE BLD [SQIGE] Order #: [id number] FUTURE METHACHOLINE CHALLENGE [0199824] Order #: [id number] FUTUREPrescriptions as of 08/24/2017 Sig: AZELASTINE 137 [...] follow up.Follow-up and Disposition History RecordedEncounter Number: [id number] Status:Closed by JUANITO KIRKPATRICK MD on 09/01/17 Normal [facility] IgEon 08-24-2017 IgE 125.0 kU/L High <114 [facility] Comment on above: Performed By: #### C BCDIF, TSH, VITD, IGE, RESPR7 ####[facility] [address] [place], [place] [phone] PROGRESSon 08-24-2017 PROGRESS HNO ID: [id number] thor: Andresgerardo Barrientos Mattice: (none)Author Type: PhysicianType: Progress NotesFiled: 09/01/2017 3:00 PMNote Text:Consulting PhysicianLeighton Devine for the ConsultHumberto Velasquez presents today for [...] imaging findings.SPIROMETRY - BASELINE AND POST DILATOR ([id number]) - ordered on 08/04/17 [facility] [address] [place] [address] Test Date: 5207-24-89Iff Name: HUMBERTO VELASQUEZ Department: Room:Gender: Female 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 2 08/24/2017 07:41:34AM PRE AND POST: ATS acceptability andrepeatability standards for spirometry met. Medications and Allergies werereviewed for possible drug interactions per policy MM-102. Nocontraindicationsor sensitivities were noted. No respiratory meds taken before testing. 4puffsalbuterol (360 mcg) delivered by MDI via valved holding chamber, HRpre= 55/min,HRpost= 64/min. // SAIMPRESSION: [facility] Respiratory [place] Pulmonary Function Lab Pred LLN ULN Pre % Post % %chgDate [id number] 07:24AM 07:37AM ---------Height 161.5 161.5Weight 88 88 [...] 50 3.49 2.31 4.67 3.15 90 3.79 72503DWQ 50 4.71 5.4917MMEF 2.74 1.52 3.96 2.44 89 2.89 98837XA%FIF 66.96 69.07 3FEV6 3.44 3.37-2PEF 5.93 4.20 [...] Blood work IgE, RAST, CBC, Vit D, Jenifer Velasquez will follow-up in pulmonary clinic in [...] this appointment visit was 50 minutes of xjdy-db-skml timewith the patient. More than 50% of this time was spent in counseling,explanation of diagnosis, planning of further management, and coordinationof care.Reji [facility] InstituteMay 201[address]:48 [facility]:Leighton Marin NoteI have personally performed a face to face assessment of the patient andhave reviewed the PA/FURNITURE FINISHER HELPER note. My kumar findings include:Assessment/Plan are :51 year old being seen for cough most likely from asthma.Also clinical history and exam of chronic sinusitis.Plan:MCCTAsteli n nasal spraysinulairLabsAsthma education and AAPOther additions or changes: NoneSignature: Juanito Kirkpatrick, MDDate: 09/01/2017Time: 2:54 PM Normal [facility] TSHon 08-24-2017 Thyroid stimulating hormone (TSH) 1.640 uU/mL Normal 0.400-5.500 [facility] Comment on above: Result Comment: If t he patient is , TSH reference range varies by gestational period:First Trimester 0.100-2.500 uU/mLSecond Trimester 0.200-3.000 uU/mLThird Trimester 0.300-3.000 uU/mLReferences: 1. De Daylin L, Kristina M, Alfa EK, et al. Management of Thyroid Dysfunction during and : An Endocrine Society Clinical Practice Guideline. J Clin Endocrinol Metab, 2012:97:1155-0269. 2. Stef WATERS. Overview of thyroid disease in . UpToDate. 2016. Accessed on October 04, 2015. Performed By: #### C BCDIF, TSH, VITD, IGE, RESPR7 ####[facility] [address] [place], [place] [phone] Vitamin D 25 Hydroxyon 08-24 Vitamin D 25 Hydroxy 28.1 ng/mL Low 31.0-80.0 [facility] Comment on above: Result Comment: Clas sification of 25 [place] Vitamin D status:Insufficiency/Moderate Deficiency: < or = 30 ng/mLSufficiency/Optimal Levels: 31 to 80 ng/mLToxicity: > 100 ng/mLTest performed by chemiluminescent immunoassay. Performed By: #### C BCDIF, TSH, VITD, IGE, RESPR7 ####[facility] [address] [place], [place] [phone] CT-CT chest wo con IMPORTon 08-05-2017 CT-CT chest wo con IMPORT Images were obtained outside of [facility] [id number] Normal [facility] DX-XR CHEST 2 V IMPORTon DX-XR CHEST 2 V IMPORT Images were obtained outside of [facility] [id number] Normal [facility] IL-XR CHEST 2 V IMPORTon IL-XR CHEST 2 V IMPORT Images were obtained outside of [facility] [id number] Normal [facility] Vital Signs Date Time Vital Sign Value Performing Clinician Facility 05-05-2024 09:03-0500 Body height 162.56 cm [facility] 05-05-2024 09:03-0500 Body mass index (BMI) [Ratio] 33.2 kg/m2 [facility] 05-05-2024 09:03-0500 Body weight 87.71 kg [facility] 05-05-2024 09:03-0500 Diastolic blood pressure 86 mm[Hg] [facility] 05-05-2024 09:03-0500 Heart rate 70 /min [facility] 05-05-2024 09:03-0500 Respiratory rate 12 /min [facility] 05-05-2024 09:03-0500 Systolic blood pressure 137 mm[Hg] [facility] 04-17-2024 10:26-0500 Body height 162.56 cm [facility] 04-17-2024 10:26-0500 Body mass index (BMI) [Ratio] 33.3 kg/m2 [facility] 04-17-2024 10:26-0500 Body weight 87.99 kg [facility] 04-17-2024 10:26-0500 Diastolic blood pressure 79 mm[Hg] [facility] 04-17-2024 10:26-0500 Heart rate 61 /min [facility] 04-17-2024 10:26-0500 Respiratory rate 12 /min [facility] 04-17-2024 10:26-0500 Systolic blood pressure 136 mm[Hg] [facility] 04-05-2024 11:27-0500 Body height 162.56 cm [facility] 04-05-2024 11:27-0500 Body mass index (BMI) [Ratio] 33.5 kg/m2 [facility] 04-05-2024 11:27-0500 Body weight 88.67 kg [facility] 04-05-2024 11:27-0500 Diastolic blood pressure 91 mm[Hg] [facility] 04-05-2024 11:27-0500 Heart rate 61 /min [facility] 04-05-2024 11:27-0500 Respiratory rate 12 /min [facility] 04-05-2024 11:27-0500 Systolic blood pressure 132 mm[Hg] [facility] 03-08-2024 14:15-0500 Body height 165.1 cm Chandrakant Sanchez MD Work Phone: [facility] 03-08-2024 14:15-0500 Body mass index (BMI) [Ratio] 32.28 kg/m2 Chandrakant Sanchez MD Work Phone: [facility] 03-08-2024 14:15-0500 Body weight 88 kg Chandrakant Sanchez MD Work Phone: [facility] 02-03-2024 11:14-0400 Body mass index (BMI) [Ratio] 34.35 kg/m2 Nelida Visci DO Work Phone: [facility] 02-03-2024 11:14-0400 Body weight 89.36 kg Nelida Visci DO Work Phone: [facility] 02-03-2024 11:14-0400 Diastolic blood pressure 84 mm[Hg] Nelida Visci DO Work Phone: [facility] 02-03-2024 11:14-0400 Systolic blood pressure 128 mm[Hg] Nelida Garciai DO Work Phone: [facility] 12-15-2023 13:52-0400 Body height 162.56 cm [facility] 12-15-2023 13:52-0400 Body mass index (BMI) [Ratio] 32.1 kg/m2 [facility] 12-15-2023 13:52-0400 Body weight 84.93 kg [facility] 12-15-2023 13:52-0400 Diastolic blood pressure 80 mm[Hg] [facility] 12-15-2023 13:52-0400 Heart rate 71 /min [facility] 12-15-2023 13:52-0400 Respiratory rate 12 /min [facility] 12-15-2023 13:52-0400 Systolic blood pressure 129 mm[Hg] [facility] 09-15-2023 14:46-0400 Body height 162.56 cm DO Leighton Ball Work Phone: [facility] 09-15-2023 14:46-0400 Body mass index (BMI) [Ratio] 33.5 kg/m2 DO Leighton Ball Work Phone: [facility] 09-15-2023 14:46-0400 Body weight 88.56 kg DO Leighton Ball Work Phone: [facility] 09-15-2023 14:46-0400 Diastolic blood pressure 81 mm[Hg] DO Leighton Ball Work Phone: [facility] 09-15-2023 14:46-0400 Heart rate 61 /min DO Leighton Ball Work Phone: [facility] 09-15-2023 14:46-0400 Respiratory rate 12 /min DO Leighton Ball Work Phone: [facility] 09-15-2023 14:46-0400 Systolic blood pressure 146 mm[Hg] DO Leighton Ball Work Phone: [facility] 09-03-2023 08:48-0400 Diastolic blood pressure 66 mm[Hg] DO Leighton Ball Work Phone: [facility] 09-03-2023 08:48-0400 Heart rate 54 /min DO Leighton Ball Work Phone: [facility] 09-03-2023 08:48-0400 Respiratory rate 16 /min DO Leighton Ball Work Phone: [facility] 09-03-2023 08:48-0400 SaO2% (BldA) [Mass fraction] 100 % DO Leighton Ball Work Phone: [facility] 09-03-2023 08:48-0400 Systolic blood pressure 110 mm[Hg] DO Leighton Ball Work Phone: [facility] 09-03-2023 07:14-0400 Body height 162.56 cm DO Leighton Ball Work Phone: [facility] 09-03-2023 07:14-0400 Body weight 86.18 kg DO Leighton Ball Work Phone: [facility] 07-06-2023 11:28-0400 Body height 162.56 cm [facility] 07-06-2023 11:28-0400 Body mass index (BMI) [Ratio] 33.3 kg/m2 [facility] 07-06-2023 11:28-0400 Body weight 88.16 kg [facility] 07-06-2023 11:28-0400 Diastolic blood pressure 83 mm[Hg] [facility] 07-06-2023 11:28-0400 Heart rate 66 /min [facility] 07-06-2023 11:28-0400 Respiratory rate 12 /min [facility] 07-06-2023 11:28-0400 Systolic blood pressure 127 mm[Hg] [facility] 06-29-2023 11:46-0400 Body height 162.56 cm [facility] 06-29-2023 11:46-0400 Body mass index (BMI) [Ratio] 33 kg/m2 [facility] 06-29-2023 11:46-0400 Body weight 87.25 kg [facility] 06-29-2023 11:46-0400 Diastolic blood pressure 80 mm[Hg] [facility] 06-29-2023 11:46-0400 Heart rate 53 /min [facility] 06-29-2023 11:46-0400 Systolic blood pressure 135 mm[Hg] [facility] 04-14-2023 10:18-0500 Blood Pressure Location Frida Lue [facility] 04-14-2023 10:18-0500 Diastolic blood pressure 73 mm[Hg] Frida Lue [facility] 04-14-2023 10:18-0500 Heart rate 86 /min Frida Lue [facility] 04-14-2023 10:18-0500 Respiratory rate 16 /min Frida Lue [facility] 04-14-2023 10:18-0500 Systolic blood pressure 127 mm[Hg] Frida Lue [facility] 03-08-2023 12:15-0500 Body height 162.56 cm Gurpreet White Other [facility] Other 03-08-2023 12:15-0500 Body mass index (BMI) [Ratio] 31.75 kg/m2 Gurpreet Renteriaxa Other [facility] Other 03-08-2023 12:15-0500 Body weight 83.92 kg Gurpreet Olexa Other [facility] Other 01-27-2023 10:45-0400 Body height 162.56 cm Leighton Ball Other [facility] Other 01-27-2023 10:45-0400 Body mass index (BMI) [Ratio] 33.3 kg/m2 Leighton Ball Other [facility] Other 01-27-2023 10:45-0400 Body weight 88 kg Leighton Ball Other [facility] Other 01-27-2023 10:45-0400 Diastolic blood pressure 82 mm[Hg] Leighton Ball Other [facility] Other 01-27-2023 10:45-0400 Respiratory rate 12 /min Leighton Ball Other [facility] Other 01-27-2023 10:45-0400 Systolic blood pressure 134 mm[Hg] Leighton Ball Other [facility] Other 05-28-2022 12:45-0500 Body height 162.56 cm Gurpreet Olexa Other [facility] Other Encounters Encounter Date Encounter Type Care Provider Facility Start: 05-05-2024 End: 05-05-2024 ambulatory [facility] Work Phone: Start: 05-05-2024 End: 05-05-2024 Patient encounter procedure [facility] Work Phone: Start: 04-17-2024 End: 04-17-2024 Patient encounter procedure [facility] Work Phone: Start: 04-05-2024 End: 04-05-2024 Patient encounter procedure [facility] Work Phone: Start: 03-27-2024 End: 03-29-2024 ambulatory REZA ELDRIDGE [facility] Start: 03-08-2024 End: 03-08-2024 Office outpatient visit 25 minutes Chandrakant Sanchez MD Work Phone: [facility] Comment on above: Complex tear of late ral meniscus of left knee, unspecified whether old or current tear, initial encounter (Primary Dx); Arthritis of left knee Start: 03-08-2024 End: 03-08-2024 ambulatory [facility] Start: 03-01-2024 End: 03-01-2024 Subsequent hospital visit by physician Jigna Werner Mri 1 [facility] Comment on above: Acute medial meniscu s tear of left knee, initial encounter Start: 03-01-2024 End: 03-01-2024 ambulatory [facility] Start: 02-18-2024 End: 02-18-2024 Office outpatient visit 15 minutes Chandrakant Sanchez MD Work Phone: [facility] Comment on above: Acute medial meniscu s tear of left knee, initial encounter (Primary Dx) Start: 02-18-2024 End: 02-18-2024 ambulatory [facility] Ambulatory Start: 02-09-2024 End: 02-09-2024 ambulatory NELIDA A VISCI Not Available Start: 02-03-2024 End: 02-05-2024 Orders Only Nelida A Visci DO Work Phone: [facility] External Department Unsolicited Start: 02-03-2024 End: 02-03-2024 Patient encounter status Nelida A Visci DO Work Phone: [facility] Start: 02-03-2024 End: 02-03-2024 Periodic preventive med est patient 40-64yrs Nelida A Visci DO Work Phone: [facility] Comment on above: Encounter for gyneco logical examination with abnormal finding (Primary Dx); Adenocarcinoma in situ of cervix; Vaginal atrophy; Encounter for screening mammogram for malignant neoplasm of breast; Female cystocele; Special screening for malignant neoplasms, vagina; Dysuria; Flank pain Start: 02-03-2024 End: 02-03-2024 ambulatory NELIDA GILLIS Not Available Start: 12-24-2023 End: 12-24-2023 Office outpatient new 45 minutes Chandrakant Sanchez MD Work Phone: [facility] Comment on above: Left knee pain, unsp ecified chronicity Start: 12-24-2023 End: 12-24-2023 Subsequent hospital visit by physician Jigna Werner X-Ray 1 [facility] Comment on above: Left knee pain, unsp ecified chronicity Start: 12-24-2023 End: 12-24-2023 ambulatory [facility] Ambulatory Start: 12-15-2023 End: 12-15-2023 ambulatory [facility] Work Phone: Start: 12-15-2023 End: 12-15-2023 Patient encounter procedure [facility] Work Phone: Start: 09-24-2023 End: 09-24-2023 ambulatory DO Leighton Ball Work Phone: [facility] Work Phone: Start: 09-24-2023 End: 09-24-2023 Patient encounter procedure DO Leighton Ball Work Phone: [facility] Work Phone: Start: 09-22-2023 End: 09-24-2023 ambulatory REZA M [facility] Start: 09-15-2023 End: 09-15-2023 ambulatory DO Leighton Ball Work Phone: [facility] Work Phone: Start: 09-15-2023 End: 09-15-2023 Patient encounter procedure DO Leighton Ball Work Phone: [facility] Work Phone: Start: 09-03-2023 End: 09-03-2023 ambulatory Leighton Devine Facility:[facility] Start: 09-03-2023 Non-patient / Non-visit DO Leighton Devine Work Phone: [facility] Work Phone: Start: 09-03-2023 End: 09-03-2023 Admission to same day surgery center DO Leighton Devine Work Phone: [facility] Work Phone: Start: 09-03-2023 End: 09-03-2023 ambulatory DO Leighton Devine Work Phone: [facility] Work Phone: Start: 08-23-2023 End: 08-25-2023 ambulatory [facility] Start: 08-23-2023 End: 08-25-2023 Subsequent hospital visit by physician Leighton Devine DO Work Phone: [facility] Start: 07-06-2023 End: 07-06-2023 ambulatory [facility] Work Phone: Start: 07-06-2023 End: 07-06-2023 [facility] Work Phone: Start: 06-29-2023 End: 06-29-2023 Encounter for general adult medical examination without abnormal findings [facility] Start: 06-29-2023 End: 06-29-2023 Patient encounter procedure [facility] Work Phone: Start: 04-14-2023 End: 04-15-2023 ambulatory Frida Montague Facility: [facility] Start: 04-14-2023 End: 04-14-2023 Patient encounter procedure Frida Montague [facility] Start: 04-13-2023 End: 04-13-2023 ambulatory Leighton Devine Other [facility] Other Start: 04-13-2023 Telephone encounter Leighton Devine FP [facility] Start: 04-07-2023 End: 04-08-2023 ambulatory Frida Montague Facility:CD:[id number] Start: 03-31-2023 End: 04-01-2023 ambulatory Fridamamie Montague Facility:[facility] Start: 03-31-2023 End: 04-01-2023 ambulatory Frida MNunu Montague Facility:[facility] Start: 03-08-2023 Office outpatient visit 25 minutes Gurpreet White [facility] Start: 03-08-2023 End: 03-08-2023 ambulatory DO Leighton Devine Work Phone: [facility] Work Phone: Start: 03-08-2023 End: 03-08-2023 Patient encounter procedure DO Leighton Ball Work Phone: [facility] Start: 02-16-2023 ambulatory Frida Montague Facility:[facility] Start: 02-12-2023 End: 02-12-2023 ambulatory Leighton Devine Other [facility] Other Start: 02-12-2023 Telephone encounter Leighton Devine FP [facility] Start: 02-01-2023 End: 02-01-2023 ambulatory Leighton Devine Other [facility] Other Start: 02-01-2023 Telephone encounter Leighton Devine FP [facility] Start: 01-27-2023 End: 01-27-2023 ambulatory Leighton Devine Other [facility] Other Start: 01-27-2023 Encounter for genera l adult medical examination without abnormal findings Gurpreet White [facility] Start: 01-27-2023 Office outpatient visit 15 minutes Leighton Ball [facility] Start: 01-27-2023 Telephone encounter Gurpreet Renteriaxa [facility] Start: 01-22-2023 End: 01-22-2023 ambulatory Leighton Devine Other [facility] Other Start: 01-22-2023 Nursing evaluation o f patient and report Leighton Devine [facility] Start: 01-22-2023 Telephone encounter Leighton CHEATHAM [facility] Start: 08-17-2022 End: 08-17-2022 ambulatory Leighton Devine Other [facility] Other Start: 08-17-2022 Telephone encounter Leighton CHEATHAM [facility] Start: 07-09-2022 Office outpatient visit 15 minutes Gurpreet Olexa [facility] Start: 07-09-2022 End: 07-09-2022 ambulatory DO Leighton Devine Work Phone: [facility] Work Phone: Start: 07-09-2022 End: 07-09-2022 Patient encounter procedure DO Leighton Devine Work Phone: [facility] Start: 07-02-2022 ambulatory GURPREET OLEXA Facility:H 1 Start: 06-18-2022 End: 06-18-2022 ambulatory Leighton Devine Other [facility] Other Start: 06-18-2022 Telephone encounter Leighton CHEATHAM [facility] Start: 06-01-2022 End: 06-01-2022 ambulatory Leighton Devine Other [facility] Other Start: 06-01-2022 Nursing evaluation o f patient and report Leighton Devine [facility] Start: 05-28-2022 End: 05-28-2022 ambulatory Gurpreet Olexa Other [facility] Other Start: 05-28-2022 Office outpatient visit 25 minutes Gurpreet Olexa [facility] Start: 05-21-2022 End: 05-21-2022 Patient encounter procedure DO Leighton Devine Work Phone: [facility] [place] Work Phone: Start: 05-06-2022 End: 05-06-2022 Patient encounter procedure DO Leighton Devine Work Phone: [facility] Start: 05-06-2022 End: 05-06-2022 ambulatory DO Leighton Devine Work Phone: [facility] Work Phone: Start: 05-06-2022 Office outpatient visit 15 minutes Tara Schneider [facility] Start: 04-24-2022 End: 04-24-2022 ambulatory Leighton Devine Other [facility] Other Start: 04-24-2022 Telephone encounter Leighton Devine [facility] Start: 04-23-2022 End: 04-23-2022 ambulatory Leighton Devine Other [facility] Other Start: 04-23-2022 Telephone encounter Leighton Devine [facility] Start: 08-24-2017 Ambulatory ANNETTE Young GOODEN) DIANNE [facility] Start: 08-24-2017 End: 09-02-2017 Ambulatory JUANITO KIRKPATRICK [facility] Start: 08-24-2017 End: 08-24-2017 [facility] Date Procedure Procedure Detail Performing Clinician Start: 03-01-2024 Mri any jt lower ext rem w/o contrast matrl Chandrakant Sanchez MD Work Phone: Start: 02-09-2024 Mammography Chandrakant he MD Work Phone: Start: 02-03-2024 Urnls dip stick/tabl et rgnt non-auto w/o micrscp Nelida Gillis DO Work Phone: Start: 02-03-2024 Microscopic observat ion [Identifier] in Cervix by Cyto stain Chandrakant Sanchez MD Work Phone: Start: 02-03-2024 Culture bacterial quanttative colony count urine Nelida Gillis DO Work Phone: Start: 02-03-2024 URINE CULTURE CLEAN CATCH REFLEX Nelida Gillis DO Work Phone: Start: 09-03-2023 End: 09-03-2023 Colonoscopy DO Leighton Devine Work Phone: Start: 04-07-2023 Cystoscopic laser lithotripsy of ureteric calculus Frida Montague Start: 03-08-2023 Plain X-ray of right shoulder DO Leighton Devine Work Phone: Start: 02-05-2023 Mammography Chandrakant he MD Work Phone: Start: 01-07-2023 Microscopic observat ion [Identifier] in Cervix by Cyto stain Nelida Gillis DO Work Phone: Start: 07-09-2022 X-ray of right knee DO Leighton Devine Work Phone: Start: 05-21-2022 MRI of right knee DO [facility] Work Phone: Start: 05-06-2022 X-ray of right knee DO Leighton Devine Work Phone: Start: 01-05-2013 General examination of patient Leighton Devine Other Carpal tunnel syndro me (disorder) Frida Montague Hysterectomy Frida Montague Knee region structur e (body structure) Frida [place]ague Ligation of fallopian tube K athy Eddi Plan of Treatment Date Care Activity Detail Author Start: 09-02-2033 Screening for malign ant neoplasm of colon [facility] Start: 02-02-2027 Screening for malign ant neoplasm of cervix [facility] Start: 01-07-2026 Screening for malign ant neoplasm of cervix [facility] Start: 02-15-2025 End: 02-15-2025 Patient encounter procedure 02/15/2025 11:00 AM EDT Office Visit [facility] [address] [place] [phone] Nelida Gillis DO [address] [place] [address] [facility] Start: 02-08-2025 Screening for malign ant neoplasm of breast Mammogram [facility] Start: 02-05-2025 Screening for malign ant neoplasm of breast Breast cancer screen [facility] Start: 03-08-2024 End: 03-08-2024 Patient encounter procedure 03/08/2024 2:00 PM EST Office Visit [facility] [address] Lucio [address] [place] [phone] Chandrakant Sanchez MD [address] [facility], [address] [place] [address] [id number] [facility] Start: 02-18-2024 End: 02-17-2025 MR Knee - left WO contrast MR knee left wo IV contrast Imaging Routine Acute medial meniscus tear of left knee, initial encounter Expected: 02/18/2024, Expires: 02/17/2025 [facility] Service Area Work Phone: Comment on above: Expected: 02/18/2024 , Expires: 02/17/2025 Start: 02-18-2024 End: 02-18-2024 Patient encounter procedure 02/18/2024 8:15 AM EDT Office Visit [facility] [address] [place] [phone] Chandrakant Sanchez MD [address] [facility], [address] [place] [id number] [facility] Start: 02-09-2024 End: 02-09-2024 Professional / ancillary services management 02/09/2024 3:00 PM EDT Ancillary Procedure [facility] [place] [address] [place] [id number] [facility] Start: 02-06-2024 Screening for malign ant neoplasm of breast Mammogram [facility] Start: 02-03-2024 End: 04-04-2025 DBT Breast - bilateral screening Bilateral screening mammogram with tomosynthesis Imaging Routine Encounter for screening mammogram for malignant neoplasm of breast Expected: 02/03/2024, Expires: 04/04/2025 [facility] Comment on above: Expected: 02/03/2024 , Expires: 04/04/2025 Start: 02-03-2024 End: 02-02-2025 IGP,rfx Apt HPV ASCU,16/18,45 IGP,rfx Apt HPV ASCU,16/18,45 Lab Routine Adenocarcinoma in situ of cervix Special screening for malignant neoplasms, vagina Expected: 02/03/2024 (Approximate), Expires: 02/02/2025 [facility] Comment on above: Expected: 02/03/2024 (Approximate), Expires: 02/02/2025 Start: 12-24-2023 End: 12-23-2024 XR Knee - left 4 Views [facility] Service Area Work Phone: Comment on above: Expected: 12/24/2023 , Expires: 12/23/2024 Once for 1 Occurrenc es starting 12/24/2023 until 12/24/2023 Start: 12-19-2023 COVID-19 Vaccine ( season) COVID-19 Vaccine ( season) [facility] Start: 12-19-2023 COVID-19 Vaccine ( season) COVID-19 Vaccine ( season) [facility] Start: 12-19-2023 Influenza vaccination Influenza Vacc ine (#1) [facility] Start: 09-30-2023 End: 09-30-2023 Patient encounter procedure 09/30/2023 9:10 AM EDT Office Visit [facility] [address] [place] [address] Reza Eldridge MD [address] [place] [address] 5 [facility] Comment on above: 5 month f/u with [facility] Start: 09-03-[address] [facility] Start: 06-29-2023 Patient referral [facility] Work Phone: Start: 12-18-2022 COVID-19 Vaccine ( season) COVID-19 Vaccine ( season) [facility] Start: 01-09-2020 DTaP/Tdap/Td Vaccine s (1 - Tdap) DTaP/Tdap/Td Vaccines (1 - Tdap) [facility] Start: 2016 Shingles vaccine (1 of 2) Shingles vaccine (1 of 2) [facility] Start: 2016 Zoster Vaccines (1 o f 2) Zoster Vaccines (1 of 2) [facility] Start: 10-02-2011 Screening for malign ant neoplasm of colon [facility] Start: 03-10-2009 MMR Vaccines (1 of 1 - Standard series) MMR Vaccines (1 of 1 - Standard series) [facility] Start: 2006 Lipid panel Lipids [facility] Start: 1996 Screening for malign ant neoplasm of cervix [facility] Start: 10-02-1987 Screening for malign ant neoplasm of cervix [facility] Start: 1985 DTaP/Tdap/Td vaccine (1 - Tdap) DTaP/Tdap/Td vaccine (1 - Tdap) [facility] Start: 1985 Hepatitis B Vaccines (1 of 3 - 19+ 3-dose series) Hepatitis B Vaccines (1 of 3 - 19+ 3-dose series) [facility] Start: 1984 Diabetes mellitus screening Diabetes Screening [facility] Start: 1984 Hepatitis C screening [facility] Start: 1981 HIV screening HIV screen [facility] Start: 1978 Depression Screen Depression Screen [facility] Start: 1972 Pneumococcal Vaccine : Pediatrics (0 to 5 Years) and At-Risk Patients (6 to 64 Years) (1 of 2 - PCV) Pneumococcal Vaccine: Pediatrics (0 to 5 Years) and At-Risk Patients (6 to 64 Years) (1 of 2 - PCV) [facility] Start: 1966 Hepatitis B vaccine (1 of 3 - 3-dose series) Hepatitis B vaccine (1 of 3 - 3-dose series) [facility] Start: 1966 HIV screening HIV Screening [facility] Start: 1966 Lipid panel Lipid Panel [facility] Start: 1966 Screening for malign ant neoplasm of colon [facility] Start: 1966 Yearly Adult Physical Yearly Adult P hysical [facility] Bacteria identified in Urine by Culture Urine culture Microbiology Routine Dysuria Ordered: 02/03/2024 [facility] Work Phone: Comment on above: Ordered: 02/03/2024 CT of chest [facility] Fibrin D-dimer [Presence] in Platelet poor plasma by Latex agglutination [facility] Patient Education Colon [facility]ps K [facility] Work Phone: Patient referral [place] Work Phone: Varicella zoster vir us IgG Ab [Units/volume] in Serum by Immunoassay [facility] Varicella zoster vir us IgM Ab [Units/volume] in Serum by Immunoassay [facility] Immunizations Immunization Date Immunization Notes Care Provider Sree bradford 01-11-2023 influenza virus vaccine, unspecified formulation Frida Montague [facility] 01-11-2023 influenza, injectabl e, quadrivalent, preservative free [facility] 03-05-2022 COVID-19 mRNA Bivale nt Booster (Pfizer) DO Leighton Devine Work Phone: [facility] 03-05-2022 COVID-19 Pfizer (Pediatric) Leighton Devine Other [facility] 01-22-2022 influenza virus vaccine, split virus (incl. purified surface antigen) Leighton Devine Other [facility] Other 01-22-2022 influenza virus vaccine, unspecified formulation Frida Montague [facility] 01-22-2022 influenza, injectabl e, quadrivalent, preservative free [facility] 02-28-2021 COVID-19 mRNA, Comirnaty (Pfizer) DO Leighton Devine Work Phone: [facility] 01-24-2021 influenza virus vaccine, split virus (incl. purified surface antigen) Leighton Bryan Other [facility] Other 01-24-2021 influenza virus vaccine, unspecified formulation Frida Montague [facility] 01-24-2021 influenza, injectabl e, quadrivalent, preservative free [facility] 08-01-2020 COVID-19 mRNA, Comirnaty (Pfizer) DO Leighton Devine Work Phone: [facility] 07-09-2020 COVID-19 mRNA, Comirnaty (Pfizer) DO Leighton Devine Work Phone: [facility] 01-08-2020 influenza virus vaccine, split virus (incl. purified surface antigen) Leighton Devine Other [facility] Other 01-08-2020 influenza virus vaccine, unspecified formulation [facility] 01-08-2020 tetanus and diphther ia toxoids, adsorbed, preservative free, for adult use (5 Lf of tetanus toxoid and 2 Lf of diphtheria toxoid) Leighton Devine Other [facility] 01-23-2019 influenza virus vaccine, unspecified formulation Frida Montague [facility] 01-23-2019 influenza, injectabl e, quadrivalent, preservative free [facility] 01-17-2018 influenza virus vaccine, split virus (incl. purified surface antigen) Leighton Devine Other [facility] Other 01-17-2018 influenza virus vaccine, unspecified formulation Frida Lue [facility] 01-17-2018 Influenza, injectabl e, Madin Altagracia Canine Kidney, quadrivalent with preservative [facility] 02-05-2017 influenza virus vaccine, unspecified formulation Frida Lue [facility] 02-05-2017 influenza, injectabl e, quadrivalent, preservative free [facility] 01-24-2017 influenza virus vaccine, unspecified formulation Frida Lue [facility] 01-24-2017 influenza, seasonal, injectable [facility] 01-20-2017 influenza virus vaccine, unspecified formulation Frida Lue [facility] 01-20-2017 influenza, injectabl e, quadrivalent, preservative free [facility] 02-05-2016 influenza virus vaccine, unspecified formulation Frida Lue [facility] 02-05-2016 influenza, injectabl e, quadrivalent, preservative free [facility] 02-05-2016 tetanus and diphther ia toxoids, adsorbed, preservative free, for adult use (5 Lf of tetanus toxoid and 2 Lf of diphtheria toxoid) Leighton Devine Other [facility] 01-24-2015 tetanus and diphther ia toxoids, adsorbed, preservative free, for adult use (5 Lf of tetanus toxoid and 2 Lf of diphtheria toxoid) Leighton Devine Other [facility] 02-10-2009 influenza virus vaccine, H1N1, live Frida Lue [facility] 02-10-2009 novel [id number], live virus for nasal administration [facility] Payers Date Payer Category Payer Blue [employer] Blue [employer] BCBS [id number] 2023 [employer] Member Subscriber Plan / Payer (Effective 2023-Present) Name: Humberto Velasquez Relation to Subscriber: Spouse Name: ARI VELASQUEZ Date of : 1973 (Home) Address: [address] [place] [address] Payer ID: [id number] (NAIC) Type: Not on file Address: [id number] [place] [phone] [id number] 2023 Unknown ANTHEM ANTHEM HM P [id number] 2023-Present [address] [place] [phone] 2023 Unknown [id number] 2023 Self-pay [id number] 2022 Private Health Insurance [facility] [id number] 1966 Unknown [id number] 2.16.840.1.925916.3.579.2. 593 1966 Unknown [id number] 2.16.840.1.898895.3.579.2. 727 1966 Unknown [id number] 2.16.840.1.339558.3.579.2. 727 1966 Unknown [id number] 2.16.840.1.467334.3.579.2. 727 1966 Unknown [id number] 2.16.840.1.180567.3.579.2. 727 1966 Unknown [id number] 2.16.840.1.252419.3.579.2. 1259 1966 Unknown [id number] 2.16.840.1.798955.3.579.2. 1259 1966 Unknown [id number] 2.16.840.1.173244.3.579.2. 1244 1966 Unknown [id number] 2.16.840.1.891484.3.579.2. 1244 1966 Unknown [id number] 2.16.840.1.312504.3.579.2. 176 1966 Unknown [id number] 2.16.840.1.137718.3.579.2. 176 1966 Unknown [id number] 2.16.840.1.813310.3.579.2. 176 1966 Unknown [id number] 2.16.840.1.579616.3.579.2. 176 1966 Unknown [id number] 2.16.840.1.815937.3.579.2. 176 1966 Unknown [id number] 2.16.840.1.469738.3.579.2. 1246 1966 Unknown [id number] 2.16.840.1.493234.3.579.2. 1246 1966 Unknown [id number] 2.16.840.1.100676.3.579.2. 1246 1959 Private Health Insurance [id number] 2.16.840.1.835702.19 Unknown [facility] [id number] Unknown [id number] 2.16.840.1.971767.3.579.2. 531 Unknown [id number] 2.16.840.1.434944.3.579.2. 531 Social History Date Type Detail Facility Start: 10-04-2018 End: 09-03-2023 Tobacco smoking status MAIS Never smoked tobacco (finding) [facility] Start: 1965 Sex Assigned At Female F [facility] Start: 01-06-2023 End: 12-24-2023 Sex Assigned At [facility] Tobacco smoking status Never [facility] consumption [facility] Start: 1965 Sex Assigned At Not on file [facility] Start: 01-06-2023 End: 12-24-2023 Tobacco use and exposure Smokeless tobacco non-user [facility] Work Phone: Start: 02-03-2024 Alcoholic beverage intake Lifetime non-drinker (finding) [facility] Start: 01-06-2023 End: 12-24-2023 History of Social function [facility] Work Phone: How often to you hav e a drink containing alcohol? Never [facility] Start: 12-14-2023 End: 03-08-2024 Exposure to SARS-CoV-2 (event) Not sure [facility] Start: 05-05-2024 Sex Female (finding) [facility] Medical Equipment Procedure Code Equipment Code Equipment [...] RE FT III [id number] FDA Start: 10-04-2018 Goals Date Patient Goal Desired Activity /State Functional Status Date Assessment Result Facility 04-14-2023 Functional Status N/A [facility] Clinical Notes 05-06-2022 to 04-05-2024 Note Date & Type Note Facility 04-05-2024 Evaluation note Diagnosis Onset Date Resolution Acute bronchitis due to other specified organisms acute April 05, 2 024 11:21am Asthma acute April 05, 2024 11:21am Acute bronchitis due to other specified organisms acute April 17, 2 024 10:03am Acute chest wall pain acute Mar 10:03am [facility] Work Phone: 1(973) 261-615411-20-2024 History of Present illness Narrative* Marek Aguirre PA-C - 03/08/2024 2:00 PM EST Images from the original note were not included. Chief Complaint Patient presents with Left Knee - Results Left knee MRI HPI Humberto is a 58-year-old female presenting today for repeat evaluation of left knee and MRI review. Patient has had ongoing and persistent left knee pain which she describes is like a rubber band is twisting stretching too tight and then releasing with a snap inside her knee. Patient denies any history of trauma or inciting event. States she most often experiences this when she bends her knee s uch as getting into the car. Localizes this pain anterior medial joint line. States that she does have a prior history of bilateral meniscus repairs years ago but has had no issues until recent. Endorsing needing moderate amount of swelling. She denies any numbness or tingling to the distal lower extremity. Of note has had prior history of partial meniscectomy by Dr. White at [facility]. Most recent cortisone injection did provide her relief for about 6 weeks time however has had return of mechanical type symptoms over the past couple weeks. No past medical history on file. No past surgical history on file. Allergies Allergen Reactions Cephalosporins Hives and Unknown Other Reaction(s): hives Ciprofloxacin Unknown Clarithromycin Hives and Unknown Escitalopram Unknown Indomethacin Hives and Other Other Reaction(s): unknown Iodinated Contrast Media Unknown Iodine Hives Oxycodone Unknown Other Reaction(s): unknown Shellfish Containing Products Hives and Unknown Sulfa (Sulfonamide Antibiotics) Hives and Unknown Other Reaction(s): Unknown Sulfasalazine Hives Trimethoprim Unknown Physical exam General: Alert and oriented to place, person, and time. No acute distress and breathing comfortably; pleasant and cooperative with the examination. HEENT: Head is normocephalic and atraumatic. Neck: Supple, no visible swelling. Cardiovascular: Good perfusion to the affected extremity. Lungs: No audible wheezing or labored breathing. Abdomen: Nondistended HEME/Lymph : No visible abnormalities bilateral lower extremity Extremity: Left knee: Skin healthy and intact No gross swelling or ecchymosis No significant varus or valgus malalignment Effusion: Mild ROM: 0-1 10 No pain with internal rotation of hip Tenderness to palpation most pronounced over medial joint line today. As well as posterior knee popliteal fossa. No laxity to valgus stress No laxity to varus stress Negative Carito Negative anterior drawer Negative posterior drawer Mildly positive Frankie's Neurovascularly intact Diagnostics: Narrative & Impression Interpreted By: Prakash Melara, STUDY: XR KNEE LEFT 4+ VIEWS; ; 12/24/2023 2:33 pm INDICATION: Signs/Symptoms:Pain. ,M25.562 Pain in left knee COMPARISON: None. ACCESSION NUMBER(S): [id number] ORDERING CLINICIAN: CHANDRAKANT SANCHEZ FINDINGS: Left knee, four views There is moderate tricompartmental osteophytosis and sclerosis with mild joint space narrowing. There is no effusion. There is no fracture. IMPRESSION: Moderate osteoarthritis in the left knee MACRO: None Signed by: Prakash Melara 12/25/2023 1:32 PM Dictation workstation: [id number] Narrative & Impression Interpreted By: Bernabe Lopez, STUDY: MR KNEE LEFT WO IV CONTRAST; INDICATION: Signs/Symptoms:mmt. COMPARISON: Plain film radiographs left knee December 24, 2023 ACCESSION NUMBER(S): [id number] ORDERING CLINICIAN: CHANDRAKANT SANCHEZ TECHNIQUE: Multiplanar multisequential MRI left knee without contrast FINDINGS: Complex tear lateral meniscus with large horizontal tear of the posterior horn and body segment plus additional macerated type tearing of the anterior horn. Medial meniscus intact. Anterior cruciate ligament normal. Posterior cruciate ligament normal. Extensor tendons are normal. Collateral ligaments are normal. Tricompartmental osteoarthritis noted. It is most advanced in the lateral compartment where there is near-complete chondral loss from both the tibial and femoral articular surfaces. Less advanced moderate patellofemoral and lateral arthrosis noted. No evidence of fracture. 1.5 cm rounded lesion with peripheral lobular increased T2 signal in the central metaphysis of the distal femur likely small enchondroma. No marrow replacement lesion. Small Plunkett's cyst. No large effusion. No other focal fluid collections. IMPRESSION: Complex tear lateral meniscus as above. Tricompartmental osteoarthritis of the left knee particularly advanced in the lateral compartment. Small Plunkett's cyst. Likely small distal femoral enchondroma. Signed by: Bernabe Lopez 03/01/2024 2:11 PM Dictation workstation: [id number] Procedure: Procedures Assessment: 58-year-old female with complex lateral meniscus tear in the setting of moderate tricompartmental osteoarthritis Treatment plan: The natural history of the condition and its associated treatment alternatives including surgical and nonsurgical options were discussed with the patient at length. MRI results discussed with patient at length today. Treatment modalities discussed with patient including physical therapy, oral anti-inflammatories, intra-articular cortisone injections, gel injections, knee arthroscopy, ultimately total knee arthroplasty as well as risk benefits contraindicationsand alternatives to each Discussed activities to avoid as well as importance of using pain as a guide Patient would like to proceed with knee arthroscopy. Please refer to Dr. Sanchez's portion of this note for further surgical planning Marek Aguirre PA-C In a face to face encounter, I evaluated the patient and performed a physical examination, discussed pertinent diagnostic studies if indicated and discussed diagnosis and management strategies with both the patient and physician assistant professor of history / nurse practitioner. I reviewed the PA/EMAIL MARKETER's note and agree with the documented findings and plan of care. 58-year-old female sustained an injury about a year ago after getting out of the truck feels like her knee is never been the same since this occurs endorses mechanical type symptoms. Did have a knee scope about 10 years ago prior to this. Feels like there mechanical type symptoms about her knee endorses instability. Has attempted activity modifications oral anti-inflammatories as well as intra-articular injection with little to no relief. Wants to avoid a knee replacement for as long as possible. Wrist benefits alternative treatment discussed with her in detail using shared informed tissue making she wishes to proceed with diagnostic knee arthroscopy partial lateral meniscectomy. Will obtain medical clearance prior to proceeding. Discussed that this will not resolve her arthritis type symptoms however may alleviate some of her mechanical symptoms that she is having We discussed the options of operative versus nonoperative management with the attendant risks and benefits and the patient is interested in surgical treatment. I have discussed the alternatives of continued nonoperative treatment with observation, physical therapy, and / or medication versus surgery with the patient and we have thoughtfully considered these options. The patient wishes to proceed with surgical treatment. We will proceed with left knee diagnostic arthroscopy and partial lateral meniscectomy The planned surgical procedure includes examination under anesthesia. Anesthetic risks will be discussed with the patient by the public defender. Arthroscopic evaluation will be performed of the knee joint. Then an arthroscopic procedure will be performed which may include debridement or repair of the the meniscus or cartilage, synovectomy, and removal of loose bodies. In addition, if there are advanced degenerative changes I have advised the patient that this may indeed be a progressive process, ultimately resulting in further pain at some point in the future. Risks of the procedure include but are not limited to infection, bleeding, persistent pain, compartment syndrome, neurologic injury, pressure sores or pacheco related to positioning or equipment, failure of repair if performed, weakness, arthrofibrosis or stiffness of the joint, limited function and/or limited use of the extremity. The rare complication of was discussed with the patient. Also, the possible need for revision surgery was discussed. All this was discussed with the patient and consent obtained. All questions were answered. The patient understands and will consider the surgical options with the above risks in mind. If repair is performed of the meniscus a brace may be provided as part of a treatment plan which will include wearing the immobilizer at all times. Regarding DVT prophylaxis, recommend generalized ambulation, patient is low risk for DVT. We will provide a prescription for [place] 5/325 15 tabs the day prior to surgery. The patient will pick this up today before surgery in anticipation for surgery/postoperative pain control. Chandrakant Sanchez III, MD documented in this [facility] Work Phone: 1(628) 646-564911-01-2024 History of Present illness Narrative* Chandrakant Sanchez MD - 02/18/2024 2:15 PM EDT Images from the original note were not included. Chief Complaint Patient presents with Left Knee - Follow-up Follow up left knee moderate tricompartmental OA , possible internal derangement. S/P CSI 12/27/2023 HPI Humberto is a 58-year-old female presenting today for initial evaluation of left knee pain. Patientstates that for the past few weeks her knee has felt like a rubber band is twisting stretching tootight and then releasing with a snap inside her knee. Patient is any history of trauma or incitingevent. States she most often experiences this when she bends her knee such as getting into the car.Localizes this pain anterior medial line. States that she does have a prior history of bilateral meniscus repairs years ago but has had no issues until recent. Endorsing needing moderate amount of swelling. She denies any numbness or tingling to the distal lower extremity. Of note has had prior history of partial meniscectomy by Dr. White at [facility]. Most recent cortisone injection did provide her relief for about 6 weeks time however has had return of mechanical type symptoms over the past couple weeks. No past medical history on file. No past surgical history on file. Allergies Allergen Reactions Cephalosporins Hives and Unknown Other Reaction(s): hives Ciprofloxacin Unknown Clarithromycin Hives and Unknown Escitalopram Unknown Indomethacin Hives and Other Other Reaction(s): unknown Iodinated Contrast Media Unknown Iodine Hives Oxycodone Unknown Other Reaction(s): unknown Shellfish Containing Products Hives and Unknown Sulfa (Sulfonamide Antibiotics) Hives and Unknown Other Reaction(s): Unknown Sulfasalazine Hives Trimethoprim Unknown Physical exam General: Alert and oriented to place, person, and time. No acute distress and breathing comfortably; pleasant and cooperative with the examination. HEENT: Head is normocephalic and atraumatic. Neck: Supple, no visible swelling. Cardiovascular: Good perfusion to the affected extremity. Lungs: No audible wheezing or labored breathing. Abdomen: Nondistended HEME/Lymph : No visible abnormalities bilateral lower extremity Extremity: Left knee: Skin healthy and intact No gross swelling or ecchymosis No significant varus or valgus malalignment Effusion: Mild ROM: 0-1 10 Full flexion Full extension No pain with internal rotation of hip Tenderness to palpation most pronounced over medial joint line today. As well as posterior knee popliteal fossa. No laxity to valgus stress No laxity to varus stress Negative Carito Negative anterior drawer Negative posterior drawer Mildly positive Frankie's Neurovascularly intact Diagnostics: 4 view left knee radiographs were ordered, performed, interpreted today. There is sclerosis, osteophytosis, joint line narrowing consistent with moderate tricompartmental osteoarthritis. No obvious fractures appreciated. No lytic or blastic lesions Procedure: Procedures Assessment: 58-year-old female with moderate tricompartmental osteoarthritis, possible internal derangement Treatment plan: The natural history of the condition and its associated treatment alternatives including surgical and nonsurgical options were discussed with the patient at length. The history and clinical exam are consistent with intraarticular pathology and therefore MRI is medically indicated to evaluate the soft tissues of the joint. Follow up in one week or after completion of the MRI to advance management accordingly The patient understands and agrees with the plan. Discussed activities to avoid as well as importance of using pain as a guide We will evaluate articular cartilage, meniscus integrity documented in this [facility] Work Phone: 1(804) 475-920510-17-2024 History of Present illness Narrative* Nelida Gillis, - 02/03/2024 11:00 AM EDT Images from the original note were not included. Nelida Gillis, Obstetrics and Gynecology Humberto Velasquez 1965 02/03/24 [id number] Yearly Wellness Exam Chief Complaint Patient presents with Gynecologic Exam Yearly, Pt denies Breast pain, 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 LMP: Hysterectomy Last Pap: 01/07/2023 Pt complains of lower back pain, Painful burning urination for a couple of weeks. Visit Vitals BP 128/84 Wt 197 lb LMP (LMP Unknown) BMI 34.35 kg/m OB Status Hysterectomy Smoking Status Never BSA 2 m History of Present Illness Current Outpatient Medications Medication Sig Dispense Refill ciprofloxacin (Cipro) 250 MG tablet Take 1 tablet (250 mg) by mouth in the morning and 1 tablet (250 mg) before bedtime. Do all this for 5 days. 10 tablet 0 No current facility-administered medications for this visit. Allergies Allergen Reactions Cefuroxime Other Reaction(s): hives Indomethacin Other Reaction(s): unknown Oxycodone Other Reaction(s): unknown Sulfanilamide Other Reaction(s): Unknown Past Medical History: Diagnosis Date Adenocarcinoma in situ 2014 Endometrial cancer (CMS/HCC) IBS (irritable bowel syndrome) Past Surgical History: Procedure Laterality Date COLONOSCOPY 2015 Normal COLONOSCOPY 08/2023 Polyps-repeat 5 years KNEE SURGERY 2009 TOTAL ABDOMINAL HYSTERECTOMY W/ BILATERAL SALPINGOOPHORECTOMY 2014 TUBAL LIGATION 2006 OB History Para Term AB Living 4 2 2 SAB IAB Ectopic Multiple Live Births 2 2 # Outcome Date GA Lbr Lucas/2nd Weight Sex Type Anes PTL Lv 4 3 2 SAB 1 SAB Obstetric Comments Pap 01/07/23- Neg ; hx adenocarcinoma of cervix, pap yearly. Colonoscopy [id number] 5 years Mammogram 02/05/23- Neg LAVH/BSO ROS General: Denies fevers/chills Eyes: Denies vision changes ENT: Denies neck stiffness, neck mass Endocrine: Denies polydipsia and polyuria Respiratory: Denies shortness of breath Cardiovascular: Denies chest pain and palpitations Gastrointestinal: Denies changes in bowel habits, blood in stool, constipation and diarrhea. Hematology: Denies easy bruising. Women Only: Denies breast masses, skin changes, nipple discharge, abnormal bleeding, pelvic pain and dyspareunia Genitourinary: Denies dysuria, pelvic pain and nocturia Skin: Denies rashes/lesions Neurologic: Denies headaches, dizziness, syncope Psychiatric: Denies hallucinations, suicidal ideas EXAM GENERAL EXAMINATION: Alert, oriented, well developed, well nourished. HEAD: Normocephalic, atraumatic. EYES: DELMAR, sclera anicteric. EARS: No obvious hearing deficit. NECK/THYROID: Neck supple no cervical lymphadenopathy no thyromegaly. LYMPH NODES: No axillary, supraclavicular or inguinal adenopathy. SKIN: Warm and dry. No rashes HEART: Regular rate and rhythm. No murmur LUNGS: Clear to auscultation bilaterally. CHEST: Axillary nodes grossly normal. BREASTS: No dominant masses palpable bilaterally, no skin changes, nipple discharge, supra-clavicular or axillary adenopathy ABDOMEN: Soft, nontender, nondistended, no hernia or masses palpable. BACK: No obvious scoliosis/kyphosis. FEMALE GENITOURINARY: Spool Carrier in room-EFG without sores/lesions, atrophic erythematous vaginal mucosa-no discharge, cervix and uterus surgically absent, no adnexal masses, cul-de-sac negative, Gr 1-2 cystocele. EXTREMITIES No edema. NEUROLOGIC: Alert and oriented. PSYCH: Cooperative with exam. ICD-10-CM 1. Encounter for gynecological examination with abnormal finding Z01.411 2. 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 Vaginal atrophy N95.2 Urine dip 4. Encounter for screening mammogram for malignant neoplasm of breast Z12.31 Bilateral screening mammogram with tomosynthesis 5. Female cystocele N81.10 6. Special screening for malignant neoplasms, vagina Z12.72 IGP,rfx Apt HPV ASCU,16/18,45 IGP,rfx Apt HPV ASCU,16/18,45 7. Dysuria R30.0 Urine culture ciprofloxacin (Cipro) 250 MG tablet 8. Flank pain R10.9 Advised pt to perform monthly self breast exams. Encouraged calcium and Vitamin D intake. She has c/o dysuria and L flank pain for a few weeks. Will send urine for C&S. She has a specialist she is following for kidney stones. She was on Cipro in the past and tolerated well. Will rx Cipro 250 BID for 5 days. Denies any bowel issues. Denies hot flashes. Pap obtained. Colonoscopy up to date. Mamm ogram due in a few days, order sent to [facility]. C/o vaginal dryness. Atrophy noted on exam. Discussed Estradiol vaginal cream safe to use. She will call office if desires medication. She will return in 1 year for annual exam. Entered by Raquel Dhillon LPN acting as scribe for Dr. Nelida Gillis. Signature: Raquel Dhillon LPN The documentation recorded by the scribe accurately reflects the service(s) I personally performed and the decisions I made. Signature: Nelida Gillis DO Assessment & Plan documented in this encounterCarondelet [id number] History of Present illness Narrative* Marek Aguirre PA-C - 12/24/2023 2:30 PM EDT Chief Complaint Patient presents with Left Knee - Pain Xrays Today HPI Humberto is a 58-year-old female presenting today for initial evaluation of left knee pain. Patientstates that for the past few weeks her knee has felt like a rubber band is twisting stretching tootight and then releasing with a snap inside her knee. Patient is any history of trauma or incitingevent. States she most often experiences this when she bends her knee such as getting into the car.Localizes this pain anterior medial line. States that she does have a prior history of bilateral meniscus repairs years ago but has had no issues until recent. Endorsing needing moderate amount of swelling. She denies any numbness or tingling to the distal lower extremity. Of note has had prior history of partial meniscectomy by Dr. White at [facility]. He has not attempted recent intra-articular cortisone injections. History reviewed. No pertinent past medical history. History reviewed. No pertinent surgical history. Allergies Allergen Reactions Cephalosporins Hives and Unknown Other Reaction(s): hives Ciprofloxacin Unknown Clarithromycin Hives and Unknown Escitalopram Unknown Indomethacin Hives and Other Other Reaction(s): unknown Iodinated Contrast Media Unknown Iodine Hives Oxycodone Unknown Other Reaction(s): unknown Shellfish Containing Products Hives and Unknown Sulfa (Sulfonamide Antibiotics) Hives and Unknown Other Reaction(s): Unknown Sulfasalazine Hives Trimethoprim Unknown Physical exam General: Alert and oriented to place, person, and time. No acute distress and breathing comfortably; pleasant and cooperative with the examination. HEENT: Head is normocephalic and atraumatic. Neck: Supple, no visible swelling. Cardiovascular: Good perfusion to the affected extremity. Lungs: No audible wheezing or labored breathing. Abdomen: Nondistended HEME/Lymph : No visible abnormalities bilateral lower extremity Extremity: Left knee: Skin healthy and intact No gross swelling or ecchymosis No significant varus or valgus malalignment Effusion: Mild ROM: 0-1 10 Full flexion Full extension No pain with internal rotation of hip Tenderness to palpation most pronounced over medial joint line today. As well as posterior knee popliteal fossa. No laxity to valgus stress No laxity to varus stress Negative Carito Negative anterior drawer Negative posterior drawer Mildly positive Frankie's Neurovascularly intact Diagnostics: 4 view left knee radiographs were ordered, performed, interpreted today. There is sclerosis, osteophytosis, joint line narrowing consistent with moderate tricompartmental osteoarthritis. No obvious fractures appreciated. No lytic or blastic lesions Procedure: Procedures Assessment: 58-year-old female with moderate tricompartmental osteoarthritis, possible internal derangement Treatment plan: The natural history of the condition and its associated treatment alternatives including surgical and nonsurgical options were discussed with the patient at length. Radiographic findings of tricompartmental osteoarthritis discussed with patient in detail today. Discussed with patient given her history as well as constellation of findings that she may possiblyhave meniscal type injury in the setting of arthritis. Treatment modalities discussed with patient including bracing, physical therapy, oral anti-inflammatories, intra-articular cortisone injections as well as diagnostic knee arthroscopy Patient elected for intra-articular cortisone injection today All of the patient's questions were answered. Patient will follow-up in 2 months for repeat evaluation. Marek Aguirre PA-C In a face to face encounter, I evaluated the patient and performed a physical examination, discussed pertinent diagnostic studies if indicated and discussed diagnosis and management strategies with both the patient and physician assistant professor of history / nurse practitioner. I reviewed the PA/EMAIL MARKETER's note and agree with the documented findings and plan of care. 58-year-old female with moderate tricompartmental knee arthritis she is status post diagnostic kneearthroscopy partial meniscectomy by outside surgeon. Will proceed with an intra-articular injectiontoday to provide her some medic relief. Discussed that down the road she may benefit from total knee replacement however will attempt all forms of conservative treatment prior to proceeding with this. Will see how she does with intra-articular injection. Follow-up in 2 months. Her daughter is currently being treated by us for ACL instability. I discussed risks and benefits of corticosteroid injection and the patient would like to proceed. Discussed risks of skin depigmentation and the rare but possible intravascular injection of local anesthetic which can cause palpitations or arrhythmias. I discussed the possibility of a transient increase in blood sugar. I explained that the local anesthetic tends to work immediately, it may take 2-3 days for the full effect of the corticosteroid compound. Consent was obtained and side confirmed by the patient. Chandrakant Sanchez III, MD documented in this [facility] Work Phone: 1(228) 160-513005-17-2024 Procedure [facility]12-27-2023 Hospital Discharge instructions Patient Education 04/14/2023 10:50:41 Dietary Guidelines to Help Prevent Kidney Stones Dietary Guidelines to Help Prevent Kidney Stones [...] for following this plan? Reading food labels Choose foods with no salt added or low-salt labels. Limit your salt (sodium) intake to less than 1,500 mg a day. Choose foods with calcium for each meal and snack. Try to eat about 300 mg of calcium at each meal.Foods that contain 200 500 mg of calcium a serving include: ?8 oz (237 mL) of milk, mtbsvuq-qzuqkzqudxuq-qbzoa milk, and calcium- fortifiedfruit juice. Calcium-fortified means that calcium has been added to these drinks. ?8 oz (237 mL) of kefir, yogurt, and soy yogurt. ?4 oz (114 g) of tofu. ?1 oz (28 g) of cheese. ?1 cup (150 g) of dried figs. ?1 cup (91 g) of cooked broccoli. ?One 3 oz (85 g) can of sardines or mackerel. Most people need 1,000 1,500 mg of calcium a day. Talk to your dietitian about how much calcium is recommended for you. Shopping Buy plenty of fresh fruits and vegetables. Most people do not need to avoid fruits and vegetables, even if these foods contain nutrients that may contribute to kidney stones. When shopping for convenience foods, choose: ?Whole pieces of fruit. ?Pre-made salads with dressing on the side. ?Low-fat fruit and yogurt smoothies. Avoid buying frozen meals or prepared deli foods. These can be high in sodium. Look for foods with live cultures, such as yogurt and kefir. Choose high-fiber grains, such as whole-wheat breads, oat bran, and wheat cereals. Cooking Do not add salt to food when cooking. Place a salt shaker on the table and allow each person to addtheir own salt to taste. Use vegetable protein, such as beans, textured vegetable protein (TVP), or tofu, instead of meat inpasta, casseroles, and soups. Meal planning Eat less salt, if told by your dietitian. To do this: ?Avoid eating processed or pre-made food. ?Avoid eating fast food. Eat less animal protein, including cheese, meat, poultry, or fish, if told by your dietitian. To dothis: ?Limit the number of times you have meat, poultry, fish, or cheese each week. Eat a diet free of meat at least 2 days a week. ?Eat only one serving each day of meat, poultry, fish, or seafood. ?When you prepare animal proteins, cut pieces into small portion sizes. For most meat and fish, oneserving is about the size of the palm of your hand. Eat at least five servings of fresh fruits and vegetables each day. To do this: ?Keep fruits and vegetables on hand for snacks. ?Eat one piece of fruit or a handful of berries with breakfast. ?Have a salad and fruit at lunch. ?Have two kinds of vegetables at dinner. You may be told to limit foods that are high in a substance called oxalate. These include: ?Spinach (cooked), rhubarb, beets, sweet potatoes, and Tristanian chard. ?Peanuts. ?Potato chips, tuvaluan fries, and baked potatoes with skin on. ?Nuts and nut products. ?Chocolate. If you regularly take a diuretic medicine, make sure to eat at least 1 or 2 servings of fruits or vegetables that are high in potassium each day. These include: ?Avocado. ?Banana. ?[place], prune, carrot, or tomato juice. ?Baked potato. ?Cabbage. ?Beans and split peas. Lifestyle Drink enough fluid to keep your urine pale yellow. This is the most important thing you can do. Spread your fluid intake throughout the day. If you drink alcohol: ?Limit how much you have to: ?0 1 drink a day for women who are not . ?0 2 drinks a day for men. ?Know how much alcohol is in your drink. In the [place] one drink equals one 12 oz bottle of beer (355 mL), one 5 oz glass of wine (148 mL), or one 1 oz glass of hard liquor (44 mL). Lose weight if told by your health care provider. Work with your dietitian to find an eating plan and weight loss strategies that work best for you. General information Talk to your health care provider and dietitian about taking daily supplements. Depending on your health and the cause of your kidney stones, you may be told: ?Do not take high-dose supplements of vitamin C (1,000 mg a day or more). ?To take a calcium supplement. ?To take a daily probiotic supplement. ?To take other supplements such as magnesium, fish oil, or vitamin B6. Take pdwc-kwe-lbwnspl and prescription medicines only as told by your health care provider. These include supplements. What foods should I limit? Limit your intake of the following foods, or eat them as told by your dietitian. Vegetables Spinach. Rhubarb. Beets. Canned vegetables. Pickles. Olives. Baked potatoes with skin. Grains Wheat bran. Baked goods. Salted crackers. Cereals high in sugar. Meats and other proteins Nuts. Nut butters. Large portions of meat, poultry, or fish. Salted, precooked, or cured meats, such as sausages, meat loaves, and hot dogs. Dairy Cheeses. Beverages Regular soft drinks. Regular vegetable juice. Seasonings and condiments Seasoning blends with salt. Salad dressings. Soy sauce. Ketchup. Barbecue sauce. Other foods Canned soups. Canned pasta sauce. Casseroles. Pizza. Lasagna. Frozen meals. Potato chips. Citizen Of [place] fries. The items listed above may not be a complete list of foods and beverages you should limit. Contact a dietitian for more information. What foods should I avoid? Talk to your dietitian about specific foods you should avoid based on the type of kidney stones youhave and your overall health. Fruits Grapefruit. The item listed above may not be a complete list of foods and beverages you should avoid. Contact adietitian for more information. Summary Kidney stones are deposits of minerals and salts that form inside your kidneys. You can lower your risk of kidney stones by making changes to your diet. The most important thing you can do is drink enough fluid. Drink enough fluid to keep your urine pale yellow. Talk to your dietitian about how much calcium you should have each day, and eat less salt and animal protein as told by your dietitian. This information is not intended to replace advice given to you by your health care provider. Make sure you discuss any questions you have with your health care provider. Document Revised: 07/16/2022 Document Reviewed: 07/16/2022 [employer] Patient Education 2022 [place]. Follow Up Care 04/13/2023 08:12:37 With:Eddi ANGELO, Frida Hunt, URL, [facility] Address: When: Unknown Comments:PRN vs Annual f/u for Kidney Stones [facility] 12-13-2023 NoteChief Complaint Referral *Gross Hematuria HPI Staff Evaluation requested by Dr Leighton Devine due to gross hematuria. Pt is a [...] when she was taking the Cipro for theUTI - not culture proven, no urinary sx [...] office if she encounters any issues prior. Ptacknowledges understanding. -Will send urine for cytology today -Will schedule Cystoscopy, bilateral Retrograde pyelograms, possible ureteroscopy with biopsy, Lt Ureteroscopy with Laser Litho/stone extraction, stent placement on string. The procedural risks, benefits, details, and treatment alternatives have been discussed with the patient. These include bleeding, infection, inability to break or retrieve all of the stone, injury to the ureter (the tube whichconnects the kidney to the bladder), injury to [...] urine was darker an (more content not included)...[facility] HospitalComment on above:Result Comment: Electronically Signed By: Frida Montague MD\.br\Date and Time Signed: 03/31/23 09:13EST\.br\Electronically Co-Signed By: Yuli Soto\.br\Date and Time Co-Signed: 03/31/23 08:56 [id number] Evaluation note* Encounter Date Diagnosis Assessment Notes Treatment Notes Treatment Clinical Notes Feb, Acute pain of right shoulder (ICD-10 - M25.511) Feb, Bursitis of right shoulder (ICD-10 - M75.51) Extensive discussion about current condition and treatment options available. This appears to be pain secondary to subacromial bursitis / rotator cuff tendonitis. We discussed and demonstrated gentle motion exercise and rotator cuff strengthening exercise. Discussed the use of non-steroidal anti-inflammatory medication. Patient advised to modify activities as needed. Maintain motion with stretching exercises. Discussed that it's possible the pain could be related to the biceps tendon. She will work on home exercises and contact office if no improvement as we may need to consider cortisone injection and/or MRI [facility] Other 10-16-2023 Evaluation note* Encounter Date Diagnosis Assessment Notes Treatment Notes Treatment Clinical Notes Jan, Gross hematuria (ICD-10 - R31.0) Jan, Left paraspinal back pain (ICD-10 - M54.89) [facility] Other 10-11-2023 Evaluation note* Encounter Date Diagnosis Assessment Notes Treatment Notes Treatment Clinical Notes Jan, Gross hematuria (ICD-10 - R31.0) Push fluids Call or go to ER for increased pain, fever or severel bleeding. Jan, Left paraspinal back pain (ICD-10 - M54.89) Heat/ice and Tylenol. Avoid NSAIDs. Call office or ER for increased pain [facility] Other 10-11-2023 Evaluation note* Encounter Date Diagnosis Assessment Notes Treatment Notes Treatment Clinical Notes Jan, Wellness examination (ICD-10 - Z00.00) [facility] Other 10-06-2023 Evaluation note* Encounter Date Diagnosis Assessment Notes Treatment Notes Treatment Clinical Notes Jan, Dysuria (ICD-10 - R30.0) [facility] Other 05-01-2023 Evaluation note* Encounter Date Diagnosis Assessment Notes Treatment Notes Treatment Clinical Notes August, Dysuria (ICD-10 - R30.0) [facility] Other 03-23-2023 Evaluation note* Encounter Date Diagnosis [...] right knee, subsequent encounter (ICD-10 - S83.281D) [facility] Other 02-13-2023 Evaluation note* Encounter Date Diagnosis Assessment Notes Treatment Notes Treatment Clinical Notes May, Dysuria (ICD-10 - R30.0) [facility] Other 02-09-2023 Evaluation note* Encounter Date Diagnosis [...] pain of right knee (ICD-10 - M25.561) [facility] Other 01-18-2023 Evaluation note* Encounter Date Diagnosis [...] instructions for pain. Follow up with Dr. White after MRI. Patient denied any other concerns or questions. [facility] Other chief complaint+Reason for visit Narrative* Chief Complaint Referral for Colonos copy poison moriah near eye Reason for Visit Family history of co wilbur cancer Screening for colon cancer Wellness examination [facility] Work Phone: chief complaint+Reason for visit Narrative* Chief Complaint Referral for Colonos copy poison [facility] hx colon cancer family hx colon cancer Reason for Visit Family history of co wilbur cancer Screening for colon cancer Wellness examination Allergic contact dermatitis Periorbital edema of left eye [facility] Work Phone: Chiut complaint+Reason for visit Narrative* Chief Complaint Referral for Colonos copy poison [facility] family hx colon cancer family hx colon cancer skin tag Reason for Visit Family history of co [place] cancer Screening for colon cancer Wellness examination Allergic contact dermatitis Periorbital edema of left eye [facility] Work Phone: chief complaint+Reason for visit Narrative* Chief Complaint Referral for Colonos copy poison [facility] family hx colon cancer family hx colon cancer skin tag [phone] Sinus pressure, headaches, coughing Reason for Visit Family history of co wilbur cancer Screening for colon cancer Wellness examination Allergic contact dermatitis Periorbital edema of left eye Elevated BP without diagnosis of hypertension Inflamed skin tag Obesity Allergic rhinitis Acute bronchitis due to other specified organisms [facility] Work Phone: Evaluation + Plan note No data available for this section [facility] evaluation noteNo assessment information available [facility] Work Phone: evaluation noteNo InformationNort [employer] Other evaluation note* Diagnosis Onset Date Resolution Status Family history of colon cancer acute Screening for colon cancer n oneactive Wellness examination noneact alireza [facility] Work Phone: Evaluation note* Diagnosis Onset Date Resolution Status Family history of colon cancer acute Screening for colon cancer n oneactive Wellness examination noneact alireza Allergic contact dermatitis noneactive Periorbital edema of left eye noneactive [facility] Work Phone: Evaluation note* Diagnosis Onset Date Resolution Status Family history of colon cancer acute Screening for colon cancer n oneactive Wellness examination noneact alireza Allergic contact dermatitis noneactive Periorbital edema of left eye noneactive Elevated BP without diagnosis of hypertension acute Inflamed skin tag acute Obesity acute Allergic rhinitis acute Acute bronchitis due to other specified organisms noneactive [facility] Work Phone: Evaluation note* Diagnosis Onset Date Resolution Status Allergic rhinitis acute Acute bronchitis due to other specified organisms noneactive [facility] Work Phone: Evaluation note* Diagnosis Encounter for gynecological examination with abnormal finding- 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 Vaginal atrophy Postmenopausal atrophic vaginitis Encounter for screening mammogram for malignant neoplasm of breast Female cystocele Special screening for malignant neoplasms, vagina Dysuria Flank pain Abdominal pain, unspecified site documented in this encounter [facility]* Diagnosis Acute medial meniscus tear of left knee, initial encounter- Primary documented in this encounter [facility] Work Phone: Evaluation note* Diagnosis Acute medial meniscus tear of left knee, initial encounter documented in this encounter [facility] Work Phone: Evaluation note* Diagnosis Complex tear of lateral meniscus of left knee, unspecified whether old or current tear, initial encounter- Primary Arthritis of left knee documented in this encounter [facility] Work Phone: Evaluation note* Diagnosis Left knee pain, unspecified chronicity documented in this encounter [facility] Work Phone: Evaluation note* Diagnosis Left knee pain, unspecified chronicity documented in this encounter [facility] Work Phone: History and physical note Author Ernesto Fletcher [facility] September 03, 2023 8:04am Note Date/Time September 03, 2023 8:04a m [facility] [address] [place] [address] Gastroenterology H&P Signed Patient: Humberto Velasquez MR#: [id number] : 1965 Acct:[id number] Age/Sex: 57 / F Adm Date: 4 Loc: Room: Type: [facility] Attending Dr: Ernesto Fletcher MD Copies to: DO Ernesto Howard MD~ Date of Service: 09/03/2023 HISTORY & PHYSICAL: Patient's history with special attention to the cardiovascular, pulmonary systems and the current problem was reviewed with the patient immediately prior to the procedure. Present medications and doses reviewed in the EMR. Allergies and pertinent laboratory tests were also reviewedat this time in the EMR. The physical examination, as below, was then performed. Indication, assessment and HPI: 57-year-old female presents for screening colonoscopy Family history of GI malignancy? Yes, father diagnosed with colorectal cancer in his late 70s PHYSICAL EXAMINATION Mouth and Pharynx : Moist mucus membranes, normal dentition Cardiac: Regular rate, regular rhythm Pulmonary: Clear to auscultation bilaterally, no wheezing Neurological: Alert and oriented x3, no focal deficits noted Abdomen: Abdomen soft, non-tender REVIEW OF SYSTEMS Constitutional: Denies malaise, fevers Cardiovascular: Denies chest pain, palpitations Respiratory: Denies shortness of breath, wheezing Gastrointestinal: Per HPI Genitourinary: Denies dysuria, polyuria Musculoskeletal: Denies joint swelling, joint stiffness Neurological: Denies numbness, tingling Integumentary: Denies rashes, skin lesions Endocrine: Denies fatigue, weight loss Written informed consent obtained from the patient. Risks (including but not limited to perforation, infection, bloating, bleeding, need for emergent surgeryand loss of life), benefits and alternatives explained and questions answered. The patient verbalized understanding. Based on history patient is an appropriate candidate for the procedure. Ernesto Fletcher MD Documented By: Ernesto Fletcher MD 09/03/23 0803 Signed By: <Electronically signed by Ernesto Fletcher MD> 09/03/23 0804 [facility] Work Phone: History general Narrative - Reported* Type Description Date Surgical History Tubes tied Surgical History Carpal tunnel Surgical History Knee Surgery X2 Surgical History hysterectomy [facility] [employer] Other History general Narrative - Reported* Type Description Date Surgical History Tubes tied Surgical History Carpal tunnel Surgical History Knee Surgery X2 Surgical History hysterectomy Hospitalization History see surgical history [facility] [employer] Other Progress note No data available for this section [facility] reason for referral (narrative)* Reason Referral for gross h ematuria Diagnosis 1 Gross hematuria (R31 .0) Referral Organization [facility] jm Referring Provider First Name Leighton Referring Provider Last Name Bryan Referring Provider Specialty Internal Me destin Referred Organization [facility] Referred Provider FRIDA MONTAGUE Referred Address [address], [place],[address] Referred Provider Specialty Urology Referral Priority Routine [...] Notes Include CT scan and recent labs [employer] Other Reason for visit Narrative* Imaging (Routine) - Authorized Specialty Diagnoses / Procedures Referred By Kelsey gong Referred To Contact Radiology Diagnoses Acute medial meniscus tear of left knee, initial encounter Procedures MR knee left wo IV contrast Chandrakant Sanchez MD [address] [facility], [address] [place] [id number] Phone: tel: fax: Referral ID Status Reason Start Date Expiration Date Visits Requested Visits Authorized [id number] Authorized Perform Procedure 02/18/2024 02/17/2025 1 1 [facility] Work Phone: Summary Purpose Family History Relationship Condition Age at Onset Recorded Date/T elsie father Diabetes mellitus Unknown Hypertension Unknown Not Specified Hypertension Unknown Relationship Condition Age at Onset Recorded Date/T elsie father Diabetes mellitus Unknown Hypertension Unknown Malignant neoplasm of colon Unknown Not Specified Hypertension Unknown Relationship Condition Age at Onset Recorded Date/T elsie father Diabetes mellitus Unknown Hypertension Unknown Malignant neoplasm of colon Unknown mother Hypertension Unknown Advance Directives Advance Directive Response Recorded Date/ Time Advance Directives No February 22, 2017 2:04pm Advance Directive Response Recorded Date/ Time Advance Directives No February 22, 2017 3:04pm Chief Complaint and Reason for Visit Chief Complaint M25.561 M23.91 Chief Complaint [phone] Sinus p ressure, headaches, coughing cat scratch not getting better Reason for Visit Allergic rhinitis Acute bronchitis due to other specified organisms Chief Complaint Admit Date Cough April 05, 2024 11:21am sharp pain in left rib cage March 10:03am Cough May 05, 2024 8 :38am Reason for Visit Admit Date Acute bronchitis due to other specified organisms April 05, 2024 11:21am Asthma April 05, 2024 11:21am Acute bronchitis due to other specified organisms April 17, 2024 10:03am Acute chest wall pain April 17 10:03am Reason for Referral Specialty Diagnoses / Procedures Referred By Contac t Referred To Contact Radiology Diagnoses Left knee pain, unspecified chronicity Procedures XR knee left 4+ views Chandrakant Sanchez MD [address] [facility], [address] [place] [id number] Referral ID Status Reason Start Date Expiration Date Visits Requested Visits Authorized [id number] Authorized Perform Procedure 12/24/2023 12/23/2024 1 1 Additional Source Comments INFORMATION SOURCE (unrecogn ized section and content) DATE CREATED AUTHOR 10/06/2017 [facility] DATE CREATED AUTHOR AUTHOR'S ORGANIZ ATION 01/14/2022 [facility] dical Specialist DATE CREATED AUTHOR AUTHOR'S ORGANIZ ATION 07/23/2022 [facility] DATE CREATED AUTHOR AUTHOR'S ORGANIZ ATION 04/22/2023 [facility] DATE CREATED AUTHOR AUTHOR'S ORGANIZ ATION 09/13/2023 [facility] DATE CREATED AUTHOR AUTHOR'S ORGANIZ ATION 02/13/2024 [facility] dical Specialists EPIC DATE CREATED AUTHOR AUTHOR'S ORGANIZ ATION 02/20/2024 [facility] DATE CREATED AUTHOR AUTHOR'S ORGANIZ ATION 04/01/[address] [facility] DATE CREATED AUTHOR AUTHOR'S ORGANIZ ATION 04/12/2024 [facility] Care Teams (unrecognized sec tion and content) Team Status: Inactive Member Role Status Dates Leighton Devine DO Primary Care Provider Active TOD Adamson Attending Provider Active Team Status: Active Member Role Status Dates Leighton Devine DO Primary Care Provider Active Team Status: Inactive Member Role Status Dates Leighton Devine DO Primary Care Provider Active Gurpreet White MD Attending Provider Active Team Status: Inactive Member Role Status Dates Leighton Devine DO Primary Care Provide r, Attending Provider Active Start: June 29, 2023 End: June 29, 2023 Team Status: Inactive Member Role Status Dates Leighton Devine DO Primary Care Provide r, Attending Provider Active Start: July 06, 2023 End: July 06, 2023 Technical Expert Relationship Specialty Start Date End Date Leighton Devine DO [address] [place] [id number] PCP - General Internal Medicine 08/23/23 Team Status: Inactive Member Role Status Dates Leighton Devine DO Primary Care Provider Active Start: September 03, 2023 End: September 03, 2023 Ernesto Fletcher MD Attending Provider Active S tart: September 03, 2023 End: September 03, 2023 Team Status: Active Member Role Status Dates Leighton Devine DO Primary Care Provider Active Start: September 03, 2023 Ernesto Fletcher MD Attending Provider, Other Provide r Active Start: September 03, 2023 Team Status: Inactive Member Role Status Dates Leighton Devine DO Primary Care Provide r, Attending Provider Active Start: September 15, 2023 End: September 15, 2023 Team Status: Inactive Member Role Status Dates Leighton Devine DO Primary Care Provide r, Attending Provider Active Start: September 24, 2023 End: September 24, 2023 Team Status: Inactive Member Role Status Dates Leighton Devine DO Primary Care Provide r, Attending Provider Active Start: December 15, 2023 End: December 15, 2023 Technical Expert Relationship Specialty Start Date End Date Leighton Devine MD [address] [place] [phone] PCP - General Internal Medicine 01/07/23 Nelida Gillis DO [address] [address] [place] [address] Referring Physician Obstetrics and Gynecology 01/07/23 Technical Expert Relationship Specialty Start Date End Date Leighton Devine MD [address] [place] [phone] PCP - General Internal Medicine 01/07/23 Nelida Gillis, DO [address] [place] [address] Referring Physician Obstetrics and Gynecology 01/07/23 Technical Expert Relationship Specialty Start Date End Date Leighton Devine DO [address] [place] [address] PCP - General Internal Medicine 12/24/23 Technical Expert Relationship Specialty Start Date End Date Leighton Devine DO [address] [place] [address] PCP - General Internal Medicine 12/24/23 Technical Expert Relationship Specialty Start Date End Date Leighton Devine DO [address] [place] [address] PCP - General Internal Medicine 12/24/23 Technical Expert Relationship Specialty Start Date End Date Leighton Devine DO [address] [place] [address] PCP - General Internal Medicine 12/24/23 Team Status: Inactive Member Role Status Dates Leighton Devine DO Primary Care Provide r, Attending Provider Active Start: April 05, 2024 End: April 05, 2024 Team Status: Inactive Member Role Status Dates Leighton Devine DO Primary Care Provide r, Attending Provider Active Start: April 17, 2024 End: April 17, 2024 Team Status: Inactive Member Role Status Dates Leighton Devine DO Primary Care Provide r, Attending Provider Active Start: May 05, 2024 End: May 05, 2024 Goals (unrecognized section and content) Goals may be documented in a n alternate sectionNo InformationNo InformationNo InformationNo InformationNo InformationNo InformationGoals may be documented in an alternate sectionNo InformationNo InformationNo InformationNo InformationNo InformationNo InformationNo InformationNo InformationNo InformationNo InformationNo InformationGoals may be documented in an alternate sectionNo Information No data available for this sectionGoals may be documented in an alternate sectionGoals may be documented in an alternate sectionGoals may be documented in an alternate section REASON FOR VISIT (unrecogniz ed section and content) Reason Comments Gynecologic Exam Yearly, Pt denies Br east pain, 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 LMP: Hysterectomy Last Pap: 01/07/2023 Pt complains of lower back pain, Painful burning urination for a couple of weeks. Reason Comments Follow-up Follow up left knee moderate tricompartmental OA , possible internal derangement. S/P CSI 12/27/2023 Reason Comments Results Left knee MRI Reason Comments Pain Xrays Today Specialty Diagnoses / Procedures Referred By Kelsey t Referred To Contact Radiology Diagnoses Left knee pain, unspecified chronicity Procedures XR knee left 4+ views Chandrakant Sanchez MD [address] [facility], [address] [place] [id number] Referral ID Status Reason Start Date Expiration Date Visits Requested Visits Authorized [id number] Authorized Perform Procedure 12/24/2023 12/23/2024 1 1 FOR RECORDS PERTAINING TO PATIENTS WHO ARE [...] BE BASED ON THE PRIMARY CLINICAL RECORDS. [employer] [facility]. provides no warranty or guarantee of the accuracy or completeness of information in this document.
[2024-05-05 10:16] LABS: D Dimer 0.33 mg/L FEU (<=0.59)
[2024-05-06 05:07] LABS: Varicella-Zoster V Ab, IgG Reactive (Non Reactive)
== END 2024-05-05 09:48 | disposition home or self-care (01) ==
LOC: LAB 09:49
PROVIDERS: PCP Internal Medicine; Visit Provider Internal Medicine
DX: R07.9 Chest pain, unspecified (principal); B02.8 Zoster with other complications
CPT/HCPCS: 36415; 85378; 86787

== ENCOUNTER 2024-08-11 21:41 | Emergency (ER) | payer BC, SELFPAY ==
[2024-08-11 21:43] VITALS: BP 149/80; PULSE 66; TEMP 36.9; O2SAT 99; BMI 32.6
[2024-08-11] MEDS: KETOROLAC TROMETHAMINE 30 MG/ML VIAL IVP (22:40)
--- NOTE | 2024-08-11 23:14 | ED_ITS ---
HPI HPI - Extremity Injury (Lower) General Chief Complaint: Extremity Injury, Lower Stated Complaint: Extremity Injury, Lower Time Seen by Provider: 08/11/24 22:00 Source: patient Mode of arrival: ambulance Limitations: no limitations History of Present Illness HPI Narrative: cc - fall, left knee, ankle and lower leg injury The patient had meniscus repair in May with an orthopedist out of [place]. She said that she had been limited with some of her weightbearing after initially not allowing the knee to heal, because she was taking care of her ill father, which resulted in some level of what she describes as instability with the knee occasionally giving out on her. Tonight she was stepping, she lost her footing, tripped on the cat dish nearby and as a result twisted the left knee, also injuring the left ankle and left lower leg. She fell onto her left hip. At this time she complains of left knee, left lower leg and left ankle pain. Related Data Previous Rx's ?Medication ?Instructions ?Recorded nitrofurantoin 100 mg PO BID Start morning of 04/07/23 monohydrate/macrocrystals 100 mg stent removal in 4 days #2 caps capsule (Macrobid) oxybutynin chloride 5 mg tablet 5 mg PO Q8H PRN bladder spasms #30 04/07/23 tabs tamsulosin 0.4 mg capsule 0.4 mg PO DAILY stent pain, 04/07/23 difficulty voiding #30 caps ketorolac 10 mg tablet 10 mg PO Q8H PRN pain #14 tabs 04/09/23 nitrofurantoin 100 mg PO BID 5 days #10 caps 04/09/23 monohydrate/macrocrystals 100 mg capsule (Macrobid) oxycodone-acetaminophen 5 mg-325 1 tab PO Q6H PRN pain 5 days #20 04/11/23 mg tablet (Percocet) tabs Allergies Allergy/AdvReac Type Severity Reaction Status Date / Time cefuroxime (From Ceftin) Allergy Hives Verified 04/11/23 12:30 ciprofloxacin (From Cipro) Allergy hematuria Verified 04/11/23 12:30 clarithromycin (From Biaxin) Allergy Hives Verified 04/11/23 12:30 indomethacin (From Indocin) Allergy Hives Verified 04/11/23 12:30 Iodinated Contrast Media Allergy Hives Verified 04/11/23 12:30 shellfish derived Allergy Hives Verified 04/11/23 12:30 Sulfa (Sulfonamide Allergy Hives Verified 04/11/23 12:30 Antibiotics) Opioid HPI Opioid Management Most Recent Pain and Opioid Data: Last Pain Scale 8 08/11/24 22:44 08/11/24 Last ED Pain Assessment 08/11/24 22:44 PFSH PFSH Medical History (Updated 08/11/24 @ 23:19 by Robin Berry) Uterine cancer ?C55 - Malignant neoplasm of uterus, part unspecified (ICD-10) COVID-19 ?U07.1 - COVID-19 (ICD-10) Pneumonia ?J18.9 - Pneumonia, unspecified organism (ICD-10) Heart murmur ?R01.1 - Cardiac murmur, unspecified (ICD-10) Kidney stones ?N20.0 - Calculus of kidney (ICD-10) Delayed recovery from anesthesia Gross hematuria ?R31.0 - Gross hematuria (ICD-10) Postoperative nausea and vomiting ?R11.2 - Nausea with vomiting, unspecified (ICD-10) ?Z98.890 - Other specified postprocedural states (ICD-10) Surgical History (Updated 04/01/23 @ 10:35 by Zulema Man NP) History of colonoscopy ?Z98.890 - Other specified postprocedural states (ICD-10) History of tonsillectomy ?Z90.89 - Acquired absence of other organs (ICD-10) History of arthroscopy of knee ?Z98.890 - Other specified postprocedural states (ICD-10) History of arthroscopy of knee ?Z98.890 - Other specified postprocedural states (ICD-10) History of arthroscopy of knee ?Z98.890 - Other specified postprocedural states (ICD-10) History of tubal ligation ?Z98.51 - Tubal ligation status (ICD-10) History of hysterectomy ?Z90.710 - Acquired absence of both cervix and uterus (ICD-10) History of carpal tunnel release ?Z98.890 - Other specified postprocedural states (ICD-10) H/O shoulder surgery ?Z98.890 - Other specified postprocedural states (ICD-10) Family History (Updated 04/01/23 @ 10:35 by Zulema Man NP) Other Family history of colon cancer Family history of diabetes mellitus Family history of hypertension Family history of renal failure Social History (Updated 04/01/23 @ 10:31 by Zulema Man NP) Within the past year, how often did you have a drink containing alcohol: never Score interpretation: A score less than 3 is consistent with normal alcohol consumption. 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 afebrile General: The patient appears well and in no apparent distress. Patient is resting comfortably on cart. GCS = 15. Skin: Warm, dry, no pallor noted. Head: Normocephalic, atraumatic Eyes: PERRLA, EOMI ENT: No oral or facial injury Cardiovascular: Regular Rate and Rhythm Respiratory: Patient is in no distress, no accessory muscle use, lungs are clear to auscultation, no wheezing, rales or rhonchi Musculoskeletal: Tenderness to the suprapatellar aspect of the left knee as well as tenderness throughout the anterior and lateral portion of the left lower leg. The left ankle is also tender to palpation. No evidence of deformity to the R/L knee. There is mild amount of swelling. There is no ecchymosis. No erythema or warmth noted. DP and PT pulses are intact 2+. Normal sensation, normal capillary refill less than 2 seconds. There is no cyanosis or mottling noted. The patient was able to flex and extend although with pain. Patient was able to extend leg off the cart with difficulty due to pain. No tenderness noted to the 5th MT, midfoot, or proximal fibular area. There is tenderness to the lateral aspect of the left ankle, as noted above. There is no pain with calcaneal squeeze, achilles tendon is intact and no defect is palpated. The patient has no pelvic instability. The patient has no shortening or rotation noted to the bilateral lower extremities. Neurological: alert and orient x4, normal sensory and motor observed. Psychiatric: Cooperative Constitutional Vital Signs, click to edit/add: Last Vital Signs Temp 98.5 F 08/11/24 21:43 Pulse 66 08/11/24 21:43 Resp 14 08/11/24 21:43 BP 149/80 H 08/11/24 21:43 Pulse Ox 99 08/11/24 21:43 O2 Del Method Room Air 08/11/24 21:43 Course Vital Signs Vital signs: Vital Signs Temperature 98.5 F 08/11/24 21:43 Pulse Rate 66 08/11/24 21:43 Respiratory Rate 14 08/11/24 21:43 Blood Pressure 149/80 H 08/11/24 21:43 Pulse Oximetry 99 08/11/24 21:43 Oxygen Delivery Method Room Air 08/11/24 21:43 Temperature 98.5 F 08/11/24 21:43 Pulse Rate 66 08/11/24 21:43 Respiratory Rate 14 08/11/24 21:43 Blood Pressure 149/80 H 08/11/24 21:43 Pulse Oximetry 99 08/11/24 21:43 Oxygen Delivery Method Room Air 08/11/24 21:43 MDM - Extremity Injury (Lower) MDM Narrative Medical decision making narrative: X-rays were obtained of the left ankle, left tib-fib and left knee. I do not identify any acute fracture. The patient was informed of results and given reassurance. I asked the emergency department nurse to apply an Deangelo wrap to the left ankle and also applied a knee immobilizer to the left lower extremity. The patient has crutches at home. We will assist her into the car and then she will be nonweightbearing at home until she talks to her orthopedist on Wednesday. Tylenol and ibuprofen for pain. Discharge Plan Discharge Chief Complaint: Extremity Injury, Lower Clinical Impression: Left knee sprain, Ankle sprain and strain, Muscle strain of left lower leg Patient Disposition: Home, Self-Care Time of Disposition Decision: 23:19 Prescriptions / Home Meds: No Action ketorolac 10 mg tablet 10 mg PO Q8H PRN (Reason: pain) Qty: 14 0RF nitrofurantoin monohyd/m-cryst [Macrobid] 100 mg capsule 100 mg PO BID 5 Days Qty: 10 0RF Rx Instructions: must administer with a meal/food tamsulosin 0.4 mg capsule 0.4 mg PO DAILY Qty: 30 0RF nitrofurantoin monohyd/m-cryst [Macrobid] 100 mg capsule 100 mg PO BID Qty: 2 0RF Rx Instructions: must administer with a meal/food oxybutynin chloride 5 mg tablet 5 mg PO Q8H PRN (Reason: bladder spasms) Qty: 30 0RF oxycodone-acetaminophen [Percocet] 5-325 mg tablet 1 tab PO Q6H PRN (Reason: pain) 5 Days Qty: 20 0RF Print Language: Estonian Instructions: Ankle Sprain (ED), Knee Sprain (ED), Knee Immobilizer (ED) Referrals: Leighton Adams DO [Primary Care Provider] - 1 week
== END 2024-08-11 23:30 | disposition home or self-care (01) ==
PROVIDERS: Emergency Provider Emergency Medicine; PCP Internal Medicine
DX: S83.92XA Sprain of unspecified site of left knee, initial encounter (principal); S93.402A Sprain of unspecified ligament of left ankle, initial encounter; S96.912A Strain of unspecified muscle and tendon at ankle and foot level, left foot, initial encounter; S86.912A Strain of unspecified muscle(s) and tendon(s) at lower leg level, left leg, initial encounter; X50.1XXA Overexertion from prolonged static or awkward postures, initial encounter; W01.0XXA Fall on same level from slipping, tripping and stumbling without subsequent striking against object, initial encounter; Z98.51 Tubal ligation status; Z90.710 Acquired absence of both cervix and uterus
CPT/HCPCS: 73564; 73590; 73610; 96374; 99284; J1885